=== PATIENT | male | born 1945 | race Caucasian/White ===

== ENCOUNTER → 2016-06-30 | Outpatient (REF) | payer MEDICARE, OTHER ==
[~2016-06-30] MED LIST: /TIOT18INH OR; ADAL30TA OR; ADV250INH INH; ALBU0.084 IN; ALBU17IN2; ALBU83IN INH; AMLO-65 PO; ASPI1TAB PO; ATOR1TAB19 PO; BABY81CH OR; BACITAB3 PO; BACL10TA2 OR; COMBVENT INH; DICL50TA2 PO; DICL50TAB PO; DICLOFENAC; DICY1CAP8 PO; DOXY150C PO; FISH1000 OR; FLOM5CAP PO; FLUC10TA PO; FURO20TA2 PO; HYDR-3565 PO; KLOR1TAB77 PO; LEVA500T PO; LIPI10TA OR; LISI20TA5 OR; MAGN400C2 PO; MAGN400T5 PO; MUCI30TA2 PO; MUCI600T34 PO; NASA0.057; NEUR300C; NICO14DI3 TD; NICODIS2 TD; NIFE30TA4; OMEG10006 PO; OMEP20CA3 PO; OXYGEN INH; POTA20TA PO; PRED10TA PO; PRED20TA PO; PRED50TA PO; PRIL20CA OR; PRO-AIR HFA INH; PROAAER INH; SPIR1CAP INH; SYMB80AE INH; SYMB80INH INH; TAMS0.4C2 PO; TRAZ50TA4 PO; TRAZAMINE PO; TYLE167L PO; VENTAER; VENTAER INH; VICO5TAB; VICO5TAB OR; VIT D 2000 OR; VITA-112 PO; VOLT75TA OR; ZITHTAB PO; trazadone PO
[2016-06-30 12:42] LABS: ANION GAP 9 MEQ/L (8-16); BLOOD UREA NITROGEN 17 MG/DL (7-18); CARBON DIOXIDE LEVEL 27 MEQ/L (21-32); CHLORIDE LEVEL 107 MEQ/L (98-107); CREATININE FOR GFR 0.96 MG/DL (0.70-1.30); GLOMERULAR FILTRATION RATE > 60.0 (>49); GLUCOSE, FASTING 84 MG/DL (80-110); POTASSIUM SERUM 4.1 MEQ/L (3.5-5.1); SODIUM LEVEL 143 MEQ/L (136-145)
== END ==
LOC: M SFHCPLAZ 08:34
PROVIDERS: ATTEND Family Medicine
DX: M79.89 Other specified soft tissue disorders (principal)

== ENCOUNTER 2016-08-11 03:56 | Inpatient (IN) | payer MEDICAID, MEDICARE, OTHER ==
[~2016-08-11] VITALS: Ht 193 cm; Wt 96.6 kg
[~2016-08-11 03:56] MED LIST changes: -HYDR-3565 PO; +HYDR-3719 PO
[2016-08-11] MEDS ORDERED: LEVALBUTEROL 1.25 MG/0.5 ML CONCENTRATE NEB As Ordered ONE (04:10)
[2016-08-11 04:20] LABS: BASO % 0.3 % (0.0-1.0); EOS # 0.2 K/mm3 (0.0-0.50); EOS % 1.5 % (0.0-3.0); LARGE UNSTAINED CELL # 0.3 K/mm3 (0.0-0.4); LARGE UNSTAINED CELL % 1.6 % (0.0-4.0); LYMPH % 23.8 % (24.0-44.0); MEAN CORPUSCULAR HEMOGLOBIN 30.2 pg (27.0-33.0); MEAN CORPUSCULAR HGB CONC 32.2 g/dl (32.0-36.5); MEAN CORPUSCULAR VOLUME 93.6 fl (80.0-96.0); MONO # 0.8 K/mm3 (0.0-0.8); MONO % 4.8 % (0.0-5.0); NEUTROPHILS # 10.8 K/mm3 (1.8-7.7); PLATELET COUNT, AUTOMATED 357 k/mm3 (150-450); RED CELL DISTRIBUTION WIDTH 15.2 % (11.5-14.5); WHITE BLOOD COUNT 15.8 K/mm3 (4.0-10.0)
[2016-08-11] MEDS ORDERED: dexameTHASONE 20 MG/5 ML VIAL (J1100) As Ordered ONE (04:22)
[2016-08-11] MEDS ORDERED: MAGNESIUM SULFATE 1 GM/100 ML D5W BAG (10MG/ML) (J3475) As Ordered ONE (04:23)
[2016-08-11 04:30] LABS: ABG DEVICE NASAL CANN; ABG HCO3 21.8 MEQ/L (22.0-26.0); ABG PARTIAL PRESSURE CO2 31.8 mmHg (35.0-45.0); ABG STANDARD HCO3 23.3 MEQ/L (22.0-26.0); ABG TOTAL CO2 22.8 MEQ/L (23.0-31.0); ABG pH (ARTERIAL) 7.454 UNITS (7.350-7.450)
[2016-08-11] MEDS ORDERED: ACETAMINOPHEN 325 MG TAB As Ordered ONE (04:36)
[2016-08-11] MEDS ORDERED: CEFUROXIME INJ 750 MG VIAL (J0697) As Ordered ONE (04:36)
[2016-08-11] MEDS ORDERED: AZITHROMYCIN INJ 500MG VIAL (J0456) As Ordered ONE (04:37)
[2016-08-11 04:45] LABS: ANION GAP 8 MEQ/L (8-16); BLOOD UREA NITROGEN 23 MG/DL (7-18); CALCIUM LEVEL 8.4 MG/DL (8.8-10.2); CARBON DIOXIDE LEVEL 26 MEQ/L (21-32); CHLORIDE LEVEL 106 MEQ/L (98-107); CREATININE FOR GFR 1.22 MG/DL (0.70-1.30); GLOMERULAR FILTRATION RATE > 60.0 (>49); GLUCOSE, FASTING 139 MG/DL (80-110); POTASSIUM SERUM 4.2 MEQ/L (3.5-5.1); SODIUM LEVEL 140 MEQ/L (136-145)
[2016-08-11] MEDS ORDERED: TRAZ50TA4 PO (04:54)
[2016-08-11] MEDS ORDERED: ONDANSETRON 4MG/2ML VIAL (J2405) IV PRN (07:00)
[2016-08-11] MEDS ORDERED: ACETAMINOPHEN TAB 650MG DOSE (2X325MG) PO PRN (07:00)
[2016-08-11] MEDS ORDERED: IPRATROPIUM 0.5MG/ALBUTEROL 2.5MG INH SOL UD 3ML (DUONEB)(J7620) NEB PRN (07:00)
--- NOTE | 2016-08-11 07:21 | HPEPDOC ---
General Date of Admission 08/11/16 Chief Complaint The patient is a 71-year-old male admitted with a reason for visit of Resp Distress. History of Present Illness 71-year-old male with past medical history of hypertension, dyslipidemia, GERD, insomnia, and COPD on 2 L of home oxygen presented to the ER with a chief complaint of increasing shortness of breath. The patient states that he woke up in the middle the night short of breath and wheezing. He also notes a cough productive of yellowish-green sputum with subjective fevers during this time. At baseline, the patient states he can walk about 5 feet before feeling short of breath, however during this time the patient said that he felt short of breath even at rest. The patient denies any chest pain, palpitations, PND, orthopnea, or increase in lower extremity swelling. The patient denies any sick contacts, recent travel, or any other acute complaints at this time. In the ER, a chest x-ray was suggestive of a right-sided infiltrate. On physical exam the patient was noted to have diffuse expiratory wheezing on auscultation. The patient will be admitted to the hospital service for further evaluation and management of COPD exacerbation. Home Medications Scheduled Aspirin (Aspirin 81) 81 Mg Tab 81 MG PO DAILY (Reported) DINNERTIME Atorvastatin Calcium (Atorvastatin Calcium) 10 Mg Tab 10 MG PO DAILY (Reported ) DINNERTIME Budesonide/Formoterol (Symbicort 80-4.5 Mcg/Act) 60 Puff/Inhaler Aers 2 PUFF INH BID (Reported) Cholecalciferol (Vitamin D-1000) 1,000 Unit Tab 1,000 UNIT PO DAILY (Reported) Diclofenac Sodium (Diclofenac Sodium Dr) 50 Mg Tab 50 MG PO DAILY (Reported) Furosemide (Furosemide) 20 Mg Tab 20 MG PO DAILY (Reported) Magnesium Oxide (Magnesium Oxide 400) 400 Mg Tab 400 MG PO DAILY (Reported) [place] 3 Polyunsat Fatty Acids ([place]-3 Fish Oil 1000 mg) 1 Cap Cap 1,000 MG PO Q2D (Reported) Omeprazole (Omeprazole) 20 Mg Cap 20 MG PO DAILY (Reported) Potassium Chloride (Klor-Con M20) 20 Meq Tabcr 20 MEQ PO DAILY (Reported) DINNERTIME Tiotropium [place] Monohydrate (Spiriva Handihaler) 18 Mcg Cap 18 MCG INH DAILY (Reported) Trazodone HCl (Trazodone HCl) 50 Mg Tab 100 MG PO QHS (Reported) Scheduled PRN Acetaminophen/Hydrocodone (Hydrocodone/Acetaminophen 10-325 mg) 1 Tab Tab 1 TAB PO Q4H PRN PRN PAIN (Reported) Albuterol Sulfate (Albuterol Sulfate) 2.5 Mg/3 Ml Nebu 2.5 MG INH QID PRN PRN SHORTNESS OF BREATH (Reported) Trazodone HCl (Trazodone HCl) 50 Mg Tab 50 MG PO QHS PRN PRN SLEEP (Reported) IN ADDITION TO 100 MG IF STILL AWAKE Allergies Coded Allergies: Heparin (Unverified Allergy, Unknown, 08/11/16) Enoxaparin (Verified Adverse Reaction, Intermediate, hematochezia, 09/24/14 ) Patient developed hematochezia on 3 seperate occasions using lovenox for dvt prophylaxis. Past Medical History Medical History As noted in HPI. Surgical History Laminectomy, tonsillectomy, adenoidectomy, colonoscopy in 2011 Family History Significant Family History: Other (mother had stomach cancer, father colon cancer) Social History * Smoker: other (smoked 2 packs per day of tobacco since age 15, quit 2 years ago) Alcohol: denies Drugs: denies Review of Symptoms Other systems 10 point review of systems negative unless otherwise specified in HPI. Physical Examination General Exam: Positive: Alert, Cooperative, No Acute Distress ENT Exam: Positive: Atraumatic, Mucous membr. moist/pink Neck Exam: Negative: JVD Chest Exam: Positive: Other (diffuse bilateral expiratory wheeze noted.), Negative: Rales Heart Exam: Positive: Normal S1, Normal S2, Tachycardic Telemetry: Positive: Sinus Abdomen Exam: Positive: Soft, Negative: Tenderness Extremity Exam: Negative: Swelling, Tenderness Vital Signs As noted in EMR Laboratory Data Labs 24H Laboratory Tests 2 08/11/16 04:07: Anion Gap 8, Arterial Blood pH 7.454H, Arterial Blood Partial Pressure CO2 31.8L , Arterial Blood Partial Pressure O2 52.0L, Arterial Blood Total CO2 22.8L, Arterial Blood HCO3 21.8L, Arterial Blood Base Excess -1.0, Arterial Blood Oxygen Saturation 86.3L, White Blood Count 15.8H, Red Blood Count 5.13, Hemoglobin 15.5, Hematocrit 48.0, Mean Corpuscular Volume 93.6, Mean Corpuscular Hemoglobin 30.2, Mean Corpuscular Hemoglobin Concent 32.2, Red Cell Distribution Width 15.2H, Platelet Count 357, Neutrophils (%) (Auto) 68.0H, Lymphocytes (%) (Auto) 23.8L, Monocytes (%) (Auto) 4.8, Eosinophils (%) (Auto) 1.5, Basophils (%) (Auto) 0.3, Neutrophils # (Auto) 10.8H, Lymphocytes # (Auto) 4.0, Monocytes # (Auto) 0.8, Eosinophils # (Auto) 0.2, Basophils # (Auto) 0.0, Blood Gas Bicarbonate Standard 23.3, Blood Urea Nitrogen 23H, Creatinine 1.22, Sodium Level 140, Potassium Level 4.2, Chloride Level 106, Carbon Dioxide Level 26, Calcium Level 8.4L, Total Creatine Kinase 64, Creatine Kinase MB 2.0, Creatine Kinase MB Relative Index 3.12, Glomerular Filtration Rate > 60.0, Large Unclassified Cells # 0.3, Large Unclassified Cells % 1.6, Oxygen Delivery Device NASAL LAINEY, Troponin I < 0.02 08/11/16 04:10: Lactic Acid (Sepsis) 1.8 CBC/BMP Laboratory Tests 08/11/16 04:07 Calcium Level 8.4 L, Total Creatine Kinase 64, Red Blood Count 5.13, Mean Corpuscular Volume 93.6, Mean Corpuscular Hemoglobin 30.2, Mean Corpuscular Hemoglobin Concent 32.2, Red Cell Distribution Width 15.2 H, Neutrophils (%) ( Auto) 68.0 H, Lymphocytes (%) (Auto) 23.8 L, Monocytes (%) (Auto) 4.8, Eosinophils (%) (Auto) 1.5, Basophils (%) (Auto) 0.3, Neutrophils # (Auto) 10.8 H, Lymphocytes # (Auto) 4.0, Monocytes # (Auto) 0.8, Eosinophils # (Auto) 0.2, Basophils # (Auto) 0.0 Microbiology Microbiology 08/11/16 Blood Culture, Received Pending 08/11/16 Blood Culture, Received Pending Plan / VTE VTE Prophylaxis Ordered?: Yes Plan Plan COPD exacerbation secondary to community acquired pneumonia Admit to telemetry Chest x-ray notable for right-sided infiltrate Blood cultures, sputum cultures ordered We will cover the patient required pneumonia with Rocephin and azithromycin Solumedrol 40 mg every 12 hours Continue Symbicort, Spiriva, nebulizer therapy We'll continue to monitor the patient's respiratory status Dyslipidemia Continue statin GERD Continue PPI Insomnia Continue trazodone DVT prophylaxis-patient apparently allergic to Lovenox, heparin. We will place the patient on TEDs The patient will be admitted under the service of Dr. Hollins, who will begin to follow the patient on 08/11/2016 at 7am. SYLVIA VAZQUEZ MD Aug 11, 2016 07:20
[2016-08-11] MEDS ORDERED: SYMBICORT 80/4.5MCG INHALER 6GM INH SCH (08:00)
[2016-08-11] MEDS: TIOTROPIUM INHALER/CAPSULE (SPIRIVA) INH SCH (08:00)
[2016-08-11] MEDS: IPRATROPIUM 0.5MG/ALBUTEROL 2.5MG INH SOL UD 3ML (DUONEB)(J7620) NEB SCH ×5 (08:00→23:52)
--- NOTE | 2016-08-11 08:04 | REP ---
Clinical: Shortness of breath. Comparison: 02/08/2016. Findings: Chronic changes are appreciated with superimposed right mid to lower lobe infiltrate suggesting atelectasis and pneumonia. No obvious effusion. No pneumothorax. Mediastinum and cardiac silhouette stable. Skeletal structures intact. Impression: Acute right lower lobe atelectasis/pneumonia. Follow-up to resolution. Signed by Alvarez Jimenez MD 08/11/2016 07:54 A
--- NOTE | 2016-08-11 08:16 | ECGEPIP ---
Stationary ECG Study [facility] - ED Test Date: 2016-08-11 Pat Name: GEORGES LERMA Department: Room: - Gender: M [employer]: SARA : [id number] Requested By: AMADEO TATE Order Number: [id number] Reading MD: Carmen Alston Measurements Intervals [place] Rate: 124 P: 60 UT: 144 QRS: 62 QRSD: 83 T: 64 QT: 298 QTc: 429 Interpretive Statements SINUS TACHYCARDIA ABNORMAL RHYTHM ECG NSTTW ABNORMALITY DECREASED ECTOPY COMPARED 02/16/16 Electronically Signed On 08-11-2016 8:16:11 EST by Carmen Alston
[2016-08-11] MEDS: VITAMIN D 1,000 INTERNATIONAL UNITS TABLET PO SCH (09:00)
[2016-08-11] MEDS: SYMBICORT 80/4.5MCG INHALER 6GM INH SCH ×2 (09:00→22:44)
[2016-08-11] MEDS: MAGNESIUM OXIDE 400 MG TAB (MAG-OX) PO SCH (09:00)
[2016-08-11] MEDS: OMEPRAZOLE 20 MG CAP PO SCH (09:00)
[2016-08-11] MEDS: FUROSEMIDE 20 MG TAB PO SCH (09:00)
[2016-08-11] MEDS: methylPREDNISolone INJ 40 MG/1 ML VIAL (J2920) IV SCH ×2 (10:00→20:40)
[2016-08-11] MEDS ORDERED: NORCO, ANEXSIA 5/325MG TABLET (HYDROcodone/ACETAMINOPHEN) As Ordered ONE (10:15)
[2016-08-11 11:55] VITALS: BP 121/70
[2016-08-11] MEDS ORDERED: IPRATROPIUM 0.5MG/ALBUTEROL 2.5MG INH SOL UD 3ML (DUONEB)(J7620) As Ordered ONE (11:59)
[2016-08-11] MEDS: cefTRIAXone SOD 1 GM in D5W MINI-BAG PLUS 50 ML IV SCH ×2 (12:00→23:51)
[2016-08-11] MEDS ORDERED: cefTRIAXone SOD 1 GM VIAL (J0696) As Ordered ONE (13:20)
--- NOTE | 2016-08-11 15:12 | EDDOCDS ---
Nurse's Notes [facility] Name: Jorge Morgan Age: 71 yrs Sex: Male : 1945 Arrival Date: 08/11/2016 Time: 03:56 Bed 20 Private MD: Diagnosis: Pneumonia in diseases classified elsewhere;Chronic obstructive pulmonary disease with acute lower respiratory infection Presentation: 08/11 03:59 Presenting complaint: EMS states: Pt to ED by EMS for evaluation of "difficulty mv5 breathing", EMS reports sp02 60's on arrival, wears home 02. Also report nausea and dry heaves. Adult Sepsis Screening: The patient does not have new or worsening altered mentation. Patient has a respiratory rate of greater than or equal to 22 (1 point). Systolic blood pressure is greater than 100. Patient has a qSOFA score of 0- Negative Sepsis Screen. Suicide/Homicide risk assessment- the patient denies having any suicidal and/or homicidal ideations and does not present with any other emotional, behavioral or mental health complaints. Status: Patient is not a administrative services manager or dependent. Transition of care: patient was not received from another setting of care. 03:59 Acuity: MARKUS Level 2 mv5 03:59 Method Of Arrival: Ambulance mv5 Triage Assessment: 04:07 General: Appears uncomfortable, well nourished, Behavior is anxious. Pain: Location: mv5 left low back, left mid back, right mid back and right low back Pain currently is 5 out of 10 on a pain scale. Pain does not radiate. Pain began Chronic pain. The patient is triaged at the bedside. See Assessment in Nurses Notes section of ED record. Neurological: Level of Consciousness is awake, alert, Oriented to person, place, time. Cardiovascular: Capillary refill < 3 seconds. Cardiovascular: Heart tones S1 S2 present Pulses are all present. Respiratory: Onset: The symptoms/episode began/occurred today, Airway is patent Respiratory effort is even, unlabored, Respiratory pattern is regular, symmetrical, tachypnea. Respiratory: Breath sounds with wheezes bilaterally. GI: Reports nausea. : No deficits noted. Derm: Skin is pink, warm & dry. Historical: - Allergies: Lovenoxrash, unsure heparin vs lovenox; Heparinrash/unsure heparin vs lovenox; - Home Meds: 1. aspirin 81 mg Oral TbEC 1 tab once daily 2. diclofenac sodium 50 mg oral TbEC 1 tab 2 times per day 3. Klor-Con M20 20 mEq Oral TbTQ 1 tab once daily 4. Lasix 20 mg Oral tab 1 tab once daily 5. Lipitor 10 mg Oral tab 1 tab once daily 6. Lortab 10-325 10-325 mg oral tab 1 tab every 4-6 hours 7. magnesium oxide 400 mg Oral cap daily 8. nicoderm - 14mg patch daily 9. omeprazole 20 mg Oral cpDR 1 cap once daily 10. Spiriva with HandiHaler 18 mcg Inhl CpDv 1 cap once daily 11. tamsulosin 0.4 mg oral cp24 1 cap once daily 12. trazodone 50 mg Oral tab 1 tab bedtime 13. Vitamin D Oral - PMHx: Arthritis; Benign Prostatic Hyperplasia; CHF; Chronic Back pain; COPD; Emphysema; GERD; Hypercholesterolemia; - PSHx: Adenoidectomy; Tonsillectomy; back surgery; - Social history: Smoking status: Patient states former smoker of tobacco. No barriers to communication noted, The patient speaks fluent Cambodian. - Family history: No immediate family members are acutely ill. - : The pt / caregiver states he / she is not on anticoagulants. Home medication list is obtained from the patient. - Exposure Risk Screening:: None identified. - Code Status:: No code. Screenin:13 Screening information is obtained from the patient. Fall risk: No risks identified. mv5 Assistance ADL's: requires no assistance with activities of daily living. Assistance ADL's: Requires assistance with housework, assistance is provided by. Abuse/DV Screen: The patient / caregiver reports he/she is: not in a situation that causes fear, pain or injury. Nutritional screening: No deficits noted. Advance Directives: There is an active DNR order but there is no copy available at this time. home support is adequate. Assessment: 04:13 General: See triage assessment. Cardiovascular: Capillary refill < 3 seconds Heart mv5 tones S1 S2 present Pulses are all present. Rhythm is sinus tachycardia No ectopy. 04:58 General: Appears in no apparent distress, comfortable, Behavior is cooperative, mv5 pleasant, Agitation has improved from arrival.. Neurological: Level of Consciousness is awake, alert, Oriented to person, place, time. Cardiovascular: Rhythm is sinus tachycardia No ectopy. Respiratory: Airway is patent Respiratory effort is even, unlabored, Respiratory pattern is regular, symmetrical, Breath sounds with wheezes bilaterally. Derm: Skin is pink, warm & dry. 06:15 General: Appears in no apparent distress, comfortable, Behavior is cooperative, mv5 pleasant. Neurological: Level of Consciousness is awake, alert, Oriented to person, place, time. Cardiovascular: Rhythm is sinus tachycardia No ectopy. Respiratory: Airway is patent Respiratory effort is even, unlabored, Respiratory pattern is regular, symmetrical. Derm: Skin is pink, warm & dry. 07:17 General: Appears in no apparent distress, comfortable, Behavior is cooperative. Pain: mcp Denies pain. Neurological: Level of Consciousness is awake, alert, Oriented to person, place, time, Moves all extremities. Speech is normal. Respiratory: Airway is patent Respiratory effort is even, unlabored, Breath sounds with crackles bilaterally. Reports cough that is persistent. Derm: Skin is pink, warm & dry. 09:20 General: Appears in no apparent distress, ill, Behavior is appropriate for age, dsf cooperative, pleasant. Pain: Location: back Pain currently is 10 out of 10 on a pain scale. Quality of pain is described as throbbing. Neurological: Level of Consciousness is awake, alert, Oriented to person, place, time. Cardiovascular: Capillary refill < 3 seconds Heart tones S1 S2 present Rhythm is sinus rhythm No ectopy. Respiratory: Airway is patent Respiratory effort is even, unlabored, Respiratory pattern is regular, symmetrical, Breath sounds with wheezes expiratory bilaterally. Reports cough that is productive. GI: Abdomen is non- distended Bowel sounds present X 4 quads. Abd is soft and non tender X 4 quads. Derm: Skin is pink, warm & dry. 10:24 General: Appears in no apparent distress. Neurological: Level of Consciousness is dsf awake, alert. Cardiovascular: Capillary refill < 3 seconds Rhythm is sinus rhythm No ectopy. Respiratory: Airway is patent Respiratory effort is even, unlabored, Respiratory pattern is regular, symmetrical. Derm: Skin is pink, warm & dry. 10:40 General: Dr. brown in room examining patient . dsf 11:52 Adult Sepsis Screening: The patient does not have new or worsening altered mentation. dsf Patient has a respiratory rate of greater than or equal to 22 (1 point). Systolic blood pressure is greater than 100. Patient has a qSOFA score of 1- Negative Sepsis Screen. General: Appears in no apparent distress, Behavior is appropriate for age, cooperative. Neurological: Level of Consciousness is awake, alert. Cardiovascular: Capillary refill < 3 seconds Rhythm is sinus rhythm No ectopy. Respiratory: Airway is patent Respiratory effort is even, unlabored, Respiratory pattern is regular, symmetrical. Derm: Skin is pink, warm & dry. 12:52 General: Appears in no apparent distress, Behavior is appropriate for age, cooperative. bc Neurological: Level of Consciousness is awake, alert. Cardiovascular: Capillary refill < 3 seconds. Respiratory: Airway is patent Respiratory effort is even, unlabored, Respiratory pattern is regular, symmetrical. Derm: Skin is pink, warm & dry. 13:44 Adult Sepsis Screening: The patient does not have new or worsening altered mentation. dsf Patient's respiratory rate is less than 22. Systolic blood pressure is greater than 100. Patient has a qSOFA score of 0- Negative Sepsis Screen. General: Appears in no apparent distress, Behavior is appropriate for age, cooperative. Neurological: Level of Consciousness is awake, alert. Cardiovascular: Capillary refill < 3 seconds Rhythm is sinus rhythm No ectopy. Respiratory: Airway is patent Respiratory effort is even, unlabored, Respiratory pattern is regular, symmetrical. Derm: Skin is pink, warm & dry. 14:25 General: pt ate 25% of lunch tray. pt reports he doesn't have an appetite . dsf Vital Signs: 04:12 Pulse 125; Resp 26 S; Temp 101.7(TE); Pulse Ox 92% ; Weight 94.35 kg (R); Height 6 ft. cln 4 in. (193.04 cm) (R); 04:57 BP 129 / 72 (auto/); mv5 04:57 Pulse 119 MON; Pulse Ox 92% on 15% Venturi mask; mv5 05:00 BP 131 / 75 (auto/); mv5 05:00 Pulse 120 MON; Pulse Ox 92% ; mv5 05:15 BP 134 / 74 (auto/); mv5 05:15 Pulse 115 MON; Pulse Ox 95% ; mv5 05:32 BP 123 / 66 (auto/); mv5 05:32 Pulse 114 MON; Pulse Ox 94% ; mv5 05:45 BP 119 / 66 (auto/); mv5 05:45 Pulse 112 MON; Pulse Ox 93% ; mv5 06:00 BP 121 / 69 (auto/); mv5 06:00 Pulse 108 MON; Pulse Ox 92% ; mv5 07:15 BP 99 / 61 (auto/); mcp 07:15 Pulse 93 MON; Pulse Ox 94% ; mcp 08:45 BP 105 / 63 (auto/); dsf 08:45 Pulse 91 MON; Pulse Ox 92% ; dsf 09:00 Pulse 88 MON; Pulse Ox 96% ; dsf 09:00 BP 97 / 60 (auto/); dsf 09:10 Pulse 90 MON; Pulse Ox 93% ; dsf 09:10 BP 106 / 63 (auto/); dsf 09:15 BP 102 / 66 (auto/); dsf 09:15 Pulse 90 MON; Pulse Ox 95% ; dsf 09:19 Pulse 87; Resp 21; Temp 98.5(O); Pulse Ox 96% ; Pain 10/10; dsf 10:41 BP 121 / 70 (auto/); dsf 10:41 Pulse 84 MON; Pulse Ox 94% on 50% Venturi mask; dsf 13:37 BP 99 / 55 (auto/); dsf 13:37 Pulse 76 MON; Pulse Ox 94% ; dsf 14:49 BP 121 / 70; Pulse 79; Resp 24; Temp 98.1(O); Pulse Ox 95% on Venturi mask; kcs 04:12 Body Mass Index 25.32 (94.35 kg, 193.04 cm) cln Vitals: 04:07 Log In Time N/A - ambulance arrival. mv5 ED Course: 03:58 Patient visited by Sheyla Houston, Circuit Clerk. ml3 03:58 Deepika Urbina,RN is Primary Nurse. ml3 03:58 Patient moved to Waiting ml3 03:58 Patient moved to 1 ml3 04:01 Triage Initiated mv5 04:04 Amadeo Tate DO is Attending Physician. cs11 04:04 Patient visited by Amadeo Tate DO. cs11 04:13 Patient visited by Kristina Mccauley PCA. cln 04:13 The patient / caregiver is instructed regarding the plan of care and ED course. mv5 04:13 Maintain field IV. Dressing intact. Site clean & dry. Gauge & site: 20g, LFA. mv5 04:23 Patient visited by Kristina Mccauley PCA. cln 04:23 EKG done. (by ED staff). Reviewed by Amadeo Tate DO. cln 04:31 Patient moved to Radiology tmb 04:34 Patient moved to 1 tmb 05:00 Inserted saline lock: 20 gauge in right hand and blood collected. The patient tolerated mv5 the procedure well. 05:01 Patient visited by Deepika Urbina,VIJAY. mv5 05:44 Patient visited by Deepika Urbina,VIJAY. mv5 06:14 Patient visited by Deepika Urbina RN. mv5 06:23 [facility] Payment Agreement was scanned into [employer] and attached to record. hs2 06:27 Femi Colunga is Hospitalizing Provider. cs11 07:12 Primary Nurse role handed off by Deepika Urbina RN mv5 07:18 Patient visited by Luz Sparks RN. mcp 08:07 Chest, 1 View Returned. EDMS 08:22 Patient visited by Waleska Pleitez. nb2 08:22 Diet: Patient given regular meal. nb2 08:40 EKG-ADULT Returned. EDMS 09:20 Patient visited by Opal Santiago RN. dsf 10:25 Patient visited by Opal Santiago RN. dsf 10:51 Patient visited by Opal Santiago RN. dsf 11:53 Patient visited by Opal Santiago RN. dsf 13:16 Patient visited by Benigno Edgar, VIJAY. bcj 13:45 Patient visited by Opal Santiago RN. dsf 14:26 Patient moved to [facility] Administered Medications: 04:17 Drug: Levalbuterol 1.25 mg [levalbuterol 1.25 mg/0.5 mL solution for nebulization (0.5 jh6 mL)] Route: Nebulizer; 04:32 Drug: Magnesium Sulfate 3 grams [magnesium sulfate 1 gram/100 mL in dextrose 5 % mv5 intravenous piggyback] {Co-Signature: [email or web address] (Valdez Medeiros PATIENT SCHEDULING COORDINATOR).} Route: IVPB; Infused Over: 3 hrs; Site: left forearm; 04:33 Drug: Dexamethasone 8 mg [dexamethasone 4 mg/mL injection solution] Route: IV; Rate: mv5 bolus; Site: left forearm; 05:31 Follow up: Response: No Adverse Reaction mv5 04:37 Drug: Levalbuterol 1.25 mg [levalbuterol 1.25 mg/0.5 mL solution for nebulization (0.5 jh6 mL)] Route: Nebulizer; 04:56 Drug: NS 0.9% 500 ml [sodium chloride 0.9 % intravenous solution] Route: IV; Rate: mv5 bolus; Site: left forearm; 05:43 Follow up: IV Status: Completed infusion mv5 04:57 Drug: Levalbuterol 1.25 mg [levalbuterol 1.25 mg/0.5 mL solution for nebulization (0.5 jh6 mL)] Route: Nebulizer; 04:57 Drug: cefUROXime 1.5 grams [cefuroxime sodium 750 mg solution for injection] Route: IV; mv5 Rate: calculated rate; Infused Over: 30 mins; Site: right hand; 05:43 Follow up: IV Status: Completed infusion mv5 04:57 Drug: Acetaminophen 975 mg [acetaminophen 325 mg tablet (3 tabs)] Route: PO; mv5 05:31 Follow up: Response: No Adverse Reaction mv5 05:43 Drug: azithromycin 500 mg [azithromycin 500 mg intravenous solution] Route: IVPB; mv5 Infused Over: 1 hrs; Site: right hand; 06:59 Follow up: IV Status: Completed infusion mv5 10:16 Drug: HYDROcodone-acetaminophen 2 tabs [hydrocodone 5 mg-acetaminophen 325 mg tablet (2 dsf tabs)] Route: PO; RT: 04:05 O2 via non-rebreather \\T\\ 15L/min. jh6 04:05 ABG's drawn from right radial artery pressure held for 5 minutes no bleeding noted jh6 pressure bandage applied specimen sent pt. tolerated well. 04:17 Initial Med Neb Given as ordered Patient was instructed and evaluated on procedure jh6 Patient tolerated procedure well without adverse effect. O2 via Venturi mask \\T\\ 15L/min - 50%. Respiratory: Airway is patent Respiratory effort is labored, Use of accessory muscles noted. Respiratory pattern is tachypnea Breath sounds are diminished in right upper lobe, left upper lobe, right middle lobe, left lower lobe, right lower lobe, left posterior upper lobe, right posterior upper lobe, left posterior lower lobe, right posterior middle lobe and right posterior lower lobe Breath sounds with wheezes in right upper lobe, left upper lobe, right middle lobe, left lower lobe and right lower lobe at expiration. 04:27 Respiratory: Airway is patent Respiratory effort is even, labored, Respiratory pattern jh6 is tachypnea Breath sounds are diminished in right upper lobe, left upper lobe, right middle lobe, left lower lobe and right lower lobe Breath sounds with wheezes in right upper lobe, left upper lobe, right middle lobe, left lower lobe and right lower lobe at expiration Reports some improvement after first neb. 04:37 Respiratory: Airway is patent Respiratory effort is even, labored, Respiratory pattern jh6 is regular symmetrical, Breath sounds are diminished in right upper lobe, left upper lobe, right middle lobe, left lower lobe and right lower lobe Breath sounds with wheezes in right upper lobe, left upper lobe and right middle lobe at expiration Reports much improvement since arrival. Order Results: Lab Order: -Arterial Blood Gas; SPEC'M 08/11/16 04:07 Test: ABG pH (ARTERIAL); Value: 7.454; Range: 7.350-7.450; Abnormal: Above high normal; Units: UNITS; Status: F Test: ABG PARTIAL PRESSURE CO2; Value: 31.8; Range: 35.0-45.0; Abnormal: Below low normal; Units: mmHg; Status: F Test: ABG PARTIAL PRESSURE O2; Value: 52.0; Range: 75.0-100.0; Abnormal: Below low normal; Units: mmHg; Status: F Test: ABG TOTAL CO2; Value: 22.8; Range: 23.0-31.0; Abnormal: Below low normal; Units: MEQ/L; Status: F Test: ABG HCO3; Value: 21.8; Range: 22.0-26.0; Abnormal: Below low normal; Units: MEQ/L; Status: F Test: ABG BASE EXCESS; Value: -1.0; Range: -2.0-2.0; Status: F Test: ABG STANDARD HCO3; Value: 23.3; Range: 22.0-26.0; Units: MEQ/L; Status: F Test: ABG O2 SATURATION; Value: 86.3; Range: 95.0-99.0; Abnormal: Below low normal; Units: %; Status: F Test: ABG DEVICE; Value: NASAL LAINEY; Status: F Lab Order: Basic Metabolic Profile; SPEC'M 08/11/16 04:07 Test: GLUCOSE, FASTING; Value: 139; Range: 80-110; Abnormal: Above high normal; Units: MG/DL; Status: F Test: BLOOD UREA NITROGEN; Value: 23; Range: 7-18; Abnormal: Above high normal; Units: MG/DL; Status: F Test: CREATININE FOR GFR; Value: 1.22; Range: 0.70-1.30; Units: MG/DL; Status: F Test: GLOMERULAR FILTRATION RATE; Value: > 60.0; Range: >49; Status: F Test: SODIUM LEVEL; Value: 140; Range: 136-145; Units: MEQ/L; Status: F Test: POTASSIUM SERUM; Value: 4.2; Range: 3.5-5.1; Units: MEQ/L; Status: F Test: CHLORIDE LEVEL; Value: 106; Range: 98-107; Units: MEQ/L; Status: F Test: CARBON DIOXIDE LEVEL; Value: 26; Range: 21-32; Units: MEQ/L; Status: F Test: ANION GAP; Value: 8; Range: 8-16; Units: MEQ/L; Status: F Test: CALCIUM LEVEL; Value: 8.4; Range: 8.8-10.2; Abnormal: Below low normal; Units: MG/DL; Status: F Test Note: ; Units are mL/min/1.73 m2 Chronic Kidney Disease Staging per NKF: Stage I & II GFR >=60 Normal to Mildly Decreased Stage III GFR 30-59 Moderately Decreased Stage IV GFR 15-29 Severely Decreased Stage V GFR <15 Very Little GFR Left ESRD GFR <15 on ADJUNCT MATHEMATICS INSTRUCTOR Lab Order: CBC with Diff; SPEC'M 08/11/16 04:07 Test: WHITE BLOOD COUNT; Value: 15.8; Range: 4.0-10.0; Abnormal: Above high normal; Units: K/mm3; Status: F Test: RED BLOOD COUNT; Value: 5.13; Range: 4.30-6.10; Units: M/mm3; Status: F Test: HEMOGLOBIN; Value: 15.5; Range: 14.0-18.0; Units: g/dl; Status: F Test: HEMATOCRIT; Value: 48.0; Range: 42.0-52.0; Units: %; Status: F Test: MEAN CORPUSCULAR VOLUME; Value: 93.6; Range: 80.0-96.0; Units: fl; Status: F Test: MEAN CORPUSCULAR HEMOGLOBIN; Value: 30.2; Range: 27.0-33.0; Units: pg; Status: F Test: MEAN CORPUSCULAR HGB CONC; Value: 32.2; Range: 32.0-36.5; Units: g/dl; Status: F Test: RED CELL DISTRIBUTION WIDTH; Value: 15.2; Range: 11.5-14.5; Abnormal: Above high normal; Units: %; Status: F Test: PLATELET COUNT, AUTOMATED; Value: 357; Range: 150-450; Units: k/mm3; Status: F Test: NEUTROPHILS %; Value: 68.0; Range: 36.0-66.0; Abnormal: Above high normal; Units: %; Status: F Test: LYMPH %; Value: 23.8; Range: 24.0-44.0; Abnormal: Below low normal; Units: %; Status: F Test: MONO %; Value: 4.8; Range: 0.0-5.0; Units: %; Status: F Test: EOS %; Value: 1.5; Range: 0.0-3.0; Units: %; Status: F Test: BASO %; Value: 0.3; Range: 0.0-1.0; Units: %; Status: F Test: LARGE UNSTAINED CELL %; Value: 1.6; Range: 0.0-4.0; Units: %; Status: F Test: NEUTROPHILS #; Value: 10.8; Range: 1.8-7.7; Abnormal: Above high normal; Units: K/mm3; Status: F Test: LYMPH #; Value: 4.0; Range: 1.5-4.5; Units: K/mm3; Status: F Test: MONO #; Value: 0.8; Range: 0.0-0.8; Units: K/mm3; Status: F Test: EOS #; Value: 0.2; Range: 0.0-0.50; Units: K/mm3; Status: F Test: BASO #; Value: 0.0; Range: 0.0-0.2; Units: K/mm3; Status: F Test: LARGE UNSTAINED CELL #; Value: 0.3; Range: 0.0-0.4; Units: K/mm3; Status: F Lab Order: Cardiac Injury Profile; SPEC'08/11/16 04:07 Test: CPK CREATINE PHOSPHOKINASE; Value: 64; Range: 39-308; Units: U/L; Status: F Test: CK-MB VALUE MASS; Value: 2.0; Range: 0.0-3.6; Units: NG/ML; Status: F Test: MB/CK RELATIVE INDEX; Value: 3.12; Range: < OR =4; Status: F Test Note: ; DIAGNOSIS CRITERIA MMB ng/ml Relative Index (RI) NON-AMI < or = 5 N/A GONZÁLES ZONE > 5 < or = 4 AMI > 5 > 4 Lab Order: Troponin; SPEC08/11/16 04:07 Test: TROPONIN I; Value: < 0.02; Range: < 0.10; Units: NG/ML; Status: F Test Note: ; Troponin I Reference Interval for [facility] LOCI: 99th Percentile= 0.00-0.045 ng/ml Risk Stratification: <= 0.10 ng/ml Decreased Risk for Adverse Clinical Events. 0.10-1.50 ng/ml Increased Risk for Adverse Clinical Events. Evaluation of additional criterion and/or repeat testing in 2-6 hours is suggested to rule out myocardial damage. >= 1.50 ng/ml Indicative of Myocardial Injury. Lab Order: Lactic Acid (Gonzáles tube on ice); SPEC08/11/16 04:10 Test: LACTIC ACID SEPSIS PROTOCOL; Value: 1.8; Range: 0.4-2.0; Units: MMOL/L; Status: F Radiology Order: Chest, 1 View Test: Chest, 1 View REASON FOR EXAMINATION: Shortness of Breath; Clinical: Shortness of breath.; ; Comparison: 02/08/2016.; ; Findings:; Chronic changes are appreciated with superimposed right mid to lower lobe; infiltrate suggesting atelectasis and pneumonia. No obvious effusion. No; pneumothorax. Mediastinum and cardiac silhouette stable. Skeletal structures; intact.; ; Impression:; Acute right lower lobe atelectasis/pneumonia. Follow-up to resolution.; ; ; Signed by; Alvarez Jimenez MD 08/11/2016 07:54 A; Radiology Order: EKG-ADULT Test: EKG-ADULT REASON FOR EXAMINATION: Shortness of Breath; Stationary ECG Study; [facility] - ED; ; Test Date: 2016-08-11; Pat Name: JORGE MORGAN Department:; Room: -; Gender: M [employer]: SARA; : 1945 Requested By: AMADEO TATE; Order Number: [id number] Reading MD: Carmen Alston; Measurements; Intervals Hardy; Rate: 124 P: 60; VA: 144 QRS: 62; QRSD: 83 T: 64; QT: 298; QTc: 429; Interpretive Statements; SINUS TACHYCARDIA; ABNORMAL RHYTHM ECG; NSTTW ABNORMALITY; DECREASED ECTOPY COMPARED 02/16/16; Electronically Signed On 08-11-2016 8:16:11 EST by Carmen Alston; Outcome: 06:27 Decision to Hospitalize by Provider. cs11 15:11 Patient left the ED. kcs Signatures: Dispatcher [employer] EDMS Anabel Nicole, RN RN Benigno Guillaume, RN RN Luz Santiago, RN RN [facility], Circuit Clerk Unit ml3 Opal Santiago,RN RN Rj Wetzel [facility] Amadeo Tate DO DO cs11 [place] Brannon Hillary, Reg Reg hs2 Kristina Mccauley, HIDE SPLITTER HIDE SPLITTER cln Waleska Pleitez2 Deepika Urbina,RN RN mv5 Valdez Medeiros LPN 1 MTDD
--- NOTE | 2016-08-11 15:12 | EDDOCDS ---
Physician Documentation [facility] Name: Jorge Morgan Age: 71 yrs Sex: Male : 1945 Arrival Date: 08/11/2016 Time: 03:56 Bed 20 Private MD: Disposition: 08/11 05:13 Critical Care:. cs11 Disposition: 08/11/16 06:27 Hospitalization ordered by Femi Colunga for Inpatient Admission. Preliminary diagnosis are Pneumonia in diseases classified elsewhere, Chronic obstructive pulmonary disease with acute lower respiratory infection. - Bed requested for PCU. - Status is Inpatient Admission. kcs - Condition is Stable. - Problem is chronic. - Symptoms have improved. Historical: - Allergies: Lovenoxrash, unsure heparin vs lovenox; Heparinrash/unsure heparin vs lovenox; - Home Meds: 1. aspirin 81 mg Oral TbEC 1 tab once daily 2. diclofenac sodium 50 mg oral TbEC 1 tab 2 times per day 3. Klor-Con M20 20 mEq Oral TbTQ 1 tab once daily 4. Lasix 20 mg Oral tab 1 tab once daily 5. Lipitor 10 mg Oral tab 1 tab once daily 6. Lortab 10-325 10-325 mg oral tab 1 tab every 4-6 hours 7. magnesium oxide 400 mg Oral cap daily 8. nicoderm - 14mg patch daily 9. omeprazole 20 mg Oral cpDR 1 cap once daily 10. Spiriva with HandiHaler 18 mcg Inhl CpDv 1 cap once daily 11. tamsulosin 0.4 mg oral cp24 1 cap once daily 12. trazodone 50 mg Oral tab 1 tab bedtime 13. Vitamin D Oral - PMHx: Arthritis; Benign Prostatic Hyperplasia; CHF; Chronic Back pain; COPD; Emphysema; GERD; Hypercholesterolemia; - PSHx: Adenoidectomy; Tonsillectomy; back surgery; - Social history: Smoking status: Patient states former smoker of tobacco. No barriers to communication noted, The patient speaks fluent Belarusian. - Family history: No immediate family members are acutely ill. - : The pt / caregiver states he / she is not on anticoagulants. Home medication list is obtained from the patient. - Exposure Risk Screening:: None identified. - Code Status:: No code. Vital Signs: 04:12 Pulse 125; Resp 26 S; Temp 101.7(TE); Pulse Ox 92% ; Weight 94.35 kg / 208.01 lbs (R); cln Height 6 ft. 4 in. (193.04 cm) (R); 04:57 BP 129 / 72 (auto/); mv5 04:57 Pulse 119 MON; Pulse Ox 92% on 15% Venturi mask; mv5 05:00 BP 131 / 75 (auto/); mv5 05:00 Pulse 120 MON; Pulse Ox 92% ; mv5 05:15 BP 134 / 74 (auto/); mv5 05:15 Pulse 115 MON; Pulse Ox 95% ; mv5 05:32 BP 123 / 66 (auto/); mv5 05:32 Pulse 114 MON; Pulse Ox 94% ; mv5 05:45 BP 119 / 66 (auto/); mv5 05:45 Pulse 112 MON; Pulse Ox 93% ; mv5 06:00 BP 121 / 69 (auto/); mv5 06:00 Pulse 108 MON; Pulse Ox 92% ; mv5 07:15 BP 99 / 61 (auto/); mcp 07:15 Pulse 93 MON; Pulse Ox 94% ; mcp 08:45 BP 105 / 63 (auto/); dsf 08:45 Pulse 91 MON; Pulse Ox 92% ; dsf 09:00 Pulse 88 MON; Pulse Ox 96% ; dsf 09:00 BP 97 / 60 (auto/); dsf 09:10 Pulse 90 MON; Pulse Ox 93% ; dsf 09:10 BP 106 / 63 (auto/); dsf 09:15 BP 102 / 66 (auto/); dsf 09:15 Pulse 90 MON; Pulse Ox 95% ; dsf 09:19 Pulse 87; Resp 21; Temp 98.5(O); Pulse Ox 96% ; Pain 10/10; dsf 10:41 BP 121 / 70 (auto/); dsf 10:41 Pulse 84 MON; Pulse Ox 94% on 50% Venturi mask; dsf 13:37 BP 99 / 55 (auto/); dsf 13:37 Pulse 76 MON; Pulse Ox 94% ; dsf 14:49 BP 121 / 70; Pulse 79; Resp 24; Temp 98.1(O); Pulse Ox 95% on Venturi mask; kcs 04:12 Body Mass Index 25.32 (94.35 kg, 193.04 cm) cln MDM: 04:04 -Blood Culture (Adults Only), peripheral from different site, or from device/port/PICC jun etc. if present ordered. 04:04 Molecular Biology Professor/Pulse Ox/q 15 min VS ordered. jun 04:04 IV Saline Lock ordered. jun 04:04 Oxygen at 4L/Min NC or Home dosage ordered. jun 04:04 Rhythm Strip to chart ordered. jun 04:05 -Arterial Blood Gas Ordered. EDMS 04:05 -Blood Culture Ordered. EDMS 04:05 Basic Metabolic Profile Ordered. EDMS 04:05 CBC with Diff Ordered. EDMS 04:05 Cardiac Injury Profile Ordered. EDMS 04:05 Troponin Ordered. EDMS 04:06 Chest, 1 View Ordered. EDMS 04:06 ECG WITH READING ER PHYS+CARDIAG ordered. EDMS 04:06 Dexamethasone 8 mg IV at bolus once ordered. cs11 04:06 Magnesium Sulfate 3 grams IVPB once over 3 hrs; administer over at least 1 hour ordered.cs11 04:06 Levalbuterol 1.25 mg Nebulizer every 15 minutes x3 ordered. cs11 04:06 Call Respiratory ordered. cs11 04:07 Call Respiratory complete. ml3 04:08 -Blood Culture (Adults Only), peripheral from different site, or from device/port/PICC ml3 etc. if present complete. 04:09 BLOOD CULTURES Ordered. EDMS 04:29 CBC with Diff Reviewed. cs11 04:30 cefUROXime 1.5 grams IV at calculated rate once over 30 mins; dilute in 50mL of NS or cs11 D5W ordered. 04:30 azithromycin 500 mg IVPB once over 1 hrs; dilute in 250mL of D5W or NS ordered. cs11 04:30 Acetaminophen Tablet 975 mg PO once ordered. cs11 04:31 NS 0.9% 500 ml IV at bolus once ordered. cs11 04:31 BED REQUEST+ADM ordered. EDMS 05:04 Lactic Acid (Gonzáles tube on ice) Ordered. EDMS 05:10 -Arterial Blood Gas Reviewed. cs11 05:10 Basic Metabolic Profile Reviewed. cs11 05:10 Cardiac Injury Profile Reviewed. cs11 05:10 Troponin Reviewed. cs11 06:11 Lactic Acid (Gonzáles tube on ice) Reviewed. cs11 06:15 Financial registration complete. hs2 06:23 [facility] [place] Agreement was scanned into [employer] and attached to record. hs2 07:10 2 GRAM SODIUM DIET ordered. EDMS 07:10 SPUTUM CULTURE AND GRAM STAIN Ordered. EDMS 07:13 Admission / Observation Status ordered. EDMS 10:23 HYDROcodone-acetaminophen 5 mg-325 mg 2 tabs PO once; admission order ordered. dsf Administered Medications: 04:17 Drug: Levalbuterol 1.25 mg [levalbuterol 1.25 mg/0.5 mL solution for nebulization (0.5 jh6 mL)] Route: Nebulizer; 04:32 Drug: Magnesium Sulfate 3 grams [magnesium sulfate 1 gram/100 mL in dextrose 5 % mv5 intravenous piggyback] {Co-Signature: [email or web address] (Valdez ConnellMcLaren Thumb RegionN).} Route: IVPB; Infused Over: 3 hrs; Site: left forearm; 04:33 Drug: Dexamethasone 8 mg [dexamethasone 4 mg/mL injection solution] Route: IV; Rate: mv5 bolus; Site: left forearm; 05:31 Follow up: Response: No Adverse Reaction mv5 04:37 Drug: Levalbuterol 1.25 mg [levalbuterol 1.25 mg/0.5 mL solution for nebulization (0.5 jh6 mL)] Route: Nebulizer; 04:56 Drug: NS 0.9% 500 ml [sodium chloride 0.9 % intravenous solution] Route: IV; Rate: mv5 bolus; Site: left forearm; 05:43 Follow up: IV Status: Completed infusion mv5 04:57 Drug: Levalbuterol 1.25 mg [levalbuterol 1.25 mg/0.5 mL solution for nebulization (0.5 jh6 mL)] Route: Nebulizer; 04:57 Drug: cefUROXime 1.5 grams [cefuroxime sodium 750 mg solution for injection] Route: IV; mv5 Rate: calculated rate; Infused Over: 30 mins; Site: right hand; 05:43 Follow up: IV Status: Completed infusion mv5 04:57 Drug: Acetaminophen 975 mg [acetaminophen 325 mg tablet (3 tabs)] Route: PO; mv5 05:31 Follow up: Response: No Adverse Reaction mv5 05:43 Drug: azithromycin 500 mg [azithromycin 500 mg intravenous solution] Route: IVPB; mv5 Infused Over: 1 hrs; Site: right hand; 06:59 Follow up: IV Status: Completed infusion mv5 10:16 Drug: HYDROcodone-acetaminophen 2 tabs [hydrocodone 5 mg-acetaminophen 325 mg tablet (2 dsf tabs)] Route: PO; Critical Care Time: 05:13 Critical care time: Bedside Care: 120 minutes. Total time: 120 minutes cs11 Signatures: Dispatcher [employer] Anabel Panchal, RN Hortencia Youssef RN RN sachin Smithti, [facility], [employer] [facility] Supervisor Unit ml3 Opal Santiago RN RN dsf Schiff, Craig, DO cs11 Sina Arndt RN RN [facility] Radha Morales, Reg Reg hs2 Deepika Urbina RN RN 5 [facility] Valdez Medeiros LPN [facility] The chart was reviewed and I authenticate all verbal orders and agree with the evaluation and treatment provided.Attachments: 06:23 [facility] Payment Agreement hs2 MTDD
[2016-08-11 15:32] VITALS: BP 128/68
[2016-08-11] MEDS: NORCO, ANEXSIA 5/325MG TABLET (HYDROcodone/ACETAMINOPHEN) PO PRN ×2 (16:12→20:41)
--- NOTE | 2016-08-11 16:41 | IPN ---
DATE: 08/11/2016 Patient is seen and evaluated at bedside, not long after he has been admitted by Dr. Colunga. Patient says he is feeling much better. Breathing is easier. He is not complaining of chest pain. Still somewhat short of breath. He is producing sputum. Will continue with Dr. Colunga's plan.
[2016-08-11] MEDS: ASPIRIN 81 MG ENTERIC TAB PO SCH (17:31)
[2016-08-11 19:18] VITALS: BP 108/73
[2016-08-11] MEDS: guaiFENesin 200 MG TAB PO PRN (20:40)
[2016-08-11] MEDS: ATORVASTATIN 10 MG TAB PO SCH (20:40)
[2016-08-11] MEDS: traZODone 50 MG TAB PO SCH (20:41)
[2016-08-11 23:42] VITALS: BP 108/59
[2016-08-12] MEDS: traZODone 50 MG TAB PO PRN (00:55)
[2016-08-12] MEDS: NORCO, ANEXSIA 5/325MG TABLET (HYDROcodone/ACETAMINOPHEN) PO PRN ×5 (00:55→20:30)
[2016-08-12] MEDS: IPRATROPIUM 0.5MG/ALBUTEROL 2.5MG INH SOL UD 3ML (DUONEB)(J7620) NEB SCH ×6 (03:11→23:20)
[2016-08-12 05:00] VITALS: BP 127/62
[2016-08-12] MEDS: AZITHROMYCIN INJ 500 MG, VIAL MATE ADAPTER 1 EACH in D5W 250 ML IV SCH (05:04)
[2016-08-12 05:46] LABS: MEAN CORPUSCULAR HEMOGLOBIN 30.6 pg (27.0-33.0); MEAN CORPUSCULAR HGB CONC 32.9 g/dl (32.0-36.5); MEAN CORPUSCULAR VOLUME 93.1 fl (80.0-96.0); RED CELL DISTRIBUTION WIDTH 15.4 % (11.5-14.5); WHITE BLOOD COUNT 14.1 K/mm3 (4.0-10.0)
[2016-08-12 06:07] LABS: CALCIUM LEVEL 7.8 MG/DL (8.8-10.2); CREATININE FOR GFR 1.33 MG/DL (0.70-1.30); GLOMERULAR FILTRATION RATE 56.8 (>49); MAGNESIUM LEVEL 2.6 MG/DL (1.8-2.4); POTASSIUM SERUM 4.3 MEQ/L (3.5-5.1)
[2016-08-12] MEDS: TIOTROPIUM INHALER/CAPSULE (SPIRIVA) INH SCH (07:16)
[2016-08-12] MEDS: SYMBICORT 80/4.5MCG INHALER 6GM INH SCH ×2 (07:17→20:51)
[2016-08-12 08:00] VITALS: BP 126/61
--- NOTE | 2016-08-12 08:28 | REP ---
Clinical: Shortness of breath. Technique: PA and lateral. Comparison: 08/11/2016. Findings: Diffuse COPD and mid to lower lobe fibrosis/interstitial disease with honeycomb pattern is appreciated. Subtle superimposed basilar atelectasis cannot be excluded. Right lower lobe opacity on recent prior examination appears improved by current examination. Mediastinum and cardiac silhouette are stable and within normal limits. Impression: Diffuse COPD and fibrosis/interstitial disease. Previous right lower lobe opacity has improved. Signed by Alvarez Jimenez MD 08/12/2016 08:19 A
[2016-08-12] MEDS: OMEPRAZOLE 20 MG CAP PO SCH (09:17)
[2016-08-12] MEDS: VITAMIN D 1,000 INTERNATIONAL UNITS TABLET PO SCH (09:17)
[2016-08-12] MEDS: methylPREDNISolone INJ 40 MG/1 ML VIAL (J2920) IV SCH ×2 (09:17→21:46)
[2016-08-12] MEDS: MAGNESIUM OXIDE 400 MG TAB (MAG-OX) PO SCH (09:17)
[2016-08-12] MEDS: OMEGA-3 1050MG CAPSULE PO SCH (09:17)
[2016-08-12] MEDS: FUROSEMIDE 20 MG TAB PO SCH (09:18)
[2016-08-12 12:00] VITALS: BP 120/56
[2016-08-12] MEDS: cefTRIAXone SOD 1 GM in D5W MINI-BAG PLUS 50 ML IV SCH (12:13)
[2016-08-12] MEDS: ASPIRIN 81 MG ENTERIC TAB PO SCH (17:10)
[2016-08-12 18:00] VITALS: BP 134/64
[2016-08-12 20:00] VITALS: BP 127/61
[2016-08-12] MEDS: ATORVASTATIN 10 MG TAB PO SCH (20:29)
[2016-08-12] MEDS: traZODone 50 MG TAB PO SCH (20:30)
[2016-08-13] MEDS: cefTRIAXone SOD 1 GM in D5W MINI-BAG PLUS 50 ML IV SCH ×3 (00:15→23:36)
[2016-08-13] MEDS: NORCO, ANEXSIA 5/325MG TABLET (HYDROcodone/ACETAMINOPHEN) PO PRN ×5 (03:03→22:36)
[2016-08-13] MEDS: IPRATROPIUM 0.5MG/ALBUTEROL 2.5MG INH SOL UD 3ML (DUONEB)(J7620) NEB SCH ×6 (03:29→23:33)
[2016-08-13] MEDS: traZODone 50 MG TAB PO PRN (03:42)
--- NOTE | 2016-08-13 05:07 | IPN ---
DATE: 08/12/2016 Mr. Morgan is more comfortable. He does have continuing cough, has been tolerating a diet. Temperature 96.4, pulse 81, respiratory rate 18, blood pressure 120/56, 90% on 5 liters nasal cannula. Intake and output (I and O) notable for a positive fluid balance of 605, four bowel movements yesterday. He is awake, appropriately interactive, pleasantly conversant. Breathing is symmetrical. Coarse upper airway sounds. I:E ratio is 1:4. Somewhat diminished throughout. Heart is in a regular rate and rhythm. Abdomen soft, doughy, nontender. White cell count 14.1, hemoglobin 11.5, platelets 241. BUN 26, creatinine 1.33. Magnesium is 2.6. My assessment is as follows: This is a 71-year-old with chronic obstructive pulmonary disease (COPD) exacerbation secondary to community-acquired pneumonia with continued hypoxic respiratory failure among his chronic baseline. Plan is as follows: 1. COPD. The patient is continued on steroids and empiric antibiotics, aggressive pulmonary toilet. He will be monitored clinically. Will attempt to wean oxygen. He will be transferred to the medical/surgical floor. 2. The patient is being treated for community-acquired pneumonia. Continue Rocephin and Zithromax. 3. Patient has dyslipidemia. Continue statin. 4. Patient has gastroesophageal reflux disease (GERD) on proton pump inhibitor (PPI). 5. Patient has insomnia. Continuing trazodone. 6. Patient is noted to have hypermagnesemia. Will discontinue his magnesium supplement. 7. Patient had somewhat worsening renal function. Will follow his creatinine tomorrow.
[2016-08-13 06:00] VITALS: BP 122/63
[2016-08-13] MEDS: AZITHROMYCIN INJ 500 MG, VIAL MATE ADAPTER 1 EACH in D5W 250 ML IV SCH (06:48)
[2016-08-13 07:19] LABS: MEAN CORPUSCULAR HEMOGLOBIN 30.6 pg (27.0-33.0); MEAN CORPUSCULAR HGB CONC 32.6 g/dl (32.0-36.5); MEAN CORPUSCULAR VOLUME 93.9 fl (80.0-96.0); RED CELL DISTRIBUTION WIDTH 15.7 % (11.5-14.5); WHITE BLOOD COUNT 19.1 K/mm3 (4.0-10.0)
[2016-08-13 07:40] LABS: ALBUMIN 2.9 GM/DL (3.2-5.2); ALKALINE PHOSPHATASE 53 U/L (45-117); ALT/SGPT 25 U/L (12-78); ANION GAP 10 MEQ/L (8-16); AST/SGOT 13 U/L (15-37); BILIRUBIN,DIRECT < 0.1 MG/DL (0.0-0.2); BILIRUBIN,TOTAL 0.2 MG/DL (0.2-1.0); BLOOD UREA NITROGEN 23 MG/DL (7-18); CALCIUM LEVEL 8.4 MG/DL (8.8-10.2); CARBON DIOXIDE LEVEL 26 MEQ/L (21-32); CHLORIDE LEVEL 105 MEQ/L (98-107); CHOLESTEROL LEVEL 120 MG/DL (<200); CREATININE FOR GFR 0.96 MG/DL (0.70-1.30); GLOMERULAR FILTRATION RATE > 60.0 (>49); GLUCOSE, FASTING 144 MG/DL (80-110); POTASSIUM SERUM 4.5 MEQ/L (3.5-5.1); SODIUM LEVEL 141 MEQ/L (136-145); TOTAL PROTEIN 5.8 GM/DL (6.4-8.2); TRIGLYCERIDES LEVEL 72 MG/DL (<150)
[2016-08-13] MEDS: TIOTROPIUM INHALER/CAPSULE (SPIRIVA) INH SCH (08:55)
[2016-08-13] MEDS: SYMBICORT 80/4.5MCG INHALER 6GM INH SCH ×2 (08:55→19:49)
[2016-08-13] MEDS: VITAMIN D 1,000 INTERNATIONAL UNITS TABLET PO SCH (09:28)
[2016-08-13] MEDS: OMEPRAZOLE 20 MG CAP PO SCH (09:28)
[2016-08-13] MEDS: FUROSEMIDE 20 MG TAB PO SCH (09:28)
[2016-08-13] MEDS: methylPREDNISolone INJ 40 MG/1 ML VIAL (J2920) IV SCH ×2 (09:28→21:11)
--- NOTE | 2016-08-13 15:54 | IPN ---
DATE: 08/13/2016 Mr. Morgan is still short of breath with activity. He is having difficulty producing sputum. He has had good results with an Acapella device at home and asked for one today. Temperature is 97.7, pulse 79, respiratory rate 18, blood pressure 122/63, 92% on three liters. Intake and output notable for a positive fluid balance of +95, no bowel movement thus far today. He is awake, appropriately interactive, pleasantly conversant. Breathing is symmetrically diminished, I:E ratio is 1:3. He is somewhat tachypneic upon my exam, having just returned to the toilet. He is able to speak in short sentences, no accessory muscle use. Heart is distant sounding, normal S1, S2. Abdomen soft, doughy, nontender. White cell count 19.1, hemoglobin 11.9, platelets 262. BUN 23, creatinine 0.96. Sputum has grown yeast. My assessment is as follows: This is a 71-year-old with chronic obstructive pulmonary disease (COPD) exacerbation secondary to community-acquired pneumonia with continued hypoxic respiratory failure worse than his baseline. Plan is as follows: 1. Chronic obstructive pulmonary disease (COPD). Patient is continued on steroids and empiric antibiotics. I have added Acapella to assist with his pulmonary toilet. Continue to wean his oxygen which is not yet to baseline. 2. The patient is being treated for community-acquired pneumonia on Rocephin and Zithromax. 3. The patient has dyslipidemia. 4. The patient has gastroesophageal reflux disease (GERD). 5. The patient has insomnia. 6. The patient was noted yesterday to have hypermagnesemia. Will check magnesium level again tomorrow.
--- NOTE | 2016-08-13 16:12 | EDDOCDS ---
Physician Documentation [facility] Name: Jorge Morgan Age: 71 yrs Sex: Male : 1945 Arrival Date: 08/11/2016 Time: 03:56 Bed 20 Private MD: Disposition: 08/11 05:13 Critical Care:. cs11 Disposition: 08/11/16 06:27 Hospitalization ordered by Femi Colunga for Inpatient Admission. Preliminary diagnosis are Pneumonia in diseases classified elsewhere, Chronic obstructive pulmonary disease with acute lower respiratory infection. - Bed requested for PCU. - Status is Inpatient Admission. kcs - Condition is Stable. - Problem is chronic. - Symptoms have improved. Historical: - Allergies: Lovenoxrash, unsure heparin vs lovenox; Heparinrash/unsure heparin vs lovenox; - Home Meds: 1. aspirin 81 mg Oral TbEC 1 tab once daily 2. diclofenac sodium 50 mg oral TbEC 1 tab 2 times per day 3. Klor-Con M20 20 mEq Oral TbTQ 1 tab once daily 4. Lasix 20 mg Oral tab 1 tab once daily 5. Lipitor 10 mg Oral tab 1 tab once daily 6. Lortab 10-325 10-325 mg oral tab 1 tab every 4-6 hours 7. magnesium oxide 400 mg Oral cap daily 8. nicoderm - 14mg patch daily 9. omeprazole 20 mg Oral cpDR 1 cap once daily 10. Spiriva with HandiHaler 18 mcg Inhl CpDv 1 cap once daily 11. tamsulosin 0.4 mg oral cp24 1 cap once daily 12. trazodone 50 mg Oral tab 1 tab bedtime 13. Vitamin D Oral - PMHx: Arthritis; Benign Prostatic Hyperplasia; CHF; Chronic Back pain; COPD; Emphysema; GERD; Hypercholesterolemia; - PSHx: Adenoidectomy; Tonsillectomy; back surgery; - Social history: Smoking status: Patient states former smoker of tobacco. No barriers to communication noted, The patient speaks fluent Telugu. - Family history: No immediate family members are acutely ill. - : The pt / caregiver states he / she is not on anticoagulants. Home medication list is obtained from the patient. - Exposure Risk Screening:: None identified. - Code Status:: No code. Vital Signs: 04:12 Pulse 125; Resp 26 S; Temp 101.7(TE); Pulse Ox 92% ; Weight 94.35 kg / 208.01 lbs (R); cln Height 6 ft. 4 in. (193.04 cm) (R); 04:57 BP 129 / 72 (auto/); mv5 04:57 Pulse 119 MON; Pulse Ox 92% on 15% Venturi mask; mv5 05:00 BP 131 / 75 (auto/); mv5 05:00 Pulse 120 MON; Pulse Ox 92% ; mv5 05:15 BP 134 / 74 (auto/); mv5 05:15 Pulse 115 MON; Pulse Ox 95% ; mv5 05:32 BP 123 / 66 (auto/); mv5 05:32 Pulse 114 MON; Pulse Ox 94% ; mv5 05:45 BP 119 / 66 (auto/); mv5 05:45 Pulse 112 MON; Pulse Ox 93% ; mv5 06:00 BP 121 / 69 (auto/); mv5 06:00 Pulse 108 MON; Pulse Ox 92% ; mv5 07:15 BP 99 / 61 (auto/); mcp 07:15 Pulse 93 MON; Pulse Ox 94% ; mcp 08:45 BP 105 / 63 (auto/); dsf 08:45 Pulse 91 MON; Pulse Ox 92% ; dsf 09:00 Pulse 88 MON; Pulse Ox 96% ; dsf 09:00 BP 97 / 60 (auto/); dsf 09:10 Pulse 90 MON; Pulse Ox 93% ; dsf 09:10 BP 106 / 63 (auto/); dsf 09:15 BP 102 / 66 (auto/); dsf 09:15 Pulse 90 MON; Pulse Ox 95% ; dsf 09:19 Pulse 87; Resp 21; Temp 98.5(O); Pulse Ox 96% ; Pain 10/10; dsf 10:41 BP 121 / 70 (auto/); dsf 10:41 Pulse 84 MON; Pulse Ox 94% on 50% Venturi mask; dsf 13:37 BP 99 / 55 (auto/); dsf 13:37 Pulse 76 MON; Pulse Ox 94% ; dsf 14:49 BP 121 / 70; Pulse 79; Resp 24; Temp 98.1(O); Pulse Ox 95% on Venturi mask; kcs 04:12 Body Mass Index 25.32 (94.35 kg, 193.04 cm) cln MDM: 04:04 -Blood Culture (Adults Only), peripheral from different site, or from device/port/PICC jun etc. if present ordered. 04:04 Centrifugal Wax Molder/Pulse Ox/q 15 min VS ordered. jun 04:04 IV Saline Lock ordered. jun 04:04 Oxygen at 4L/Min NC or Home dosage ordered. jun 04:04 Rhythm Strip to chart ordered. jun 04:05 -Arterial Blood Gas Ordered. EDMS 04:05 -Blood Culture Ordered. EDMS 04:05 Basic Metabolic Profile Ordered. EDMS 04:05 CBC with Diff Ordered. EDMS 04:05 Cardiac Injury Profile Ordered. EDMS 04:05 Troponin Ordered. EDMS 04:06 Chest, 1 View Ordered. EDMS 04:06 ECG WITH READING ER PHYS+CARDIAG ordered. EDMS 04:06 Dexamethasone 8 mg IV at bolus once ordered. cs11 04:06 Magnesium Sulfate 3 grams IVPB once over 3 hrs; administer over at least 1 hour ordered.cs11 04:06 Levalbuterol 1.25 mg Nebulizer every 15 minutes x3 ordered. cs11 04:06 Call Respiratory ordered. cs11 04:07 Call Respiratory complete. ml3 04:08 -Blood Culture (Adults Only), peripheral from different site, or from device/port/PICC ml3 etc. if present complete. 04:09 BLOOD CULTURES Ordered. EDMS 04:29 CBC with Diff Reviewed. cs11 04:30 cefUROXime 1.5 grams IV at calculated rate once over 30 mins; dilute in 50mL of NS or cs11 D5W ordered. 04:30 azithromycin 500 mg IVPB once over 1 hrs; dilute in 250mL of D5W or NS ordered. cs11 04:30 Acetaminophen Tablet 975 mg PO once ordered. cs11 04:31 NS 0.9% 500 ml IV at bolus once ordered. cs11 04:31 BED REQUEST+ADM ordered. EDMS 05:04 Lactic Acid (Gonzáles tube on ice) Ordered. EDMS 05:10 -Arterial Blood Gas Reviewed. cs11 05:10 Basic Metabolic Profile Reviewed. cs11 05:10 Cardiac Injury Profile Reviewed. cs11 05:10 Troponin Reviewed. cs11 06:11 Lactic Acid (Gonzáles tube on ice) Reviewed. cs11 06:15 Financial registration complete. hs2 06:23 [facility] Payment Agreement was scanned into [employer] and attached to record. hs2 07:10 2 GRAM SODIUM DIET ordered. EDMS 07:10 SPUTUM CULTURE AND GRAM STAIN Ordered. EDMS 07:13 Admission / Observation Status ordered. EDMS 10:23 HYDROcodone-acetaminophen 5 mg-325 mg 2 tabs PO once; admission order ordered. dsf 08/12 12:02 T-Sheet-- Draft Copy was scanned into [employer] and attached to record. gb 12:02 ECG/EKG was scanned into [employer] and attached to record. gb 12:03 Trend VS was scanned into [employer] and attached to record. gb 12:08 ECG/EKG was scanned into [employer] and attached to record. gb Administered Medications: 08/11 04:17 Drug: Levalbuterol 1.25 mg [levalbuterol 1.25 mg/0.5 mL solution for nebulization (0.5 jh6 mL)] Route: Nebulizer; 04:32 Drug: Magnesium Sulfate 3 grams [magnesium sulfate 1 gram/100 mL in dextrose 5 % mv5 intravenous piggyback] {Co-Signature: [email or web address] (Valdez Medeiros HARVEST WORKER).} Route: IVPB; Infused Over: 3 hrs; Site: left forearm; 04:33 Drug: Dexamethasone 8 mg [dexamethasone 4 mg/mL injection solution] Route: IV; Rate: mv5 bolus; Site: left forearm; 05:31 Follow up: Response: No Adverse Reaction mv5 04:37 Drug: Levalbuterol 1.25 mg [levalbuterol 1.25 mg/0.5 mL solution for nebulization (0.5 jh6 mL)] Route: Nebulizer; 04:56 Drug: NS 0.9% 500 ml [sodium chloride 0.9 % intravenous solution] Route: IV; Rate: mv5 bolus; Site: left forearm; 05:43 Follow up: IV Status: Completed infusion mv5 04:57 Drug: Levalbuterol 1.25 mg [levalbuterol 1.25 mg/0.5 mL solution for nebulization (0.5 jh6 mL)] Route: Nebulizer; 04:57 Drug: cefUROXime 1.5 grams [cefuroxime sodium 750 mg solution for injection] Route: IV; mv5 Rate: calculated rate; Infused Over: 30 mins; Site: right hand; 05:43 Follow up: IV Status: Completed infusion mv5 04:57 Drug: Acetaminophen 975 mg [acetaminophen 325 mg tablet (3 tabs)] Route: PO; mv5 05:31 Follow up: Response: No Adverse Reaction mv5 05:43 Drug: azithromycin 500 mg [azithromycin 500 mg intravenous solution] Route: IVPB; mv5 Infused Over: 1 hrs; Site: right hand; 06:59 Follow up: IV Status: Completed infusion mv5 10:16 Drug: HYDROcodone-acetaminophen 2 tabs [hydrocodone 5 mg-acetaminophen 325 mg tablet (2 dsf tabs)] Route: PO; Critical Care Time: 05:13 Critical care time: Bedside Care: 120 minutes. Total time: 120 minutes cs11 Signatures: Dispatcher [employer] EDAnabel Shankar RN RN Hortencia Garcia RN [facility] Felipe, Reg Reg gb Sheyla Houston, Table Machine Operator Unit ml3 Opal Santiago RN RN dsf Jama Yeh, DO DO cs11 Sina Arndt RN VIJAY [facility] Radha Morales, Reg Reg hs2 Deepika Urbina RN RN 5 [facility] Valdez Medeiros LPN [facility] The chart was reviewed and I authenticate all verbal orders and agree with the evaluation and treatment provided.Attachments: 06:23 [facility] Payment Agreement hs2 08/12 12:02 T-Sheet-- Draft Copy gb 12:08 ECG/EKG Chart Complete MTDD
--- NOTE | 2016-08-13 16:12 | EDDOCDS ---
Nurse's Notes [facility] Name: Jorge Morgan Age: 71 yrs Sex: Male : 1945 Arrival Date: 08/11/2016 Time: 03:56 Bed 20 Private MD: Diagnosis: Pneumonia in diseases classified elsewhere;Chronic obstructive pulmonary disease with acute lower respiratory infection Presentation: 08/11 03:59 Presenting complaint: EMS states: Pt to ED by EMS for evaluation of "difficulty mv5 breathing", EMS reports sp02 60's on arrival, wears home 02. Also report nausea and dry heaves. Adult Sepsis Screening: The patient does not have new or worsening altered mentation. Patient has a respiratory rate of greater than or equal to 22 (1 point). Systolic blood pressure is greater than 100. Patient has a qSOFA score of 0- Negative Sepsis Screen. Suicide/Homicide risk assessment- the patient denies having any suicidal and/or homicidal ideations and does not present with any other emotional, behavioral or mental health complaints. Status: Patient is not a sales agent financial report service or dependent. Transition of care: patient was not received from another setting of care. 03:59 Acuity: MARKUS Level 2 mv5 03:59 Method Of Arrival: Ambulance mv5 Triage Assessment: 04:07 General: Appears uncomfortable, well nourished, Behavior is anxious. Pain: Location: mv5 left low back, left mid back, right mid back and right low back Pain currently is 5 out of 10 on a pain scale. Pain does not radiate. Pain began Chronic pain. The patient is triaged at the bedside. See Assessment in Nurses Notes section of ED record. Neurological: Level of Consciousness is awake, alert, Oriented to person, place, time. Cardiovascular: Capillary refill < 3 seconds. Cardiovascular: Heart tones S1 S2 present Pulses are all present. Respiratory: Onset: The symptoms/episode began/occurred today, Airway is patent Respiratory effort is even, unlabored, Respiratory pattern is regular, symmetrical, tachypnea. Respiratory: Breath sounds with wheezes bilaterally. GI: Reports nausea. : No deficits noted. Derm: Skin is pink, warm & dry. Historical: - Allergies: Lovenoxrash, unsure heparin vs lovenox; Heparinrash/unsure heparin vs lovenox; - Home Meds: 1. aspirin 81 mg Oral TbEC 1 tab once daily 2. diclofenac sodium 50 mg oral TbEC 1 tab 2 times per day 3. Klor-Con M20 20 mEq Oral TbTQ 1 tab once daily 4. Lasix 20 mg Oral tab 1 tab once daily 5. Lipitor 10 mg Oral tab 1 tab once daily 6. Lortab 10-325 10-325 mg oral tab 1 tab every 4-6 hours 7. magnesium oxide 400 mg Oral cap daily 8. nicoderm - 14mg patch daily 9. omeprazole 20 mg Oral cpDR 1 cap once daily 10. Spiriva with HandiHaler 18 mcg Inhl CpDv 1 cap once daily 11. tamsulosin 0.4 mg oral cp24 1 cap once daily 12. trazodone 50 mg Oral tab 1 tab bedtime 13. Vitamin D Oral - PMHx: Arthritis; Benign Prostatic Hyperplasia; CHF; Chronic Back pain; COPD; Emphysema; GERD; Hypercholesterolemia; - PSHx: Adenoidectomy; Tonsillectomy; back surgery; - Social history: Smoking status: Patient states former smoker of tobacco. No barriers to communication noted, The patient speaks fluent Maltese. - Family history: No immediate family members are acutely ill. - : The pt / caregiver states he / she is not on anticoagulants. Home medication list is obtained from the patient. - Exposure Risk Screening:: None identified. - Code Status:: No code. Screenin:13 Screening information is obtained from the patient. Fall risk: No risks identified. mv5 Assistance ADL's: requires no assistance with activities of daily living. Assistance ADL's: Requires assistance with housework, assistance is provided by. Abuse/DV Screen: The patient / caregiver reports he/she is: not in a situation that causes fear, pain or injury. Nutritional screening: No deficits noted. Advance Directives: There is an active DNR order but there is no copy available at this time. home support is adequate. Assessment: 04:13 General: See triage assessment. Cardiovascular: Capillary refill < 3 seconds Heart mv5 tones S1 S2 present Pulses are all present. Rhythm is sinus tachycardia No ectopy. 04:58 General: Appears in no apparent distress, comfortable, Behavior is cooperative, mv5 pleasant, Agitation has improved from arrival.. Neurological: Level of Consciousness is awake, alert, Oriented to person, place, time. Cardiovascular: Rhythm is sinus tachycardia No ectopy. Respiratory: Airway is patent Respiratory effort is even, unlabored, Respiratory pattern is regular, symmetrical, Breath sounds with wheezes bilaterally. Derm: Skin is pink, warm & dry. 06:15 General: Appears in no apparent distress, comfortable, Behavior is cooperative, mv5 pleasant. Neurological: Level of Consciousness is awake, alert, Oriented to person, place, time. Cardiovascular: Rhythm is sinus tachycardia No ectopy. Respiratory: Airway is patent Respiratory effort is even, unlabored, Respiratory pattern is regular, symmetrical. Derm: Skin is pink, warm & dry. 07:17 General: Appears in no apparent distress, comfortable, Behavior is cooperative. Pain: mcp Denies pain. Neurological: Level of Consciousness is awake, alert, Oriented to person, place, time, Moves all extremities. Speech is normal. Respiratory: Airway is patent Respiratory effort is even, unlabored, Breath sounds with crackles bilaterally. Reports cough that is persistent. Derm: Skin is pink, warm & dry. 09:20 General: Appears in no apparent distress, ill, Behavior is appropriate for age, dsf cooperative, pleasant. Pain: Location: back Pain currently is 10 out of 10 on a pain scale. Quality of pain is described as throbbing. Neurological: Level of Consciousness is awake, alert, Oriented to person, place, time. Cardiovascular: Capillary refill < 3 seconds Heart tones S1 S2 present Rhythm is sinus rhythm No ectopy. Respiratory: Airway is patent Respiratory effort is even, unlabored, Respiratory pattern is regular, symmetrical, Breath sounds with wheezes expiratory bilaterally. Reports cough that is productive. GI: Abdomen is non- distended Bowel sounds present X 4 quads. Abd is soft and non tender X 4 quads. Derm: Skin is pink, warm & dry. 10:24 General: Appears in no apparent distress. Neurological: Level of Consciousness is dsf awake, alert. Cardiovascular: Capillary refill < 3 seconds Rhythm is sinus rhythm No ectopy. Respiratory: Airway is patent Respiratory effort is even, unlabored, Respiratory pattern is regular, symmetrical. Derm: Skin is pink, warm & dry. 10:40 General: Dr. brown in room examining patient . dsf 11:52 Adult Sepsis Screening: The patient does not have new or worsening altered mentation. dsf Patient has a respiratory rate of greater than or equal to 22 (1 point). Systolic blood pressure is greater than 100. Patient has a qSOFA score of 1- Negative Sepsis Screen. General: Appears in no apparent distress, Behavior is appropriate for age, cooperative. Neurological: Level of Consciousness is awake, alert. Cardiovascular: Capillary refill < 3 seconds Rhythm is sinus rhythm No ectopy. Respiratory: Airway is patent Respiratory effort is even, unlabored, Respiratory pattern is regular, symmetrical. Derm: Skin is pink, warm & dry. 12:52 General: Appears in no apparent distress, Behavior is appropriate for age, cooperative. bc Neurological: Level of Consciousness is awake, alert. Cardiovascular: Capillary refill < 3 seconds. Respiratory: Airway is patent Respiratory effort is even, unlabored, Respiratory pattern is regular, symmetrical. Derm: Skin is pink, warm & dry. 13:44 Adult Sepsis Screening: The patient does not have new or worsening altered mentation. dsf Patient's respiratory rate is less than 22. Systolic blood pressure is greater than 100. Patient has a qSOFA score of 0- Negative Sepsis Screen. General: Appears in no apparent distress, Behavior is appropriate for age, cooperative. Neurological: Level of Consciousness is awake, alert. Cardiovascular: Capillary refill < 3 seconds Rhythm is sinus rhythm No ectopy. Respiratory: Airway is patent Respiratory effort is even, unlabored, Respiratory pattern is regular, symmetrical. Derm: Skin is pink, warm & dry. 14:25 General: pt ate 25% of lunch tray. pt reports he doesn't have an appetite . dsf Vital Signs: 04:12 Pulse 125; Resp 26 S; Temp 101.7(TE); Pulse Ox 92% ; Weight 94.35 kg (R); Height 6 ft. cln 4 in. (193.04 cm) (R); 04:57 BP 129 / 72 (auto/); mv5 04:57 Pulse 119 MON; Pulse Ox 92% on 15% Venturi mask; mv5 05:00 BP 131 / 75 (auto/); mv5 05:00 Pulse 120 MON; Pulse Ox 92% ; mv5 05:15 BP 134 / 74 (auto/); mv5 05:15 Pulse 115 MON; Pulse Ox 95% ; mv5 05:32 BP 123 / 66 (auto/); mv5 05:32 Pulse 114 MON; Pulse Ox 94% ; mv5 05:45 BP 119 / 66 (auto/); mv5 05:45 Pulse 112 MON; Pulse Ox 93% ; mv5 06:00 BP 121 / 69 (auto/); mv5 06:00 Pulse 108 MON; Pulse Ox 92% ; mv5 07:15 BP 99 / 61 (auto/); mcp 07:15 Pulse 93 MON; Pulse Ox 94% ; mcp 08:45 BP 105 / 63 (auto/); dsf 08:45 Pulse 91 MON; Pulse Ox 92% ; dsf 09:00 Pulse 88 MON; Pulse Ox 96% ; dsf 09:00 BP 97 / 60 (auto/); dsf 09:10 Pulse 90 MON; Pulse Ox 93% ; dsf 09:10 BP 106 / 63 (auto/); dsf 09:15 BP 102 / 66 (auto/); dsf 09:15 Pulse 90 MON; Pulse Ox 95% ; dsf 09:19 Pulse 87; Resp 21; Temp 98.5(O); Pulse Ox 96% ; Pain 10/10; dsf 10:41 BP 121 / 70 (auto/); dsf 10:41 Pulse 84 MON; Pulse Ox 94% on 50% Venturi mask; dsf 13:37 BP 99 / 55 (auto/); dsf 13:37 Pulse 76 MON; Pulse Ox 94% ; dsf 14:49 BP 121 / 70; Pulse 79; Resp 24; Temp 98.1(O); Pulse Ox 95% on Venturi mask; kcs 04:12 Body Mass Index 25.32 (94.35 kg, 193.04 cm) cln Vitals: 04:07 Log In Time N/A - ambulance arrival. mv5 ED Course: 03:58 Patient visited by Sheyla Houston, Private [facility]. ml3 03:58 Deepika Urbina,RN is Primary Nurse. ml3 03:58 Patient moved to Waiting ml3 03:58 Patient moved to 1 ml3 04:01 Triage Initiated mv5 04:04 Amadeo Tate DO is Attending Physician. cs11 04:04 Patient visited by Amadoe Tate DO. cs11 04:13 Patient visited by Kristina Mccauley PCA. cln 04:13 The patient / caregiver is instructed regarding the plan of care and ED course. mv5 04:13 Maintain field IV. Dressing intact. Site clean & dry. Gauge & site: 20g, LFA. mv5 04:23 Patient visited by Kristina Mccauley PCA. cln 04:23 EKG done. (by ED staff). Reviewed by Amadeo Tate DO. cln 04:31 Patient moved to Radiology tmb 04:34 Patient moved to 1 tmb 05:00 Inserted saline lock: 20 gauge in right hand and blood collected. The patient tolerated mv5 the procedure well. 05:01 Patient visited by Deepika Urbina,VIJAY. mv5 05:44 Patient visited by Deepika Urbina,RN. mv5 06:14 Patient visited by Deepika Urbina,VIJAY. mv5 06:23 [facility] Payment Agreement was scanned into [email or web address] and attached to record. hs2 06:27 Femi Colunga is Hospitalizing Provider. cs11 07:12 Primary Nurse role handed off by Deepika Urbina RN mv5 07:18 Patient visited by Luz Sparks, VIJAY. mcp 08:07 Chest, 1 View Returned. EDMS 08:22 Patient visited by Waleska Pleitez. nb2 08:22 Diet: Patient given regular meal. nb2 08:40 EKG-ADULT Returned. EDMS 09:20 Patient visited by Opal Santiago,VIJAY. dsf 10:25 Patient visited by Opal Santiago RN. dsf 10:51 Patient visited by Opal Santiago RN. dsf 11:53 Patient visited by Opal Santiago,VIJAY. dsf 13:16 Patient visited by Benigno Edgar, VIJAY. bcj 13:45 Patient visited by Opal Santiago RN. dsf 14:26 Patient moved to 20 [facility] 08/12 12:02 T-Sheet-- Draft Copy was scanned into [email or web address] and attached to record. gb 12:02 ECG/EKG was scanned into [email or web address] and attached to record. gb 12:03 Trend VS was scanned into [email or web address] and attached to record. gb 12:08 ECG/EKG was scanned into [email or web address] and attached to record. gb Administered Medications: 08/11 04:17 Drug: Levalbuterol 1.25 mg [levalbuterol 1.25 mg/0.5 mL solution for nebulization (0.5 jh6 mL)] Route: Nebulizer; 04:32 Drug: Magnesium Sulfate 3 grams [magnesium sulfate 1 gram/100 mL in dextrose 5 % mv5 intravenous piggyback] {Co-Signature: [email or web address] ([facility]).} Route: IVPB; Infused Over: 3 hrs; Site: left forearm; 04:33 Drug: Dexamethasone 8 mg [dexamethasone 4 mg/mL injection solution] Route: IV; Rate: mv5 bolus; Site: left forearm; 05:31 Follow up: Response: No Adverse Reaction mv5 04:37 Drug: Levalbuterol 1.25 mg [levalbuterol 1.25 mg/0.5 mL solution for nebulization (0.5 jh6 mL)] Route: Nebulizer; 04:56 Drug: NS 0.9% 500 ml [sodium chloride 0.9 % intravenous solution] Route: IV; Rate: mv5 bolus; Site: left forearm; 05:43 Follow up: IV Status: Completed infusion mv5 04:57 Drug: Levalbuterol 1.25 mg [levalbuterol 1.25 mg/0.5 mL solution for nebulization (0.5 jh6 mL)] Route: Nebulizer; 04:57 Drug: cefUROXime 1.5 grams [cefuroxime sodium 750 mg solution for injection] Route: IV; mv5 Rate: calculated rate; Infused Over: 30 mins; Site: right hand; 05:43 Follow up: IV Status: Completed infusion mv5 04:57 Drug: Acetaminophen 975 mg [acetaminophen 325 mg tablet (3 tabs)] Route: PO; mv5 05:31 Follow up: Response: No Adverse Reaction mv5 05:43 Drug: azithromycin 500 mg [azithromycin 500 mg intravenous solution] Route: IVPB; mv5 Infused Over: 1 hrs; Site: right hand; 06:59 Follow up: IV Status: Completed infusion mv5 10:16 Drug: HYDROcodone-acetaminophen 2 tabs [hydrocodone 5 mg-acetaminophen 325 mg tablet (2 dsf tabs)] Route: PO; Attachments: 12:03 Trend VS gb RT: 08/11 04:05 O2 via non-rebreather \\T\\ 15L/min. jh6 04:05 ABG's drawn from right radial artery pressure held for 5 minutes no bleeding noted jh6 pressure bandage applied specimen sent pt. tolerated well. 04:17 Initial Med Neb Given as ordered Patient was instructed and evaluated on procedure jh6 Patient tolerated procedure well without adverse effect. O2 via Venturi mask \\T\\ 15L/min - 50%. Respiratory: Airway is patent Respiratory effort is labored, Use of accessory muscles noted. Respiratory pattern is tachypnea Breath sounds are diminished in right upper lobe, left upper lobe, right middle lobe, left lower lobe, right lower lobe, left posterior upper lobe, right posterior upper lobe, left posterior lower lobe, right posterior middle lobe and right posterior lower lobe Breath sounds with wheezes in right upper lobe, left upper lobe, right middle lobe, left lower lobe and right lower lobe at expiration. 04:27 Respiratory: Airway is patent Respiratory effort is even, labored, Respiratory pattern jh6 is tachypnea Breath sounds are diminished in right upper lobe, left upper lobe, right middle lobe, left lower lobe and right lower lobe Breath sounds with wheezes in right upper lobe, left upper lobe, right middle lobe, left lower lobe and right lower lobe at expiration Reports some improvement after first neb. 04:37 Respiratory: Airway is patent Respiratory effort is even, labored, Respiratory pattern jh6 is regular symmetrical, Breath sounds are diminished in right upper lobe, left upper lobe, right middle lobe, left lower lobe and right lower lobe Breath sounds with wheezes in right upper lobe, left upper lobe and right middle lobe at expiration Reports much improvement since arrival. Order Results: Lab Order: -Arterial Blood Gas; SPEC'M 08/11/16 04:07 Test: ABG pH (ARTERIAL); Value: 7.454; Range: 7.350-7.450; Abnormal: Above high normal; Units: UNITS; Status: F Test: ABG PARTIAL PRESSURE CO2; Value: 31.8; Range: 35.0-45.0; Abnormal: Below low normal; Units: mmHg; Status: F Test: ABG PARTIAL PRESSURE O2; Value: 52.0; Range: 75.0-100.0; Abnormal: Below low normal; Units: mmHg; Status: F Test: ABG TOTAL CO2; Value: 22.8; Range: 23.0-31.0; Abnormal: Below low normal; Units: MEQ/L; Status: F Test: ABG HCO3; Value: 21.8; Range: 22.0-26.0; Abnormal: Below low normal; Units: MEQ/L; Status: F Test: ABG BASE EXCESS; Value: -1.0; Range: -2.0-2.0; Status: F Test: ABG STANDARD HCO3; Value: 23.3; Range: 22.0-26.0; Units: MEQ/L; Status: F Test: ABG O2 SATURATION; Value: 86.3; Range: 95.0-99.0; Abnormal: Below low normal; Units: %; Status: F Test: ABG DEVICE; Value: NASAL LAINEY; Status: F Lab Order: Basic Metabolic Profile; SPEC'M 08/11/16 04:07 Test: GLUCOSE, FASTING; Value: 139; Range: 80-110; Abnormal: Above high normal; Units: MG/DL; Status: F Test: BLOOD UREA NITROGEN; Value: 23; Range: 7-18; Abnormal: Above high normal; Units: MG/DL; Status: F Test: CREATININE FOR GFR; Value: 1.22; Range: 0.70-1.30; Units: MG/DL; Status: F Test: GLOMERULAR FILTRATION RATE; Value: > 60.0; Range: >49; Status: F Test: SODIUM LEVEL; Value: 140; Range: 136-145; Units: MEQ/L; Status: F Test: POTASSIUM SERUM; Value: 4.2; Range: 3.5-5.1; Units: MEQ/L; Status: F Test: CHLORIDE LEVEL; Value: 106; Range: 98-107; Units: MEQ/L; Status: F Test: CARBON DIOXIDE LEVEL; Value: 26; Range: 21-32; Units: MEQ/L; Status: F Test: ANION GAP; Value: 8; Range: 8-16; Units: MEQ/L; Status: F Test: CALCIUM LEVEL; Value: 8.4; Range: 8.8-10.2; Abnormal: Below low normal; Units: MG/DL; Status: F Test Note: ; Units are mL/min/1.73 m2 Chronic Kidney Disease Staging per NKF: Stage I & II GFR >=60 Normal to Mildly Decreased Stage III GFR 30-59 Moderately Decreased Stage IV GFR 15-29 Severely Decreased Stage V GFR <15 Very Little GFR Left ESRD GFR <15 on FIRE 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 Lab Order: CBC with Diff; SPEC'M 08/11/16 04:07 Test: WHITE BLOOD COUNT; Value: 15.8; Range: 4.0-10.0; Abnormal: Above high normal; Units: K/mm3; Status: F Test: RED BLOOD COUNT; Value: 5.13; Range: 4.30-6.10; Units: M/mm3; Status: F Test: HEMOGLOBIN; Value: 15.5; Range: 14.0-18.0; Units: g/dl; Status: F Test: HEMATOCRIT; Value: 48.0; Range: 42.0-52.0; Units: %; Status: F Test: MEAN CORPUSCULAR VOLUME; Value: 93.6; Range: 80.0-96.0; Units: fl; Status: F Test: MEAN CORPUSCULAR HEMOGLOBIN; Value: 30.2; Range: 27.0-33.0; Units: pg; Status: F Test: MEAN CORPUSCULAR HGB CONC; Value: 32.2; Range: 32.0-36.5; Units: g/dl; Status: F Test: RED CELL DISTRIBUTION WIDTH; Value: 15.2; Range: 11.5-14.5; Abnormal: Above high normal; Units: %; Status: F Test: PLATELET COUNT, AUTOMATED; Value: 357; Range: 150-450; Units: k/mm3; Status: F Test: NEUTROPHILS %; Value: 68.0; Range: 36.0-66.0; Abnormal: Above high normal; Units: %; Status: F Test: LYMPH %; Value: 23.8; Range: 24.0-44.0; Abnormal: Below low normal; Units: %; Status: F Test: MONO %; Value: 4.8; Range: 0.0-5.0; Units: %; Status: F Test: EOS %; Value: 1.5; Range: 0.0-3.0; Units: %; Status: F Test: BASO %; Value: 0.3; Range: 0.0-1.0; Units: %; Status: F Test: LARGE UNSTAINED CELL %; Value: 1.6; Range: 0.0-4.0; Units: %; Status: F Test: NEUTROPHILS #; Value: 10.8; Range: 1.8-7.7; Abnormal: Above high normal; Units: K/mm3; Status: F Test: LYMPH #; Value: 4.0; Range: 1.5-4.5; Units: K/mm3; Status: F Test: MONO #; Value: 0.8; Range: 0.0-0.8; Units: K/mm3; Status: F Test: EOS #; Value: 0.2; Range: 0.0-0.50; Units: K/mm3; Status: F Test: BASO #; Value: 0.0; Range: 0.0-0.2; Units: K/mm3; Status: F Test: LARGE UNSTAINED CELL #; Value: 0.3; Range: 0.0-0.4; Units: K/mm3; Status: F Lab Order: Cardiac Injury Profile; SPEC'M 08/11/16 04:07 Test: CPK CREATINE PHOSPHOKINASE; Value: 64; Range: 39-308; Units: U/L; Status: F Test: CK-MB VALUE MASS; Value: 2.0; Range: 0.0-3.6; Units: NG/ML; Status: F Test: MB/CK RELATIVE INDEX; Value: 3.12; Range: < OR =4; Status: F Test Note: ; DIAGNOSIS CRITERIA MMB ng/ml Relative Index (RI) NON-AMI < or = 5 N/A GONZÁLES ZONE > 5 < or = 4 AMI > 5 > 4 Lab Order: Troponin; SPEC'M 08/11/16 04:07 Test: TROPONIN I; Value: < 0.02; Range: < 0.10; Units: NG/ML; Status: F Test Note: ; Troponin I Reference Interval for [employer] LOCI: 99th Percentile= 0.00-0.045 ng/ml Risk Stratification: <= 0.10 ng/ml Decreased Risk for Adverse Clinical Events. 0.10-1.50 ng/ml Increased Risk for Adverse Clinical Events. Evaluation of additional criterion and/or repeat testing in 2-6 hours is suggested to rule out myocardial damage. >= 1.50 ng/ml Indicative of Myocardial Injury. Lab Order: Lactic Acid (Gonzáles tube on ice); SPEC'M 08/11/16 04:10 Test: LACTIC ACID SEPSIS PROTOCOL; Value: 1.8; Range: 0.4-2.0; Units: MMOL/L; Status: F Radiology Order: Chest, 1 View Test: Chest, 1 View REASON FOR EXAMINATION: Shortness of Breath; Clinical: Shortness of breath.; ; Comparison: 02/08/2016.; ; Findings:; Chronic changes are appreciated with superimposed right mid to lower lobe; infiltrate suggesting atelectasis and pneumonia. No obvious effusion. No; pneumothorax. Mediastinum and cardiac silhouette stable. Skeletal structures; intact.; ; Impression:; Acute right lower lobe atelectasis/pneumonia. Follow-up to resolution.; ; ; Signed by; Alvarez Jimenez MD 08/11/2016 07:54 A; Radiology Order: EKG-ADULT Test: EKG-ADULT REASON FOR EXAMINATION: Shortness of Breath; Stationary ECG Study; [facility] - ED; ; Test Date: 2016-08-11; Pat Name: JORGE MORGAN Department:; Room: -; Gender: M Medical Detailist: SARA; : 1945 Requested By: AMADEO TATE; Order Number: [id number] Reading MD: Carmen Alston; Measurements; Intervals [place]; Rate: 124 P: 60; SC: 144 QRS: 62; QRSD: 83 T: 64; QT: 298; QTc: 429; Interpretive Statements; SINUS TACHYCARDIA; ABNORMAL RHYTHM ECG; NSTTW ABNORMALITY; DECREASED ECTOPY COMPARED 02/16/16; Electronically Signed On 08-11-2016 8:16:11 EST by Carmen Alston; Outcome: 06:27 Decision to Hospitalize by Provider. cs11 15:11 Patient left the ED. [facility] Signatures: Dispatcher [employer] EDMS Anabel Nicole RN RN kcs Johnson, Bruce RN Luz Valentino RN VIJAY [facility], Reg Reg gb Sheyla Houston, Private Eye Unit ml3 Opal Santiago,RN RN Rj Wetzel 6 Amadeo Tate DO DO cs11 [place] Brannon Hillary, Reg Reg hs2 Kristina Mccauley, KUSH DECKHAND asyan Waleska Pleitez2 Deepika Urbina,RN RN mv5 [facility] Medeiros LPN rw1 Chart Complete MTDD
--- NOTE | 2016-08-13 16:13 | EDDOCDS ---
Physician Documentation [facility] Name: Jorge Morgan Age: 71 yrs Sex: Male : 1945 Arrival Date: 08/11/2016 Time: 03:56 Bed 20 Private MD: Disposition: 08/11 05:13 Critical Care:. cs11 Disposition: 08/11/16 06:27 Hospitalization ordered by Femi Colunga for Inpatient Admission. Preliminary diagnosis are Pneumonia in diseases classified elsewhere, Chronic obstructive pulmonary disease with acute lower respiratory infection. - Bed requested for PCU. - Status is Inpatient Admission. kcs - Condition is Stable. - Problem is chronic. - Symptoms have improved. Historical: - Allergies: Lovenoxrash, unsure heparin vs lovenox; Heparinrash/unsure heparin vs lovenox; - Home Meds: 1. aspirin 81 mg Oral TbEC 1 tab once daily 2. diclofenac sodium 50 mg oral TbEC 1 tab 2 times per day 3. Klor-Con M20 20 mEq Oral TbTQ 1 tab once daily 4. Lasix 20 mg Oral tab 1 tab once daily 5. Lipitor 10 mg Oral tab 1 tab once daily 6. Lortab 10-325 10-325 mg oral tab 1 tab every 4-6 hours 7. magnesium oxide 400 mg Oral cap daily 8. nicoderm - 14mg patch daily 9. omeprazole 20 mg Oral cpDR 1 cap once daily 10. Spiriva with HandiHaler 18 mcg Inhl CpDv 1 cap once daily 11. tamsulosin 0.4 mg oral cp24 1 cap once daily 12. trazodone 50 mg Oral tab 1 tab bedtime 13. Vitamin D Oral - PMHx: Arthritis; Benign Prostatic Hyperplasia; CHF; Chronic Back pain; COPD; Emphysema; GERD; Hypercholesterolemia; - PSHx: Adenoidectomy; Tonsillectomy; back surgery; - Social history: Smoking status: Patient states former smoker of tobacco. No barriers to communication noted, The patient speaks fluent German. - Family history: No immediate family members are acutely ill. - : The pt / caregiver states he / she is not on anticoagulants. Home medication list is obtained from the patient. - Exposure Risk Screening:: None identified. - Code Status:: No code. Vital Signs: 04:12 Pulse 125; Resp 26 S; Temp 101.7(TE); Pulse Ox 92% ; Weight 94.35 kg / 208.01 lbs (R); cln Height 6 ft. 4 in. (193.04 cm) (R); 04:57 BP 129 / 72 (auto/); mv5 04:57 Pulse 119 MON; Pulse Ox 92% on 15% Venturi mask; mv5 05:00 BP 131 / 75 (auto/); mv5 05:00 Pulse 120 MON; Pulse Ox 92% ; mv5 05:15 BP 134 / 74 (auto/); mv5 05:15 Pulse 115 MON; Pulse Ox 95% ; mv5 05:32 BP 123 / 66 (auto/); mv5 05:32 Pulse 114 MON; Pulse Ox 94% ; mv5 05:45 BP 119 / 66 (auto/); mv5 05:45 Pulse 112 MON; Pulse Ox 93% ; mv5 06:00 BP 121 / 69 (auto/); mv5 06:00 Pulse 108 MON; Pulse Ox 92% ; mv5 07:15 BP 99 / 61 (auto/); mcp 07:15 Pulse 93 MON; Pulse Ox 94% ; mcp 08:45 BP 105 / 63 (auto/); dsf 08:45 Pulse 91 MON; Pulse Ox 92% ; dsf 09:00 Pulse 88 MON; Pulse Ox 96% ; dsf 09:00 BP 97 / 60 (auto/); dsf 09:10 Pulse 90 MON; Pulse Ox 93% ; dsf 09:10 BP 106 / 63 (auto/); dsf 09:15 BP 102 / 66 (auto/); dsf 09:15 Pulse 90 MON; Pulse Ox 95% ; dsf 09:19 Pulse 87; Resp 21; Temp 98.5(O); Pulse Ox 96% ; Pain 10/10; dsf 10:41 BP 121 / 70 (auto/); dsf 10:41 Pulse 84 MON; Pulse Ox 94% on 50% Venturi mask; dsf 13:37 BP 99 / 55 (auto/); dsf 13:37 Pulse 76 MON; Pulse Ox 94% ; dsf 14:49 BP 121 / 70; Pulse 79; Resp 24; Temp 98.1(O); Pulse Ox 95% on Venturi mask; kcs 04:12 Body Mass Index 25.32 (94.35 kg, 193.04 cm) cln MDM: 04:04 -Blood Culture (Adults Only), peripheral from different site, or from device/port/PICC jun etc. if present ordered. 04:04 Live In Companion/Pulse Ox/q 15 min VS ordered. jun 04:04 IV Saline Lock ordered. jun 04:04 Oxygen at 4L/Min NC or Home dosage ordered. jun 04:04 Rhythm Strip to chart ordered. jun 04:05 -Arterial Blood Gas Ordered. EDMS 04:05 -Blood Culture Ordered. EDMS 04:05 Basic Metabolic Profile Ordered. EDMS 04:05 CBC with Diff Ordered. EDMS 04:05 Cardiac Injury Profile Ordered. EDMS 04:05 Troponin Ordered. EDMS 04:06 Chest, 1 View Ordered. EDMS 04:06 ECG WITH READING ER PHYS+CARDIAG ordered. EDMS 04:06 Dexamethasone 8 mg IV at bolus once ordered. cs11 04:06 Magnesium Sulfate 3 grams IVPB once over 3 hrs; administer over at least 1 hour ordered.cs11 04:06 Levalbuterol 1.25 mg Nebulizer every 15 minutes x3 ordered. cs11 04:06 Call Respiratory ordered. cs11 04:07 Call Respiratory complete. ml3 04:08 -Blood Culture (Adults Only), peripheral from different site, or from device/port/PICC ml3 etc. if present complete. 04:09 BLOOD CULTURES Ordered. EDMS 04:29 CBC with Diff Reviewed. cs11 04:30 cefUROXime 1.5 grams IV at calculated rate once over 30 mins; dilute in 50mL of NS or cs11 D5W ordered. 04:30 azithromycin 500 mg IVPB once over 1 hrs; dilute in 250mL of D5W or NS ordered. cs11 04:30 Acetaminophen Tablet 975 mg PO once ordered. cs11 04:31 NS 0.9% 500 ml IV at bolus once ordered. cs11 04:31 BED REQUEST+ADM ordered. EDMS 05:04 Lactic Acid (Gonzáles tube on ice) Ordered. EDMS 05:10 -Arterial Blood Gas Reviewed. cs11 05:10 Basic Metabolic Profile Reviewed. cs11 05:10 Cardiac Injury Profile Reviewed. cs11 05:10 Troponin Reviewed. cs11 06:11 Lactic Acid (Gonzáles tube on ice) Reviewed. cs11 06:15 Financial registration complete. hs2 06:23 [facility] [place] was [place] into [employer] and attached to record. hs2 07:10 2 GRAM SODIUM DIET ordered. EDMS 07:10 SPUTUM CULTURE AND GRAM STAIN Ordered. EDMS 07:13 Admission / Observation Status ordered. EDMS 10:23 HYDROcodone-acetaminophen 5 mg-325 mg 2 tabs PO once; admission order ordered. dsf 08/12 12:02 T-Sheet-- Draft Copy was scanned into [employer] and attached to record. gb 12:02 ECG/EKG was scanned into [employer] and attached to record. gb 12:03 Trend VS was scanned into [employer] and attached to record. gb 12:08 ECG/EKG was scanned into [employer] and attached to record. gb Administered Medications: 08/11 04:17 Drug: Levalbuterol 1.25 mg [levalbuterol 1.25 mg/0.5 mL solution for nebulization (0.5 jh6 mL)] Route: Nebulizer; 04:32 Drug: Magnesium Sulfate 3 grams [magnesium sulfate 1 gram/100 mL in dextrose 5 % mv5 intravenous piggyback] {Co-Signature: [email or web address] (Valdez Medeiros FASHION CONSULTANT).} Route: IVPB; Infused Over: 3 hrs; Site: left forearm; 04:33 Drug: Dexamethasone 8 mg [dexamethasone 4 mg/mL injection solution] Route: IV; Rate: mv5 bolus; Site: left forearm; 05:31 Follow up: Response: No Adverse Reaction mv5 04:37 Drug: Levalbuterol 1.25 mg [levalbuterol 1.25 mg/0.5 mL solution for nebulization (0.5 jh6 mL)] Route: Nebulizer; 04:56 Drug: NS 0.9% 500 ml [sodium chloride 0.9 % intravenous solution] Route: IV; Rate: mv5 bolus; Site: left forearm; 05:43 Follow up: IV Status: Completed infusion mv5 04:57 Drug: Levalbuterol 1.25 mg [levalbuterol 1.25 mg/0.5 mL solution for nebulization (0.5 jh6 mL)] Route: Nebulizer; 04:57 Drug: cefUROXime 1.5 grams [cefuroxime sodium 750 mg solution for injection] Route: IV; mv5 Rate: calculated rate; Infused Over: 30 mins; Site: right hand; 05:43 Follow up: IV Status: Completed infusion mv5 04:57 Drug: Acetaminophen 975 mg [acetaminophen 325 mg tablet (3 tabs)] Route: PO; mv5 05:31 Follow up: Response: No Adverse Reaction mv5 05:43 Drug: azithromycin 500 mg [azithromycin 500 mg intravenous solution] Route: IVPB; mv5 Infused Over: 1 hrs; Site: right hand; 06:59 Follow up: IV Status: Completed infusion mv5 10:16 Drug: HYDROcodone-acetaminophen 2 tabs [hydrocodone 5 mg-acetaminophen 325 mg tablet (2 dsf tabs)] Route: PO; Critical Care Time: 05:13 Critical care time: Bedside Care: 120 minutes. Total time: 120 minutes cs11 Signatures: Dispatcher [employer] EDAnabel Shankar RN RN Hortencia Garcia RN Mercy Felipe, Reg Reg gb Sheyla Houston, Hopper Attendant Unit ml3 Opal Santiago RN RN dsf Jama Yeh, DO DO cs11 Sina Arndt RN VIJAY [facility] Radha Morales, Reg Reg hs2 Deepika Urbina RN RN 5 Rj Chawla [facility] Valdez Medeiros LPN [facility] The chart was reviewed and I authenticate all verbal orders and agree with the evaluation and treatment provided.Attachments: 06:23 [facility] Payment Agreement hs2 08/12 12:02 T-Sheet-- Draft Copy gb 12:08 ECG/EKG Chart Complete MTDD
[2016-08-13] MEDS: ASPIRIN 81 MG ENTERIC TAB PO SCH (17:20)
[2016-08-13] MEDS: traZODone 50 MG TAB PO SCH (21:11)
[2016-08-13] MEDS: ATORVASTATIN 10 MG TAB PO SCH (21:11)
[2016-08-13 22:00] VITALS: BP 135/76
[2016-08-13] MEDS: guaiFENesin 200 MG TAB PO PRN (22:01)
[2016-08-14] MEDS: NORCO, ANEXSIA 5/325MG TABLET (HYDROcodone/ACETAMINOPHEN) PO PRN ×6 (02:36→23:14)
[2016-08-14] MEDS: IPRATROPIUM 0.5MG/ALBUTEROL 2.5MG INH SOL UD 3ML (DUONEB)(J7620) NEB SCH ×6 (03:19→23:48)
[2016-08-14] MEDS: AZITHROMYCIN INJ 500 MG, VIAL MATE ADAPTER 1 EACH in D5W 250 ML IV SCH (05:42)
[2016-08-14] MEDS: guaiFENesin 200 MG TAB PO PRN ×2 (05:43→21:29)
[2016-08-14 06:00] VITALS: BP 133/64
[2016-08-14 06:58] LABS: MEAN CORPUSCULAR HEMOGLOBIN 30.1 pg (27.0-33.0); MEAN CORPUSCULAR HGB CONC 32.1 g/dl (32.0-36.5); RED CELL DISTRIBUTION WIDTH 15.7 % (11.5-14.5); WHITE BLOOD COUNT 15.9 K/mm3 (4.0-10.0)
[2016-08-14 07:15] LABS: ANION GAP 8 MEQ/L (8-16); BLOOD UREA NITROGEN 20 MG/DL (7-18); CALCIUM LEVEL 8.3 MG/DL (8.8-10.2); CARBON DIOXIDE LEVEL 27 MEQ/L (21-32); CHLORIDE LEVEL 105 MEQ/L (98-107); CREATININE FOR GFR 1.02 MG/DL (0.70-1.30); GLOMERULAR FILTRATION RATE > 60.0 (>49); GLUCOSE, FASTING 145 MG/DL (80-110); POTASSIUM SERUM 4.1 MEQ/L (3.5-5.1); SODIUM LEVEL 140 MEQ/L (136-145)
[2016-08-14 08:00] VITALS: BP 137/79
[2016-08-14] MEDS: TIOTROPIUM INHALER/CAPSULE (SPIRIVA) INH SCH (08:27)
[2016-08-14] MEDS: SYMBICORT 80/4.5MCG INHALER 6GM INH SCH ×2 (08:28→21:38)
[2016-08-14] MEDS: VITAMIN D 1,000 INTERNATIONAL UNITS TABLET PO SCH (09:19)
[2016-08-14] MEDS: OMEPRAZOLE 20 MG CAP PO SCH (09:19)
[2016-08-14] MEDS: OMEGA-3 1050MG CAPSULE PO SCH (09:19)
[2016-08-14] MEDS: FUROSEMIDE 20 MG TAB PO SCH (09:19)
[2016-08-14] MEDS: methylPREDNISolone INJ 40 MG/1 ML VIAL (J2920) IV SCH ×2 (09:22→21:23)
[2016-08-14] MEDS: cefTRIAXone SOD 1 GM in D5W MINI-BAG PLUS 50 ML IV SCH ×2 (11:47→23:15)
[2016-08-14 14:00] VITALS: BP 123/65
[2016-08-14 14:55] VITALS: BP 134/81
[2016-08-14] MEDS: ASPIRIN 81 MG ENTERIC TAB PO SCH (18:29)
--- NOTE | 2016-08-14 19:33 | IPN ---
DATE: 08/14/2016 Mr. Morgan is feeling much better. Narendra apparently had been taking Mucinex at home as it did not make his home med list. He has been taking it for many years. Upon restarting Mucinex last night, he has been much better able to clear his secretions. Temperature is 97.8, pulse 89, respiratory rate 18, blood pressure 123/65, 92% on three liters nasal cannula. Intake and output notable for a negative fluid balance of -2270. Weight 96.6 kg which represents a weight gain associated with a neg fluid balance. He is awake, appropriately interactive, pleasant and much more energetic today. Not as shortness of breath. I:E ratio is 1:3. Diminished aeration with occasional polyphonic wheeze. Heart is distant sounding, normal S1, S2. Abdomen soft, doughy, nontender. No significant lower extremity edema. White cell count 15.9, hemoglobin 13, platelets 275. BUN 20, creatinine 1.02. My assessment is as follows: This is a 71-year-old with: 1. Chronic obstructive pulmonary disease (COPD) exacerbation secondary to community-acquired pneumonia with continued hypoxic respiratory failure worse than his baseline but improving. 2. Patient has chronic obstructive pulmonary disease (COPD) and community-acquired pneumonia. Is continued on appropriate antibiotics for community-acquired pneumonia. Secretions is assisted with the use Acapella and guaifenesin. Routinely wean his oxygen. I have encouraged him to be out of bed. 3. The patient has dyslipidemia. 4. The patient has gastroesophageal reflux disease (GERD). 5. The patient has insomnia. 6. The patient has hypermagnesemia and home magnesium supplement has been held. Patient is also chronically on potassium chloride at home which has been held. Will follow repeat labs. 7. I suspect that the patient will require 1-3 more days in the hospital.
[2016-08-14] MEDS: ATORVASTATIN 10 MG TAB PO SCH (20:18)
[2016-08-14] MEDS: traZODone 50 MG TAB PO SCH (20:18)
[2016-08-14 22:00] VITALS: BP 127/70
[2016-08-14 23:49] VITALS: O2SAT 94
[2016-08-15] MEDS: NORCO, ANEXSIA 5/325MG TABLET (HYDROcodone/ACETAMINOPHEN) PO PRN ×6 (03:17→23:35)
[2016-08-15] MEDS: IPRATROPIUM 0.5MG/ALBUTEROL 2.5MG INH SOL UD 3ML (DUONEB)(J7620) NEB SCH ×5 (04:48→19:46)
[2016-08-15 06:00] VITALS: BP 126/72
[2016-08-15 06:15] LABS: MEAN CORPUSCULAR HEMOGLOBIN 30.6 pg (27.0-33.0); MEAN CORPUSCULAR HGB CONC 32.8 g/dl (32.0-36.5); MEAN CORPUSCULAR VOLUME 93.1 fl (80.0-96.0); RED CELL DISTRIBUTION WIDTH 15.4 % (11.5-14.5); WHITE BLOOD COUNT 10.9 K/mm3 (4.0-10.0)
[2016-08-15 06:20] LABS: ANION GAP 8 MEQ/L (8-16); BLOOD UREA NITROGEN 22 MG/DL (7-18); CALCIUM LEVEL 8.5 MG/DL (8.8-10.2); CARBON DIOXIDE LEVEL 28 MEQ/L (21-32); CHLORIDE LEVEL 105 MEQ/L (98-107); CREATININE FOR GFR 0.94 MG/DL (0.70-1.30); GLOMERULAR FILTRATION RATE > 60.0 (>49); GLUCOSE, FASTING 126 MG/DL (80-110); POTASSIUM SERUM 4.2 MEQ/L (3.5-5.1); SODIUM LEVEL 141 MEQ/L (136-145)
[2016-08-15] MEDS: TIOTROPIUM INHALER/CAPSULE (SPIRIVA) INH SCH (08:12)
[2016-08-15] MEDS: SYMBICORT 80/4.5MCG INHALER 6GM INH SCH ×2 (08:13→19:47)
[2016-08-15] MEDS: FUROSEMIDE 20 MG TAB PO SCH (10:18)
[2016-08-15] MEDS: methylPREDNISolone INJ 40 MG/1 ML VIAL (J2920) IV SCH ×2 (10:18→21:13)
[2016-08-15] MEDS: VITAMIN D 1,000 INTERNATIONAL UNITS TABLET PO SCH (10:18)
[2016-08-15] MEDS: AZITHROMYCIN 250 MG TAB PO SCH (10:18)
[2016-08-15] MEDS: OMEPRAZOLE 20 MG CAP PO SCH (10:19)
[2016-08-15] MEDS: cefTRIAXone SOD 1 GM in D5W MINI-BAG PLUS 50 ML IV SCH ×2 (11:39→23:34)
[2016-08-15] MEDS: guaiFENesin 200 MG TAB PO PRN ×2 (12:34→21:15)
[2016-08-15 14:00] VITALS: BP 123/63
[2016-08-15] MEDS: ASPIRIN 81 MG ENTERIC TAB PO SCH (17:41)
[2016-08-15] MEDS: ATORVASTATIN 10 MG TAB PO SCH (21:13)
[2016-08-15] MEDS: traZODone 50 MG TAB PO SCH (21:13)
[2016-08-15 22:00] VITALS: BP 120/70
[2016-08-16] MEDS: IPRATROPIUM 0.5MG/ALBUTEROL 2.5MG INH SOL UD 3ML (DUONEB)(J7620) NEB SCH ×4 (00:05→11:24)
[2016-08-16] MEDS: NORCO, ANEXSIA 5/325MG TABLET (HYDROcodone/ACETAMINOPHEN) PO PRN ×6 (04:07→23:08)
[2016-08-16 06:00] VITALS: BP 127/72
[2016-08-16 06:37] LABS: MEAN CORPUSCULAR HEMOGLOBIN 30.6 pg (27.0-33.0); MEAN CORPUSCULAR HGB CONC 32.8 g/dl (32.0-36.5); MEAN CORPUSCULAR VOLUME 93.3 fl (80.0-96.0); RED CELL DISTRIBUTION WIDTH 15.3 % (11.5-14.5); WHITE BLOOD COUNT 15.4 K/mm3 (4.0-10.0)
[2016-08-16 06:39] LABS: ANION GAP 9 MEQ/L (8-16); BLOOD UREA NITROGEN 22 MG/DL (7-18); CALCIUM LEVEL 8.5 MG/DL (8.8-10.2); CARBON DIOXIDE LEVEL 25 MEQ/L (21-32); CHLORIDE LEVEL 106 MEQ/L (98-107); CREATININE FOR GFR 1.03 MG/DL (0.70-1.30); GLOMERULAR FILTRATION RATE > 60.0 (>49); GLUCOSE, FASTING 118 MG/DL (80-110); POTASSIUM SERUM 4.1 MEQ/L (3.5-5.1); SODIUM LEVEL 140 MEQ/L (136-145)
[2016-08-16] MEDS: OMEPRAZOLE 20 MG CAP PO SCH (07:59)
[2016-08-16] MEDS: AZITHROMYCIN 250 MG TAB PO SCH (07:59)
[2016-08-16] MEDS: guaiFENesin 200 MG TAB PO PRN ×4 (07:59→20:07)
[2016-08-16] MEDS: OMEGA-3 1050MG CAPSULE PO SCH (08:00)
[2016-08-16] MEDS: VITAMIN D 1,000 INTERNATIONAL UNITS TABLET PO SCH (08:00)
[2016-08-16] MEDS: FUROSEMIDE 20 MG TAB PO SCH (08:00)
[2016-08-16] MEDS: SYMBICORT 80/4.5MCG INHALER 6GM INH SCH (08:29)
[2016-08-16] MEDS: TIOTROPIUM INHALER/CAPSULE (SPIRIVA) INH SCH (08:29)
[2016-08-16] MEDS: methylPREDNISolone INJ 40 MG/1 ML VIAL (J2920) IV SCH ×2 (10:08→21:35)
--- NOTE | 2016-08-16 10:36 | IPN ---
DATE: 08/15/2016 Mr. Morgan is feeling better today. He is slightly more energetic, still quite short of breath. He is walking short distances, is having trouble producing sputum still. Temperature is 97.3, pulse 85, respiratory rate 19, blood pressure 126/72, 92% on three liters. Intake and output notable for a positive fluid balance of 680. Two bowel movements yesterday. He is awake, appropriately interactive, pleasantly conversant and quite talkative today. Breathing is symmetrical with improved aeration when compared to yesterday. Scattered polyphonic wheeze. I:E ratio is 1:3. Heart is distant sounding, normal S1, S2. Radial pulses 2+, capillary refill is less than two seconds. Abdomen is soft, doughy, nontender. LABORATORY DATA: White cell count 10.9, hemoglobin 12.3, and platelets of 268. BUN 22, creatinine 0.94. ASSESSMENT: 1. This is a 71-year-old with chronic obstructive pulmonary disease (COPD) exacerbation secondary to community-acquired pneumonia with continued hypoxia, slightly above baseline continuing to show improvement with ongoing mal clearance of secretions. The patient is using Acapella device and guaifenesin with less success than we had hoped. We will add Vest therapy today. He has used Vest therapy in the past with some success. Again, I have encouraged him to be out of bed today. 2. The patient has dyslipidemia. 3. The patient has gastroesophageal reflux disease (GERD). 4. The patient has insomnia. 5. The patient has had hypermagnesemia noted during his stay and home magnesium supplement has been held. The patient is chronically on potassium at home and potassium level today is 4.2 without supplementation.
[2016-08-16] MEDS: cefTRIAXone SOD 1 GM in D5W MINI-BAG PLUS 50 ML IV SCH ×2 (12:03→23:07)
[2016-08-16] MEDS ORDERED: ALBUTEROL SULFATE 2.5 MG/0.5 ML INH NEB SOLN INH PRN (13:45)
[2016-08-16 14:00] VITALS: BP 148/82
[2016-08-16] MEDS: ALBUTEROL SULFATE 2.5 MG/0.5 ML INH NEB SOLN INH SCH ×2 (16:00→20:03)
[2016-08-16] MEDS: ASPIRIN 81 MG ENTERIC TAB PO SCH (16:10)
[2016-08-16] MEDS: ATORVASTATIN 10 MG TAB PO SCH (20:06)
[2016-08-16] MEDS: traZODone 50 MG TAB PO SCH (20:06)
[2016-08-16 22:00] VITALS: BP 141/72
[2016-08-16] MEDS: traZODone 50 MG TAB PO PRN (23:07)
[2016-08-17] MEDS: SYMBICORT 80/4.5MCG INHALER 6GM INH SCH ×3 (00:03→20:05)
[2016-08-17] MEDS: NORCO, ANEXSIA 5/325MG TABLET (HYDROcodone/ACETAMINOPHEN) PO PRN ×7 (00:04→22:48)
[2016-08-17] MEDS: ALBUTEROL SULFATE 2.5 MG/0.5 ML INH NEB SOLN INH SCH ×7 (03:38→23:38)
[2016-08-17 06:00] VITALS: BP 122/74
[2016-08-17 06:12] LABS: MEAN CORPUSCULAR HGB CONC 33.4 g/dl (32.0-36.5); MEAN CORPUSCULAR VOLUME 92.8 fl (80.0-96.0); RED CELL DISTRIBUTION WIDTH 15.3 % (11.5-14.5); WHITE BLOOD COUNT 16.7 K/mm3 (4.0-10.0)
[2016-08-17 06:29] LABS: ANION GAP 8 MEQ/L (8-16); BLOOD UREA NITROGEN 24 MG/DL (7-18); CALCIUM LEVEL 7.8 MG/DL (8.8-10.2); CARBON DIOXIDE LEVEL 27 MEQ/L (21-32); CHLORIDE LEVEL 105 MEQ/L (98-107); CREATININE FOR GFR 1.09 MG/DL (0.70-1.30); GLOMERULAR FILTRATION RATE > 60.0 (>49); GLUCOSE, FASTING 131 MG/DL (80-110); POTASSIUM SERUM 4.1 MEQ/L (3.5-5.1); SODIUM LEVEL 140 MEQ/L (136-145)
[2016-08-17] MEDS: guaiFENesin 200 MG TAB PO PRN ×2 (06:43→12:29)
[2016-08-17] MEDS: TIOTROPIUM INHALER/CAPSULE (SPIRIVA) INH SCH (08:34)
[2016-08-17] MEDS: VITAMIN D 1,000 INTERNATIONAL UNITS TABLET PO SCH (09:11)
[2016-08-17] MEDS: OMEPRAZOLE 20 MG CAP PO SCH (09:11)
[2016-08-17] MEDS: methylPREDNISolone INJ 40 MG/1 ML VIAL (J2920) IV SCH ×2 (09:11→21:04)
[2016-08-17] MEDS: FUROSEMIDE 20 MG TAB PO SCH (09:11)
[2016-08-17] MEDS: AZITHROMYCIN 250 MG TAB PO SCH (09:11)
[2016-08-17] MEDS: cefTRIAXone SOD 1 GM in D5W MINI-BAG PLUS 50 ML IV SCH ×2 (12:28→22:59)
[2016-08-17 14:00] VITALS: BP 117/70
--- NOTE | 2016-08-17 15:07 | IPN ---
DATE: 08/16/2016 Mr. Morgan feels like he is breathing a little easier, although he is still having difficulty producing sputum. He has no chest pain. He has been coughing, but perhaps a little bit less. Temperature is 97.1, pulse 66, respiratory rate 20, blood pressure 127/72, 91% on 3 liters. Input and output notable for a negative fluid balance of -1085. Five bowel movements were noted yesterday, none thus far today. He is awake, appropriately interactive, pleasantly conversant. Breathing is symmetrical. No accessory muscle use. Speaking in sentences. I:E ratio is 1:4. He has scattered polyphonic wheeze. Heart has a regular rate and rhythm. Normal S1, S2. Abdomen is soft, doughy, nontender. No significant lower extremity edema. White count 15.4, hemoglobin 13.6, BUN 23, creatinine 1.03. ASSESSMENT: This is a 71-year-old with chronic obstructive pulmonary disease (COPD) exacerbation secondary to community-acquired pneumonia, continued hypoxemia slightly above baseline. Continues to slow improvement with ongoing malclearance of secretions. PLAN: 1. COPD. The patient is continued on steroids, antibiotics. He is receiving vest therapy and nebulizers. I discussed this case in person with the respiratory therapist. We will attempt to dilute his morning and evening albuterol with hypertonic saline to encourage movement of secretions. I have also elected to discontinue his ipratropium. Again, I have encouraged him to be out of bed. 2. The patient has dyslipidemia. 3. The patient has gastroesophageal reflux disease (GERD). 4. The patient has insomnia. 5. The patient has hypermagnesemia noted at the beginning of his stay, not currently on magnesium supplementation. The patient is also chronically on potassium at home, potassium level is reasonably maintained without supplementation here.
[2016-08-17] MEDS: FLUCONAZOLE 100 MG TAB PO SCH (15:29)
--- NOTE | 2016-08-17 17:27 | REP ---
Clinical: Cough. Hypoxia. Comparison: 05/27/2016. Findings: Advanced COPD/emphysematous changes are appreciated bilaterally with mild bronchiectasis. No acute consolidation, nodule or mass lesion. No pleural effusion/reaction or pneumothorax. Mediastinum is stable and mild atherosclerotic changes to the thoracic aorta and coronary arteries noted without cardiomegaly or pericardial effusion. No evidence for aortic aneurysm. Surrounding musculoskeletal structures normal. Limited upper abdomen demonstrates normal bilateral adrenal glands. Impression: Advanced COPD and emphysematous changes. No acute mediastinal or pleuroparenchymal process. Signed by Alvarez Jimenez MD 08/17/2016 05:18 P
[2016-08-17] MEDS: ASPIRIN 81 MG ENTERIC TAB PO SCH (17:38)
[2016-08-17] MEDS: traZODone 50 MG TAB PO SCH (21:04)
[2016-08-17] MEDS: ATORVASTATIN 10 MG TAB PO SCH (21:04)
[2016-08-17 22:00] VITALS: BP 123/62
[2016-08-18] MEDS: NORCO, ANEXSIA 5/325MG TABLET (HYDROcodone/ACETAMINOPHEN) PO PRN ×6 (02:57→23:15)
[2016-08-18] MEDS: ALBUTEROL SULFATE 2.5 MG/0.5 ML INH NEB SOLN INH SCH ×5 (03:46→20:00)
[2016-08-18 06:00] VITALS: BP 130/72
[2016-08-18 06:09] LABS: MEAN CORPUSCULAR HEMOGLOBIN 30.8 pg (27.0-33.0); MEAN CORPUSCULAR HGB CONC 33.4 g/dl (32.0-36.5); RED CELL DISTRIBUTION WIDTH 15.1 % (11.5-14.5); WHITE BLOOD COUNT 17.1 K/mm3 (4.0-10.0)
[2016-08-18 06:24] LABS: ANION GAP 9 MEQ/L (8-16); BLOOD UREA NITROGEN 27 MG/DL (7-18); CALCIUM LEVEL 8.2 MG/DL (8.8-10.2); CARBON DIOXIDE LEVEL 28 MEQ/L (21-32); CHLORIDE LEVEL 104 MEQ/L (98-107); CREATININE FOR GFR 1.12 MG/DL (0.70-1.30); GLOMERULAR FILTRATION RATE > 60.0 (>49); GLUCOSE, FASTING 134 MG/DL (80-110); POTASSIUM SERUM 4.7 MEQ/L (3.5-5.1); SODIUM LEVEL 141 MEQ/L (136-145)
[2016-08-18] MEDS: TIOTROPIUM INHALER/CAPSULE (SPIRIVA) INH SCH (07:51)
[2016-08-18] MEDS: SYMBICORT 80/4.5MCG INHALER 6GM INH SCH ×2 (07:52→20:04)
--- NOTE | 2016-08-18 08:52 | IPN ---
DATE: 08/17/2016 Mr. Morgan is still quite short of breath today. He has no chest pain. He feels as though he is unable to produce sputum. Did not find any help particularly with the hypertonic saline or with the vest or the Acapella device. His sputum has a black tinge to it. Temperature 98.2, pulse 98, respiratory rate 18, blood pressure 117/70, 91% on 3 liters nasal cannula. Input and output notable for a positive fluid balance of 335. Three bowel movements thus far today. He is awake, appropriately interactive, pleasantly conversant. Breathing is symmetrical, rested. I:E ratio is 1:3. There is scattered polyphonic wheeze. No obvious elevation in jugular venous pressure. No hepatojugular reflux. Heart is distant sounding. Normal S1, S2. Abdomen is soft, doughy, nontender. White cell count is 16.7, hemoglobin 13.1, and platelets of 287. BUN 24, creatinine 1.09. ASSESSMENT: 71-year-old female with chronic obstructive pulmonary disease (COPD) exacerbation secondary to community-acquired pneumonia, continued hypoxemia slightly above baseline and prominent malclearance of secretions. PLAN: 1. The patient has COPD and is continued on steroids and antibiotics. He is now on vest therapy and nebulizers with hypertonic saline, as well as acapella device for malclearance of secretions. I believe at this point it is reasonable to get a CT scan of the chest, which will be ordered. We have discontinued his ipratropium and we will continue him on albuterol nebulizers only. 2. The patient has dyslipidemia. 3. The patient has gastroesophageal reflux disease (GERD). 4. The patient has insomnia. 5. The patient has hypermagnesemia at the beginning of his stay, so we held his home magnesium supplement. The patient also is on chronic potassium at home, which he seems not to need here. 6. The patient has leukocytosis, which is likely related to steroid use.
[2016-08-18] MEDS: methylPREDNISolone INJ 40 MG/1 ML VIAL (J2920) IV SCH ×2 (09:38→21:04)
[2016-08-18] MEDS: AZITHROMYCIN 250 MG TAB PO SCH (09:38)
[2016-08-18] MEDS: FUROSEMIDE 20 MG TAB PO SCH (09:38)
[2016-08-18] MEDS: OMEPRAZOLE 20 MG CAP PO SCH (09:38)
[2016-08-18] MEDS: OMEGA-3 1050MG CAPSULE PO SCH (09:38)
[2016-08-18] MEDS: VITAMIN D 1,000 INTERNATIONAL UNITS TABLET PO SCH (09:39)
[2016-08-18] MEDS: FLUCONAZOLE 100 MG TAB PO SCH (09:42)
[2016-08-18] MEDS: cefTRIAXone SOD 1 GM in D5W MINI-BAG PLUS 50 ML IV SCH ×2 (11:13→23:14)
--- NOTE | 2016-08-18 12:32 | IPNPDOC ---
Subjective Date Seen The patient was seen on 08/18/16. Subjective Chief Complaint/HPI The patient is a 71-year-old male admitted with a reason for visit of Copd Exacerbation. General: Denies: Chills, Fatigue, Malaise, Night Sweats, Normal Appetite, Other Symptoms, ROS Unobtainable Constitutional: Denies: Chills, Fatigue, Fever, Lethargy, Malaise, Night Sweats , Other, Weakness, Weight Loss Eyes: Denies: Conjunctivae inflammation, Eyelid inflammation, Other, Pain, Redness, Vision change ENT: Denies: Dysphagia, Ear Pain, Epistaxis, Head Aches, Other Symptoms, Post Nasal Drip, Sinus Congestion, Sore Throat Skin: Denies: Breakdown, Bruising, Dry, Itching, Jaundice, Lesions, Nail Changes, Other, Rash Pulmonary: Reports: Cough, Dyspnea, Denies: Other Symptoms, Pleuritic Chest Pain Cardiovascular: Denies: Chest Pain, Edema, Lt Headedness, Orthopnea, Other Symptoms, Palpitations, Paroxysmal Noc. Dyspnea Gastrointestinal: Denies: Abdominal Pain, Constipation, Diarrhea, Hematochezia , Melena, Nausea, Other Symptoms, Vomiting Genitourinary: Denies: Dysuria, Frequency, Hematuria, Incontinence, Other Symptoms, Retention Objective Physical Examination General Exam: Positive: Alert, Cooperative, No Acute Distress Eye Exam: Positive: Conjunctiva & lids normal, EOMI, PERRLA, Negative: Sclera icteric ENT Exam: Positive: Atraumatic, Mucous membr. moist/pink Neck Exam: Negative: JVD Chest Exam: Positive: Normal air movement, Other (diffuse bilateral expiratory wheeze noted.), Negative: Rales Heart Exam: Positive: Normal S1, Normal S2, Rate Normal Abdomen Exam: Positive: Normal bowel sounds, Soft, Negative: Tenderness Extremity Exam: Negative: Edema, Swelling, Tenderness Psych Exam: Positive: Oriented x 3 Assessment /Plan Problems (1) COPD exacerbation Onset Date: 07/03/2014 Status: Acute Response to Treatment: Progressing Discussed With: Patient Problem Specific Plan: Monitor Clinically Problem Text: Continue supplemental oxygen, he states he uses 2L at baseline. Continue fluconazole, albuterol nebs, robitussin, ceftriaxone (day #7). Continue vest therapy and hypertonic saline to assist with expectoration. Continue steroids, likely wean to PO in 24 hours. Continue symbicort and spiriva. (2) HTN (hypertension) Status: Chronic Problem Text: Continue lasix and modified diet. (3) HLD (hyperlipidemia) Status: Chronic Problem Text: Continue lipitor. (4) GERD (gastroesophageal reflux disease) Status: Chronic Problem Text: Prilosec (5) Chronic back pain Status: Chronic Problem Text: [place] as needed. Plan/VTE VTE Prophylaxis Ordered?: Yes (mechanical) Plan Diet: Continue Current Activity: Continue Current Medications: Taper Antibiotics, Taper Steroids Respiratory: Wean Oxygen Diagnostics: Repeat Labs in AM VS, I&O, 24H, Fishbone Vital Signs/I&O Vital Signs Date Time Temp Pulse Resp B/P Pulse Ox O2 Delivery O2 Flow Rate FiO2 08/18/16 11:12 22 08/18/16 06:00 96.2 80 130/72 92 Nasal Cannula 3.0 I&O- Last 24 Hours up to 6 AM 08/18/16 06:00 Intake Total 2760 ml Output Total 3925 ml Balance -1165 ml Laboratory Data 24H LABS Laboratory Tests 2 08/18/16 05:44: Anion Gap 9, Blood Urea Nitrogen 27H, Creatinine 1.12, Sodium Level 141, Potassium Level 4.7, Chloride Level 104, Carbon Dioxide Level 28, Calcium Level 8.2L, Glomerular Filtration Rate > 60.0 CBC/BMP Laboratory Tests 08/18/16 05:44 Calcium Level 8.2 L, Red Blood Count 4.24 L, Mean Corpuscular Volume 92.0, Mean Corpuscular Hemoglobin 30.8, Mean Corpuscular Hemoglobin Concent 33.4, Red Cell Distribution Width 15.1 H Microbiology Microbiology 08/11/16 Blood Culture - Final, Complete NO GROWTH AFTER 5 DAYS 08/11/16 Blood Culture - Final, Complete NO GROWTH AFTER 5 DAYS 08/17/16 Gram Stain - Final, Resulted 08/17/16 Sputum Culture, Resulted Pending 08/12/16 Respiratory Virus Panel (PCR) ([facility]) - Final, Complete 08/12/16 Gram Stain - Final, Complete 08/12/16 Sputum Culture - Final, Complete Yeast Like Organism KRIS GARCIA MD Aug 18, 2016 12:32
[2016-08-18 14:00] VITALS: BP 118/66
[2016-08-18] MEDS: ASPIRIN 81 MG ENTERIC TAB PO SCH (17:32)
[2016-08-18] MEDS: ATORVASTATIN 10 MG TAB PO SCH (21:04)
[2016-08-18] MEDS: traZODone 50 MG TAB PO SCH (21:04)
[2016-08-18 22:00] VITALS: BP 125/64
[2016-08-19] MEDS: ALBUTEROL SULFATE 2.5 MG/0.5 ML INH NEB SOLN INH SCH ×6 (00:05→19:49)
[2016-08-19] MEDS: NORCO, ANEXSIA 5/325MG TABLET (HYDROcodone/ACETAMINOPHEN) PO PRN ×5 (03:22→20:04)
[2016-08-19 06:00] VITALS: BP 127/70
[2016-08-19] MEDS: TIOTROPIUM INHALER/CAPSULE (SPIRIVA) INH SCH (06:51)
[2016-08-19] MEDS: SYMBICORT 80/4.5MCG INHALER 6GM INH SCH ×2 (06:52→19:49)
[2016-08-19] MEDS: VITAMIN D 1,000 INTERNATIONAL UNITS TABLET PO SCH (07:49)
[2016-08-19] MEDS: OMEPRAZOLE 20 MG CAP PO SCH (07:50)
[2016-08-19] MEDS: FLUCONAZOLE 100 MG TAB PO SCH (07:51)
[2016-08-19] MEDS: FUROSEMIDE 20 MG TAB PO SCH (07:51)
[2016-08-19 09:29] LABS: BASO % 0.2 % (0.0-1.0); EOS # 0.1 K/mm3 (0.0-0.50); EOS % 0.3 % (0.0-3.0); LARGE UNSTAINED CELL # 0.1 K/mm3 (0.0-0.4); LARGE UNSTAINED CELL % 0.6 % (0.0-4.0); LYMPH # 1.1 K/mm3 (1.5-4.5); LYMPH % 5.4 % (24.0-44.0); MEAN CORPUSCULAR HEMOGLOBIN 29.6 pg (27.0-33.0); MEAN CORPUSCULAR HGB CONC 31.7 g/dl (32.0-36.5); MEAN CORPUSCULAR VOLUME 93.1 fl (80.0-96.0); MONO # 0.9 K/mm3 (0.0-0.8); MONO % 4.5 % (0.0-5.0); NEUTROPHILS # 17.2 K/mm3 (1.8-7.7); PLATELET COUNT, AUTOMATED 318 k/mm3 (150-450); RED CELL DISTRIBUTION WIDTH 14.9 % (11.5-14.5); WHITE BLOOD COUNT 19.4 K/mm3 (4.0-10.0)
[2016-08-19 09:56] LABS: ANION GAP 8 MEQ/L (8-16); BLOOD UREA NITROGEN 29 MG/DL (7-18); CALCIUM LEVEL 8.3 MG/DL (8.8-10.2); CARBON DIOXIDE LEVEL 26 MEQ/L (21-32); CHLORIDE LEVEL 103 MEQ/L (98-107); CREATININE FOR GFR 1.26 MG/DL (0.70-1.30); GLOMERULAR FILTRATION RATE > 60.0 (>49); GLUCOSE, FASTING 154 MG/DL (80-110); POTASSIUM SERUM 4.2 MEQ/L (3.5-5.1); SODIUM LEVEL 137 MEQ/L (136-145)
[2016-08-19] MEDS: methylPREDNISolone INJ 40 MG/1 ML VIAL (J2920) IV SCH ×2 (10:00→21:03)
--- NOTE | 2016-08-19 10:02 | IPNPDOC ---
Subjective Date Seen The patient was seen on 08/19/16. Subjective Chief Complaint/HPI The patient is a 71-year-old male admitted with a reason for visit of Copd Exacerbation. General: Denies: Chills, Fatigue, Malaise, Night Sweats, Normal Appetite, Other Symptoms, ROS Unobtainable Constitutional: Denies: Chills, Fatigue, Fever, Lethargy, Malaise, Night Sweats , Other, Weakness, Weight Loss Eyes: Denies: Conjunctivae inflammation, Eyelid inflammation, Other, Pain, Redness, Vision change ENT: Denies: Dysphagia, Ear Pain, Epistaxis, Head Aches, Other Symptoms, Post Nasal Drip, Sinus Congestion, Sore Throat Skin: Denies: Breakdown, Bruising, Dry, Itching, Jaundice, Lesions, Nail Changes, Other, Rash Pulmonary: Reports: Cough, Dyspnea, Denies: Other Symptoms, Pleuritic Chest Pain Objective Physical Examination General Exam: Positive: Alert, Cooperative, No Acute Distress Eye Exam: Positive: Conjunctiva & lids normal, EOMI, PERRLA, Negative: Sclera icteric ENT Exam: Positive: Atraumatic, Mucous membr. moist/pink Neck Exam: Negative: JVD Chest Exam: Positive: Normal air movement, Other (diffuse bilateral expiratory wheeze noted.), Negative: Rales Heart Exam: Positive: Normal S1, Normal S2, Rate Normal Abdomen Exam: Positive: Normal bowel sounds, Soft, Negative: Tenderness Extremity Exam: Negative: Edema, Swelling, Tenderness Psych Exam: Positive: Oriented x 3 Assessment /Plan Problems (1) COPD exacerbation Onset Date: 07/03/2014 Status: Acute Response to Treatment: Progressing Discussed With: Patient Problem Specific Plan: Monitor Clinically Problem Text: Continue supplemental oxygen, he states he uses 2L at baseline. Continue fluconazole, albuterol nebs, robitussin, ceftriaxone (day #7). Continue vest therapy and hypertonic saline to assist with expectoration. Continue steroids, likely wean to PO prednisone tomorrow. Continue symbicort and spiriva. (2) HTN (hypertension) Status: Chronic Problem Text: Continue lasix and modified diet. (3) HLD (hyperlipidemia) Status: Chronic Problem Text: Continue lipitor. (4) GERD (gastroesophageal reflux disease) Status: Chronic Problem Text: Prilosec (5) Chronic back pain Status: Chronic Problem Text: [place] as needed. Plan/VTE VTE Prophylaxis Ordered?: Yes (mechanical) Plan Diet: Continue Current Activity: Continue Current Medications: Taper Antibiotics, Taper Steroids Respiratory: Wean Oxygen Diagnostics: Repeat Labs in AM VS, I&O, 24H, Delphine Vital Signs/I&O Vital Signs Date Time Temp Pulse Resp B/P Pulse Ox O2 Delivery O2 Flow Rate FiO2 08/19/16 08:20 22 08/19/16 07:50 Nasal Cannula 3.0 08/19/16 06:00 96.7 73 127/70 92 I&O- Last 24 Hours up to 6 AM 08/19/16 06:00 Intake Total 1300 ml Output Total 3050 ml Balance -1750 ml Laboratory Data 24H LABS Laboratory Tests 2 08/19/16 09:19: Anion Gap 8, White Blood Count 19.4H, Red Blood Count 4.66, Hemoglobin 13.8L, Hematocrit 43.4, Mean Corpuscular Volume 93.1, Mean Corpuscular Hemoglobin 29.6 , Mean Corpuscular Hemoglobin Concent 31.7L, Red Cell Distribution Width 14.9H, Platelet Count 318, Neutrophils (%) (Auto) 89.0H, Lymphocytes (%) (Auto) 5.4L, Monocytes (%) (Auto) 4.5, Eosinophils (%) (Auto) 0.3, Basophils (%) (Auto) 0.2, Neutrophils # (Auto) 17.2H, Lymphocytes # (Auto) 1.1L, Monocytes # (Auto) 0.9H, Eosinophils # (Auto) 0.1, Basophils # (Auto) 0.0, Blood Urea Nitrogen 29H, Creatinine 1.26, Sodium Level 137, Potassium Level 4.2, Chloride Level 103, Carbon Dioxide Level 26, Calcium Level 8.3L, Glomerular Filtration Rate > 60.0, Large Unclassified Cells # 0.1, Large Unclassified Cells % 0.6 CBC/BMP Laboratory Tests 08/19/16 09:19 Calcium Level 8.3 L, Red Blood Count 4.66, Mean Corpuscular Volume 93.1, Mean Corpuscular Hemoglobin 29.6, Mean Corpuscular Hemoglobin Concent 31.7 L, Red Cell Distribution Width 14.9 H, Neutrophils (%) (Auto) 89.0 H, Lymphocytes (%) ( Auto) 5.4 L, Monocytes (%) (Auto) 4.5, Eosinophils (%) (Auto) 0.3, Basophils (% ) (Auto) 0.2, Neutrophils # (Auto) 17.2 H, Lymphocytes # (Auto) 1.1 L, Monocytes # (Auto) 0.9 H, Eosinophils # (Auto) 0.1, Basophils # (Auto) 0.0 Microbiology Microbiology 08/11/16 Blood Culture - Final, Complete NO GROWTH AFTER 5 DAYS 08/11/16 Blood Culture - Final, Complete NO GROWTH AFTER 5 DAYS 08/17/16 Gram Stain - Final, Complete 08/17/16 Sputum Culture - Final, Complete Yeast Like Organism 08/12/16 Respiratory Virus Panel (PCR) (PUJA) - Final, Complete 08/12/16 Gram Stain - Final, Complete 08/12/16 Sputum Culture - Final, Complete Yeast Like Organism KRIS GARCIA MD Aug 19, 2016 10:02
[2016-08-19] MEDS: cefTRIAXone SOD 1 GM in D5W MINI-BAG PLUS 50 ML IV SCH ×2 (11:00→23:23)
[2016-08-19 14:00] VITALS: BP 149/80
[2016-08-19] MEDS: AZITHROMYCIN 250 MG TAB PO SCH (15:21)
[2016-08-19] MEDS: ASPIRIN 81 MG ENTERIC TAB PO SCH (17:20)
[2016-08-19] MEDS: ATORVASTATIN 10 MG TAB PO SCH (21:03)
[2016-08-19] MEDS: traZODone 50 MG TAB PO SCH (21:03)
[2016-08-19 22:00] VITALS: BP 144/64
[2016-08-20] MEDS: NORCO, ANEXSIA 5/325MG TABLET (HYDROcodone/ACETAMINOPHEN) PO PRN ×6 (00:05→20:26)
[2016-08-20] MEDS: ALBUTEROL SULFATE 2.5 MG/0.5 ML INH NEB SOLN INH SCH ×7 (00:07→23:29)
[2016-08-20 06:00] VITALS: BP 126/66
[2016-08-20 06:22] LABS: BASO % 0.2 % (0.0-1.0); EOS # 0.2 K/mm3 (0.0-0.50); LARGE UNSTAINED CELL # 0.1 K/mm3 (0.0-0.4); LARGE UNSTAINED CELL % 0.4 % (0.0-4.0); LYMPH # 0.9 K/mm3 (1.5-4.5); LYMPH % 5.1 % (24.0-44.0); MEAN CORPUSCULAR HEMOGLOBIN 30.5 pg (27.0-33.0); MEAN CORPUSCULAR HGB CONC 32.8 g/dl (32.0-36.5); MONO # 0.8 K/mm3 (0.0-0.8); MONO % 4.4 % (0.0-5.0); NEUTROPHILS # 15.2 K/mm3 (1.8-7.7); NEUTROPHILS % 88.9 % (36.0-66.0); PLATELET COUNT, AUTOMATED 284 k/mm3 (150-450); RED CELL DISTRIBUTION WIDTH 15.2 % (11.5-14.5); WHITE BLOOD COUNT 17.1 K/mm3 (4.0-10.0)
[2016-08-20 06:31] LABS: ANION GAP 9 MEQ/L (8-16); BLOOD UREA NITROGEN 33 MG/DL (7-18); CALCIUM LEVEL 7.5 MG/DL (8.8-10.2); CARBON DIOXIDE LEVEL 27 MEQ/L (21-32); CHLORIDE LEVEL 105 MEQ/L (98-107); CREATININE FOR GFR 1.04 MG/DL (0.70-1.30); GLOMERULAR FILTRATION RATE > 60.0 (>49); GLUCOSE, FASTING 119 MG/DL (80-110); POTASSIUM SERUM 4.3 MEQ/L (3.5-5.1); SODIUM LEVEL 141 MEQ/L (136-145)
[2016-08-20] MEDS: OMEGA-3 1050MG CAPSULE PO SCH (08:17)
[2016-08-20] MEDS: predniSONE 20 MG TAB PO SCH (08:18)
[2016-08-20] MEDS: VITAMIN D 1,000 INTERNATIONAL UNITS TABLET PO SCH (08:18)
[2016-08-20] MEDS: AZITHROMYCIN 250 MG TAB PO SCH (08:18)
[2016-08-20] MEDS: FUROSEMIDE 20 MG TAB PO SCH (08:18)
[2016-08-20] MEDS: OMEPRAZOLE 20 MG CAP PO SCH (08:18)
[2016-08-20] MEDS: FLUCONAZOLE 100 MG TAB PO SCH (08:18)
[2016-08-20] MEDS: SYMBICORT 80/4.5MCG INHALER 6GM INH SCH ×2 (08:42→20:18)
[2016-08-20] MEDS: TIOTROPIUM INHALER/CAPSULE (SPIRIVA) INH SCH (08:42)
--- NOTE | 2016-08-20 10:50 | IPNPDOC ---
Subjective Date Seen The patient was seen on 08/20/16. Subjective Chief Complaint/HPI The patient is a 71-year-old male admitted with a reason for visit of Copd Exacerbation. General: Denies: Chills, Fatigue, Malaise, Night Sweats, Normal Appetite, Other Symptoms, ROS Unobtainable Constitutional: Denies: Chills, Fatigue, Fever, Lethargy, Malaise, Night Sweats , Other, Weakness, Weight Loss Eyes: Denies: Conjunctivae inflammation, Eyelid inflammation, Other, Pain, Redness, Vision change ENT: Denies: Dysphagia, Ear Pain, Epistaxis, Head Aches, Other Symptoms, Post Nasal Drip, Sinus Congestion, Sore Throat Skin: Denies: Breakdown, Bruising, Dry, Itching, Jaundice, Lesions, Nail Changes, Other, Rash Pulmonary: Reports: Dyspnea, Denies: Cough, Other Symptoms, Pleuritic Chest Pain Cardiovascular: Denies: Chest Pain, Edema, Lt Headedness, Orthopnea, Other Symptoms, Palpitations, Paroxysmal Noc. Dyspnea Gastrointestinal: Denies: Abdominal Pain, Constipation, Diarrhea, Hematochezia , Melena, Nausea, Other Symptoms, Vomiting Objective Physical Examination General Exam: Positive: Alert, Cooperative, No Acute Distress Eye Exam: Positive: Conjunctiva & lids normal, EOMI, PERRLA, Negative: Sclera icteric ENT Exam: Positive: Atraumatic, Mucous membr. moist/pink Neck Exam: Negative: JVD Chest Exam: Positive: Normal air movement, Other (mild b/l wheezes), Negative: Rales Heart Exam: Positive: Normal S1, Normal S2, Rate Normal Abdomen Exam: Positive: Normal bowel sounds, Soft, Negative: Tenderness Extremity Exam: Negative: Edema, Swelling, Tenderness Psych Exam: Positive: Oriented x 3 Assessment /Plan Problems (1) COPD exacerbation Onset Date: 07/03/2014 Status: Acute Response to Treatment: Progressing Discussed With: Patient Problem Specific Plan: Monitor Clinically Problem Text: Saturating well on 2L at baseline. Continue fluconazole, albuterol nebs, robitussin, ceftriaxone (day #8). Continue vest therapy and hypertonic saline to assist with expectoration. Continue PO prednisone. Continue symbicort and spiriva. (2) HTN (hypertension) Status: Chronic Problem Text: Continue lasix and modified diet. (3) HLD (hyperlipidemia) Status: Chronic Problem Text: Continue lipitor. (4) GERD (gastroesophageal reflux disease) Status: Chronic Problem Text: Prilosec (5) Chronic back pain Status: Chronic Problem Text: [place] as needed. Plan/VTE VTE Prophylaxis Ordered?: Yes (mechanical) Plan Diet: Continue Current Activity: Continue Current Medications: Taper Antibiotics, Taper Steroids Respiratory: Wean Oxygen Diagnostics: Repeat Labs in AM Disposition Anticipating discharge home in 24 hours with steroid taper. VS, I&O, 24H, Fishbone Vital Signs/I&O Vital Signs Date Time Temp Pulse Resp B/P Pulse Ox O2 Delivery O2 Flow Rate FiO2 08/20/16 08:49 20 08/20/16 06:00 96.3 74 126/66 92 Nasal Cannula 2.0 I&O- Last 24 Hours up to 6 AM 08/20/16 06:00 Intake Total 1780 ml Output Total 3625 ml Balance -1845 ml Laboratory Data 24H LABS Laboratory Tests 2 08/20/16 05:47: Anion Gap 9, White Blood Count 17.1H, Red Blood Count 4.08L, Hemoglobin 12.5L, Hematocrit 38.0L, Mean Corpuscular Volume 93.0, Mean Corpuscular Hemoglobin 30.5 , Mean Corpuscular Hemoglobin Concent 32.8, Red Cell Distribution Width 15.2H, Platelet Count 284, Neutrophils (%) (Auto) 88.9H, Lymphocytes (%) (Auto) 5.1L, Monocytes (%) (Auto) 4.4, Eosinophils (%) (Auto) 1.0, Basophils (%) (Auto) 0.2, Neutrophils # (Auto) 15.2H, Lymphocytes # (Auto) 0.9L, Monocytes # (Auto) 0.8, Eosinophils # (Auto) 0.2, Basophils # (Auto) 0.0, Blood Urea Nitrogen 33H, Creatinine 1.04, Sodium Level 141, Potassium Level 4.3, Chloride Level 105, Carbon Dioxide Level 27, Calcium Level 7.5L, Glomerular Filtration Rate > 60.0, Large Unclassified Cells # 0.1, Large Unclassified Cells % 0.4 CBC/BMP Laboratory Tests 08/20/16 05:47 Calcium Level 7.5 L, Red Blood Count 4.08 L, Mean Corpuscular Volume 93.0, Mean Corpuscular Hemoglobin 30.5, Mean Corpuscular Hemoglobin Concent 32.8, Red Cell Distribution Width 15.2 H, Neutrophils (%) (Auto) 88.9 H, Lymphocytes (%) (Auto ) 5.1 L, Monocytes (%) (Auto) 4.4, Eosinophils (%) (Auto) 1.0, Basophils (%) ( Auto) 0.2, Neutrophils # (Auto) 15.2 H, Lymphocytes # (Auto) 0.9 L, Monocytes # (Auto) 0.8, Eosinophils # (Auto) 0.2, Basophils # (Auto) 0.0 Microbiology Microbiology 08/11/16 Blood Culture - Final, Complete NO GROWTH AFTER 5 DAYS 08/11/16 Blood Culture - Final, Complete NO GROWTH AFTER 5 DAYS 08/17/16 Gram Stain - Final, Complete 08/17/16 Sputum Culture - Final, Complete Yeast Like Organism 08/12/16 Respiratory Virus Panel (PCR) (PUJA) - Final, Complete 08/12/16 Gram Stain - Final, Complete 08/12/16 Sputum Culture - Final, Complete Yeast Like Organism KRIS GARCIA MD Aug 20, 2016 10:50
[2016-08-20] MEDS: cefTRIAXone SOD 1 GM in D5W MINI-BAG PLUS 50 ML IV SCH ×2 (12:19→23:18)
[2016-08-20 14:00] VITALS: BP 130/72
[2016-08-20] MEDS: ASPIRIN 81 MG ENTERIC TAB PO SCH (16:15)
[2016-08-20] MEDS: traZODone 50 MG TAB PO SCH (20:25)
[2016-08-20] MEDS: ATORVASTATIN 10 MG TAB PO SCH (20:26)
[2016-08-20 22:00] VITALS: BP 127/64
[2016-08-21] MEDS: NORCO, ANEXSIA 5/325MG TABLET (HYDROcodone/ACETAMINOPHEN) PO PRN ×3 (00:19→08:10)
[2016-08-21] MEDS: ALBUTEROL SULFATE 2.5 MG/0.5 ML INH NEB SOLN INH SCH ×3 (03:17→11:39)
[2016-08-21 06:00] VITALS: BP 135/72
[2016-08-21 06:29] LABS: BASO % 0.2 % (0.0-1.0); EOS # 0.1 K/mm3 (0.0-0.50); EOS % 0.5 % (0.0-3.0); LARGE UNSTAINED CELL # 0.1 K/mm3 (0.0-0.4); LARGE UNSTAINED CELL % 0.8 % (0.0-4.0); LYMPH # 1.6 K/mm3 (1.5-4.5); LYMPH % 9.4 % (24.0-44.0); MEAN CORPUSCULAR HEMOGLOBIN 30.4 pg (27.0-33.0); MEAN CORPUSCULAR HGB CONC 32.7 g/dl (32.0-36.5); MONO # 1.1 K/mm3 (0.0-0.8); MONO % 7.1 % (0.0-5.0); NEUTROPHILS # 12.9 K/mm3 (1.8-7.7); PLATELET COUNT, AUTOMATED 265 k/mm3 (150-450); RED CELL DISTRIBUTION WIDTH 15.3 % (11.5-14.5); WHITE BLOOD COUNT 15.8 K/mm3 (4.0-10.0)
[2016-08-21 06:40] LABS: ANION GAP 9 MEQ/L (8-16); BLOOD UREA NITROGEN 30 MG/DL (7-18); CALCIUM LEVEL 7.6 MG/DL (8.8-10.2); CARBON DIOXIDE LEVEL 28 MEQ/L (21-32); CHLORIDE LEVEL 105 MEQ/L (98-107); CREATININE FOR GFR 1.02 MG/DL (0.70-1.30); GLOMERULAR FILTRATION RATE > 60.0 (>49); GLUCOSE, FASTING 95 MG/DL (80-110); POTASSIUM SERUM 3.9 MEQ/L (3.5-5.1); SODIUM LEVEL 142 MEQ/L (136-145)
[2016-08-21] MEDS: SYMBICORT 80/4.5MCG INHALER 6GM INH SCH (07:55)
[2016-08-21] MEDS: TIOTROPIUM INHALER/CAPSULE (SPIRIVA) INH SCH (07:55)
[2016-08-21] MEDS: FLUCONAZOLE 100 MG TAB PO SCH (08:09)
[2016-08-21] MEDS: AZITHROMYCIN 250 MG TAB PO SCH (08:09)
[2016-08-21] MEDS: FUROSEMIDE 20 MG TAB PO SCH (08:09)
[2016-08-21] MEDS: OMEPRAZOLE 20 MG CAP PO SCH (08:09)
[2016-08-21] MEDS: VITAMIN D 1,000 INTERNATIONAL UNITS TABLET PO SCH (08:09)
[2016-08-21] MEDS: predniSONE 20 MG TAB PO SCH (08:09)
[2016-08-21] MEDS ORDERED: FLUC10TA PO (10:11)
[2016-08-21] MEDS ORDERED: PRED10PA PO (10:11)
--- NOTE | 2016-08-21 10:20 | DS.PDOC ---
Discharge Summary General Date of Admission Aug 11, 2016 at 06:46 Date of Discharge Aug 21, 2016 Discharge Summary PROCEDURES PERFORMED DURING STAY: [None.] CHIEF COMPLAINT: Copd Exacerbation ADMISSION DIAGNOSES: 1. Acute/chronic respiratory failure 2. copd exacerbation 3. hypertension 4. dyslipidemia 5. gerd 6. chronic lower back pain DISCHARGE DIAGNOSES: 1. Acute/chronic respiratory failure 2. copd exacerbation 3. hypertension 4. dyslipidemia 5. gerd 6. chronic lower back pain HISTORY OF PRESENT ILLNESS: Patient is a 71-year male presenting for shortness of breath. HOSPITAL COURSE: Patient was admitted for acute on chronic hypoxic respiratory failure secondary to copd exacerbation. Patient was started on iv antibiotics with aggressive pulmonary toilet. He was requiring 3L of supplemental oxygen to maintain adequate O2 saturation. He did grow yeast in his sputum and was started on diflucan. He slowly improved and was successfully weaned to his baseline 2L oxygen. He stated his breathing felt better. He did complete an adequate course of anti-microbials while in the hospital. He is being discharged in stable condition with instructions as indicated. DISCHARGE MEDICATIONS: Please see below. ALLERGIES: Please see below. PHYSICAL EXAMINATION ON DISCHARGE: VITAL SIGNS: Please see below. GENERAL: NAD HEENT: NC/AT, EOMI, PERRL NECK: supple CARDIOVASCULAR EXAMINATION: +S1S2, RRR RESPIRATORY EXAMINATION: CTA B/L ABDOMINAL EXAMINATION: soft, NT, +BS EXTREMITIES: no edema SKIN: no rashes NEUROLOGICAL EXAMINATION: no gross focal deficits PSYCHIATRIC EXAMINATION: AAOx3 LABORATORY DATA: Please see below. DISCHARGE CONDITION: [Stable]. DISPOSITION: Discharged home. ACTIVITY: As tolerated DIET: COPD, 2 gram sodium DISCHARGE PLAN AND INSTRUCTIONS: 1. FOllow up PCP in 3-5 days. 2. Follow up pain management as scheduled. 3. Medications as directed. TIME SPENT ON DISCHARGE: Greater than 30 minutes. Vital Signs/I&Os Vital Signs Date Time Temp Pulse Resp B/P Pulse Ox O2 Delivery O2 Flow Rate FiO2 08/21/16 08:40 20 08/21/16 06:00 97.2 82 135/72 92 Nasal Cannula 2.0 I&O- Last 24 Hours up to 6 AM 08/21/16 06:00 Intake Total 1610 ml Output Total 4425 ml Balance -2815 ml Laboratory Data Labs 24H Laboratory Tests 2 08/21/16 06:10: Anion Gap 9, White Blood Count 15.8H, Red Blood Count 4.11L, Hemoglobin 12.5L, Hematocrit 38.2L, Mean Corpuscular Volume 93.0, Mean Corpuscular Hemoglobin 30.4 , Mean Corpuscular Hemoglobin Concent 32.7, Red Cell Distribution Width 15.3H, Platelet Count 265, Neutrophils (%) (Auto) 82.0H, Lymphocytes (%) (Auto) 9.4L, Monocytes (%) (Auto) 7.1H, Eosinophils (%) (Auto) 0.5, Basophils (%) (Auto) 0.2 , Neutrophils # (Auto) 12.9H, Lymphocytes # (Auto) 1.6, Monocytes # (Auto) 1.1H , Eosinophils # (Auto) 0.1, Basophils # (Auto) 0.0, Blood Urea Nitrogen 30H, Creatinine 1.02, Sodium Level 142, Potassium Level 3.9, Chloride Level 105, Carbon Dioxide Level 28, Calcium Level 7.6L, Glomerular Filtration Rate > 60.0, Large Unclassified Cells # 0.1, Large Unclassified Cells % 0.8 CBC/BMP Laboratory Tests 08/21/16 06:10 Calcium Level 7.6 L, Red Blood Count 4.11 L, Mean Corpuscular Volume 93.0, Mean Corpuscular Hemoglobin 30.4, Mean Corpuscular Hemoglobin Concent 32.7, Red Cell Distribution Width 15.3 H, Neutrophils (%) (Auto) 82.0 H, Lymphocytes (%) (Auto ) 9.4 L, Monocytes (%) (Auto) 7.1 H, Eosinophils (%) (Auto) 0.5, Basophils (%) ( Auto) 0.2, Neutrophils # (Auto) 12.9 H, Lymphocytes # (Auto) 1.6, Monocytes # ( Auto) 1.1 H, Eosinophils # (Auto) 0.1, Basophils # (Auto) 0.0 Microbiology Microbiology 08/11/16 Blood Culture - Final, Complete NO GROWTH AFTER 5 DAYS 08/11/16 Blood Culture - Final, Complete NO GROWTH AFTER 5 DAYS 08/17/16 Gram Stain - Final, Complete 08/17/16 Sputum Culture - Final, Complete Yeast Like Organism 08/12/16 Respiratory Virus Panel (PCR) (PUJA) - Final, Complete 08/12/16 Gram Stain - Final, Complete 08/12/16 Sputum Culture - Final, Complete Yeast Like Organism Medications Scheduled Aspirin (Aspirin 81) 81 Mg Tab 81 MG PO DAILY DINNERTIME Atorvastatin Calcium (Atorvastatin Calcium) 10 Mg Tab 10 MG PO DAILY DINNERTIME Budesonide/Formoterol (Symbicort 80-4.5 Mcg/Act) 60 Puff/Inhaler Aers 2 PUFF INH BID Cholecalciferol (Vitamin D-1000) 1,000 Unit Tab 1,000 UNIT PO DAILY Diclofenac Sodium (Diclofenac Sodium Dr) 50 Mg Tab 50 MG PO DAILY Fluconazole (Diflucan) 100 Mg Tab 200 MG PO DAILY Furosemide (Furosemide) 20 Mg Tab 20 MG PO DAILY Magnesium Oxide (Magnesium Oxide 400) 400 Mg Tab 400 MG PO DAILY [place] 3 Polyunsat Fatty Acids ([place]-3 Fish Oil 1000 mg) 1 Cap Cap 1,000 MG PO Q2D Omeprazole (Omeprazole) 20 Mg Cap 20 MG PO DAILY Potassium Chloride (Klor-Con M20) 20 Meq Tabcr 20 MEQ PO DAILY DINNERTIME Prednisone (Prednisone) 10 Mg Juan 10 MG PO ASDIRECTED Tiotropium [place] Monohydrate (Spiriva Handihaler) 18 Mcg Cap 18 MCG INH DAILY Trazodone HCl (Trazodone HCl) 50 Mg Tab 100 MG PO QHS Scheduled PRN Acetaminophen/Hydrocodone (Hydrocodone/Acetaminophen 10-325 mg) 1 Tab Tab 1 TAB PO Q4H PRN PRN PAIN Albuterol Sulfate (Albuterol Sulfate) 2.5 Mg/3 Ml Nebu 2.5 MG INH QID PRN PRN SHORTNESS OF BREATH Trazodone HCl (Trazodone HCl) 50 Mg Tab 50 MG PO QHS PRN PRN SLEEP IN ADDITION TO 100 MG IF STILL AWAKE Allergies Coded Allergies: Heparin (Unverified Allergy, Unknown, 08/11/16) Enoxaparin (Verified Adverse Reaction, Intermediate, hematochezia, 09/24/14 ) Patient developed hematochezia on 3 seperate occasions using lovenox for dvt prophylaxis. KRIS GARCIA MD Aug 21, 2016 10:20
[2016-08-21] MEDS: cefTRIAXone SOD 1 GM in D5W MINI-BAG PLUS 50 ML IV SCH (11:28)
== END 2016-08-21 12:45 | disposition home or self-care (01) | DRG 190 ==
LOC: M ED 03:56 → M ED INP 06:46 → M PCU 15:17 → M ALC 08-12 17:53 → M MSPAV 08-14 14:47
PROVIDERS: ADMIT Internal Medicine; ATTEND Internal Medicine
DX: J44.1 Chronic obstructive pulmonary disease with (acute) exacerbation (principal); J18.9 Pneumonia, unspecified organism; J96.21 Acute and chronic respiratory failure with hypoxia; I10 Essential (primary) hypertension; E78.5 Hyperlipidemia, unspecified; G47.00 Insomnia, unspecified; B37.9 Candidiasis, unspecified; E83.42 Hypomagnesemia; K21.9 Gastro-esophageal reflux disease without esophagitis; M54.5 Low back pain; Z79.82 Long term (current) use of aspirin; Z79.899 Other long term (current) drug therapy; Z88.8 Allergy status to other drugs, medicaments and biological substances; Z99.81 Dependence on supplemental oxygen; Z87.891 Personal history of nicotine dependence; Z80.0 Family history of malignant neoplasm of digestive organs

== ENCOUNTER → 2016-09-23 | Outpatient (CLI) | payer MEDICARE, MEDICAID ==
[~2016-09-23] MED LIST changes: +PRED10PA PO
--- NOTE | 2016-09-24 00:14 | ECWPNPC ---
PATIENT NAME: GEORGES LERMA : 1945 GENDER: MALE VISIT DATE: 09/23/2016 DISCHARGE DATE: 09/23/16 1028 VISIT LOCKED DATE TIME: PHYSICIAN: MANDI PADILLA RESOURCE: MANDI PADILLA REASON FOR APPOINTMENT 1. BACK HISTORY OF PRESENT ILLNESS HISTORY OF PRESENT ILLNESS: PAIN THE PATIENT DESCRIBES THE PAIN... THE PATIENT DESCRIBES THE PAIN... THE PATIENT DESCRIBES THE PAIN... SEVERITY - PAIN SCORE OF5/10 LOCTIONSNECK, LOWER BACK, LEFT LEG THE PATIENT DESCRIBES THE PAIN... QUALITYACHING , SHARP, STABBING, TENDER, THROBBING, SORE DURATIONCONTINUOUS PAIN THE PATIENT DESCRIBES THE PAIN... THE PATIENT DESCRIBES THE PAIN... THE PATIENT DESCRIBES THE PAIN... SEVERITY - PAIN SCORE OF5/10 LOCTIONSNECK, LOWER BACK, LEFT LEG THE PATIENT DESCRIBES THE PAIN... QUALITYACHING , SHARP, STABBING, TENDER, THROBBING, SORE DURATIONCONTINUOUS PAIN THE PATIENT DESCRIBES THE PAIN... THE PATIENT DESCRIBES THE PAIN... THE PATIENT DESCRIBES THE PAIN... SEVERITY - PAIN SCORE OF5/10 LOCTIONSNECK, LOWER BACK, LEFT LEG THE PATIENT DESCRIBES THE PAIN... QUALITYACHING , SHARP, STABBING, TENDER, THROBBING, SORE DURATIONCONTINUOUS C/O CONTINUOUS LBP ,LEFT LEG PAIN AND NUMBNESS 5/10 VAS. AGGREVATED BY SWEEPING OR VACUUMING.RELIEVED W CURRENT PAIN MEDICINE AND REST.DENIES ADVERSE EFFECTS W MEDICATION. FALL RISK SCREENING: SCREENING :NO FALLS IN THE PAST YEAR CURRENT MEDICATIONS TAKING SPIRIVA HANDIHALER 18 MCG CAPSULE 1 CAP INHALATION ONCE DAILY TAKING ASPIRIN 81 MG TABLET CHEWABLE 1 TABLET ORALLY ONCE A DAY TAKING VITAMIN D-3 1000 UNIT CAPSULE 1 CAPSULE ORALLY ONCE A DAY TAKING MAGNESIUM OXIDE 400 MG TABLET 1 CAPSULE ORALLY ONCE DAILY TAKING MUCUS RELIEF 400 MG TABLET 1 TABLET NEEDED ORALLY EVERY 4 HRS TAKING SYMBICORT 80-4.5 MCG/ACT AEROSOL 2 PUFFS INHALATION TWICE A DAY TAKING DICLOFENAC SODIUM 50 MG TABLET DELAYED RELEASE 1 TABLET ORALLY TWICE A DAY TAKING TRAZODONE HCL 50 MG TABLET 1 TABLET AT BEDTIME NEEDED ORALLY ONCE A DAY TAKING ATORVASTATIN CALCIUM 10 MG TABLET 1 TABLET ORALLY ONCE A DAY TAKING POTASSIUM CHLORIDE 20 MEQ TABLET EXTENDED RELEASE 1 TABLET WITH FOOD ORALLY ONCE A DAY TAKING OMEPRAZOLE 20 MG CAPSULE DELAYED RELEASE 1 CAP ORALLY TWICE DAILY TAKING ALBUTEROL 90 MCG/ACT AEROSOL SOLUTION 2 PUFF INHALATION QID/PRN SOB OR WHEEZING TAKING WHEELCHAIR - MISCELLANEOUS DIRECTED ELECTRIC DAILY DX:J44.9 & Z99.81 TAKING FUROSEMIDE 20 MG TABLET 1 TABLET ORALLY ONCE A DAY TAKING HYDROCODONE-ACETAMINOPHEN 10-325 MG TABLET 1 TABLET NEEDED ORALLY EVERY 4- 6 HRS MDD 6: PAIN MANAGEMENT NOT-TAKING FISH OIL 1200 MG CAPSULE 1 CAPSULE ORALLY EVERY OTHER DAY NOT-TAKING BACID - TABLET 1 TAB ORALLY TWICE DAILY NOT-TAKING TAMSULOSIN HCL 0.4 MG CAPSULE EXTENDED RELEASE 24 HOUR 1 CAPSULE 30 MINUTES AFTER THE SAME MEAL EACH DAY ORALLY ONCE A DAY NOT-TAKING FUROSEMIDE 20 MG TABLET 1 TABLET ORALLY DIRECTED: EVERY OTHER DAY MEDICATION LIST REVIEWED AND RECONCILED WITH THE PATIENT PAST MEDICAL HISTORY HTN COPD LOW BACK PAIN HIGH CHOLESTEROL IBS PROSTATE ISSUES EMPHYSEMA ALLERGIES LOVENOX: RASH: ALLERGY SURGICAL HISTORY TONSILECTOMY 1974 BACK SURGERIES CHIP CATARACT SOCIAL HISTORY GENERAL: TOBACCO USE ARE YOU A:FORMER SMOKER HOW LONG HAS IT BEEN SINCE YOU LAST SMOKED?1-5 YEARS ADDITIONAL FINDINGS: TOBACCO USERHEAVY CIGARETTE SMOKER (20-39 CIGS/DAY) BMI CARE GOAL FOLLOW-UP ABOVE NORMAL BMI FOLLOW-UPDIETARY MANAGEMENT EDUCATION, GUIDANCE, AND COUNSELING ALCOHOL SCREENING POINTS: 0, INTERPRETATION: NEGATIVE. RECREATIONAL DRUG USE DRUG USE?NO PATIENT DENIES ABUSE OR MISSUSED OF ANY MEDICATION. PATIENT DENIES USE OF ANY ILLEGAL SUBSTANCE INCLUDING MARIJUANA OR COCAINE. CAFFEINE CAFFEINE USE?YES HOW OFTEN AND HOW MUCH? 3-4 CUPS OCCUPATION: DISABLED. DIET: REGULAR. EXERCISE: NO REGULAR EXERCISE. MARITAL STATUS: SINGLE. OTHERS AT HOME: NONE. PETS: NONE. BUDDHIST: NO SYNAGOGUE BELIEFS THAT WOULD IMPACT HEALTH CARE, NO [place] PREFERENCE. LANGUAGE: BRITISH. 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 NO , CLERGY REFERRAL NEEDED? NO , PUBLIC HEALTH REFERRAL NEEDED? NO , WAS THE PROVIDER NOTIFIED OF ANY PERTINENT INFO? YES . ADVANCED DIRECTIVES HEALTH CARE PROXY?YES NAME OF HCP [facility] CONTACT # FOR HCP [phone] TRAVEL OUTSIDE US: NOT FOR LAST 21 DAYS. HOSPITALIZATION/MAJOR DIAGNOSTIC PROCEDURE PNEUMONIA X3 2015 PNEUMONIA 2016 PNEUMONIA 07/2016 REVIEW OF SYSTEMS CONSTITUTIONAL: ANY CHANGE IN YOUR MEDICAL CONDITION? NO . CHILLS NO . FEVER NO . INFECTION: DO YOU HAVE NEW INFECTIONS? NO . DO YOU HAVE HISTORY OF MRSA? NO . MUSCULOSKELETAL: ANY NEW PATTERNS OF PAIN OR NUMBNESS? NO . GASTROENTEROLOGY: ANY NEW CHANGE IN BOWEL CONTROL? NO . GENITOURINARY: ANY NEW CHANGE IN BLADDER CONTROL? NO . IS THERE A CHANCE YOU COULD BE ? NO . HEMATOLOGY/LYMPH: DO YOU TAKE ANY BLOOD THINNERS? (FOR EXAMPLE- COUMADIN, PLAVIX, AGGRENOX, PLATEL, PRADAXA, OR XARELTO) NO . WHEN WAS YOUR LAST DOSE? DATE: TIME: . NEUROLOGY: HAVE YOU FALLEN IN THE PAST 6 MONTHS? NO . ANY NEW EXTREMITY NUMBNESS OR WEAKNESS? NO . CARDIOLOGY: DO YOU HAVE A PACEMAKER OR DEFIBRILLATOR? NO . RESPIRATORY: HAVE YOU BEEN SICK IN THE PAST WEEK? NO . FEVER NO . FLU LIKE SYMPTOMS? NO . COUGH NO . INTEGUMENTARY: DO YOU HAVE ANY RASHES OR OPEN SORES? NO . ALLERGIC/IMMUNO: ARE YOU ALLERGIC TO SHELLFISH OR IV DYE? NO . ANY NEW ALLERGIES? NO . PSYCHIATRIC: DO YOU HAVE THOUGHTS OF HURTING YOURSELF OR SOMEONE ELSE? NO . ARE YOU ABUSED, NEGLECTED, OR IN AN UNSAFE ENVIRONMENT? NO . ENDOCRINOLOGY: ARE YOU DIABETIC? NO . OTHER: DO YOU NEED ANY PRESCRIPTIONS? NO . IF YES, PLEASE LIST: ____ . ANY NEW PROBLEMS WITH YOUR MEDICATIONS? NO . WHEN DID YOU LAST EAT? ____ . WHEN DID YOU LAST DRINK? ____ . WHAT DID YOU LAST DRINK? ____ . NAME OF PERSON DRIVING YOU HOME? ____ . DO YOU HAVE ANY OTHER QUESTIONS OR CONCERNS NO . REVIEWED BY: PROVIDER: MANDI ANGULO . HOSPITALIZED FOR PNEUMONIA.HX OF SEVERE COPD ON CHRONIC O2 2L. VITAL SIGNS WT 206 LBS, HT 6'4", BMI 25.07 INDEX, BP 128/76 MM HG, HR 63 /MIN, RR 18 /MIN, TEMP 98.6 F, OXYGEN SAT % 93%, NA INITIALS SC 09:59, REVIEWED BY: [email or web address] N/C. EXAMINATION GENERAL EXAMINATION: GENERAL APPEARANCE:PATIENT SEATED COMFORTABLY, ALERT AND ORIENTED, VERBAL AND ABLE TO ANSWER QUESTIONS APPROPRIATELY. PATIENT DOES NOT APPEAR TO BE IN ANY ACUTE DISTRESS. LUNGS:CLEAR TO AUSCULTATION BILATERALLY.DIMINISHED IN BASES BILAT.. HEART:REGULAR RATE AND RHYTHM WITHOUT MURMUR. EXTREMITIES:BILATERAL LOWER EXTREMITY SWELLING LIMITED TO THE FEET. ASSESSMENTS POST LAMINECTOMY SYNDROME - M96.1 (PRIMARY) TREATMENT POST LAMINECTOMY SYNDROME REFILL HYDROCODONE-ACETAMINOPHEN TABLET, 10-325 MG, 1 TABLET NEEDED, ORALLY, EVERY 4- 6 HRS MDD 6: PAIN MANAGEMENT, 30 DAY(S), 180, REFILLS 0 PROCEDURE CODES FA211 ESTABILISHED PATIENT [facility] CHARGE DISPOSITION & COMMUNICATION FOLLOW UP 3 MONTHS ELECTRONICALLY SIGNED BY KEV GARCIA ON 09/23/2016 AT 03:52 PM EDT DISCLAIMER : THIS IS A VISIT SUMMARY EXTRACTED FROM THE [employer] CHART. IT IS NOT A COPY OF THE [employer] PROGRESS NOTE. JOEL
== END ==
LOC: M PAIN 10:00
PROVIDERS: ATTEND Nurse Practitioner Family
DX: Z09 Encounter for follow-up examination after completed treatment for conditions other than malignant neoplasm (principal); M96.1 Postlaminectomy syndrome, not elsewhere classified; I10 Essential (primary) hypertension; J44.9 Chronic obstructive pulmonary disease, unspecified; E78.00 Pure hypercholesterolemia, unspecified; K58.9 Irritable bowel syndrome, unspecified; Z88.8 Allergy status to other drugs, medicaments and biological substances; Z79.82 Long term (current) use of aspirin; Z79.899 Other long term (current) drug therapy; Z87.891 Personal history of nicotine dependence

== ENCOUNTER 2016-12-13 17:58 | Emergency (ER) | payer MEDICARE, MEDICAID ==
[~2016-12-13] VITALS: Ht 193 cm; Wt 95.4 kg
[~2016-12-13 17:58] MED LIST changes: +BACITAB PO; -BACITAB3 PO; +LEVA1TAB2 PO; -LEVA500T PO; -MUCI30TA2 PO; +MUCI30TA5 PO; -MUCI600T34 PO; +MUCI600T37 PO; +NASA0.0517; -NASA0.057; +TRAZ50TA11 PO; -TRAZ50TA4 PO
[2016-12-13] MEDS ORDERED: BUPIVACAINE HCL 0.5% 10 ML VIAL SC ONE (19:45)
[2016-12-13] MEDS ORDERED: LIDOCAINE W/EPINEPHRINE 1% 20ML VIAL SC ONE (19:45)
--- NOTE | 2016-12-13 21:20 | REPUSA ---
CT of the head Clinical history: trauma. Technique: Multiple axial CT images were obtained through the head without administration of contrast . Comparison: 02/04/2014. Findings: The ventricles and sulci are symmetric bilaterally. There is no evidence of acute hemorrhag e or infarct. There is no midline shift, mass effect, or extra-axial fluid collection. The osseous st ructures are unremarkable. The visualized paranasal sinuses and mastoid air cells are clear. Impression: Negative study.
[2016-12-13 22:10] VITALS: BP 128/67
[2016-12-13] MEDS ORDERED: NORCO, ANEXSIA 5/325MG TABLET (HYDROcodone/ACETAMINOPHEN) PO ONE (22:15)
--- NOTE | 2016-12-14 01:01 | REP ---
Clinical: Trauma. Technique: Frontal view of the chest with multiple views of the left hemithorax. Findings: Frontal view of the chest demonstrates no acute cardiopulmonary process. Multiple views of the left hemithorax demonstrates no obvious acute rib fracture or pathology. Impression: Normal left rib series Signed by Alvarez Jimenez MD 12/14/2016 12:52 A
== END 2016-12-13 22:19 | disposition home or self-care (01) ==
LOC: M ED 19:15
DX: S01.91XA Laceration without foreign body of unspecified part of head, initial encounter (principal); Y04.8XXA Assault by other bodily force, initial encounter; Y92.019 Unspecified place in single-family (private) house as the place of occurrence of the external cause; Y93.89 Activity, other specified; Y99.9 Unspecified external cause status; Z79.82 Long term (current) use of aspirin; Z79.899 Other long term (current) drug therapy; Z88.8 Allergy status to other drugs, medicaments and biological substances

== ENCOUNTER → 2016-12-17 | Outpatient (CLI) | payer MEDICARE, MEDICAID ==
[~2016-12-17] MED LIST changes: -BACITAB PO; +BACITAB3 PO; -LEVA1TAB2 PO; +LEVA500T PO; +MUCI30TA2 PO; -MUCI30TA5 PO; +MUCI600T34 PO; -MUCI600T37 PO; -NASA0.0517; +NASA0.057; -TRAZ50TA11 PO; +TRAZ50TA4 PO
--- NOTE | 2016-12-18 01:38 | ECWPNPC ---
PATIENT NAME: GEORGES LERMA : 1945 GENDER: MALE VISIT DATE: 12/17/2016 DISCHARGE DATE: 12/17/16 0936 VISIT LOCKED DATE TIME: PHYSICIAN: MANDI PADILLA RESOURCE: MANDI PADILLA HISTORY OF PRESENT ILLNESS HISTORY OF PRESENT ILLNESS: PAIN THE PATIENT DESCRIBES THE PAIN... THE PATIENT DESCRIBES THE PAIN... THE PATIENT DESCRIBES THE PAIN... THE PATIENT DESCRIBES THE PAIN... SEVERITY - PAIN SCORE OF5/10 LOCTIONSNECK, LOWER BACK, LEFT LEG THE PATIENT DESCRIBES THE PAIN... QUALITYACHING , SHARP, STABBING, TENDER, THROBBING, SORE DURATIONCONTINUOUS PAIN THE PATIENT DESCRIBES THE PAIN... THE PATIENT DESCRIBES THE PAIN... THE PATIENT DESCRIBES THE PAIN... THE PATIENT DESCRIBES THE PAIN... SEVERITY - PAIN SCORE OF5/10 LOCTIONSNECK, LOWER BACK, LEFT LEG THE PATIENT DESCRIBES THE PAIN... QUALITYACHING , SHARP, STABBING, TENDER, THROBBING, SORE DURATIONCONTINUOUS PAIN THE PATIENT DESCRIBES THE PAIN... THE PATIENT DESCRIBES THE PAIN... THE PATIENT DESCRIBES THE PAIN... THE PATIENT DESCRIBES THE PAIN... SEVERITY - PAIN SCORE OF5/10 LOCTIONSNECK, LOWER BACK, LEFT LEG THE PATIENT DESCRIBES THE PAIN... QUALITYACHING , SHARP, STABBING, TENDER, THROBBING, SORE DURATIONCONTINUOUS PAIN THE PATIENT DESCRIBES THE PAIN... THE PATIENT DESCRIBES THE PAIN... THE PATIENT DESCRIBES THE PAIN... THE PATIENT DESCRIBES THE PAIN... SEVERITY - PAIN SCORE OF5/10 LOCTIONSNECK, LOWER BACK, LEFT LEG THE PATIENT DESCRIBES THE PAIN... QUALITYACHING , SHARP, STABBING, TENDER, THROBBING, SORE DURATIONCONTINUOUS C/O CONTINUOUS LBP ,LEFT LEG PAIN AND NUMBNESS 5/10 VAS. AGGREVATED BY SWEEPING OR VACUUMING.RELIEVED W CURRENT PAIN MEDICINE AND REST.DENIES ADVERSE EFFECTS W MEDICATION. FALL RISK SCREENING: SCREENING :NO FALLS IN THE PAST YEAR CURRENT MEDICATIONS TAKING SPIRIVA HANDIHALER 18 MCG CAPSULE 1 CAP INHALATION ONCE DAILY TAKING ASPIRIN 81 MG TABLET CHEWABLE 1 TABLET ORALLY ONCE A DAY TAKING VITAMIN D-3 1000 UNIT CAPSULE 1 CAPSULE ORALLY ONCE A DAY TAKING MAGNESIUM OXIDE 400 MG TABLET 1 CAPSULE ORALLY ONCE DAILY TAKING MUCUS RELIEF 400 MG TABLET 1 TABLET NEEDED ORALLY EVERY 4 HRS TAKING SYMBICORT 80-4.5 MCG/ACT AEROSOL 2 PUFFS INHALATION TWICE A DAY TAKING DICLOFENAC SODIUM 50 MG TABLET DELAYED RELEASE 1 TABLET ORALLY TWICE A DAY TAKING TRAZODONE HCL 50 MG TABLET 1 TABLET AT BEDTIME NEEDED ORALLY ONCE A DAY TAKING ATORVASTATIN CALCIUM 10 MG TABLET 1 TABLET ORALLY ONCE A DAY TAKING POTASSIUM CHLORIDE 20 MEQ TABLET EXTENDED RELEASE 1 TABLET WITH FOOD ORALLY ONCE A DAY TAKING OMEPRAZOLE 20 MG CAPSULE DELAYED RELEASE 1 CAP ORALLY TWICE DAILY TAKING ALBUTEROL 90 MCG/ACT AEROSOL SOLUTION 2 PUFF INHALATION QID/PRN SOB OR WHEEZING TAKING WHEELCHAIR - MISCELLANEOUS DIRECTED ELECTRIC DAILY DX:J44.9 & Z99.81 TAKING FUROSEMIDE 20 MG TABLET 1 TABLET ORALLY ONCE A DAY TAKING HYDROCODONE-ACETAMINOPHEN 10-325 MG TABLET 1 TABLET NEEDED ORALLY EVERY 4- 6 HRS MDD 6: PAIN MANAGEMENT NOT-TAKING FISH OIL 1200 MG CAPSULE 1 CAPSULE ORALLY EVERY OTHER DAY NOT-TAKING BACID - TABLET 1 TAB ORALLY TWICE DAILY NOT-TAKING TAMSULOSIN HCL 0.4 MG CAPSULE EXTENDED RELEASE 24 HOUR 1 CAPSULE 30 MINUTES AFTER THE SAME MEAL EACH DAY ORALLY ONCE A DAY NOT-TAKING FUROSEMIDE 20 MG TABLET 1 TABLET ORALLY DIRECTED: EVERY OTHER DAY MEDICATION LIST REVIEWED AND RECONCILED WITH THE PATIENT PAST MEDICAL HISTORY HTN COPD LOW BACK PAIN HIGH CHOLESTEROL IBS PROSTATE ISSUES EMPHYSEMA ALLERGIES LOVENOX: RASH: ALLERGY SURGICAL HISTORY TONSILECTOMY 1974 BACK SURGERIES CHIP CATARACT HOSPITALIZATION/MAJOR DIAGNOSTIC PROCEDURE PNEUMONIA X3 2015 PNEUMONIA 2016 PNEUMONIA 07/2016 REVIEW OF SYSTEMS REVIEWED BY: PROVIDER: MANDI ANGULO . CONSTITUTIONAL: ANY CHANGE IN YOUR MEDICAL CONDITION? NO . CHILLS NO . FEVER NO . INFECTION: DO YOU HAVE NEW INFECTIONS? NO . DO YOU HAVE HISTORY OF MRSA? NO . MUSCULOSKELETAL: ANY NEW PATTERNS OF PAIN OR NUMBNESS? NO . GASTROENTEROLOGY: ANY NEW CHANGE IN BOWEL CONTROL? NO . GENITOURINARY: ANY NEW CHANGE IN BLADDER CONTROL? NO . IS THERE A CHANCE YOU COULD BE ? NO . HEMATOLOGY/LYMPH: DO YOU TAKE ANY BLOOD THINNERS? (FOR EXAMPLE- COUMADIN, PLAVIX, AGGRENOX, PLATEL, PRADAXA, OR XARELTO) NO . WHEN WAS YOUR LAST DOSE? DATE: TIME: . NEUROLOGY: HAVE YOU FALLEN IN THE PAST 6 MONTHS? NO . ANY NEW EXTREMITY NUMBNESS OR WEAKNESS? NO . CARDIOLOGY: DO YOU HAVE A PACEMAKER OR DEFIBRILLATOR? NO . RESPIRATORY: HAVE YOU BEEN SICK IN THE PAST WEEK? NO . FEVER NO . FLU LIKE SYMPTOMS? NO . COUGH NO . INTEGUMENTARY: DO YOU HAVE ANY RASHES OR OPEN SORES? NO . ALLERGIC/IMMUNO: ARE YOU ALLERGIC TO SHELLFISH OR IV DYE? NO . ANY NEW ALLERGIES? NO . PSYCHIATRIC: DO YOU HAVE THOUGHTS OF HURTING YOURSELF OR SOMEONE ELSE? NO . ARE YOU ABUSED, NEGLECTED, OR IN AN UNSAFE ENVIRONMENT? NO . ENDOCRINOLOGY: ARE YOU DIABETIC? NO . OTHER: DO YOU NEED ANY PRESCRIPTIONS? YES, HYDROCODONE 10/325 . IF YES, PLEASE LIST: ____ . ANY NEW PROBLEMS WITH YOUR MEDICATIONS? NO . WHEN DID YOU LAST EAT? ____ . WHEN DID YOU LAST DRINK? ____ . WHAT DID YOU LAST DRINK? ____ . NAME OF PERSON DRIVING YOU HOME? ____ . DO YOU HAVE ANY OTHER QUESTIONS OR CONCERNS NO . VITAL SIGNS WT 206 LBS, HT 6'4", BMI 25.07 INDEX, BP 111/65 MM HG, HR 84 /MIN, RR 16 /MIN, TEMP 98.6 F, OXYGEN SAT % 90, SAFE IN ENV? (Y/N) Y, REVIEWED BY: EM. EXAMINATION GENERAL EXAMINATION: GENERAL APPEARANCE:PATIENT SEATED COMFORTABLY, ALERT AND ORIENTED, VERBAL AND ABLE TO ANSWER QUESTIONS APPROPRIATELY. PATIENT DOES NOT APPEAR TO BE IN ANY ACUTE DISTRESS. LUNGS:CLEAR TO AUSCULTATION BILATERALLY.DIMINISHED IN BASES BILAT.. HEART:REGULAR RATE AND RHYTHM WITHOUT MURMUR. EXTREMITIES:BILATERAL LOWER EXTREMITY SWELLING LIMITED TO THE FEET. ASSESSMENTS POST LAMINECTOMY SYNDROME - M96.1 (PRIMARY) CHRONIC PRESCRIPTION OPIATE USE - Z79.891 TREATMENT POST LAMINECTOMY SYNDROME REFILL HYDROCODONE-ACETAMINOPHEN TABLET, 10-325 MG, 1 TABLET NEEDED, ORALLY, EVERY 4- 6 HRS MDD 6: PAIN MANAGEMENT, 30 DAY(S), 180, REFILLS 0 NOTES: ISTOP REGISTRY REVIEWED AND DEMNOSTRATES COMPLLIANCE. BRINGS IN MEDICATIONS WHICH IS APPROPRIATE FOR WHAT WAS DISPENSED. RECENT URINE TOXICOLOGY REVIEWED. NO UNAUTHORIZED MEDICATIONS. NO ILLICIT SUBSTANCES AND PRESCRIBED MEDICATIONS WERE PRESENT. , RISKS AND BENEFITS OF NARCOTIC/OPIOD MEDICATIONS WERE REVIEWED WITH PATIENT - THIS INCLUDES BUT IS NOT LIMITED TO RISK OF DEPENDANCE/DEVELOPMENT OF ADDICTION, MOOD DISTURBANCE AND DEPRESSION, OSTEOPOROSIS, HORMONAL AND LABIDAL CHANGES, RESPIRATORY DEPRESSION AND . PATIENT IS ADVISED NOT TO DRIVE WHILE ON THESE MEDICATIONS.URINE TOX TODAY. PROCEDURE CODES FA211 ESTABILISHED PATIENT [facility] CHARGE DISPOSITION & COMMUNICATION FOLLOW UP 3 MONTHS ELECTRONICALLY SIGNED BY KEV GARCIA ON 12/17/2016 AT 02:37 PM EDT DISCLAIMER : THIS IS A VISIT SUMMARY EXTRACTED FROM THE [employer] CHART. IT IS NOT A COPY OF THE [employer] PROGRESS NOTE. FRANCISCO JD
== END ==
LOC: M PAIN 09:00
PROVIDERS: ATTEND Nurse Practitioner Family
DX: M96.1 Postlaminectomy syndrome, not elsewhere classified (principal); I10 Essential (primary) hypertension; J44.9 Chronic obstructive pulmonary disease, unspecified; E78.00 Pure hypercholesterolemia, unspecified; E03.9 Hypothyroidism, unspecified; F17.210 Nicotine dependence, cigarettes, uncomplicated; Z88.8 Allergy status to other drugs, medicaments and biological substances; Z79.82 Long term (current) use of aspirin; Z79.899 Other long term (current) drug therapy

== ENCOUNTER → 2017-01-04 | Outpatient (CLI) | payer MEDICARE, MEDICAID ==
[~2017-01-04] MED LIST changes: +BACITAB PO; -BACITAB3 PO; +LEVA1TAB2 PO; -LEVA500T PO; -MUCI30TA2 PO; +MUCI30TA5 PO; -MUCI600T34 PO; +MUCI600T37 PO; +NASA0.0517; -NASA0.057; +TRAZ50TA11 PO; -TRAZ50TA4 PO
[2017-01-04 09:47] LABS: BASO % 0.4 % (0.0-1.0); EOS # 0.2 K/mm3 (0.0-0.50); EOS % 3.1 % (0.0-3.0); LYMPH # 1.9 K/mm3 (1.5-4.5); LYMPH % 22.2 % (24.0-44.0); MEAN CORPUSCULAR HEMOGLOBIN 30.1 pg (27.0-33.0); MEAN CORPUSCULAR HGB CONC 33.1 g/dl (32.0-36.5); MEAN CORPUSCULAR VOLUME 90.8 fl (80.0-96.0); MONO # 0.5 K/mm3 (0.0-0.8); MONO % 5.9 % (0.0-5.0); NEUTROPHILS # 5.5 K/mm3 (1.8-7.7); NEUTROPHILS % 66.6 % (36.0-66.0); RED CELL DISTRIBUTION WIDTH 15.2 % (11.5-14.5); WHITE BLOOD COUNT 8.3 K/mm3 (4.0-10.0)
[2017-01-04 10:31] LABS: ALBUMIN 3.1 GM/DL (3.2-5.2); ALBUMIN/GLOBULIN RATIO 0.84 (1.00-1.93); ALKALINE PHOSPHATASE 73 U/L (45-117); ALT/SGPT 15 U/L (12-78); ANION GAP 7 MEQ/L (8-16); AST/SGOT 9 U/L (15-37); BILIRUBIN,TOTAL 0.4 MG/DL (0.2-1.0); BLOOD UREA NITROGEN 19 MG/DL (7-18); CALCIUM LEVEL 8.3 MG/DL (8.8-10.2); CARBON DIOXIDE LEVEL 26 MEQ/L (21-32); CHLORIDE LEVEL 109 MEQ/L (98-107); CHOLESTEROL LEVEL 125 MG/DL (<200); CREATININE FOR GFR 1.12 MG/DL (0.70-1.30); GLOMERULAR FILTRATION RATE > 60.0 (>49); GLUCOSE, FASTING 90 MG/DL (80-110); POTASSIUM SERUM 4.4 MEQ/L (3.5-5.1); SODIUM LEVEL 142 MEQ/L (136-145); TOTAL PROTEIN 6.8 GM/DL (6.4-8.2); TRIGLYCERIDES LEVEL 89 MG/DL (<150)
== END ==
LOC: M LAB 09:08
PROVIDERS: ATTEND Family Medicine
DX: R73.09 Other abnormal glucose (principal); I10 Essential (primary) hypertension; E78.00 Pure hypercholesterolemia, unspecified

== ENCOUNTER → 2017-03-15 | Outpatient (CLI) | payer MEDICARE, MEDICAID ==
--- NOTE | 2017-03-19 01:40 | ECWPNPC ---
PATIENT NAME: GEORGES LERMA : 1945 GENDER: MALE VISIT DATE: 03/15/2017 DISCHARGE DATE: 03/15/17943 VISIT LOCKED DATE TIME: PHYSICIAN: MANDI PADILLA RESOURCE: MANDI PADILLA HISTORY OF PRESENT ILLNESS HISTORY OF PRESENT ILLNESS: PAIN THE PATIENT DESCRIBES THE PAIN... THE PATIENT DESCRIBES THE PAIN... THE PATIENT DESCRIBES THE PAIN... THE PATIENT DESCRIBES THE PAIN... THE PATIENT DESCRIBES THE PAIN... SEVERITY - PAIN SCORE OF5/10 LOCTIONSNECK, LOWER BACK, LEFT LEG THE PATIENT DESCRIBES THE PAIN... QUALITYACHING , SHARP, STABBING, TENDER, THROBBING, SORE DURATIONCONTINUOUS PAIN THE PATIENT DESCRIBES THE PAIN... THE PATIENT DESCRIBES THE PAIN... THE PATIENT DESCRIBES THE PAIN... THE PATIENT DESCRIBES THE PAIN... THE PATIENT DESCRIBES THE PAIN... SEVERITY - PAIN SCORE OF5/10 LOCTIONSNECK, LOWER BACK, LEFT LEG THE PATIENT DESCRIBES THE PAIN... QUALITYACHING , SHARP, STABBING, TENDER, THROBBING, SORE DURATIONCONTINUOUS PAIN THE PATIENT DESCRIBES THE PAIN... THE PATIENT DESCRIBES THE PAIN... THE PATIENT DESCRIBES THE PAIN... THE PATIENT DESCRIBES THE PAIN... THE PATIENT DESCRIBES THE PAIN... SEVERITY - PAIN SCORE OF5/10 LOCTIONSNECK, LOWER BACK, LEFT LEG THE PATIENT DESCRIBES THE PAIN... QUALITYACHING , SHARP, STABBING, TENDER, THROBBING, SORE DURATIONCONTINUOUS PAIN THE PATIENT DESCRIBES THE PAIN... THE PATIENT DESCRIBES THE PAIN... THE PATIENT DESCRIBES THE PAIN... THE PATIENT DESCRIBES THE PAIN... THE PATIENT DESCRIBES THE PAIN... SEVERITY - PAIN SCORE OF5/10 LOCTIONSNECK, LOWER BACK, LEFT LEG THE PATIENT DESCRIBES THE PAIN... QUALITYACHING , SHARP, STABBING, TENDER, THROBBING, SORE DURATIONCONTINUOUS PAIN THE PATIENT DESCRIBES THE PAIN... THE PATIENT DESCRIBES THE PAIN... THE PATIENT DESCRIBES THE PAIN... THE PATIENT DESCRIBES THE PAIN... THE PATIENT DESCRIBES THE PAIN... SEVERITY - PAIN SCORE OF5/10 LOCTIONSNECK, LOWER BACK, LEFT LEG THE PATIENT DESCRIBES THE PAIN... QUALITYACHING , SHARP, STABBING, TENDER, THROBBING, SORE DURATIONCONTINUOUS C/O CONTINUOUS LBP ,LEFT LEG PAIN AND NUMBNESS 5/10 VAS. AGGREVATED BY SWEEPING OR VACUUMING.RELIEVED W CURRENT PAIN MEDICINE AND REST.DENIES ADVERSE EFFECTS W MEDICATION. FALL RISK SCREENING: SCREENING :NO FALLS IN THE PAST YEAR CURRENT MEDICATIONS TAKING SPIRIVA HANDIHALER 18 MCG CAPSULE 1 CAP INHALATION ONCE DAILY TAKING ASPIRIN 81 MG TABLET CHEWABLE 1 TABLET ORALLY ONCE A DAY TAKING VITAMIN D-3 1000 UNIT CAPSULE 1 CAPSULE ORALLY ONCE A DAY TAKING MAGNESIUM OXIDE 400 MG TABLET 1 CAPSULE ORALLY ONCE DAILY TAKING MUCUS RELIEF 400 MG TABLET 1 TABLET NEEDED ORALLY EVERY 4 HRS TAKING SYMBICORT 80-4.5 MCG/ACT AEROSOL 2 PUFFS INHALATION TWICE A DAY TAKING DICLOFENAC SODIUM 50 MG TABLET DELAYED RELEASE 1 TABLET ORALLY TWICE A DAY TAKING TRAZODONE HCL 50 MG TABLET 1 TABLET AT BEDTIME NEEDED ORALLY ONCE A DAY TAKING ATORVASTATIN CALCIUM 10 MG TABLET 1 TABLET ORALLY ONCE A DAY TAKING POTASSIUM CHLORIDE 20 MEQ TABLET EXTENDED RELEASE 1 TABLET WITH FOOD ORALLY ONCE A DAY TAKING OMEPRAZOLE 20 MG CAPSULE DELAYED RELEASE 1 CAP ORALLY TWICE DAILY TAKING ALBUTEROL 90 MCG/ACT AEROSOL SOLUTION 2 PUFF INHALATION QID/PRN SOB OR WHEEZING TAKING WHEELCHAIR - MISCELLANEOUS DIRECTED ELECTRIC DAILY DX:J44.9 & Z99.81 TAKING FUROSEMIDE 20 MG TABLET 1 TABLET ORALLY ONCE A DAY TAKING HYDROCODONE-ACETAMINOPHEN 10-325 MG TABLET 1 TABLET NEEDED ORALLY EVERY 4- 6 HRS MDD 6: PAIN MANAGEMENT TAKING FISH OIL 1200 MG CAPSULE 1 CAPSULE ORALLY EVERY OTHER DAY NOT-TAKING BACID - TABLET 1 TAB ORALLY TWICE DAILY NOT-TAKING TAMSULOSIN HCL 0.4 MG CAPSULE EXTENDED RELEASE 24 HOUR 1 CAPSULE 30 MINUTES AFTER THE SAME MEAL EACH DAY ORALLY ONCE A DAY NOT-TAKING FUROSEMIDE 20 MG TABLET 1 TABLET ORALLY DIRECTED: EVERY OTHER DAY MEDICATION LIST REVIEWED AND RECONCILED WITH THE PATIENT PAST MEDICAL HISTORY HTN COPD LOW BACK PAIN HIGH CHOLESTEROL IBS PROSTATE ISSUES EMPHYSEMA ALLERGIES LOVENOX: RASH: ALLERGY REVIEW OF SYSTEMS REVIEWED BY: PROVIDER: MANDI ANGULO . CONSTITUTIONAL: ANY CHANGE IN YOUR MEDICAL CONDITION? NO . CHILLS NO . FEVER NO . INFECTION: DO YOU HAVE NEW INFECTIONS? NO . DO YOU HAVE HISTORY OF MRSA? NO . MUSCULOSKELETAL: ANY NEW PATTERNS OF PAIN OR NUMBNESS? NO . GASTROENTEROLOGY: ANY NEW CHANGE IN BOWEL CONTROL? NO . GENITOURINARY: ANY NEW CHANGE IN BLADDER CONTROL? NO . IS THERE A CHANCE YOU COULD BE ? NO . HEMATOLOGY/LYMPH: DO YOU TAKE ANY BLOOD THINNERS? (FOR EXAMPLE- COUMADIN, PLAVIX, AGGRENOX, PLATEL, PRADAXA, OR XARELTO) NO . WHEN WAS YOUR LAST DOSE? DATE: TIME: . NEUROLOGY: HAVE YOU FALLEN IN THE PAST 6 MONTHS? NO . ANY NEW EXTREMITY NUMBNESS OR WEAKNESS? NO . CARDIOLOGY: DO YOU HAVE A PACEMAKER OR DEFIBRILLATOR? NO . RESPIRATORY: HAVE YOU BEEN SICK IN THE PAST WEEK? NO . FEVER NO . FLU LIKE SYMPTOMS? NO . COUGH NO . INTEGUMENTARY: DO YOU HAVE ANY RASHES OR OPEN SORES? NO . ALLERGIC/IMMUNO: ARE YOU ALLERGIC TO SHELLFISH OR IV DYE? NO . ANY NEW ALLERGIES? NO . PSYCHIATRIC: DO YOU HAVE THOUGHTS OF HURTING YOURSELF OR SOMEONE ELSE? NO . ARE YOU ABUSED, NEGLECTED, OR IN AN UNSAFE ENVIRONMENT? NO . ENDOCRINOLOGY: ARE YOU DIABETIC? NO . OTHER: DO YOU NEED ANY PRESCRIPTIONS? YES . IF YES, PLEASE LIST: ____HYDROCODONE 10-325 . ANY NEW PROBLEMS WITH YOUR MEDICATIONS? NO . WHEN DID YOU LAST EAT? ____ . WHEN DID YOU LAST DRINK? ____ . WHAT DID YOU LAST DRINK? ____ . NAME OF PERSON DRIVING YOU HOME? ____ . DO YOU HAVE ANY OTHER QUESTIONS OR CONCERNS NO . VITAL SIGNS WT 198 LBS, HT 6'4", BMI 24.10 INDEX, BP 106/65 MM HG, HR 65 /MIN, RR 20 /MIN, TEMP 97.0 F, OXYGEN SAT % 94% 2L O2, SAFE IN ENV? (Y/N) YES, REVIEWED BY: KRISTYN. EXAMINATION GENERAL EXAMINATION: GENERAL APPEARANCE:PATIENT SEATED COMFORTABLY, ALERT AND ORIENTED, VERBAL AND ABLE TO ANSWER QUESTIONS APPROPRIATELY. PATIENT DOES NOT APPEAR TO BE IN ANY ACUTE DISTRESS. LUNGS:CLEAR TO AUSCULTATION BILATERALLY.DIMINISHED IN BASES BILAT.. HEART:REGULAR RATE AND RHYTHM WITHOUT MURMUR. EXTREMITIES:BILATERAL LOWER EXTREMITY SWELLING LIMITED TO THE FEET. ASSESSMENTS POST LAMINECTOMY SYNDROME - M96.1 (PRIMARY) CHRONIC PRESCRIPTION OPIATE USE - Z79.891 TREATMENT POST LAMINECTOMY SYNDROME REFILL HYDROCODONE-ACETAMINOPHEN TABLET, 10-325 MG, 1 TABLET NEEDED, ORALLY, EVERY 4- 6 HRS MDD 6: PAIN MANAGEMENT, 30 DAY(S), 180, REFILLS 0 NOTES: ISTOP REGISTRY REVIEWED AND DEMNOSTRATES COMPLLIANCE. BRINGS IN MEDICATIONS WHICH IS APPROPRIATE FOR WHAT WAS DISPENSED. RECENT URINE TOXICOLOGY REVIEWED. NO UNAUTHORIZED MEDICATIONS. NO ILLICIT SUBSTANCES AND PRESCRIBED MEDICATIONS WERE PRESENT. , RISKS AND BENEFITS OF NARCOTIC/OPIOD MEDICATIONS WERE REVIEWED WITH PATIENT - THIS INCLUDES BUT IS NOT LIMITED TO RISK OF DEPENDANCE/DEVELOPMENT OF ADDICTION, MOOD DISTURBANCE AND DEPRESSION, OSTEOPOROSIS, HORMONAL AND LABIDAL CHANGES, RESPIRATORY DEPRESSION AND . PATIENT IS ADVISED NOT TO DRIVE WHILE ON THESE MEDICATIONS. PROCEDURE CODES FA211 ESTABILISHED PATIENT [facility] CHARGE DISPOSITION & COMMUNICATION FOLLOW UP 3 MONTHS ELECTRONICALLY SIGNED BY KEV GARCIA ON 03/15/2017 AT 10:46 AM EDT DISCLAIMER : THIS IS A VISIT SUMMARY EXTRACTED FROM THE [employer] CHART. IT IS NOT A COPY OF THE [employer] PROGRESS NOTE. JOEL
== END ==
LOC: M PAIN 09:00
PROVIDERS: ATTEND Nurse Practitioner Family
DX: M96.1 Postlaminectomy syndrome, not elsewhere classified (principal); I10 Essential (primary) hypertension; J43.9 Emphysema, unspecified; E78.00 Pure hypercholesterolemia, unspecified; Z88.8 Allergy status to other drugs, medicaments and biological substances; Z79.82 Long term (current) use of aspirin; Z79.899 Other long term (current) drug therapy

== ENCOUNTER → 2017-04-17 | Outpatient (CLI) | payer MEDICARE, MEDICAID ==
[2017-04-17 09:25] LABS: BASO % 0.5 % (0.0-1.0); EOS # 0.2 10^3/uL (0.0-0.50); EOS % 2.6 % (0.0-3.0); IMMATURE GRANULOCYTE % 0.4 % (0-0); LYMPH # 2.4 10^3/uL (1.5-4.5); LYMPH % 28.7 % (24.0-44.0); MEAN CORPUSCULAR HGB CONC 32.9 g/dl (32.0-36.5); MEAN CORPUSCULAR VOLUME 88.2 fl (80.0-96.0); MONO # 0.9 10^3/uL (0.0-0.8); MONO % 11.5 % (0.0-5.0); NEUTROPHILS # 4.6 10^3/uL (1.8-7.7); NEUTROPHILS % 56.3 % (36.0-66.0); PLATELET COUNT, AUTOMATED 310 10^3/uL (150-450); RED CELL DISTRIBUTION WIDTH 16.8 % (11.5-14.5); WHITE BLOOD COUNT 8.2 10^3/uL (4.0-10.0)
[2017-04-17 09:36] LABS: ALBUMIN 3.3 GM/DL (3.2-5.2); ALBUMIN/GLOBULIN RATIO 0.92 (1.00-1.93); ALKALINE PHOSPHATASE 67 U/L (45-117); ALT/SGPT 17 U/L (12-78); ANION GAP 6 MEQ/L (8-16); AST/SGOT 12 U/L (15-37); BILIRUBIN,TOTAL 0.3 MG/DL (0.2-1.0); BLOOD UREA NITROGEN 21 MG/DL (7-18); CALCIUM LEVEL 8.1 MG/DL (8.8-10.2); CARBON DIOXIDE LEVEL 28 MEQ/L (21-32); CHLORIDE LEVEL 107 MEQ/L (98-107); CHOLESTEROL LEVEL 120 MG/DL (<200); CREATININE FOR GFR 1.11 MG/DL (0.70-1.30); GLOMERULAR FILTRATION RATE > 60.0 (>49); GLUCOSE, FASTING 88 MG/DL (80-110); POTASSIUM SERUM 4.4 MEQ/L (3.5-5.1); SODIUM LEVEL 141 MEQ/L (136-145); TOTAL PROTEIN 6.9 GM/DL (6.4-8.2); TRIGLYCERIDES LEVEL 98 MG/DL (<150)
== END ==
LOC: M LAB 08:39
PROVIDERS: ATTEND Family Medicine
DX: R73.03 Prediabetes (principal); E06.9 Thyroiditis, unspecified

== ENCOUNTER → 2017-05-29 | Outpatient (CLI) | payer MEDICARE, MEDICAID | LOC: M LAB 09:05 | PROVIDERS: ATTEND Family Medicine | DX: E03.9 Hypothyroidism, unspecified (principal) ==

== ENCOUNTER → 2017-06-14 | Outpatient (CLI) | payer MEDICARE, MEDICAID ==
--- NOTE | 2017-06-16 02:20 | ECWPNPC ---
PATIENT NAME: GEORGES LERMA : 1945 GENDER: MALE VISIT DATE: 06/14/2017 DISCHARGE DATE: 06/14/17 1604 VISIT LOCKED DATE TIME: PHYSICIAN: MANDI PADILLA RESOURCE: MANDI PADILLA REASON FOR APPOINTMENT 1. BACK HISTORY OF PRESENT ILLNESS HISTORY OF PRESENT ILLNESS: HERE FOR 3 MONTH F/U OF CHRONIC LOW BACK PAIN.RATING PAIN VAS 6/10.FINDS CURRENT CHRONIC PAIN MEDICATION EFFECTIVE AT REDUCING PAIN AND KEEPING HIM COMFORTABLE.CURRENTLY USING HYDROCODONE 10/325 Q4-6H PRN FOR PAIN.DENIES SIDE EFFECTS. PAIN THE PATIENT DESCRIBES THE PAIN... THE PATIENT DESCRIBES THE PAIN... THE PATIENT DESCRIBES THE PAIN... THE PATIENT DESCRIBES THE PAIN... THE PATIENT DESCRIBES THE PAIN... THE PATIENT DESCRIBES THE PAIN... SEVERITY - PAIN SCORE OF5/10 LOCTIONSNECK, LOWER BACK, LEFT LEG THE PATIENT DESCRIBES THE PAIN... QUALITYACHING , SHARP, STABBING, TENDER, THROBBING, SORE DURATIONCONTINUOUS FALL RISK SCREENING: SCREENING :NO FALLS IN THE PAST YEAR CURRENT MEDICATIONS TAKING SPIRIVA HANDIHALER 18 MCG CAPSULE 1 CAP INHALATION ONCE DAILY TAKING ASPIRIN 81 MG TABLET CHEWABLE 1 TABLET ORALLY ONCE A DAY TAKING VITAMIN D-3 1000 UNIT CAPSULE 1 CAPSULE ORALLY ONCE A DAY TAKING MAGNESIUM OXIDE 400 MG TABLET 1 CAPSULE ORALLY ONCE DAILY TAKING MUCUS RELIEF 400 MG TABLET 1 TABLET NEEDED ORALLY EVERY 4 HRS TAKING SYMBICORT 80-4.5 MCG/ACT AEROSOL 2 PUFFS INHALATION TWICE A DAY TAKING DICLOFENAC SODIUM 50 MG TABLET DELAYED RELEASE 1 TABLET ORALLY TWICE A DAY TAKING TRAZODONE HCL 50 MG TABLET 1 TABLET AT BEDTIME NEEDED ORALLY ONCE A DAY TAKING ATORVASTATIN CALCIUM 10 MG TABLET 1 TABLET ORALLY ONCE A DAY TAKING POTASSIUM CHLORIDE 20 MEQ TABLET EXTENDED RELEASE 1 TABLET WITH FOOD ORALLY ONCE A DAY TAKING OMEPRAZOLE 20 MG CAPSULE DELAYED RELEASE 1 CAP ORALLY TWICE DAILY TAKING ALBUTEROL 90 MCG/ACT AEROSOL SOLUTION 2 PUFF INHALATION QID/PRN SOB OR WHEEZING TAKING WHEELCHAIR - MISCELLANEOUS DIRECTED ELECTRIC DAILY DX:J44.9 & Z99.81 TAKING FUROSEMIDE 20 MG TABLET 1 TABLET ORALLY ONCE A DAY TAKING FISH OIL 1200 MG CAPSULE 1 CAPSULE ORALLY EVERY OTHER DAY TAKING HYDROCODONE-ACETAMINOPHEN 10-325 MG TABLET 1 TABLET NEEDED ORALLY EVERY 4- 6 HRS MDD 6: PAIN MANAGEMENT NOT-TAKING BACID - TABLET 1 TAB ORALLY TWICE DAILY NOT-TAKING TAMSULOSIN HCL 0.4 MG CAPSULE EXTENDED RELEASE 24 HOUR 1 CAPSULE 30 MINUTES AFTER THE SAME MEAL EACH DAY ORALLY ONCE A DAY NOT-TAKING FUROSEMIDE 20 MG TABLET 1 TABLET ORALLY DIRECTED: EVERY OTHER DAY MEDICATION LIST REVIEWED AND RECONCILED WITH THE PATIENT PAST MEDICAL HISTORY HTN COPD LOW BACK PAIN HIGH CHOLESTEROL IBS PROSTATE ISSUES EMPHYSEMA HYPOTHYROIDISM ALLERGIES LOVENOX: RASH: ALLERGY SURGICAL HISTORY TONSILECTOMY 1974 BACK SURGERIES CHIP CATARACT SOCIAL HISTORY GENERAL: TOBACCO USE ARE YOU A:FORMER SMOKER HOW LONG HAS IT BEEN SINCE YOU LAST SMOKED?1-5 YEARS ADDITIONAL FINDINGS: TOBACCO USERHEAVY CIGARETTE SMOKER (20-39 CIGS/DAY) BMI CARE GOAL FOLLOW-UP ABOVE NORMAL BMI FOLLOW-UPDIETARY MANAGEMENT EDUCATION, GUIDANCE, AND COUNSELING ALCOHOL SCREENING POINTS: 0, INTERPRETATION: NEGATIVE. RECREATIONAL DRUG USE DRUG USE?NO PATIENT DENIES ABUSE OR MISSUSED OF ANY MEDICATION. PATIENT DENIES USE OF ANY ILLEGAL SUBSTANCE INCLUDING MARIJUANA OR COCAINE. CAFFEINE CAFFEINE USE?YES HOW OFTEN AND HOW MUCH? 3-4 CUPS OCCUPATION: DISABLED. DIET: REGULAR. EXERCISE: NO REGULAR EXERCISE. MARITAL STATUS: SINGLE. OTHERS AT HOME: NONE. PETS: NONE. BAHAI NO MORMONISM BELIEFS THAT WOULD IMPACT HEALTH CARE, NO MORMONISM PREFERENCE. LANGUAGE MAORI. 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 HOSPITALIZATION/MAJOR DIAGNOSTIC PROCEDURE PNEUMONIA X3 2015 PNEUMONIA 2016 PNEUMONIA 07/2016 REVIEW OF SYSTEMS REVIEWED BY: PROVIDER: MANDI ANGULO . CONSTITUTIONAL: ANY CHANGE IN YOUR MEDICAL CONDITION? NO . CHILLS NO . FEVER NO . INFECTION: DO YOU HAVE NEW INFECTIONS? NO . DO YOU HAVE HISTORY OF MRSA? NO . MUSCULOSKELETAL: ANY NEW PATTERNS OF PAIN OR NUMBNESS? NO . GASTROENTEROLOGY: ANY NEW CHANGE IN BOWEL CONTROL? NO . GENITOURINARY: ANY NEW CHANGE IN BLADDER CONTROL? NO . IS THERE A CHANCE YOU COULD BE ? NO . HEMATOLOGY/LYMPH: DO YOU TAKE ANY BLOOD THINNERS? (FOR EXAMPLE- COUMADIN, PLAVIX, AGGRENOX, PLATEL, PRADAXA, OR XARELTO) NO . WHEN WAS YOUR LAST DOSE? DATE: TIME: . NEUROLOGY: HAVE YOU FALLEN IN THE PAST 6 MONTHS? NO . ANY NEW EXTREMITY NUMBNESS OR WEAKNESS? NO . CARDIOLOGY: DO YOU HAVE A PACEMAKER OR DEFIBRILLATOR? NO . RESPIRATORY: HAVE YOU BEEN SICK IN THE PAST WEEK? NO . FEVER NO . FLU LIKE SYMPTOMS? NO . COUGH NO . INTEGUMENTARY: DO YOU HAVE ANY RASHES OR OPEN SORES? NO . ALLERGIC/IMMUNO: ARE YOU ALLERGIC TO SHELLFISH OR IV DYE? NO . ANY NEW ALLERGIES? NO . PSYCHIATRIC: DO YOU HAVE THOUGHTS OF HURTING YOURSELF OR SOMEONE ELSE? NO . ARE YOU ABUSED, NEGLECTED, OR IN AN UNSAFE ENVIRONMENT? NO . ENDOCRINOLOGY: ARE YOU DIABETIC? NO . OTHER: DO YOU NEED ANY PRESCRIPTIONS? YES, HYDROCODONE . IF YES, PLEASE LIST: ____ . ANY NEW PROBLEMS WITH YOUR MEDICATIONS? NO . WHEN DID YOU LAST EAT? ____ . WHEN DID YOU LAST DRINK? ____ . WHAT DID YOU LAST DRINK? ____ . NAME OF PERSON DRIVING YOU HOME? ____ . DO YOU HAVE ANY OTHER QUESTIONS OR CONCERNS YES, PT STATES HE WAS RECENTLY DX'D WITH HYPOTHYROIDISM AND PLACED ON MEDICINE, CAN'T REMEMBER DOSE OR MEDICINE NAME . VITAL SIGNS WT 195 LBS, HT 6'4", BMI 23.73 INDEX, BP 124/69 MM HG, HR 73 /MIN, RR 18 /MIN, TEMP 97.7 F, OXYGEN SAT % 95 ON 2LIT, REVIEWED BY: NL N@ [id number]. EXAMINATION GENERAL EXAMINATION: GENERAL APPEARANCE:PATIENT SEATED COMFORTABLY, ALERT AND ORIENTED, VERBAL AND ABLE TO ANSWER QUESTIONS APPROPRIATELY. PATIENT DOES NOT APPEAR TO BE IN ANY ACUTE DISTRESS. LUNGS:CLEAR TO AUSCULTATION BILATERALLY.DIMINISHED IN BASES BILAT.. HEART:REGULAR RATE AND RHYTHM WITHOUT MURMUR. EXTREMITIES:BILATERAL LOWER EXTREMITY SWELLING LIMITED TO THE FEET. ASSESSMENTS POST LAMINECTOMY SYNDROME - M96.1 (PRIMARY) CHRONIC PRESCRIPTION OPIATE USE - Z79.891 TREATMENT POST LAMINECTOMY SYNDROME REFILL HYDROCODONE-ACETAMINOPHEN TABLET, 10-325 MG, 1 TABLET NEEDED, ORALLY, EVERY 4- 6 HRS MDD 6: PAIN MANAGEMENT, 30 DAY(S), 180, REFILLS 0 NOTES: ISTOP REGISTRY REVIEWED [id number] AND DEMNOSTRATES COMPLLIANCE. BRINGS IN MEDICATIONS WHICH IS APPROPRIATE FOR WHAT WAS DISPENSED. RECENT URINE TOXICOLOGY REVIEWED. NO UNAUTHORIZED MEDICATIONS. NO ILLICIT SUBSTANCES AND PRESCRIBED MEDICATIONS WERE PRESENT. URINE TOX TODAY, RISKS AND BENEFITS OF NARCOTIC/OPIOD MEDICATIONS WERE REVIEWED WITH PATIENT - THIS INCLUDES BUT IS NOT LIMITED TO RISK OF DEPENDANCE/DEVELOPMENT OF ADDICTION, MOOD DISTURBANCE AND DEPRESSION, OSTEOPOROSIS, HORMONAL AND LABIDAL CHANGES, RESPIRATORY DEPRESSION AND . PATIENT IS ADVISED NOT TO DRIVE WHILE ON THESE MEDICATIONS. PROCEDURE CODES FA211 ESTABILISHED PATIENT [facility] CHARGE DISPOSITION & COMMUNICATION FOLLOW UP 3 MONTHS ELECTRONICALLY SIGNED BY KEV GARCIA ON 06/14/2017 AT 04:06 PM EST DISCLAIMER : THIS IS A VISIT SUMMARY EXTRACTED FROM THE [employer] CHART. IT IS NOT A COPY OF THE [employer] PROGRESS NOTE. JOEL
--- NOTE | 2017-06-17 01:25 | ECWPNPC ---
PATIENT NAME: GEORGES LERMA : 1945 GENDER: MALE VISIT DATE: 06/14/2017 DISCHARGE DATE: 06/14/17 1604 VISIT LOCKED DATE TIME: PHYSICIAN: MANDI PADILLA RESOURCE: MANDI PADILLA REASON FOR APPOINTMENT 1. BACK HISTORY OF PRESENT ILLNESS HISTORY OF PRESENT ILLNESS: HERE FOR 3 MONTH F/U OF CHRONIC LOW BACK PAIN.RATING PAIN VAS 6/10.FINDS CURRENT CHRONIC PAIN MEDICATION EFFECTIVE AT REDUCING PAIN AND KEEPING HIM COMFORTABLE.CURRENTLY USING HYDROCODONE 10/325 Q4-6H PRN FOR PAIN.DENIES SIDE EFFECTS. PAIN THE PATIENT DESCRIBES THE PAIN... THE PATIENT DESCRIBES THE PAIN... THE PATIENT DESCRIBES THE PAIN... THE PATIENT DESCRIBES THE PAIN... THE PATIENT DESCRIBES THE PAIN... THE PATIENT DESCRIBES THE PAIN... SEVERITY - PAIN SCORE OF5/10 LOCTIONSNECK, LOWER BACK, LEFT LEG THE PATIENT DESCRIBES THE PAIN... QUALITYACHING , SHARP, STABBING, TENDER, THROBBING, SORE DURATIONCONTINUOUS FALL RISK SCREENING: SCREENING :NO FALLS IN THE PAST YEAR CURRENT MEDICATIONS TAKING SPIRIVA HANDIHALER 18 MCG CAPSULE 1 CAP INHALATION ONCE DAILY TAKING ASPIRIN 81 MG TABLET CHEWABLE 1 TABLET ORALLY ONCE A DAY TAKING VITAMIN D-3 1000 UNIT CAPSULE 1 CAPSULE ORALLY ONCE A DAY TAKING MAGNESIUM OXIDE 400 MG TABLET 1 CAPSULE ORALLY ONCE DAILY TAKING MUCUS RELIEF 400 MG TABLET 1 TABLET NEEDED ORALLY EVERY 4 HRS TAKING SYMBICORT 80-4.5 MCG/ACT AEROSOL 2 PUFFS INHALATION TWICE A DAY TAKING DICLOFENAC SODIUM 50 MG TABLET DELAYED RELEASE 1 TABLET ORALLY TWICE A DAY TAKING TRAZODONE HCL 50 MG TABLET 1 TABLET AT BEDTIME NEEDED ORALLY ONCE A DAY TAKING ATORVASTATIN CALCIUM 10 MG TABLET 1 TABLET ORALLY ONCE A DAY TAKING POTASSIUM CHLORIDE 20 MEQ TABLET EXTENDED RELEASE 1 TABLET WITH FOOD ORALLY ONCE A DAY TAKING OMEPRAZOLE 20 MG CAPSULE DELAYED RELEASE 1 CAP ORALLY TWICE DAILY TAKING ALBUTEROL 90 MCG/ACT AEROSOL SOLUTION 2 PUFF INHALATION QID/PRN SOB OR WHEEZING TAKING WHEELCHAIR - MISCELLANEOUS DIRECTED ELECTRIC DAILY DX:J44.9 & Z99.81 TAKING FUROSEMIDE 20 MG TABLET 1 TABLET ORALLY ONCE A DAY TAKING FISH OIL 1200 MG CAPSULE 1 CAPSULE ORALLY EVERY OTHER DAY TAKING HYDROCODONE-ACETAMINOPHEN 10-325 MG TABLET 1 TABLET NEEDED ORALLY EVERY 4- 6 HRS MDD 6: PAIN MANAGEMENT NOT-TAKING BACID - TABLET 1 TAB ORALLY TWICE DAILY NOT-TAKING TAMSULOSIN HCL 0.4 MG CAPSULE EXTENDED RELEASE 24 HOUR 1 CAPSULE 30 MINUTES AFTER THE SAME MEAL EACH DAY ORALLY ONCE A DAY NOT-TAKING FUROSEMIDE 20 MG TABLET 1 TABLET ORALLY DIRECTED: EVERY OTHER DAY MEDICATION LIST REVIEWED AND RECONCILED WITH THE PATIENT PAST MEDICAL HISTORY HTN COPD LOW BACK PAIN HIGH CHOLESTEROL IBS PROSTATE ISSUES EMPHYSEMA HYPOTHYROIDISM ALLERGIES LOVENOX: RASH: ALLERGY SURGICAL HISTORY TONSILECTOMY 1974 BACK SURGERIES CHIP CATARACT SOCIAL HISTORY GENERAL: TOBACCO USE ARE YOU A:FORMER SMOKER HOW LONG HAS IT BEEN SINCE YOU LAST SMOKED?1-5 YEARS ADDITIONAL FINDINGS: TOBACCO USERHEAVY CIGARETTE SMOKER (20-39 CIGS/DAY) BMI CARE GOAL FOLLOW-UP ABOVE NORMAL BMI FOLLOW-UPDIETARY MANAGEMENT EDUCATION, GUIDANCE, AND COUNSELING ALCOHOL SCREENING POINTS: 0, INTERPRETATION: NEGATIVE. RECREATIONAL DRUG USE DRUG USE?NO PATIENT DENIES ABUSE OR MISSUSED OF ANY MEDICATION. PATIENT DENIES USE OF ANY ILLEGAL SUBSTANCE INCLUDING MARIJUANA OR COCAINE. CAFFEINE CAFFEINE USE?YES HOW OFTEN AND HOW MUCH? 3-4 CUPS OCCUPATION: DISABLED. DIET: REGULAR. EXERCISE: NO REGULAR EXERCISE. MARITAL STATUS: SINGLE. OTHERS AT HOME: NONE. PETS: NONE. CATHOLIC NO ADVENTISM BELIEFS THAT WOULD IMPACT HEALTH CARE, NO ADVENTISM PREFERENCE. LANGUAGE UZBEK. LEARNING BARRIERS / SPECIAL NEEDS CHANGE FROM LAST VISIT?NO BARRIERS TO LEARNING?NO HEARING IMPAIRED?NO VISION IMPAIRED?YES :CORRECTIVE LENSES COGNITIVELY IMPAIRED?NO READINESS TO LEARN?YES LEARNING PREFERENCES?NO LEARNING CAPABILITIES PRESENT?YES EMOTIONAL BARRIERS?NO SPECIAL DEVICES?YES :WHEELCHAIR SERVICE PARTS COORDINATOR NEEDED?NO PAIN CLINIC PFS, CLERGY, PUBLIC HEALTH REFERRALS HAS THE PATIENT BEEN EDUCATED REGARDING HIS/HER PLAN OF CARE?YES HAS THE PATIENT BEEN EDUCATED REGARDING PAIN, THE RISK FOR PAIN, THE IMPORTANCE OF EFFECTIVE PAIN MANAGEMENT, AND THE PAIN ASSESSMENT PROCESS?YES ADVANCE DIRECTIVES HEALTH CARE PROXY?YES NAME OF HCP ABBY LERMA CONTACT # FOR HCP [phone] TRAVEL OUTSIDE US: NOT FOR LAST 21 DAYS. HOSPITALIZATION/MAJOR DIAGNOSTIC PROCEDURE PNEUMONIA X3 2015 PNEUMONIA 2016 PNEUMONIA 07/2016 REVIEW OF SYSTEMS REVIEWED BY: PROVIDER: MANDI ANGULO . CONSTITUTIONAL: ANY CHANGE IN YOUR MEDICAL CONDITION? NO . CHILLS NO . FEVER NO . INFECTION: DO YOU HAVE NEW INFECTIONS? NO . DO YOU HAVE HISTORY OF MRSA? NO . MUSCULOSKELETAL: ANY NEW PATTERNS OF PAIN OR NUMBNESS? NO . GASTROENTEROLOGY: ANY NEW CHANGE IN BOWEL CONTROL? NO . GENITOURINARY: ANY NEW CHANGE IN BLADDER CONTROL? NO . IS THERE A CHANCE YOU COULD BE ? NO . HEMATOLOGY/LYMPH: DO YOU TAKE ANY BLOOD THINNERS? (FOR EXAMPLE- COUMADIN, PLAVIX, AGGRENOX, PLATEL, PRADAXA, OR XARELTO) NO . WHEN WAS YOUR LAST DOSE? DATE: TIME: . NEUROLOGY: HAVE YOU FALLEN IN THE PAST 6 MONTHS? NO . ANY NEW EXTREMITY NUMBNESS OR WEAKNESS? NO . CARDIOLOGY: DO YOU HAVE A PACEMAKER OR DEFIBRILLATOR? NO . RESPIRATORY: HAVE YOU BEEN SICK IN THE PAST WEEK? NO . FEVER NO . FLU LIKE SYMPTOMS? NO . COUGH NO . INTEGUMENTARY: DO YOU HAVE ANY RASHES OR OPEN SORES? NO . ALLERGIC/IMMUNO: ARE YOU ALLERGIC TO SHELLFISH OR IV DYE? NO . ANY NEW ALLERGIES? NO . PSYCHIATRIC: DO YOU HAVE THOUGHTS OF HURTING YOURSELF OR SOMEONE ELSE? NO . ARE YOU ABUSED, NEGLECTED, OR IN AN UNSAFE ENVIRONMENT? NO . ENDOCRINOLOGY: ARE YOU DIABETIC? NO . OTHER: DO YOU NEED ANY PRESCRIPTIONS? YES, HYDROCODONE . IF YES, PLEASE LIST: ____ . ANY NEW PROBLEMS WITH YOUR MEDICATIONS? NO . WHEN DID YOU LAST EAT? ____ . WHEN DID YOU LAST DRINK? ____ . WHAT DID YOU LAST DRINK? ____ . NAME OF PERSON DRIVING YOU HOME? ____ . DO YOU HAVE ANY OTHER QUESTIONS OR CONCERNS YES, PT STATES HE WAS RECENTLY DX'D WITH HYPOTHYROIDISM AND PLACED ON MEDICINE, CAN'T REMEMBER DOSE OR MEDICINE NAME . VITAL SIGNS WT 195 LBS, HT 6'4", BMI 23.73 INDEX, BP 124/69 MM HG, HR 73 /MIN, RR 18 /MIN, TEMP 97.7 F, OXYGEN SAT % 95 ON 2LIT, REVIEWED BY: NL N@ 1524. EXAMINATION GENERAL EXAMINATION: GENERAL APPEARANCE:PATIENT SEATED COMFORTABLY, ALERT AND ORIENTED, VERBAL AND ABLE TO ANSWER QUESTIONS APPROPRIATELY. PATIENT DOES NOT APPEAR TO BE IN ANY ACUTE DISTRESS. LUNGS:CLEAR TO AUSCULTATION BILATERALLY.DIMINISHED IN BASES BILAT.. HEART:REGULAR RATE AND RHYTHM WITHOUT MURMUR. EXTREMITIES:BILATERAL LOWER EXTREMITY SWELLING LIMITED TO THE FEET. ASSESSMENTS POST LAMINECTOMY SYNDROME - M96.1 (PRIMARY) CHRONIC PRESCRIPTION OPIATE USE - Z79.891 TREATMENT POST LAMINECTOMY SYNDROME REFILL HYDROCODONE-ACETAMINOPHEN TABLET, 10-325 MG, 1 TABLET NEEDED, ORALLY, EVERY 4- 6 HRS MDD 6: PAIN MANAGEMENT, 30 DAY(S), 180, REFILLS 0 NOTES: ISTOP REGISTRY REVIEWED [id number] AND DEMNOSTRATES COMPLLIANCE. BRINGS IN MEDICATIONS WHICH IS APPROPRIATE FOR WHAT WAS DISPENSED. RECENT URINE TOXICOLOGY REVIEWED. NO UNAUTHORIZED MEDICATIONS. NO ILLICIT SUBSTANCES AND PRESCRIBED MEDICATIONS WERE PRESENT. URINE TOX TODAY, RISKS AND BENEFITS OF NARCOTIC/OPIOD MEDICATIONS WERE REVIEWED WITH PATIENT - THIS INCLUDES BUT IS NOT LIMITED TO RISK OF DEPENDANCE/DEVELOPMENT OF ADDICTION, MOOD DISTURBANCE AND DEPRESSION, OSTEOPOROSIS, HORMONAL AND LABIDAL CHANGES, RESPIRATORY DEPRESSION AND . PATIENT IS ADVISED NOT TO DRIVE WHILE ON THESE MEDICATIONS. PROCEDURE CODES FA211 ESTABILISHED PATIENT [facility] CHARGE DISPOSITION & COMMUNICATION FOLLOW UP 3 MONTHS ELECTRONICALLY SIGNED BY KEV GARCIA ON 06/14/2017 AT 04:06 PM EST DISCLAIMER : THIS IS A VISIT SUMMARY EXTRACTED FROM THE [employer] CHART. IT IS NOT A COPY OF THE [employer] PROGRESS NOTE. JOEL
== END ==
LOC: M PAIN 15:15
PROVIDERS: ATTEND Nurse Practitioner Family
DX: M96.1 Postlaminectomy syndrome, not elsewhere classified (principal); I10 Essential (primary) hypertension; J43.9 Emphysema, unspecified; Z88.8 Allergy status to other drugs, medicaments and biological substances; Z79.82 Long term (current) use of aspirin; K21.9 Gastro-esophageal reflux disease without esophagitis; Z79.891 Long term (current) use of opiate analgesic; Z79.899 Other long term (current) drug therapy; Z87.891 Personal history of nicotine dependence

== ENCOUNTER 2017-07-19 16:45 | Inpatient (IN) | payer MEDICARE, MEDICAID ==
[2017-07-19] MEDS: IPRATROPIUM 0.5MG/ALBUTEROL 2.5MG INH SOL UD 3ML (DUONEB)(J7620) NEB ×2 (17:09→17:19)
[2017-07-19 17:13] LABS: ABG BASE EXCESS 3.1 (-2.0-2.0); ABG HCO3 25.9 MEQ/L (22.0-26.0); ABG O2 SATURATION 89.9 % (95.0-99.0); ABG PARTIAL PRESSURE CO2 33.6 mmHg (35.0-45.0); ABG PARTIAL PRESSURE O2 54.6 mmHg (75.0-100.0); ABG STANDARD HCO3 27.1 MEQ/L (22.0-26.0); ABG TOTAL CO2 26.9 MEQ/L (23.0-31.0); ABG pH (ARTERIAL) 7.504 UNITS (7.350-7.450)
[2017-07-19] MEDS: methylPREDNISolone INJ 125 MG/2 ML VIAL (J2930) IV (17:13)
[2017-07-19] MEDS: NS 1,000 ML IV (17:14)
[2017-07-19 17:43] LABS: BASO # 0.1 10^3/uL (0.0-0.2); BASO % 0.3 % (0.0-1.0); EOS % 0.2 % (0.0-3.0); HEMATOCRIT 40.7 % (42.0-52.0); HEMOGLOBIN 13.2 g/dl (14.0-18.0); IMMATURE GRANULOCYTE # 0.1 10^3/uL (0-0); IMMATURE GRANULOCYTE % 0.4 % (0-0); LYMPH # 3.1 10^3/uL (1.5-4.5); LYMPH % 19.3 % (24.0-44.0); MEAN CORPUSCULAR HEMOGLOBIN 27.4 pg (27.0-33.0); MEAN CORPUSCULAR HGB CONC 32.4 g/dl (32.0-36.5); MEAN CORPUSCULAR VOLUME 84.6 fl (80.0-96.0); MONO # 1.2 10^3/uL (0.0-0.8); MONO % 7.2 % (0.0-5.0); NEUTROPHILS # 11.9 10^3/uL (1.8-7.7); NEUTROPHILS % 72.6 % (36.0-66.0); PLATELET COUNT, AUTOMATED 350 10^3/uL (150-450); RED BLOOD COUNT 4.81 10^6/uL (4.30-6.10); RED CELL DISTRIBUTION WIDTH 15.9 % (11.5-14.5); WHITE BLOOD COUNT 16.3 10^3/uL (4.0-10.0)
[2017-07-19 18:07] LABS: ALBUMIN 3.7 GM/DL (3.2-5.2); ALKALINE PHOSPHATASE 74 U/L (45-117); ALT/SGPT 13 U/L (12-78); ANION GAP 7 MEQ/L (8-16); AST/SGOT 13 U/L (7-37); BILIRUBIN,DIRECT 0.1 MG/DL (0.0-0.2); BILIRUBIN,TOTAL 0.5 MG/DL (0.2-1.0); BLOOD UREA NITROGEN 25 MG/DL (7-18); CALCIUM LEVEL 8.3 MG/DL (8.8-10.2); CARBON DIOXIDE LEVEL 29 MEQ/L (21-32); CHLORIDE LEVEL 104 MEQ/L (98-107); CPK CREATINE PHOSPHOKINASE 60 U/L (39-308); CREATININE FOR GFR 1.19 MG/DL (0.70-1.30); GLOMERULAR FILTRATION RATE > 60.0 (>42); GLUCOSE, FASTING 120 MG/DL (70-100); MB/CK RELATIVE INDEX 1.66 (< OR =4); POTASSIUM SERUM 4.2 MEQ/L (3.5-5.1); SODIUM LEVEL 140 MEQ/L (136-145); TOTAL PROTEIN 7.4 GM/DL (6.4-8.2); TROPONIN I < 0.02 NG/ML (< 0.10)
[2017-07-19] MEDS: ALBUTEROL SULFATE 2.5 MG/0.5 ML INH NEB SOLN NEB (18:46)
[2017-07-19] MEDS ORDERED: IPRATROPIUM 0.5MG/ALBUTEROL 2.5MG INH SOL UD 3ML (DUONEB)(J7620) NEB (21:00)
[2017-07-19] MEDS ORDERED: ACETAMINOPHEN TAB 650MG DOSE (2X325MG) PO (21:00)
[2017-07-19] MEDS: AZITHROMYCIN INJ 500 MG, VIAL MATE ADAPTER 1 EACH in D5W 250 ML IV (22:13)
[2017-07-19] MEDS: NORCO, ANEXSIA 5/325MG TABLET (HYDROcodone/ACETAMINOPHEN) PO (22:13)
[2017-07-19 23:11] LABS: HEMATOCRIT 35.4 % (42.0-52.0); HEMOGLOBIN 11.6 g/dl (14.0-18.0); MEAN CORPUSCULAR HEMOGLOBIN 27.7 pg (27.0-33.0); MEAN CORPUSCULAR HGB CONC 32.8 g/dl (32.0-36.5); MEAN CORPUSCULAR VOLUME 84.5 fl (80.0-96.0); PLATELET COUNT, AUTOMATED 287 10^3/uL (150-450); RED BLOOD COUNT 4.19 10^6/uL (4.30-6.10)
[2017-07-19 23:38] LABS: ANION GAP 9 MEQ/L (8-16); BLOOD UREA NITROGEN 27 MG/DL (7-18); CALCIUM LEVEL 7.8 MG/DL (8.8-10.2); CARBON DIOXIDE LEVEL 24 MEQ/L (21-32); CHLORIDE LEVEL 104 MEQ/L (98-107); CREATININE FOR GFR 1.69 MG/DL (0.70-1.30); GLOMERULAR FILTRATION RATE 42.9 (>42); GLUCOSE, FASTING 298 MG/DL (70-100); SODIUM LEVEL 137 MEQ/L (136-145)
[2017-07-20] MEDS: traZODone 50 MG TAB PO ×2 (01:00→21:10)
[2017-07-20] MEDS: NORCO, ANEXSIA 5/325MG TABLET (HYDROcodone/ACETAMINOPHEN) PO ×5 (02:50→20:10)
[2017-07-20] MEDS: methylPREDNISolone INJ 125 MG/2 ML VIAL (J2930) IV ×2 (04:23→18:12)
[2017-07-20] MEDS: IPRATROPIUM 0.5MG/ALBUTEROL 2.5MG INH SOL UD 3ML (DUONEB)(J7620) NEB ×4 (08:00→23:05)
[2017-07-20] MEDS: MAGNESIUM OXIDE 400 MG TAB (MAG-OX) PO (08:07)
[2017-07-20] MEDS: OMEPRAZOLE 20 MG CAP PO ×2 (08:07→20:09)
[2017-07-20] MEDS: OMEGA-3 1050MG CAPSULE PO (08:07)
[2017-07-20] MEDS: FUROSEMIDE 20 MG TAB PO (08:08)
[2017-07-20] MEDS: VITAMIN D 1,000 INTERNATIONAL UNITS TABLET PO (08:08)
[2017-07-20] MEDS: SYMBICORT 160/4.5MCG INHALER 6GM INH ×2 (09:22→22:56)
[2017-07-20] MEDS: TIOTROPIUM INHALER/CAPSULE (SPIRIVA) INH (09:22)
[2017-07-20 14:26] LABS: ANION GAP 9 MEQ/L (8-16); BLOOD UREA NITROGEN 27 MG/DL (7-18); CALCIUM LEVEL 7.7 MG/DL (8.8-10.2); CARBON DIOXIDE LEVEL 25 MEQ/L (21-32); CHLORIDE LEVEL 106 MEQ/L (98-107); CREATININE FOR GFR 1.27 MG/DL (0.70-1.30); GLOMERULAR FILTRATION RATE 59.7 (>42); GLUCOSE, FASTING 170 MG/DL (70-100); POTASSIUM SERUM 4.1 MEQ/L (3.5-5.1); SODIUM LEVEL 140 MEQ/L (136-145)
[2017-07-20] MEDS: NS 1,000 ML IV (14:43)
[2017-07-20] MEDS ORDERED: POTASSIUM CHLORIDE 10 MEQ SR TABLET PO (18:00)
[2017-07-20] MEDS: ATORVASTATIN 10 MG TAB PO (18:12)
[2017-07-20] MEDS: LEVOTHYROXINE 50MCG TABLET (0.05MG) PO (18:12)
[2017-07-20] MEDS: ASPIRIN 81 MG ENTERIC TAB PO (18:12)
[2017-07-20] MEDS: AZITHROMYCIN INJ 500 MG, VIAL MATE ADAPTER 1 EACH in D5W 250 ML IV (20:10)
[2017-07-21] MEDS: traZODone 50 MG TAB PO ×2 (00:26→20:25)
[2017-07-21] MEDS: NORCO, ANEXSIA 5/325MG TABLET (HYDROcodone/ACETAMINOPHEN) PO ×6 (00:27→20:26)
[2017-07-21] MEDS: methylPREDNISolone INJ 125 MG/2 ML VIAL (J2930) IV ×2 (04:27→16:39)
[2017-07-21] MEDS: NS 1,000 ML IV (04:27)
[2017-07-21 07:12] LABS: HEMATOCRIT 33.8 % (42.0-52.0); MEAN CORPUSCULAR HEMOGLOBIN 27.6 pg (27.0-33.0); MEAN CORPUSCULAR HGB CONC 32.5 g/dl (32.0-36.5); MEAN CORPUSCULAR VOLUME 84.7 fl (80.0-96.0); PLATELET COUNT, AUTOMATED 275 10^3/uL (150-450); RED BLOOD COUNT 3.99 10^6/uL (4.30-6.10); WHITE BLOOD COUNT 22.4 10^3/uL (4.0-10.0)
[2017-07-21 07:28] LABS: ANION GAP 8 MEQ/L (8-16); BLOOD UREA NITROGEN 23 MG/DL (7-18); CALCIUM LEVEL 7.5 MG/DL (8.8-10.2); CARBON DIOXIDE LEVEL 23 MEQ/L (21-32); CHLORIDE LEVEL 110 MEQ/L (98-107); CREATININE FOR GFR 0.97 MG/DL (0.70-1.30); GLOMERULAR FILTRATION RATE > 60.0 (>42); GLUCOSE, FASTING 133 MG/DL (70-100); POTASSIUM SERUM 4.5 MEQ/L (3.5-5.1); SODIUM LEVEL 141 MEQ/L (136-145)
[2017-07-21] MEDS: IPRATROPIUM 0.5MG/ALBUTEROL 2.5MG INH SOL UD 3ML (DUONEB)(J7620) NEB ×3 (08:00→17:26)
[2017-07-21] MEDS: TIOTROPIUM INHALER/CAPSULE (SPIRIVA) INH (08:31)
[2017-07-21] MEDS: SYMBICORT 160/4.5MCG INHALER 6GM INH ×2 (08:31→22:02)
[2017-07-21] MEDS: OMEPRAZOLE 20 MG CAP PO ×2 (08:39→20:26)
[2017-07-21] MEDS: MAGNESIUM OXIDE 400 MG TAB (MAG-OX) PO (08:40)
[2017-07-21] MEDS: VITAMIN D 1,000 INTERNATIONAL UNITS TABLET PO (08:40)
[2017-07-21] MEDS: FUROSEMIDE 20 MG TAB PO (15:44)
[2017-07-21] MEDS: AZITHROMYCIN 250 MG TAB PO (15:44)
[2017-07-21] MEDS: ATORVASTATIN 10 MG TAB PO (17:22)
[2017-07-21] MEDS: ASPIRIN 81 MG ENTERIC TAB PO (17:22)
[2017-07-21] MEDS: LEVOTHYROXINE 50MCG TABLET (0.05MG) PO (17:22)
[2017-07-22] MEDS: NORCO, ANEXSIA 5/325MG TABLET (HYDROcodone/ACETAMINOPHEN) PO ×6 (00:29→21:01)
[2017-07-22] MEDS: traZODone 50 MG TAB PO ×2 (01:04→20:59)
[2017-07-22] MEDS: methylPREDNISolone INJ 125 MG/2 ML VIAL (J2930) IV ×2 (04:48→17:58)
[2017-07-22 07:24] LABS: HEMATOCRIT 32.2 % (42.0-52.0); HEMOGLOBIN 10.7 g/dl (14.0-18.0); MEAN CORPUSCULAR HEMOGLOBIN 28.1 pg (27.0-33.0); MEAN CORPUSCULAR HGB CONC 33.2 g/dl (32.0-36.5); MEAN CORPUSCULAR VOLUME 84.5 fl (80.0-96.0); PLATELET COUNT, AUTOMATED 282 10^3/uL (150-450); RED BLOOD COUNT 3.81 10^6/uL (4.30-6.10); RED CELL DISTRIBUTION WIDTH 16.4 % (11.5-14.5); WHITE BLOOD COUNT 20.4 10^3/uL (4.0-10.0)
[2017-07-22] MEDS: SYMBICORT 160/4.5MCG INHALER 6GM INH ×2 (07:38→19:53)
[2017-07-22] MEDS: TIOTROPIUM INHALER/CAPSULE (SPIRIVA) INH (07:38)
[2017-07-22 07:55] LABS: ANION GAP 6 MEQ/L (8-16); BLOOD UREA NITROGEN 23 MG/DL (7-18); CALCIUM LEVEL 7.4 MG/DL (8.8-10.2); CARBON DIOXIDE LEVEL 25 MEQ/L (21-32); CHLORIDE LEVEL 110 MEQ/L (98-107); CREATININE FOR GFR 0.93 MG/DL (0.70-1.30); GLOMERULAR FILTRATION RATE > 60.0 (>42); GLUCOSE, FASTING 124 MG/DL (70-100); POTASSIUM SERUM 4.2 MEQ/L (3.5-5.1); SODIUM LEVEL 141 MEQ/L (136-145)
[2017-07-22] MEDS: IPRATROPIUM 0.5MG/ALBUTEROL 2.5MG INH SOL UD 3ML (DUONEB)(J7620) NEB ×4 (08:00→23:38)
[2017-07-22] MEDS: AZITHROMYCIN 250 MG TAB PO (08:43)
[2017-07-22] MEDS: OMEPRAZOLE 20 MG CAP PO ×2 (08:43→21:00)
[2017-07-22] MEDS: MAGNESIUM OXIDE 400 MG TAB (MAG-OX) PO (08:43)
[2017-07-22] MEDS: FUROSEMIDE 20 MG TAB PO (08:43)
[2017-07-22] MEDS: VITAMIN D 1,000 INTERNATIONAL UNITS TABLET PO (08:43)
[2017-07-22] MEDS: OMEGA-3 1050MG CAPSULE PO (08:43)
[2017-07-22] MEDS: ASPIRIN 81 MG ENTERIC TAB PO (17:58)
[2017-07-22] MEDS: ATORVASTATIN 10 MG TAB PO (17:58)
[2017-07-22] MEDS: LEVOTHYROXINE 50MCG TABLET (0.05MG) PO (17:58)
[2017-07-23] MEDS: NORCO, ANEXSIA 5/325MG TABLET (HYDROcodone/ACETAMINOPHEN) PO ×6 (01:04→21:04)
[2017-07-23] MEDS: methylPREDNISolone INJ 125 MG/2 ML VIAL (J2930) IV ×2 (05:01→16:54)
[2017-07-23 07:23] LABS: HEMATOCRIT 33.9 % (42.0-52.0); MEAN CORPUSCULAR HEMOGLOBIN 27.6 pg (27.0-33.0); MEAN CORPUSCULAR HGB CONC 32.4 g/dl (32.0-36.5); PLATELET COUNT, AUTOMATED 272 10^3/uL (150-450); RED BLOOD COUNT 3.99 10^6/uL (4.30-6.10); RED CELL DISTRIBUTION WIDTH 16.2 % (11.5-14.5); WHITE BLOOD COUNT 15.9 10^3/uL (4.0-10.0)
[2017-07-23 07:33] LABS: ANION GAP 6 MEQ/L (8-16); BLOOD UREA NITROGEN 20 MG/DL (7-18); CALCIUM LEVEL 7.6 MG/DL (8.8-10.2); CARBON DIOXIDE LEVEL 28 MEQ/L (21-32); CHLORIDE LEVEL 106 MEQ/L (98-107); CREATININE FOR GFR 0.85 MG/DL (0.70-1.30); GLOMERULAR FILTRATION RATE > 60.0 (>42); GLUCOSE, FASTING 119 MG/DL (70-100); SODIUM LEVEL 140 MEQ/L (136-145)
[2017-07-23] MEDS: IPRATROPIUM 0.5MG/ALBUTEROL 2.5MG INH SOL UD 3ML (DUONEB)(J7620) NEB ×3 (08:00→23:32)
[2017-07-23] MEDS: SYMBICORT 160/4.5MCG INHALER 6GM INH ×2 (08:02→20:43)
[2017-07-23] MEDS: TIOTROPIUM INHALER/CAPSULE (SPIRIVA) INH (08:02)
[2017-07-23] MEDS: OMEPRAZOLE 20 MG CAP PO ×3 (08:50→22:37)
[2017-07-23] MEDS: AZITHROMYCIN 250 MG TAB PO (08:51)
[2017-07-23] MEDS: FUROSEMIDE 20 MG TAB PO (08:51)
[2017-07-23] MEDS: VITAMIN D 1,000 INTERNATIONAL UNITS TABLET PO (08:51)
[2017-07-23] MEDS: MAGNESIUM OXIDE 400 MG TAB (MAG-OX) PO (08:52)
[2017-07-23] MEDS: ASPIRIN 81 MG ENTERIC TAB PO (16:54)
[2017-07-23] MEDS: ATORVASTATIN 10 MG TAB PO (16:54)
[2017-07-23] MEDS: LEVOTHYROXINE 50MCG TABLET (0.05MG) PO (16:56)
[2017-07-23] MEDS: traZODone 50 MG TAB PO (22:37)
[2017-07-24] MEDS: NORCO, ANEXSIA 5/325MG TABLET (HYDROcodone/ACETAMINOPHEN) PO ×3 (01:07→09:07)
[2017-07-24] MEDS: methylPREDNISolone INJ 125 MG/2 ML VIAL (J2930) IV (05:08)
[2017-07-24 05:58] LABS: HEMATOCRIT 33.4 % (42.0-52.0); HEMOGLOBIN 11.1 g/dl (14.0-18.0); MEAN CORPUSCULAR HEMOGLOBIN 27.5 pg (27.0-33.0); MEAN CORPUSCULAR HGB CONC 33.2 g/dl (32.0-36.5); MEAN CORPUSCULAR VOLUME 82.7 fl (80.0-96.0); PLATELET COUNT, AUTOMATED 291 10^3/uL (150-450); RED BLOOD COUNT 4.04 10^6/uL (4.30-6.10); RED CELL DISTRIBUTION WIDTH 16.3 % (11.5-14.5); WHITE BLOOD COUNT 17.3 10^3/uL (4.0-10.0)
[2017-07-24 06:18] LABS: ANION GAP 6 MEQ/L (8-16); BLOOD UREA NITROGEN 19 MG/DL (7-18); CALCIUM LEVEL 7.6 MG/DL (8.8-10.2); CARBON DIOXIDE LEVEL 29 MEQ/L (21-32); CHLORIDE LEVEL 106 MEQ/L (98-107); CREATININE FOR GFR 0.83 MG/DL (0.70-1.30); GLOMERULAR FILTRATION RATE > 60.0 (>42); GLUCOSE, FASTING 129 MG/DL (70-100); POTASSIUM SERUM 3.8 MEQ/L (3.5-5.1); SODIUM LEVEL 141 MEQ/L (136-145)
[2017-07-24] MEDS: IPRATROPIUM 0.5MG/ALBUTEROL 2.5MG INH SOL UD 3ML (DUONEB)(J7620) NEB (08:00)
[2017-07-24] MEDS: TIOTROPIUM INHALER/CAPSULE (SPIRIVA) INH (08:08)
[2017-07-24] MEDS: SYMBICORT 160/4.5MCG INHALER 6GM INH (08:08)
[2017-07-24] MEDS: VITAMIN D 1,000 INTERNATIONAL UNITS TABLET PO (09:06)
[2017-07-24] MEDS: AZITHROMYCIN 250 MG TAB PO (09:06)
[2017-07-24] MEDS: OMEPRAZOLE 20 MG CAP PO (09:06)
[2017-07-24] MEDS: FUROSEMIDE 20 MG TAB PO (09:07)
[2017-07-24] MEDS: MAGNESIUM OXIDE 400 MG TAB (MAG-OX) PO (09:07)
[2017-07-24] MEDS: OMEGA-3 1050MG CAPSULE PO (09:07)
== END 2017-07-24 11:04 | disposition home or self-care (01) | DRG 191 ==
LOC: M MSPAV 07-20 01:55 → M ED 16:45 → M ED INP 19:17
DX: J44.1 Chronic obstructive pulmonary disease with (acute) exacerbation (principal); J96.10 Chronic respiratory failure, unspecified whether with hypoxia or hypercapnia; N17.9 Acute kidney failure, unspecified; G47.00 Insomnia, unspecified; G89.29 Other chronic pain; K21.9 Gastro-esophageal reflux disease without esophagitis; Z66 Do not resuscitate; E03.9 Hypothyroidism, unspecified; E78.5 Hyperlipidemia, unspecified; E55.9 Vitamin D deficiency, unspecified; Z79.899 Other long term (current) drug therapy; Z79.82 Long term (current) use of aspirin; I10 Essential (primary) hypertension; M54.5 Low back pain; Z87.891 Personal history of nicotine dependence; K58.8 Other irritable bowel syndrome; Z88.8 Allergy status to other drugs, medicaments and biological substances; L89.301 Pressure ulcer of unspecified buttock, stage 1

== ENCOUNTER → 2017-09-10 | Outpatient (CLI) | payer MEDICARE, MEDICAID | LOC: M LAB 09:29 | DX: E03.9 Hypothyroidism, unspecified (principal) | CPT/HCPCS: 84443 ==

== ENCOUNTER → 2017-10-11 | Outpatient (CLI) | payer MEDICARE, MEDICAID | LOC: M LAB 08:28 | DX: E03.9 Hypothyroidism, unspecified (principal) | CPT/HCPCS: 84443 ==

== ENCOUNTER 2017-12-02 22:30 | Inpatient (IN) | payer MEDICARE, MEDICAID ==
[2017-12-02] MEDS: NS 1,000 ML IV (22:59)
[2017-12-02] MEDS: methylPREDNISolone INJ 125 MG/2 ML VIAL (J2930) IV (22:59)
[2017-12-02 23:02] LABS: ABG BASE EXCESS -1.9 (-2.0-2.0); ABG HCO3 21.6 MEQ/L (22.0-26.0); ABG PARTIAL PRESSURE O2 61.4 mmHg (75.0-100.0); ABG STANDARD HCO3 22.8 MEQ/L (22.0-26.0); ABG TOTAL CO2 22.6 MEQ/L (23.0-31.0); ABG pH (ARTERIAL) 7.434 UNITS (7.350-7.450)
[2017-12-02 23:04] LABS: HEMATOCRIT 39.5 % (42.0-52.0); HEMOGLOBIN 12.1 g/dl (13.5-17.5); MEAN CORPUSCULAR HEMOGLOBIN 25.1 pg (27.0-33.0); MEAN CORPUSCULAR HGB CONC 30.6 g/dl (32.0-36.5); PLATELET COUNT, AUTOMATED 350 10^3/uL (150-450); RED BLOOD COUNT 4.82 10^6/uL (4.30-6.10); RED CELL DISTRIBUTION WIDTH 17.6 % (11.5-14.5); WHITE BLOOD COUNT 12.8 10^3/uL (4.0-10.0)
[2017-12-02 23:05] LABS: ADD MANUAL DIFFER YES; DIFF SLIDE NUMBER 376; POSITIVE DIFF POS FLAG
[2017-12-02] MEDS: ONDANSETRON 4MG/2ML VIAL (J2405) IV (23:05)
[2017-12-02 23:14] LABS: INR 0.98; PROTHROMBIN TIME 13.1 SECONDS (12.4-14.5)
[2017-12-02 23:29] LABS: ALBUMIN 3.4 GM/DL (3.2-5.2); ALBUMIN/GLOBULIN RATIO 0.79 (1.00-1.93); ALKALINE PHOSPHATASE 75 U/L (45-117); ALT/SGPT 15 U/L (12-78); ANION GAP 7 MEQ/L (8-16); AST/SGOT 13 U/L (7-37); BILIRUBIN,DIRECT 0.1 MG/DL (0.0-0.2); BILIRUBIN,TOTAL 0.3 MG/DL (0.2-1.0); BLOOD UREA NITROGEN 21 MG/DL (7-18); CALCIUM LEVEL 7.9 MG/DL (8.8-10.2); CARBON DIOXIDE LEVEL 27 MEQ/L (21-32); CHLORIDE LEVEL 108 MEQ/L (98-107); CK-MB VALUE MASS < 1.0 NG/ML (<3.6); CPK CREATINE PHOSPHOKINASE 66 U/L (39-308); CREATININE FOR GFR 1.23 MG/DL (0.70-1.30); GLOMERULAR FILTRATION RATE > 60.0 (>42); GLUCOSE, FASTING 123 MG/DL (70-100); MB/CK RELATIVE INDEX 1.51 (< OR =4); POTASSIUM SERUM 4.6 MEQ/L (3.5-5.1); SODIUM LEVEL 142 MEQ/L (136-145); TOTAL PROTEIN 7.7 GM/DL (6.4-8.2); TROPONIN I < 0.02 NG/ML (< 0.10)
[2017-12-02] MEDS: IPRATROPIUM 0.5MG/ALBUTEROL 2.5MG INH SOL UD 3ML (DUONEB)(J7620) NEB ×3 (23:29→23:31)
[2017-12-02 23:34] LABS: ATYPICAL LYMPH 4 % (0-5); EOSINOPHILS 1 % (0-5); LYMPHOCYTES 42 % (16-52); MONOCYTES 9 % (0-8); NEUTROPHILS 44 % (35-75)
[2017-12-02] MEDS: LORazepam 2 MG/ML VIAL (J2060) IV (23:34)
[2017-12-02] MEDS: ASPIRIN 81 MG CHEW TABLET PO (23:34)
[2017-12-02 23:35] LABS: ANISOCYTOSIS 1+; HYPOCHROMASIA 1+; PLATELET ESTIMATE NORMAL (NORMAL)
[2017-12-03] MEDS: ACETAMINOPHEN 325 MG TAB PO (00:26)
[2017-12-03] MEDS: MOXIFLOXACIN HCL 400 MG in APPROPRIATE DILUENT 1 EA IV (00:29)
[2017-12-03] MEDS ORDERED: ONDANSETRON 4MG/2ML VIAL (J2405) IV (01:00)
[2017-12-03] MEDS ORDERED: ACETAMINOPHEN TAB 650MG DOSE (2X325MG) PO (01:00)
[2017-12-03] MEDS: NS 500 ML IV ×2 (01:15→02:00)
[2017-12-03] MEDS: NS 1,000 ML IV ×6 (02:35→19:18)
[2017-12-03] MEDS: PIPERACILLIN/TAZOBACTAM SOD 3.375 GM in D5W MINI-BAG PLUS 50 ML IV (03:32)
[2017-12-03] MEDS: IPRATROPIUM 0.5MG/ALBUTEROL 2.5MG INH SOL UD 3ML (DUONEB)(J7620) NEB ×7 (04:55→23:06)
[2017-12-03 05:14] LABS: BASO % 0.1 % (0.0-1.0); EOS % 0.2 % (0.0-3.0); HEMATOCRIT 30.1 % (42.0-52.0); IMMATURE GRANULOCYTE % 0.2 % (0-3.0); LYMPH # 0.3 10^3/uL (1.5-4.5); LYMPH % 2.7 % (24.0-44.0); MEAN CORPUSCULAR HEMOGLOBIN 25.3 pg (27.0-33.0); MEAN CORPUSCULAR HGB CONC 31.2 g/dl (32.0-36.5); MEAN CORPUSCULAR VOLUME 81.1 fl (80.0-96.0); MONO # 0.3 10^3/uL (0.0-0.8); MONO % 2.3 % (0.0-5.0); NEUTROPHILS # 11.9 10^3/uL (1.8-7.7); NEUTROPHILS % 94.5 % (36.0-66.0); PLATELET COUNT, AUTOMATED 261 10^3/uL (150-450); RED BLOOD COUNT 3.71 10^6/uL (4.30-6.10); RED CELL DISTRIBUTION WIDTH 17.2 % (11.5-14.5); WHITE BLOOD COUNT 12.6 10^3/uL (4.0-10.0)
[2017-12-03 05:23] LABS: HEMOGLOBIN 9.4 g/dl (13.5-17.5)
[2017-12-03 05:42] LABS: ALBUMIN 2.5 GM/DL (3.2-5.2); ALBUMIN/GLOBULIN RATIO 0.78 (1.00-1.93); ALKALINE PHOSPHATASE 50 U/L (45-117); ALT/SGPT 10 U/L (12-78); ANION GAP 5 MEQ/L (8-16); AST/SGOT 6 U/L (7-37); BILIRUBIN,TOTAL 0.2 MG/DL (0.2-1.0); BLOOD UREA NITROGEN 23 MG/DL (7-18); CALCIUM LEVEL 6.5 MG/DL (8.8-10.2); CARBON DIOXIDE LEVEL 23 MEQ/L (21-32); CHLORIDE LEVEL 114 MEQ/L (98-107); CREATININE FOR GFR 1.22 MG/DL (0.70-1.30); GLOMERULAR FILTRATION RATE > 60.0 (>42); GLUCOSE, FASTING 161 MG/DL (70-100); POTASSIUM SERUM 4.3 MEQ/L (3.5-5.1); SODIUM LEVEL 142 MEQ/L (136-145); TOTAL PROTEIN 5.7 GM/DL (6.4-8.2)
[2017-12-03] MEDS: LEVOTHYROXINE 100MCG TABLET (0.1MG) PO (06:22)
[2017-12-03] MEDS: NORCO, ANEXSIA 5/325MG TABLET (HYDROcodone/ACETAMINOPHEN) PO ×3 (06:23→21:05)
[2017-12-03] MEDS: methylPREDNISolone INJ 125 MG/2 ML VIAL (J2930) IV ×3 (06:24→21:01)
[2017-12-03] MEDS: SYMBICORT 160/4.5MCG INHALER 6GM INH ×2 (08:17→21:00)
[2017-12-03] MEDS: TIOTROPIUM INHALER/CAPSULE (SPIRIVA) INH (08:17)
[2017-12-03] MEDS: PHENYLEPHRINE HCL INJ 50 MG in D5W 500 ML IV (08:29)
[2017-12-03 08:48] LABS: CK-MB VALUE MASS < 1.0 NG/ML (<3.6); CPK CREATINE PHOSPHOKINASE 60 U/L (39-308); MB/CK RELATIVE INDEX 1.66 (< OR =4); TROPONIN I < 0.02 NG/ML (< 0.10)
[2017-12-03] MEDS ORDERED: MOXIFLOXACIN HCL 400 MG in APPROPRIATE DILUENT 1 EA IV (09:00)
[2017-12-03] MEDS: OMEPRAZOLE 20 MG CAP PO ×2 (09:11→21:01)
[2017-12-03] MEDS: MEROPENEM INJ 1 GM in APPROPRIATE DILUENT 1 EA IV ×2 (09:11→17:26)
[2017-12-03] MEDS: VANCOMYCIN HCL 750 MG, VIAL MATE ADAPTER 1 EACH in D5W 250 ML IV (09:29)
[2017-12-03] MEDS: VANCOMYCIN HCL 1,000 MG, VIAL MATE ADAPTER 1 EACH in D5W 250 ML IV (09:29)
[2017-12-03 10:00] LABS: CORTISOL AM 26.6 UG/DL (4.3-22.4)
[2017-12-03] MEDS: MAGNESIUM OXIDE 400 MG TAB (MAG-OX) PO (17:26)
[2017-12-03] MEDS: ASPIRIN 81 MG CHEW TABLET PO (17:26)
[2017-12-03] MEDS: ATORVASTATIN 10 MG TAB PO (17:26)
[2017-12-03] MEDS: VITAMIN D 1,000 INTERNATIONAL UNITS TABLET PO (17:26)
[2017-12-03] MEDS: guaiFENesin ER 600 MG TAB PO (21:01)
[2017-12-03] MEDS: traZODone 50 MG TAB PO (21:05)
[2017-12-04] MEDS ORDERED: MOXIFLOXACIN HCL 400 MG in APPROPRIATE DILUENT 1 EA IV
[2017-12-04] MEDS: MEROPENEM INJ 1 GM in APPROPRIATE DILUENT 1 EA IV ×3 (01:27→17:52)
[2017-12-04] MEDS: NS 1,000 ML IV ×4 (01:27→20:41)
[2017-12-04] MEDS: NORCO, ANEXSIA 5/325MG TABLET (HYDROcodone/ACETAMINOPHEN) PO ×3 (01:29→18:03)
[2017-12-04] MEDS: IPRATROPIUM 0.5MG/ALBUTEROL 2.5MG INH SOL UD 3ML (DUONEB)(J7620) NEB ×5 (04:16→20:00)
[2017-12-04 05:09] LABS: HEMATOCRIT 29.8 % (42.0-52.0); HEMOGLOBIN 9.3 g/dl (13.5-17.5); MEAN CORPUSCULAR HEMOGLOBIN 25.3 pg (27.0-33.0); MEAN CORPUSCULAR HGB CONC 31.2 g/dl (32.0-36.5); MEAN CORPUSCULAR VOLUME 81.2 fl (80.0-96.0); PLATELET COUNT, AUTOMATED 277 10^3/uL (150-450); RED BLOOD COUNT 3.67 10^6/uL (4.30-6.10); RED CELL DISTRIBUTION WIDTH 17.6 % (11.5-14.5)
[2017-12-04 05:35] LABS: ALBUMIN 2.6 GM/DL (3.2-5.2); ALBUMIN/GLOBULIN RATIO 0.74 (1.00-1.93); ALKALINE PHOSPHATASE 45 U/L (45-117); ALT/SGPT 14 U/L (12-78); ANION GAP 7 MEQ/L (8-16); AST/SGOT 8 U/L (7-37); BILIRUBIN,TOTAL 0.2 MG/DL (0.2-1.0); BLOOD UREA NITROGEN 18 MG/DL (7-18); C REACTIVE PROTEIN QUANTITATIV 5.59 MG/DL (0.00-0.30); CARBON DIOXIDE LEVEL 22 MEQ/L (21-32); CHLORIDE LEVEL 113 MEQ/L (98-107); CREATININE FOR GFR 0.88 MG/DL (0.70-1.30); GLOMERULAR FILTRATION RATE > 60.0 (>42); GLUCOSE, FASTING 150 MG/DL (70-100); MAGNESIUM LEVEL 1.9 MG/DL (1.8-2.4); POTASSIUM SERUM 3.9 MEQ/L (3.5-5.1); SODIUM LEVEL 142 MEQ/L (136-145); TOTAL PROTEIN 6.1 GM/DL (6.4-8.2)
[2017-12-04] MEDS: methylPREDNISolone INJ 125 MG/2 ML VIAL (J2930) IV ×3 (06:19→22:50)
[2017-12-04] MEDS: LEVOTHYROXINE 100MCG TABLET (0.1MG) PO (06:19)
[2017-12-04] MEDS: SYMBICORT 160/4.5MCG INHALER 6GM INH ×2 (07:42→19:57)
[2017-12-04] MEDS: TIOTROPIUM INHALER/CAPSULE (SPIRIVA) INH (07:42)
[2017-12-04] MEDS: guaiFENesin ER 600 MG TAB PO ×2 (08:21→20:41)
[2017-12-04] MEDS: OMEPRAZOLE 20 MG CAP PO ×2 (08:21→20:41)
[2017-12-04] MEDS: OMEGA-3 1050MG CAPSULE PO (17:52)
[2017-12-04] MEDS: ASPIRIN 81 MG CHEW TABLET PO (17:52)
[2017-12-04] MEDS: VITAMIN D 1,000 INTERNATIONAL UNITS TABLET PO (17:52)
[2017-12-04] MEDS: MAGNESIUM OXIDE 400 MG TAB (MAG-OX) PO (17:52)
[2017-12-04] MEDS: ATORVASTATIN 10 MG TAB PO (17:52)
[2017-12-04] MEDS: traZODone 50 MG TAB PO (20:41)
[2017-12-05] MEDS: IPRATROPIUM 0.5MG/ALBUTEROL 2.5MG INH SOL UD 3ML (DUONEB)(J7620) NEB ×7 (00:17→23:19)
[2017-12-05] MEDS: MEROPENEM INJ 1 GM in APPROPRIATE DILUENT 1 EA IV ×2 (02:24→09:10)
[2017-12-05] MEDS: NORCO, ANEXSIA 5/325MG TABLET (HYDROcodone/ACETAMINOPHEN) PO ×2 (02:31→20:00)
[2017-12-05] MEDS: NS 1,000 ML IV ×2 (04:35→10:05)
[2017-12-05] MEDS: LEVOTHYROXINE 100MCG TABLET (0.1MG) PO (06:09)
[2017-12-05] MEDS: methylPREDNISolone INJ 125 MG/2 ML VIAL (J2930) IV ×2 (06:09→17:09)
[2017-12-05 06:22] LABS: HEMATOCRIT 32.1 % (42.0-52.0); HEMOGLOBIN 10.1 g/dl (13.5-17.5); MEAN CORPUSCULAR HEMOGLOBIN 25.4 pg (27.0-33.0); MEAN CORPUSCULAR HGB CONC 31.5 g/dl (32.0-36.5); MEAN CORPUSCULAR VOLUME 80.7 fl (80.0-96.0); PLATELET COUNT, AUTOMATED 311 10^3/uL (150-450); RED BLOOD COUNT 3.98 10^6/uL (4.30-6.10); RED CELL DISTRIBUTION WIDTH 17.8 % (11.5-14.5); WHITE BLOOD COUNT 24.7 10^3/uL (4.0-10.0)
[2017-12-05 06:39] LABS: ALBUMIN 2.6 GM/DL (3.2-5.2); ALBUMIN/GLOBULIN RATIO 0.72 (1.00-1.93); ALKALINE PHOSPHATASE 48 U/L (45-117); ALT/SGPT 18 U/L (12-78); ANION GAP 8 MEQ/L (8-16); AST/SGOT 9 U/L (7-37); BILIRUBIN,TOTAL 0.2 MG/DL (0.2-1.0); BLOOD UREA NITROGEN 16 MG/DL (7-18); CALCIUM LEVEL 7.1 MG/DL (8.8-10.2); CARBON DIOXIDE LEVEL 21 MEQ/L (21-32); CHLORIDE LEVEL 116 MEQ/L (98-107); CREATININE FOR GFR 0.91 MG/DL (0.70-1.30); GLOMERULAR FILTRATION RATE > 60.0 (>42); GLUCOSE, FASTING 128 MG/DL (70-100); MAGNESIUM LEVEL 2.2 MG/DL (1.8-2.4); POTASSIUM SERUM 3.9 MEQ/L (3.5-5.1); SODIUM LEVEL 145 MEQ/L (136-145); TOTAL PROTEIN 6.2 GM/DL (6.4-8.2)
[2017-12-05] MEDS: SYMBICORT 160/4.5MCG INHALER 6GM INH ×2 (07:15→19:19)
[2017-12-05] MEDS: TIOTROPIUM INHALER/CAPSULE (SPIRIVA) INH (07:20)
[2017-12-05] MEDS: OMEPRAZOLE 20 MG CAP PO ×2 (08:14→19:59)
[2017-12-05] MEDS: guaiFENesin ER 600 MG TAB PO ×2 (08:14→19:59)
[2017-12-05] MEDS: LevoFLOXacin 500 MG TABLET PO (10:23)
[2017-12-05] MEDS: VITAMIN D 1,000 INTERNATIONAL UNITS TABLET PO (17:09)
[2017-12-05] MEDS: ASPIRIN 81 MG CHEW TABLET PO (17:09)
[2017-12-05] MEDS: ATORVASTATIN 10 MG TAB PO (17:09)
[2017-12-05] MEDS: MAGNESIUM OXIDE 400 MG TAB (MAG-OX) PO (17:10)
[2017-12-05] MEDS: traZODone 50 MG TAB PO (23:03)
[2017-12-06] MEDS: LevoFLOXacin 500 MG TABLET PO (05:50)
[2017-12-06] MEDS: LEVOTHYROXINE 100MCG TABLET (0.1MG) PO (05:50)
[2017-12-06] MEDS: methylPREDNISolone INJ 125 MG/2 ML VIAL (J2930) IV ×2 (05:50→17:28)
[2017-12-06] MEDS: NORCO, ANEXSIA 5/325MG TABLET (HYDROcodone/ACETAMINOPHEN) PO ×4 (05:51→22:01)
[2017-12-06 06:40] LABS: HEMATOCRIT 30.5 % (42.0-52.0); HEMOGLOBIN 9.5 g/dl (13.5-17.5); MEAN CORPUSCULAR HEMOGLOBIN 24.9 pg (27.0-33.0); MEAN CORPUSCULAR HGB CONC 31.1 g/dl (32.0-36.5); MEAN CORPUSCULAR VOLUME 80.1 fl (80.0-96.0); PLATELET COUNT, AUTOMATED 266 10^3/uL (150-450); RED BLOOD COUNT 3.81 10^6/uL (4.30-6.10); RED CELL DISTRIBUTION WIDTH 17.9 % (11.5-14.5); WHITE BLOOD COUNT 17.8 10^3/uL (4.0-10.0)
[2017-12-06 07:09] LABS: ALBUMIN 2.4 GM/DL (3.2-5.2); ALBUMIN/GLOBULIN RATIO 0.71 (1.00-1.93); ALKALINE PHOSPHATASE 47 U/L (45-117); ALT/SGPT 36 U/L (12-78); ANION GAP 5 MEQ/L (8-16); AST/SGOT 20 U/L (7-37); BILIRUBIN,TOTAL 0.3 MG/DL (0.2-1.0); BLOOD UREA NITROGEN 17 MG/DL (7-18); CALCIUM LEVEL 7.4 MG/DL (8.8-10.2); CARBON DIOXIDE LEVEL 26 MEQ/L (21-32); CHLORIDE LEVEL 114 MEQ/L (98-107); CREATININE FOR GFR 0.79 MG/DL (0.70-1.30); GLOMERULAR FILTRATION RATE > 60.0 (>42); GLUCOSE, FASTING 111 MG/DL (70-100); MAGNESIUM LEVEL 2.2 MG/DL (1.8-2.4); POTASSIUM SERUM 3.9 MEQ/L (3.5-5.1); SODIUM LEVEL 145 MEQ/L (136-145); TOTAL PROTEIN 5.8 GM/DL (6.4-8.2)
[2017-12-06] MEDS: TIOTROPIUM INHALER/CAPSULE (SPIRIVA) INH (07:34)
[2017-12-06] MEDS: IPRATROPIUM 0.5MG/ALBUTEROL 2.5MG INH SOL UD 3ML (DUONEB)(J7620) NEB ×5 (07:34→22:55)
[2017-12-06] MEDS: SYMBICORT 160/4.5MCG INHALER 6GM INH ×2 (07:34→19:11)
[2017-12-06] MEDS: guaiFENesin ER 600 MG TAB PO ×2 (08:27→20:58)
[2017-12-06] MEDS: OMEPRAZOLE 20 MG CAP PO ×2 (08:27→20:58)
[2017-12-06] MEDS: AUGMENTIN 875 MG TAB PO ×2 (12:48→20:58)
[2017-12-06] MEDS: OMEGA-3 1050MG CAPSULE PO (17:25)
[2017-12-06] MEDS: MAGNESIUM OXIDE 400 MG TAB (MAG-OX) PO (17:25)
[2017-12-06] MEDS: ATORVASTATIN 10 MG TAB PO (17:25)
[2017-12-06] MEDS: VITAMIN D 1,000 INTERNATIONAL UNITS TABLET PO (17:25)
[2017-12-06] MEDS: ASPIRIN 81 MG CHEW TABLET PO (17:25)
[2017-12-06] MEDS: traZODone 50 MG TAB PO (22:00)
[2017-12-07] MEDS: NORCO, ANEXSIA 5/325MG TABLET (HYDROcodone/ACETAMINOPHEN) PO ×3 (02:08→22:34)
[2017-12-07] MEDS: IPRATROPIUM 0.5MG/ALBUTEROL 2.5MG INH SOL UD 3ML (DUONEB)(J7620) NEB ×6 (03:19→20:00)
[2017-12-07] MEDS: methylPREDNISolone INJ 125 MG/2 ML VIAL (J2930) IV (05:28)
[2017-12-07] MEDS: LEVOTHYROXINE 100MCG TABLET (0.1MG) PO (05:30)
[2017-12-07 06:49] LABS: HEMATOCRIT 32.4 % (42.0-52.0); HEMOGLOBIN 10.2 g/dl (13.5-17.5); MEAN CORPUSCULAR HEMOGLOBIN 24.8 pg (27.0-33.0); MEAN CORPUSCULAR HGB CONC 31.5 g/dl (32.0-36.5); MEAN CORPUSCULAR VOLUME 78.8 fl (80.0-96.0); PLATELET COUNT, AUTOMATED 294 10^3/uL (150-450); RED BLOOD COUNT 4.11 10^6/uL (4.30-6.10); RED CELL DISTRIBUTION WIDTH 17.6 % (11.5-14.5); WHITE BLOOD COUNT 14.5 10^3/uL (4.0-10.0)
[2017-12-07 07:08] LABS: ALBUMIN 2.7 GM/DL (3.2-5.2); ALBUMIN/GLOBULIN RATIO 0.77 (1.00-1.93); ALKALINE PHOSPHATASE 50 U/L (45-117); ALT/SGPT 65 U/L (12-78); ANION GAP 8 MEQ/L (8-16); AST/SGOT 31 U/L (7-37); BILIRUBIN,TOTAL 0.3 MG/DL (0.2-1.0); BLOOD UREA NITROGEN 16 MG/DL (7-18); CALCIUM LEVEL 7.9 MG/DL (8.8-10.2); CARBON DIOXIDE LEVEL 27 MEQ/L (21-32); CHLORIDE LEVEL 107 MEQ/L (98-107); CREATININE FOR GFR 0.75 MG/DL (0.70-1.30); GLOMERULAR FILTRATION RATE > 60.0 (>42); GLUCOSE, FASTING 102 MG/DL (70-100); MAGNESIUM LEVEL 2.5 MG/DL (1.8-2.4); POTASSIUM SERUM 3.9 MEQ/L (3.5-5.1); SODIUM LEVEL 142 MEQ/L (136-145); TOTAL PROTEIN 6.2 GM/DL (6.4-8.2)
[2017-12-07] MEDS: TIOTROPIUM INHALER/CAPSULE (SPIRIVA) INH (08:47)
[2017-12-07] MEDS: SYMBICORT 160/4.5MCG INHALER 6GM INH ×2 (08:47→20:32)
[2017-12-07] MEDS: AUGMENTIN 875 MG TAB PO ×2 (08:50→20:59)
[2017-12-07] MEDS: OMEPRAZOLE 20 MG CAP PO ×2 (08:50→20:59)
[2017-12-07] MEDS: guaiFENesin ER 600 MG TAB PO ×2 (08:51→20:59)
[2017-12-07] MEDS: ATORVASTATIN 10 MG TAB PO (17:45)
[2017-12-07] MEDS: VITAMIN D 1,000 INTERNATIONAL UNITS TABLET PO (17:45)
[2017-12-07] MEDS: ASPIRIN 81 MG CHEW TABLET PO (17:45)
[2017-12-07] MEDS: MAGNESIUM OXIDE 400 MG TAB (MAG-OX) PO (17:45)
[2017-12-07] MEDS: predniSONE 20 MG TAB PO (20:59)
[2017-12-07] MEDS: traZODone 50 MG TAB PO (22:32)
[2017-12-08] MEDS: IPRATROPIUM 0.5MG/ALBUTEROL 2.5MG INH SOL UD 3ML (DUONEB)(J7620) NEB ×8 (00:11→23:34)
[2017-12-08] MEDS: LEVOTHYROXINE 100MCG TABLET (0.1MG) PO (05:42)
[2017-12-08] MEDS: NORCO, ANEXSIA 5/325MG TABLET (HYDROcodone/ACETAMINOPHEN) PO ×2 (05:43→22:02)
[2017-12-08] MEDS: FUROSEMIDE 40 MG/4 ML VIAL (J1940) IV (06:33)
[2017-12-08 06:58] LABS: ALBUMIN 2.5 GM/DL (3.2-5.2); ALBUMIN/GLOBULIN RATIO 0.81 (1.00-1.93); ALKALINE PHOSPHATASE 45 U/L (45-117); ALT/SGPT 49 U/L (12-78); ANION GAP 7 MEQ/L (8-16); AST/SGOT 12 U/L (7-37); BILIRUBIN,TOTAL 0.4 MG/DL (0.2-1.0); BLOOD UREA NITROGEN 17 MG/DL (7-18); CALCIUM LEVEL 7.5 MG/DL (8.8-10.2); CARBON DIOXIDE LEVEL 29 MEQ/L (21-32); CHLORIDE LEVEL 106 MEQ/L (98-107); GLOMERULAR FILTRATION RATE > 60.0 (>42); GLUCOSE, FASTING 122 MG/DL (70-100); MAGNESIUM LEVEL 2.3 MG/DL (1.8-2.4); SODIUM LEVEL 142 MEQ/L (136-145); TOTAL PROTEIN 5.6 GM/DL (6.4-8.2)
[2017-12-08 07:21] LABS: NT-PRO BNP 1524 PG/ML (<125)
[2017-12-08 07:41] LABS: HEMATOCRIT 32.4 % (42.0-52.0); HEMOGLOBIN 10.4 g/dl (13.5-17.5); MEAN CORPUSCULAR HEMOGLOBIN 25.2 pg (27.0-33.0); MEAN CORPUSCULAR HGB CONC 32.1 g/dl (32.0-36.5); MEAN CORPUSCULAR VOLUME 78.6 fl (80.0-96.0); PLATELET COUNT, AUTOMATED 294 10^3/uL (150-450); RED BLOOD COUNT 4.12 10^6/uL (4.30-6.10); RED CELL DISTRIBUTION WIDTH 17.6 % (11.5-14.5)
[2017-12-08] MEDS: SYMBICORT 160/4.5MCG INHALER 6GM INH ×3 (08:54→20:59)
[2017-12-08] MEDS: TIOTROPIUM INHALER/CAPSULE (SPIRIVA) INH (08:54)
[2017-12-08] MEDS: guaiFENesin ER 600 MG TAB PO ×2 (09:00→22:03)
[2017-12-08] MEDS: OMEPRAZOLE 20 MG CAP PO ×2 (09:00→22:03)
[2017-12-08] MEDS: methylPREDNISolone INJ 125 MG/2 ML VIAL (J2930) IV ×3 (10:00→22:03)
[2017-12-08] MEDS: cefTRIAXone SOD 1 GM in D5W MINI-BAG PLUS 50 ML IV (11:03)
[2017-12-08] MEDS: ASPIRIN 81 MG CHEW TABLET PO (18:18)
[2017-12-08] MEDS: OMEGA-3 1050MG CAPSULE PO (18:18)
[2017-12-08] MEDS: MAGNESIUM OXIDE 400 MG TAB (MAG-OX) PO (18:18)
[2017-12-08] MEDS: ATORVASTATIN 10 MG TAB PO (18:18)
[2017-12-08] MEDS: VITAMIN D 1,000 INTERNATIONAL UNITS TABLET PO (18:19)
[2017-12-08] MEDS: traZODone 50 MG TAB PO (22:04)
[2017-12-09] MEDS: IPRATROPIUM 0.5MG/ALBUTEROL 2.5MG INH SOL UD 3ML (DUONEB)(J7620) NEB ×3 (03:56→12:52)
[2017-12-09] MEDS: methylPREDNISolone INJ 125 MG/2 ML VIAL (J2930) IV ×4 (04:35→21:27)
[2017-12-09] MEDS: NORCO, ANEXSIA 5/325MG TABLET (HYDROcodone/ACETAMINOPHEN) PO ×3 (04:40→21:33)
[2017-12-09] MEDS: LEVOTHYROXINE 100MCG TABLET (0.1MG) PO (05:30)
[2017-12-09 05:54] LABS: HEMATOCRIT 31.9 % (42.0-52.0); HEMOGLOBIN 10.3 g/dl (13.5-17.5); MEAN CORPUSCULAR HEMOGLOBIN 25.2 pg (27.0-33.0); MEAN CORPUSCULAR HGB CONC 32.3 g/dl (32.0-36.5); MEAN CORPUSCULAR VOLUME 78.2 fl (80.0-96.0); PLATELET COUNT, AUTOMATED 303 10^3/uL (150-450); RED BLOOD COUNT 4.08 10^6/uL (4.30-6.10); RED CELL DISTRIBUTION WIDTH 17.6 % (11.5-14.5); WHITE BLOOD COUNT 11.2 10^3/uL (4.0-10.0)
[2017-12-09 06:16] LABS: ALBUMIN 2.6 GM/DL (3.2-5.2); ALBUMIN/GLOBULIN RATIO 0.81 (1.00-1.93); ALKALINE PHOSPHATASE 48 U/L (45-117); ALT/SGPT 38 U/L (12-78); ANION GAP 7 MEQ/L (8-16); AST/SGOT 7 U/L (7-37); BILIRUBIN,TOTAL 0.3 MG/DL (0.2-1.0); BLOOD UREA NITROGEN 23 MG/DL (7-18); CALCIUM LEVEL 7.6 MG/DL (8.8-10.2); CARBON DIOXIDE LEVEL 30 MEQ/L (21-32); CHLORIDE LEVEL 104 MEQ/L (98-107); CREATININE FOR GFR 0.86 MG/DL (0.70-1.30); GLOMERULAR FILTRATION RATE > 60.0 (>42); GLUCOSE, FASTING 135 MG/DL (70-100); MAGNESIUM LEVEL 2.3 MG/DL (1.8-2.4); SODIUM LEVEL 141 MEQ/L (136-145); TOTAL PROTEIN 5.8 GM/DL (6.4-8.2)
[2017-12-09] MEDS: guaiFENesin ER 600 MG TAB PO ×2 (08:24→21:27)
[2017-12-09] MEDS: OMEPRAZOLE 20 MG CAP PO ×2 (08:24→21:27)
[2017-12-09] MEDS: TIOTROPIUM INHALER/CAPSULE (SPIRIVA) INH (09:00)
[2017-12-09] MEDS: SYMBICORT 160/4.5MCG INHALER 6GM INH (09:00)
[2017-12-09] MEDS: cefTRIAXone SOD 1 GM in D5W MINI-BAG PLUS 50 ML IV (09:45)
[2017-12-09] MEDS: ATORVASTATIN 10 MG TAB PO (17:39)
[2017-12-09] MEDS: ASPIRIN 81 MG CHEW TABLET PO (17:39)
[2017-12-09] MEDS: VITAMIN D 1,000 INTERNATIONAL UNITS TABLET PO (17:39)
[2017-12-09] MEDS: MAGNESIUM OXIDE 400 MG TAB (MAG-OX) PO (17:39)
[2017-12-10] MEDS: IPRATROPIUM 0.5MG/ALBUTEROL 2.5MG INH SOL UD 3ML (DUONEB)(J7620) NEB ×8 (00:05→22:42)
[2017-12-10] MEDS: methylPREDNISolone INJ 125 MG/2 ML VIAL (J2930) IV ×4 (04:24→21:58)
[2017-12-10] MEDS: NORCO, ANEXSIA 5/325MG TABLET (HYDROcodone/ACETAMINOPHEN) PO ×2 (04:24→21:59)
[2017-12-10] MEDS: LEVOTHYROXINE 100MCG TABLET (0.1MG) PO (05:58)
[2017-12-10 06:25] LABS: HEMATOCRIT 31.2 % (42.0-52.0); HEMOGLOBIN 10.1 g/dl (13.5-17.5); MEAN CORPUSCULAR HGB CONC 32.4 g/dl (32.0-36.5); MEAN CORPUSCULAR VOLUME 77.2 fl (80.0-96.0); PLATELET COUNT, AUTOMATED 314 10^3/uL (150-450); RED BLOOD COUNT 4.04 10^6/uL (4.30-6.10); RED CELL DISTRIBUTION WIDTH 17.4 % (11.5-14.5); WHITE BLOOD COUNT 16.1 10^3/uL (4.0-10.0)
[2017-12-10 06:48] LABS: ALBUMIN 2.5 GM/DL (3.2-5.2); ALBUMIN/GLOBULIN RATIO 0.78 (1.00-1.93); ALKALINE PHOSPHATASE 43 U/L (45-117); ALT/SGPT 37 U/L (12-78); ANION GAP 8 MEQ/L (8-16); AST/SGOT 7 U/L (7-37); BILIRUBIN,TOTAL 0.3 MG/DL (0.2-1.0); BLOOD UREA NITROGEN 28 MG/DL (7-18); CALCIUM LEVEL 7.8 MG/DL (8.8-10.2); CARBON DIOXIDE LEVEL 28 MEQ/L (21-32); CHLORIDE LEVEL 105 MEQ/L (98-107); CREATININE FOR GFR 0.82 MG/DL (0.70-1.30); GLOMERULAR FILTRATION RATE > 60.0 (>42); GLUCOSE, FASTING 135 MG/DL (70-100); MAGNESIUM LEVEL 2.3 MG/DL (1.8-2.4); POTASSIUM SERUM 3.9 MEQ/L (3.5-5.1); SODIUM LEVEL 141 MEQ/L (136-145); TOTAL PROTEIN 5.7 GM/DL (6.4-8.2)
[2017-12-10] MEDS: SYMBICORT 160/4.5MCG INHALER 6GM INH ×2 (07:27→21:05)
[2017-12-10] MEDS: TIOTROPIUM INHALER/CAPSULE (SPIRIVA) INH (07:27)
[2017-12-10] MEDS: OMEPRAZOLE 20 MG CAP PO ×2 (09:01→21:58)
[2017-12-10] MEDS: guaiFENesin ER 600 MG TAB PO ×2 (09:01→21:58)
[2017-12-10] MEDS: cefTRIAXone SOD 1 GM in D5W MINI-BAG PLUS 50 ML IV (09:02)
[2017-12-10] MEDS: ASPIRIN 81 MG CHEW TABLET PO (16:29)
[2017-12-10] MEDS: MAGNESIUM OXIDE 400 MG TAB (MAG-OX) PO (16:29)
[2017-12-10] MEDS: VITAMIN D 1,000 INTERNATIONAL UNITS TABLET PO (16:29)
[2017-12-10] MEDS: ATORVASTATIN 10 MG TAB PO (16:29)
[2017-12-10] MEDS: OMEGA-3 1050MG CAPSULE PO (16:30)
[2017-12-11] MEDS: IPRATROPIUM 0.5MG/ALBUTEROL 2.5MG INH SOL UD 3ML (DUONEB)(J7620) NEB ×6 (03:33→22:46)
[2017-12-11] MEDS: NORCO, ANEXSIA 5/325MG TABLET (HYDROcodone/ACETAMINOPHEN) PO ×3 (04:11→22:21)
[2017-12-11] MEDS: methylPREDNISolone INJ 125 MG/2 ML VIAL (J2930) IV ×4 (04:11→22:21)
[2017-12-11] MEDS: LEVOTHYROXINE 100MCG TABLET (0.1MG) PO (06:12)
[2017-12-11] MEDS: FUROSEMIDE 40 MG/4 ML VIAL (J1940) IV (07:34)
[2017-12-11] MEDS: SYMBICORT 160/4.5MCG INHALER 6GM INH ×2 (07:46→20:26)
[2017-12-11] MEDS: TIOTROPIUM INHALER/CAPSULE (SPIRIVA) INH (07:46)
[2017-12-11] MEDS: OMEPRAZOLE 20 MG CAP PO ×2 (09:11→20:24)
[2017-12-11] MEDS: guaiFENesin ER 600 MG TAB PO ×2 (09:11→20:23)
[2017-12-11] MEDS: cefTRIAXone SOD 1 GM in D5W MINI-BAG PLUS 50 ML IV (09:11)
[2017-12-11] MEDS: FUROSEMIDE 20 MG/2 ML VIAL (J1940) IV ×3 (11:00→20:23)
[2017-12-11] MEDS: MAGNESIUM OXIDE 400 MG TAB (MAG-OX) PO (16:38)
[2017-12-11] MEDS: ASPIRIN 81 MG CHEW TABLET PO (16:38)
[2017-12-11] MEDS: VITAMIN D 1,000 INTERNATIONAL UNITS TABLET PO (16:38)
[2017-12-11] MEDS: ATORVASTATIN 10 MG TAB PO (16:38)
[2017-12-11] MEDS: traZODone 50 MG TAB PO (22:21)
[2017-12-11 23:25] LABS: ANION GAP 9 MEQ/L (8-16); BLOOD UREA NITROGEN 33 MG/DL (7-18); CALCIUM LEVEL 7.7 MG/DL (8.8-10.2); CARBON DIOXIDE LEVEL 32 MEQ/L (21-32); CHLORIDE LEVEL 102 MEQ/L (98-107); CREATININE FOR GFR 1.07 MG/DL (0.70-1.30); GLOMERULAR FILTRATION RATE > 60.0 (>42); GLUCOSE, FASTING 138 MG/DL (70-100); MAGNESIUM LEVEL 2.4 MG/DL (1.8-2.4); POTASSIUM SERUM 3.9 MEQ/L (3.5-5.1); SODIUM LEVEL 143 MEQ/L (136-145)
[2017-12-12] MEDS: IPRATROPIUM 0.5MG/ALBUTEROL 2.5MG INH SOL UD 3ML (DUONEB)(J7620) NEB ×6 (04:03→23:56)
[2017-12-12] MEDS: methylPREDNISolone INJ 125 MG/2 ML VIAL (J2930) IV ×4 (04:31→21:06)
[2017-12-12] MEDS: NORCO, ANEXSIA 5/325MG TABLET (HYDROcodone/ACETAMINOPHEN) PO ×3 (04:32→21:42)
[2017-12-12 06:15] LABS: HEMATOCRIT 32.3 % (42.0-52.0); HEMOGLOBIN 10.4 g/dl (13.5-17.5); MEAN CORPUSCULAR HEMOGLOBIN 24.8 pg (27.0-33.0); MEAN CORPUSCULAR HGB CONC 32.2 g/dl (32.0-36.5); MEAN CORPUSCULAR VOLUME 76.9 fl (80.0-96.0); PLATELET COUNT, AUTOMATED 306 10^3/uL (150-450); RED CELL DISTRIBUTION WIDTH 17.7 % (11.5-14.5); WHITE BLOOD COUNT 16.4 10^3/uL (4.0-10.0)
[2017-12-12] MEDS: LEVOTHYROXINE 100MCG TABLET (0.1MG) PO (06:16)
[2017-12-12 06:40] LABS: ANION GAP 9 MEQ/L (8-16); BLOOD UREA NITROGEN 34 MG/DL (7-18); CALCIUM LEVEL 7.4 MG/DL (8.8-10.2); CARBON DIOXIDE LEVEL 31 MEQ/L (21-32); CHLORIDE LEVEL 103 MEQ/L (98-107); CREATININE FOR GFR 0.94 MG/DL (0.70-1.30); GLOMERULAR FILTRATION RATE > 60.0 (>42); GLUCOSE, FASTING 139 MG/DL (70-100); POTASSIUM SERUM 3.7 MEQ/L (3.5-5.1); SODIUM LEVEL 143 MEQ/L (136-145)
[2017-12-12] MEDS: FUROSEMIDE 20 MG/2 ML VIAL (J1940) IV ×3 (06:47→18:32)
[2017-12-12] MEDS: TIOTROPIUM INHALER/CAPSULE (SPIRIVA) INH (07:06)
[2017-12-12] MEDS: SYMBICORT 160/4.5MCG INHALER 6GM INH ×2 (07:06→20:06)
[2017-12-12] MEDS: cefTRIAXone SOD 1 GM in D5W MINI-BAG PLUS 50 ML IV (09:53)
[2017-12-12] MEDS: guaiFENesin ER 600 MG TAB PO ×2 (09:53→21:07)
[2017-12-12] MEDS: OMEPRAZOLE 20 MG CAP PO ×2 (09:53→21:07)
[2017-12-12] MEDS: VITAMIN D 1,000 INTERNATIONAL UNITS TABLET PO (17:51)
[2017-12-12] MEDS: ATORVASTATIN 10 MG TAB PO (17:51)
[2017-12-12] MEDS: MAGNESIUM OXIDE 400 MG TAB (MAG-OX) PO (17:52)
[2017-12-12] MEDS: ASPIRIN 81 MG CHEW TABLET PO (17:52)
[2017-12-12] MEDS: OMEGA-3 1050MG CAPSULE PO (17:52)
[2017-12-12] MEDS: traZODone 50 MG TAB PO (21:42)
[2017-12-13] MEDS: IPRATROPIUM 0.5MG/ALBUTEROL 2.5MG INH SOL UD 3ML (DUONEB)(J7620) NEB ×6 (03:13→23:48)
[2017-12-13] MEDS: methylPREDNISolone INJ 125 MG/2 ML VIAL (J2930) IV ×4 (03:44→22:00)
[2017-12-13] MEDS: LEVOTHYROXINE 100MCG TABLET (0.1MG) PO (05:44)
[2017-12-13] MEDS: NORCO, ANEXSIA 5/325MG TABLET (HYDROcodone/ACETAMINOPHEN) PO ×3 (05:45→20:24)
[2017-12-13 07:15] LABS: HEMATOCRIT 31.9 % (42.0-52.0); HEMOGLOBIN 10.6 g/dl (13.5-17.5); MEAN CORPUSCULAR HEMOGLOBIN 25.4 pg (27.0-33.0); MEAN CORPUSCULAR HGB CONC 33.2 g/dl (32.0-36.5); MEAN CORPUSCULAR VOLUME 76.3 fl (80.0-96.0); PLATELET COUNT, AUTOMATED 297 10^3/uL (150-450); RED BLOOD COUNT 4.18 10^6/uL (4.30-6.10); RED CELL DISTRIBUTION WIDTH 17.7 % (11.5-14.5); WHITE BLOOD COUNT 20.5 10^3/uL (4.0-10.0)
[2017-12-13 07:29] LABS: ANION GAP 10 MEQ/L (8-16); BLOOD UREA NITROGEN 37 MG/DL (7-18); CALCIUM LEVEL 7.5 MG/DL (8.8-10.2); CARBON DIOXIDE LEVEL 29 MEQ/L (21-32); CHLORIDE LEVEL 102 MEQ/L (98-107); CREATININE FOR GFR 0.89 MG/DL (0.70-1.30); GLOMERULAR FILTRATION RATE > 60.0 (>42); GLUCOSE, FASTING 133 MG/DL (70-100); POTASSIUM SERUM 3.2 MEQ/L (3.5-5.1); SODIUM LEVEL 141 MEQ/L (136-145)
[2017-12-13] MEDS: SYMBICORT 160/4.5MCG INHALER 6GM INH ×2 (07:46→19:53)
[2017-12-13] MEDS: TIOTROPIUM INHALER/CAPSULE (SPIRIVA) INH (07:46)
[2017-12-13] MEDS: guaiFENesin ER 600 MG TAB PO ×2 (07:47→20:23)
[2017-12-13] MEDS: OMEPRAZOLE 20 MG CAP PO ×2 (07:47→20:23)
[2017-12-13] MEDS: cefTRIAXone SOD 1 GM in D5W MINI-BAG PLUS 50 ML IV (10:04)
[2017-12-13] MEDS: MAGNESIUM OXIDE 400 MG TAB (MAG-OX) PO (17:36)
[2017-12-13] MEDS: VITAMIN D 1,000 INTERNATIONAL UNITS TABLET PO (17:36)
[2017-12-13] MEDS: ASPIRIN 81 MG CHEW TABLET PO (17:36)
[2017-12-13] MEDS: ATORVASTATIN 10 MG TAB PO (17:36)
[2017-12-13] MEDS: traZODone 50 MG TAB PO (22:00)
[2017-12-14] MEDS: NORCO, ANEXSIA 5/325MG TABLET (HYDROcodone/ACETAMINOPHEN) PO ×3 (02:36→16:49)
[2017-12-14] MEDS: IPRATROPIUM 0.5MG/ALBUTEROL 2.5MG INH SOL UD 3ML (DUONEB)(J7620) NEB ×6 (03:28→23:47)
[2017-12-14] MEDS: methylPREDNISolone INJ 125 MG/2 ML VIAL (J2930) IV ×4 (04:02→21:48)
[2017-12-14] MEDS: LEVOTHYROXINE 100MCG TABLET (0.1MG) PO (05:31)
[2017-12-14 06:47] LABS: HEMATOCRIT 30.6 % (42.0-52.0); MEAN CORPUSCULAR HEMOGLOBIN 25.1 pg (27.0-33.0); MEAN CORPUSCULAR HGB CONC 32.7 g/dl (32.0-36.5); MEAN CORPUSCULAR VOLUME 76.9 fl (80.0-96.0); PLATELET COUNT, AUTOMATED 239 10^3/uL (150-450); RED BLOOD COUNT 3.98 10^6/uL (4.30-6.10); RED CELL DISTRIBUTION WIDTH 17.8 % (11.5-14.5); WHITE BLOOD COUNT 20.1 10^3/uL (4.0-10.0)
[2017-12-14 07:17] LABS: ANION GAP 10 MEQ/L (8-16); BLOOD UREA NITROGEN 30 MG/DL (7-18); CALCIUM LEVEL 7.2 MG/DL (8.8-10.2); CARBON DIOXIDE LEVEL 28 MEQ/L (21-32); CHLORIDE LEVEL 101 MEQ/L (98-107); CREATININE FOR GFR 0.83 MG/DL (0.70-1.30); GLOMERULAR FILTRATION RATE > 60.0 (>42); GLUCOSE, FASTING 124 MG/DL (70-100); POTASSIUM SERUM 3.5 MEQ/L (3.5-5.1); SODIUM LEVEL 139 MEQ/L (136-145)
[2017-12-14] MEDS: TIOTROPIUM INHALER/CAPSULE (SPIRIVA) INH (07:46)
[2017-12-14] MEDS: SYMBICORT 160/4.5MCG INHALER 6GM INH ×2 (07:47→19:58)
[2017-12-14] MEDS: guaiFENesin ER 600 MG TAB PO ×2 (08:34→20:37)
[2017-12-14] MEDS: OMEPRAZOLE 20 MG CAP PO ×2 (08:34→20:37)
[2017-12-14] MEDS: BUDESONIDE 0.5 MG/2 ML INHALATION SUSPENSION INH ×2 (11:10→19:59)
[2017-12-14] MEDS: NYSTATIN 500,000 U/5 ML SUSP UDC SS ×2 (11:58→16:51)
[2017-12-14] MEDS: ASPIRIN 81 MG CHEW TABLET PO (16:49)
[2017-12-14] MEDS: OMEGA-3 1050MG CAPSULE PO (16:50)
[2017-12-14] MEDS: MAGNESIUM OXIDE 400 MG TAB (MAG-OX) PO (16:50)
[2017-12-14] MEDS: ATORVASTATIN 10 MG TAB PO (16:50)
[2017-12-14] MEDS: VITAMIN D 1,000 INTERNATIONAL UNITS TABLET PO (16:50)
[2017-12-14] MEDS: traZODone 50 MG TAB PO (21:48)
[2017-12-15] MEDS: NORCO, ANEXSIA 5/325MG TABLET (HYDROcodone/ACETAMINOPHEN) PO (00:22)
[2017-12-15] MEDS: NYSTATIN 500,000 U/5 ML SUSP UDC SS ×5 (00:29→23:56)
[2017-12-15] MEDS: methylPREDNISolone INJ 125 MG/2 ML VIAL (J2930) IV ×4 (03:26→21:01)
[2017-12-15] MEDS: IPRATROPIUM 0.5MG/ALBUTEROL 2.5MG INH SOL UD 3ML (DUONEB)(J7620) NEB ×6 (03:57→23:40)
[2017-12-15] MEDS: LEVOTHYROXINE 100MCG TABLET (0.1MG) PO (05:48)
[2017-12-15 06:37] LABS: HEMATOCRIT 31.5 % (42.0-52.0); HEMOGLOBIN 10.1 g/dl (13.5-17.5); MEAN CORPUSCULAR HEMOGLOBIN 24.8 pg (27.0-33.0); MEAN CORPUSCULAR HGB CONC 32.1 g/dl (32.0-36.5); MEAN CORPUSCULAR VOLUME 77.4 fl (80.0-96.0); PLATELET COUNT, AUTOMATED 242 10^3/uL (150-450); RED BLOOD COUNT 4.07 10^6/uL (4.30-6.10); RED CELL DISTRIBUTION WIDTH 18.1 % (11.5-14.5); WHITE BLOOD COUNT 20.2 10^3/uL (4.0-10.0)
[2017-12-15 06:50] LABS: ANION GAP 7 MEQ/L (8-16); BLOOD UREA NITROGEN 27 MG/DL (7-18); CALCIUM LEVEL 7.1 MG/DL (8.8-10.2); CARBON DIOXIDE LEVEL 30 MEQ/L (21-32); CHLORIDE LEVEL 104 MEQ/L (98-107); CREATININE FOR GFR 0.88 MG/DL (0.70-1.30); GLOMERULAR FILTRATION RATE > 60.0 (>42); GLUCOSE, FASTING 148 MG/DL (70-100); POTASSIUM SERUM 3.7 MEQ/L (3.5-5.1); SODIUM LEVEL 141 MEQ/L (136-145)
[2017-12-15] MEDS: SYMBICORT 160/4.5MCG INHALER 6GM INH ×2 (07:10→21:47)
[2017-12-15] MEDS: BUDESONIDE 0.5 MG/2 ML INHALATION SUSPENSION INH ×2 (07:10→21:47)
[2017-12-15] MEDS: TIOTROPIUM INHALER/CAPSULE (SPIRIVA) INH (07:10)
[2017-12-15] MEDS: guaiFENesin ER 600 MG TAB PO ×2 (08:32→21:00)
[2017-12-15] MEDS: OMEPRAZOLE 20 MG CAP PO ×2 (08:32→21:00)
[2017-12-15] MEDS: MAGNESIUM OXIDE 400 MG TAB (MAG-OX) PO (15:44)
[2017-12-15] MEDS: ATORVASTATIN 10 MG TAB PO (15:44)
[2017-12-15] MEDS: VITAMIN D 1,000 INTERNATIONAL UNITS TABLET PO (15:44)
[2017-12-15] MEDS: ASPIRIN 81 MG CHEW TABLET PO (15:44)
[2017-12-15] MEDS ORDERED: ISOVUE-370 76% 100ML VIAL (Q9967) As Ordered (15:59)
[2017-12-15] MEDS: cefTRIAXone SOD 1 GM in D5W MINI-BAG PLUS 50 ML IV (16:00)
[2017-12-15] MEDS: FUROSEMIDE 20 MG/2 ML VIAL (J1940) IV (21:00)
[2017-12-16] MEDS: IPRATROPIUM 0.5MG/ALBUTEROL 2.5MG INH SOL UD 3ML (DUONEB)(J7620) NEB ×6 (04:00→23:43)
[2017-12-16] MEDS: methylPREDNISolone INJ 125 MG/2 ML VIAL (J2930) IV ×4 (04:00→22:09)
[2017-12-16] MEDS: NYSTATIN 500,000 U/5 ML SUSP UDC SS ×4 (05:47→23:50)
[2017-12-16] MEDS: LEVOTHYROXINE 100MCG TABLET (0.1MG) PO (05:47)
[2017-12-16 06:25] LABS: HEMATOCRIT 32.9 % (42.0-52.0); HEMOGLOBIN 10.7 g/dl (13.5-17.5); MEAN CORPUSCULAR HEMOGLOBIN 25.2 pg (27.0-33.0); MEAN CORPUSCULAR HGB CONC 32.5 g/dl (32.0-36.5); MEAN CORPUSCULAR VOLUME 77.6 fl (80.0-96.0); PLATELET COUNT, AUTOMATED 225 10^3/uL (150-450); RED BLOOD COUNT 4.24 10^6/uL (4.30-6.10); RED CELL DISTRIBUTION WIDTH 18.8 % (11.5-14.5); WHITE BLOOD COUNT 21.7 10^3/uL (4.0-10.0)
[2017-12-16 06:49] LABS: ANION GAP 10 MEQ/L (8-16); BLOOD UREA NITROGEN 28 MG/DL (7-18); CALCIUM LEVEL 6.9 MG/DL (8.8-10.2); CARBON DIOXIDE LEVEL 28 MEQ/L (21-32); CHLORIDE LEVEL 105 MEQ/L (98-107); CREATININE FOR GFR 0.86 MG/DL (0.70-1.30); GLOMERULAR FILTRATION RATE > 60.0 (>42); GLUCOSE, FASTING 125 MG/DL (70-100); POTASSIUM SERUM 3.9 MEQ/L (3.5-5.1); SODIUM LEVEL 143 MEQ/L (136-145)
[2017-12-16] MEDS: SYMBICORT 160/4.5MCG INHALER 6GM INH ×2 (07:46→21:01)
[2017-12-16] MEDS: TIOTROPIUM INHALER/CAPSULE (SPIRIVA) INH (07:46)
[2017-12-16] MEDS: BUDESONIDE 0.5 MG/2 ML INHALATION SUSPENSION INH ×2 (07:46→21:01)
[2017-12-16 08:22] LABS: C REACTIVE PROTEIN QUANTITATIV < 0.30 MG/DL (0.00-0.30)
[2017-12-16] MEDS: guaiFENesin ER 600 MG TAB PO ×2 (09:02→22:09)
[2017-12-16] MEDS: FUROSEMIDE 20 MG/2 ML VIAL (J1940) IV (09:02)
[2017-12-16] MEDS: OMEPRAZOLE 20 MG CAP PO ×2 (09:02→22:09)
[2017-12-16] MEDS: cefTRIAXone SOD 1 GM in D5W MINI-BAG PLUS 50 ML IV (15:11)
[2017-12-16] MEDS: ASPIRIN 81 MG CHEW TABLET PO (16:57)
[2017-12-16] MEDS: ATORVASTATIN 10 MG TAB PO (16:57)
[2017-12-16] MEDS: MAGNESIUM OXIDE 400 MG TAB (MAG-OX) PO (16:58)
[2017-12-16] MEDS: OMEGA-3 1050MG CAPSULE PO (16:58)
[2017-12-16] MEDS: VITAMIN D 1,000 INTERNATIONAL UNITS TABLET PO (16:58)
[2017-12-17] MEDS: IPRATROPIUM 0.5MG/ALBUTEROL 2.5MG INH SOL UD 3ML (DUONEB)(J7620) NEB ×6 (04:32→23:10)
[2017-12-17] MEDS: methylPREDNISolone INJ 125 MG/2 ML VIAL (J2930) IV ×2 (04:37→09:45)
[2017-12-17] MEDS: NYSTATIN 500,000 U/5 ML SUSP UDC SS ×3 (05:39→17:26)
[2017-12-17] MEDS: LEVOTHYROXINE 100MCG TABLET (0.1MG) PO (05:39)
[2017-12-17 06:40] LABS: HEMATOCRIT 32.2 % (42.0-52.0); HEMOGLOBIN 10.8 g/dl (13.5-17.5); MEAN CORPUSCULAR HEMOGLOBIN 25.6 pg (27.0-33.0); MEAN CORPUSCULAR HGB CONC 33.5 g/dl (32.0-36.5); MEAN CORPUSCULAR VOLUME 76.3 fl (80.0-96.0); PLATELET COUNT, AUTOMATED 219 10^3/uL (150-450); RED BLOOD COUNT 4.22 10^6/uL (4.30-6.10); RED CELL DISTRIBUTION WIDTH 19.1 % (11.5-14.5)
[2017-12-17 06:54] LABS: ANION GAP 7 MEQ/L (8-16); BLOOD UREA NITROGEN 28 MG/DL (7-18); C REACTIVE PROTEIN QUANTITATIV < 0.30 MG/DL (0.00-0.30); CALCIUM LEVEL 7.2 MG/DL (8.8-10.2); CARBON DIOXIDE LEVEL 28 MEQ/L (21-32); CHLORIDE LEVEL 107 MEQ/L (98-107); CREATININE FOR GFR 0.76 MG/DL (0.70-1.30); GLOMERULAR FILTRATION RATE > 60.0 (>42); GLUCOSE, FASTING 136 MG/DL (70-100); POTASSIUM SERUM 4.1 MEQ/L (3.5-5.1); SODIUM LEVEL 142 MEQ/L (136-145)
[2017-12-17] MEDS: BUDESONIDE 0.5 MG/2 ML INHALATION SUSPENSION INH ×2 (07:49→19:58)
[2017-12-17] MEDS: TIOTROPIUM INHALER/CAPSULE (SPIRIVA) INH (07:49)
[2017-12-17] MEDS: SYMBICORT 160/4.5MCG INHALER 6GM INH ×2 (07:49→19:58)
[2017-12-17] MEDS: guaiFENesin ER 600 MG TAB PO ×2 (08:41→20:32)
[2017-12-17] MEDS: OMEPRAZOLE 20 MG CAP PO ×2 (08:41→20:32)
[2017-12-17] MEDS: FUROSEMIDE 20 MG TAB PO (08:41)
[2017-12-17] MEDS ORDERED: LIDOCAINE 1% MDV 20ML VIAL As Ordered (13:26)
[2017-12-17] MEDS: NORCO, ANEXSIA 5/325MG TABLET (HYDROcodone/ACETAMINOPHEN) PO (17:26)
[2017-12-17] MEDS: SODIUM CHLORIDE 0.9% INJ 10 ML SYR IV (17:27)
[2017-12-17] MEDS: VITAMIN D 1,000 INTERNATIONAL UNITS TABLET PO (17:27)
[2017-12-17] MEDS: ATORVASTATIN 10 MG TAB PO (17:27)
[2017-12-17] MEDS: methylPREDNISolone INJ 40 MG/1 ML VIAL (J2920) IV (17:27)
[2017-12-17] MEDS: MAGNESIUM OXIDE 400 MG TAB (MAG-OX) PO (17:27)
[2017-12-17] MEDS: ASPIRIN 81 MG CHEW TABLET PO (17:27)
[2017-12-18] MEDS: NYSTATIN 500,000 U/5 ML SUSP UDC SS ×4 (00:11→17:49)
[2017-12-18] MEDS: methylPREDNISolone INJ 40 MG/1 ML VIAL (J2920) IV ×3 (01:25→21:14)
[2017-12-18] MEDS: IPRATROPIUM 0.5MG/ALBUTEROL 2.5MG INH SOL UD 3ML (DUONEB)(J7620) NEB ×6 (03:46→23:14)
[2017-12-18] MEDS: LEVOTHYROXINE 100MCG TABLET (0.1MG) PO (05:48)
[2017-12-18] MEDS: SODIUM CHLORIDE 0.9% INJ 10 ML SYR IV ×4 (05:48→21:15)
[2017-12-18 06:15] LABS: HEMATOCRIT 31.7 % (42.0-52.0); HEMOGLOBIN 10.4 g/dl (13.5-17.5); MEAN CORPUSCULAR HEMOGLOBIN 25.5 pg (27.0-33.0); MEAN CORPUSCULAR HGB CONC 32.8 g/dl (32.0-36.5); MEAN CORPUSCULAR VOLUME 77.7 fl (80.0-96.0); PLATELET COUNT, AUTOMATED 157 10^3/uL (150-450); RED BLOOD COUNT 4.08 10^6/uL (4.30-6.10); RED CELL DISTRIBUTION WIDTH 19.5 % (11.5-14.5); WHITE BLOOD COUNT 21.2 10^3/uL (4.0-10.0)
[2017-12-18 06:28] LABS: ANION GAP 6 MEQ/L (8-16); BLOOD UREA NITROGEN 26 MG/DL (7-18); C REACTIVE PROTEIN QUANTITATIV < 0.30 MG/DL (0.00-0.30); CARBON DIOXIDE LEVEL 31 MEQ/L (21-32); CHLORIDE LEVEL 105 MEQ/L (98-107); CREATININE FOR GFR 0.67 MG/DL (0.70-1.30); GLOMERULAR FILTRATION RATE > 60.0 (>42); GLUCOSE, FASTING 119 MG/DL (70-100); POTASSIUM SERUM 4.2 MEQ/L (3.5-5.1); SODIUM LEVEL 142 MEQ/L (136-145)
[2017-12-18] MEDS: TIOTROPIUM INHALER/CAPSULE (SPIRIVA) INH (07:06)
[2017-12-18] MEDS: BUDESONIDE 0.5 MG/2 ML INHALATION SUSPENSION INH ×2 (07:06→19:39)
[2017-12-18] MEDS: SYMBICORT 160/4.5MCG INHALER 6GM INH ×2 (07:06→19:39)
[2017-12-18] MEDS: OMEPRAZOLE 20 MG CAP PO ×2 (09:29→21:14)
[2017-12-18] MEDS: guaiFENesin ER 600 MG TAB PO ×2 (09:29→21:14)
[2017-12-18] MEDS: FUROSEMIDE 20 MG TAB PO (09:29)
[2017-12-18] MEDS: NORCO, ANEXSIA 5/325MG TABLET (HYDROcodone/ACETAMINOPHEN) PO ×2 (09:34→17:52)
[2017-12-18] MEDS: ATORVASTATIN 10 MG TAB PO (17:49)
[2017-12-18] MEDS: VITAMIN D 1,000 INTERNATIONAL UNITS TABLET PO (17:49)
[2017-12-18] MEDS: OMEGA-3 1050MG CAPSULE PO (17:49)
[2017-12-18] MEDS: ASPIRIN 81 MG CHEW TABLET PO (17:49)
[2017-12-18] MEDS: MAGNESIUM OXIDE 400 MG TAB (MAG-OX) PO (17:51)
[2017-12-19] MEDS: NYSTATIN 500,000 U/5 ML SUSP UDC SS ×5 (00:29→23:07)
[2017-12-19] MEDS: IPRATROPIUM 0.5MG/ALBUTEROL 2.5MG INH SOL UD 3ML (DUONEB)(J7620) NEB ×6 (03:49→23:54)
[2017-12-19] MEDS: LEVOTHYROXINE 100MCG TABLET (0.1MG) PO (05:31)
[2017-12-19] MEDS: SODIUM CHLORIDE 0.9% INJ 10 ML SYR IV ×2 (05:31→17:02)
[2017-12-19] MEDS: NORCO, ANEXSIA 5/325MG TABLET (HYDROcodone/ACETAMINOPHEN) PO ×2 (05:34→15:15)
[2017-12-19 07:24] LABS: BASO % 0.1 % (0.0-1.0); HEMOGLOBIN 10.7 g/dl (13.5-17.5); IMMATURE GRANULOCYTE % 0.5 % (0-3.0); LYMPH # 0.5 10^3/uL (1.5-4.5); LYMPH % 2.4 % (24.0-44.0); MEAN CORPUSCULAR HEMOGLOBIN 25.4 pg (27.0-33.0); MEAN CORPUSCULAR HGB CONC 32.4 g/dl (32.0-36.5); MEAN CORPUSCULAR VOLUME 78.2 fl (80.0-96.0); MONO # 1.1 10^3/uL (0.0-0.8); MONO % 5.6 % (0.0-5.0); NEUTROPHILS # 17.3 10^3/uL (1.8-7.7); NEUTROPHILS % 91.4 % (36.0-66.0); PLATELET COUNT, AUTOMATED 126 10^3/uL (150-450); RED BLOOD COUNT 4.22 10^6/uL (4.30-6.10); RED CELL DISTRIBUTION WIDTH 19.8 % (11.5-14.5); WHITE BLOOD COUNT 18.9 10^3/uL (4.0-10.0)
[2017-12-19 07:27] LABS: ALBUMIN 2.3 GM/DL (3.2-5.2); ALBUMIN/GLOBULIN RATIO 0.79 (1.00-1.93); ALKALINE PHOSPHATASE 45 U/L (45-117); ALT/SGPT 30 U/L (12-78); ANION GAP 7 MEQ/L (8-16); AST/SGOT 11 U/L (7-37); BILIRUBIN,TOTAL 0.5 MG/DL (0.2-1.0); BLOOD UREA NITROGEN 28 MG/DL (7-18); CALCIUM LEVEL 6.8 MG/DL (8.8-10.2); CARBON DIOXIDE LEVEL 30 MEQ/L (21-32); CHLORIDE LEVEL 105 MEQ/L (98-107); CREATININE FOR GFR 0.74 MG/DL (0.70-1.30); GLOMERULAR FILTRATION RATE > 60.0 (>42); GLUCOSE, FASTING 103 MG/DL (70-100); MAGNESIUM LEVEL 2.6 MG/DL (1.8-2.4); POTASSIUM SERUM 4.3 MEQ/L (3.5-5.1); SODIUM LEVEL 142 MEQ/L (136-145); TOTAL PROTEIN 5.2 GM/DL (6.4-8.2)
[2017-12-19] MEDS: FUROSEMIDE 20 MG TAB PO (08:24)
[2017-12-19] MEDS: OMEPRAZOLE 20 MG CAP PO ×2 (08:24→21:05)
[2017-12-19] MEDS: guaiFENesin ER 600 MG TAB PO ×2 (08:24→21:05)
[2017-12-19] MEDS: BUDESONIDE 0.5 MG/2 ML INHALATION SUSPENSION INH ×2 (08:54→20:20)
[2017-12-19] MEDS: TIOTROPIUM INHALER/CAPSULE (SPIRIVA) INH (08:55)
[2017-12-19] MEDS: SYMBICORT 160/4.5MCG INHALER 6GM INH ×2 (08:55→20:20)
[2017-12-19] MEDS: methylPREDNISolone INJ 40 MG/1 ML VIAL (J2920) IV ×2 (09:14→09:40)
[2017-12-19] MEDS: ATORVASTATIN 10 MG TAB PO (17:02)
[2017-12-19] MEDS: ASPIRIN 81 MG CHEW TABLET PO (17:02)
[2017-12-19] MEDS: MAGNESIUM OXIDE 400 MG TAB (MAG-OX) PO (17:02)
[2017-12-19] MEDS: VITAMIN D 1,000 INTERNATIONAL UNITS TABLET PO (17:02)
[2017-12-19] MEDS: methylPREDNISolone INJ 125 MG/2 ML VIAL (J2930) IV (21:06)
[2017-12-19] MEDS ORDERED: METOPROLOL SUCC *XL* 25MG TAB (TopROL *XL*) PO (22:30)
[2017-12-19] MEDS: METOPROLOL TART 25 MG TABLET PO (23:07)
[2017-12-20] MEDS: IPRATROPIUM 0.5MG/ALBUTEROL 2.5MG INH SOL UD 3ML (DUONEB)(J7620) NEB ×5 (02:51→21:31)
[2017-12-20] MEDS: SODIUM CHLORIDE 0.9% INJ 10 ML SYR IV ×2 (05:15→17:29)
[2017-12-20 05:40] LABS: BASO % 0.1 % (0.0-1.0); EOS % 0.2 % (0.0-3.0); HEMATOCRIT 30.1 % (42.0-52.0); HEMOGLOBIN 9.7 g/dl (13.5-17.5); IMMATURE GRANULOCYTE % 0.9 % (0-3.0); LYMPH # 0.3 10^3/uL (1.5-4.5); LYMPH % 1.7 % (24.0-44.0); MEAN CORPUSCULAR HEMOGLOBIN 25.3 pg (27.0-33.0); MEAN CORPUSCULAR HGB CONC 32.2 g/dl (32.0-36.5); MEAN CORPUSCULAR VOLUME 78.4 fl (80.0-96.0); MONO # 0.6 10^3/uL (0.0-0.8); MONO % 3.4 % (0.0-5.0); NEUTROPHILS # 16.2 10^3/uL (1.8-7.7); NEUTROPHILS % 93.7 % (36.0-66.0); PLATELET COUNT, AUTOMATED 118 10^3/uL (150-450); RED BLOOD COUNT 3.84 10^6/uL (4.30-6.10); WHITE BLOOD COUNT 17.2 10^3/uL (4.0-10.0)
[2017-12-20] MEDS: NYSTATIN 500,000 U/5 ML SUSP UDC SS ×4 (05:40→23:32)
[2017-12-20] MEDS: LEVOTHYROXINE 100MCG TABLET (0.1MG) PO (05:40)
[2017-12-20 05:49] LABS: ALBUMIN 2.1 GM/DL (3.2-5.2); ALBUMIN/GLOBULIN RATIO 0.84 (1.00-1.93); ALKALINE PHOSPHATASE 42 U/L (45-117); ALT/SGPT 28 U/L (12-78); ANION GAP 4 MEQ/L (8-16); AST/SGOT 9 U/L (7-37); BILIRUBIN,TOTAL 0.4 MG/DL (0.2-1.0); BLOOD UREA NITROGEN 31 MG/DL (7-18); C REACTIVE PROTEIN QUANTITATIV 0.44 MG/DL (0.00-0.30); CALCIUM LEVEL 6.6 MG/DL (8.8-10.2); CARBON DIOXIDE LEVEL 31 MEQ/L (21-32); CHLORIDE LEVEL 109 MEQ/L (98-107); CREATININE FOR GFR 0.69 MG/DL (0.70-1.30); GLOMERULAR FILTRATION RATE > 60.0 (>42); GLUCOSE, FASTING 127 MG/DL (70-100); MAGNESIUM LEVEL 2.4 MG/DL (1.8-2.4); POTASSIUM SERUM 4.3 MEQ/L (3.5-5.1); SODIUM LEVEL 144 MEQ/L (136-145); TOTAL PROTEIN 4.6 GM/DL (6.4-8.2)
[2017-12-20 05:50] LABS: POSITIVE MORPH POS FLAG
[2017-12-20] MEDS: FUROSEMIDE 20 MG TAB PO (08:05)
[2017-12-20] MEDS: METOPROLOL TART 25 MG TABLET PO (08:05)
[2017-12-20] MEDS: OMEPRAZOLE 20 MG CAP PO ×2 (08:05→21:21)
[2017-12-20] MEDS: guaiFENesin ER 600 MG TAB PO ×2 (08:05→21:21)
[2017-12-20] MEDS: TIOTROPIUM INHALER/CAPSULE (SPIRIVA) INH (09:16)
[2017-12-20] MEDS: BUDESONIDE 0.5 MG/2 ML INHALATION SUSPENSION INH ×2 (09:16→21:32)
[2017-12-20] MEDS: SYMBICORT 160/4.5MCG INHALER 6GM INH ×2 (09:16→21:31)
[2017-12-20] MEDS: methylPREDNISolone INJ 40 MG/1 ML VIAL (J2920) IV ×2 (09:43→21:21)
[2017-12-20] MEDS: MAGNESIUM OXIDE 400 MG TAB (MAG-OX) PO (17:21)
[2017-12-20] MEDS: VITAMIN D 1,000 INTERNATIONAL UNITS TABLET PO (17:29)
[2017-12-20] MEDS: ASPIRIN 81 MG CHEW TABLET PO (17:29)
[2017-12-20] MEDS: OMEGA-3 1050MG CAPSULE PO (17:29)
[2017-12-20] MEDS: ATORVASTATIN 10 MG TAB PO (17:29)
[2017-12-20] MEDS: NORCO, ANEXSIA 5/325MG TABLET (HYDROcodone/ACETAMINOPHEN) PO (21:22)
[2017-12-21] MEDS: IPRATROPIUM 0.5MG/ALBUTEROL 2.5MG INH SOL UD 3ML (DUONEB)(J7620) NEB ×7 (00:13→23:47)
[2017-12-21] MEDS: LEVOTHYROXINE 100MCG TABLET (0.1MG) PO (05:34)
[2017-12-21] MEDS: SODIUM CHLORIDE 0.9% INJ 10 ML SYR IV ×2 (05:34→17:22)
[2017-12-21] MEDS: NYSTATIN 500,000 U/5 ML SUSP UDC SS ×3 (05:34→17:56)
[2017-12-21 05:44] LABS: BASO % 0.1 % (0.0-1.0); EOS % 0.1 % (0.0-3.0); HEMATOCRIT 31.8 % (42.0-52.0); HEMOGLOBIN 10.3 g/dl (13.5-17.5); LYMPH # 0.4 10^3/uL (1.5-4.5); LYMPH % 2.2 % (24.0-44.0); MEAN CORPUSCULAR HEMOGLOBIN 25.6 pg (27.0-33.0); MEAN CORPUSCULAR HGB CONC 32.4 g/dl (32.0-36.5); MEAN CORPUSCULAR VOLUME 78.9 fl (80.0-96.0); MONO # 0.6 10^3/uL (0.0-0.8); MONO % 3.7 % (0.0-5.0); NEUTROPHILS # 14.6 10^3/uL (1.8-7.7); NEUTROPHILS % 92.9 % (36.0-66.0); PLATELET COUNT, AUTOMATED 102 10^3/uL (150-450); RED BLOOD COUNT 4.03 10^6/uL (4.30-6.10); RED CELL DISTRIBUTION WIDTH 20.1 % (11.5-14.5); WHITE BLOOD COUNT 15.8 10^3/uL (4.0-10.0)
[2017-12-21 06:04] LABS: ALBUMIN 2.2 GM/DL (3.2-5.2); ALBUMIN/GLOBULIN RATIO 0.79 (1.00-1.93); ALKALINE PHOSPHATASE 44 U/L (45-117); ALT/SGPT 30 U/L (12-78); ANION GAP 7 MEQ/L (8-16); AST/SGOT 9 U/L (7-37); BILIRUBIN,TOTAL 0.5 MG/DL (0.2-1.0); BLOOD UREA NITROGEN 26 MG/DL (7-18); C REACTIVE PROTEIN QUANTITATIV 1.17 MG/DL (0.00-0.30); CARBON DIOXIDE LEVEL 30 MEQ/L (21-32); CHLORIDE LEVEL 104 MEQ/L (98-107); CREATININE FOR GFR 0.71 MG/DL (0.70-1.30); GLOMERULAR FILTRATION RATE > 60.0 (>42); GLUCOSE, FASTING 120 MG/DL (70-100); MAGNESIUM LEVEL 2.2 MG/DL (1.8-2.4); POTASSIUM SERUM 4.3 MEQ/L (3.5-5.1); SODIUM LEVEL 141 MEQ/L (136-145)
[2017-12-21] MEDS: SYMBICORT 160/4.5MCG INHALER 6GM INH ×2 (07:19→19:45)
[2017-12-21] MEDS: BUDESONIDE 0.5 MG/2 ML INHALATION SUSPENSION INH ×2 (07:19→19:45)
[2017-12-21] MEDS: TIOTROPIUM INHALER/CAPSULE (SPIRIVA) INH (07:19)
[2017-12-21] MEDS: methylPREDNISolone INJ 40 MG/1 ML VIAL (J2920) IV ×2 (08:36→21:23)
[2017-12-21] MEDS: OMEPRAZOLE 20 MG CAP PO ×2 (08:37→21:23)
[2017-12-21] MEDS: guaiFENesin ER 600 MG TAB PO ×2 (08:37→21:23)
[2017-12-21] MEDS: FUROSEMIDE 20 MG TAB PO (08:37)
[2017-12-21] MEDS: ATORVASTATIN 10 MG TAB PO (17:56)
[2017-12-21] MEDS: ASPIRIN 81 MG CHEW TABLET PO (17:56)
[2017-12-21] MEDS: MAGNESIUM OXIDE 400 MG TAB (MAG-OX) PO (17:56)
[2017-12-21] MEDS: NORCO, ANEXSIA 5/325MG TABLET (HYDROcodone/ACETAMINOPHEN) PO ×2 (17:57→21:36)
[2017-12-21] MEDS: VITAMIN D 1,000 INTERNATIONAL UNITS TABLET PO (17:58)
[2017-12-21] MEDS: traZODone 50 MG TAB PO (21:33)
[2017-12-22] MEDS: NYSTATIN 500,000 U/5 ML SUSP UDC SS ×3 (00:25→12:34)
[2017-12-22] MEDS: IPRATROPIUM 0.5MG/ALBUTEROL 2.5MG INH SOL UD 3ML (DUONEB)(J7620) NEB ×6 (03:59→23:38)
[2017-12-22] MEDS: LEVOTHYROXINE 100MCG TABLET (0.1MG) PO (05:32)
[2017-12-22] MEDS: SODIUM CHLORIDE 0.9% INJ 10 ML SYR IV ×2 (05:32→16:35)
[2017-12-22 05:43] LABS: EOS % 0.1 % (0.0-3.0); HEMATOCRIT 32.9 % (42.0-52.0); HEMOGLOBIN 10.7 g/dl (13.5-17.5); IMMATURE GRANULOCYTE % 0.9 % (0-3.0); LYMPH # 0.4 10^3/uL (1.5-4.5); LYMPH % 2.7 % (24.0-44.0); MEAN CORPUSCULAR HEMOGLOBIN 25.6 pg (27.0-33.0); MEAN CORPUSCULAR HGB CONC 32.5 g/dl (32.0-36.5); MEAN CORPUSCULAR VOLUME 78.7 fl (80.0-96.0); MONO # 0.4 10^3/uL (0.0-0.8); MONO % 2.9 % (0.0-5.0); NEUTROPHILS # 14.2 10^3/uL (1.8-7.7); NEUTROPHILS % 93.4 % (36.0-66.0); RED BLOOD COUNT 4.18 10^6/uL (4.30-6.10); RED CELL DISTRIBUTION WIDTH 20.6 % (11.5-14.5); WHITE BLOOD COUNT 15.2 10^3/uL (4.0-10.0)
[2017-12-22 05:52] LABS: PLATELET COUNT, AUTOMATED 78 10^3/uL (150-450)
[2017-12-22 05:53] LABS: IMMATURE PLATELET FRACTION % 10.2 % (0.0-10.9)
[2017-12-22 06:06] LABS: ALBUMIN 2.3 GM/DL (3.2-5.2); ALBUMIN/GLOBULIN RATIO 0.77 (1.00-1.93); ALKALINE PHOSPHATASE 46 U/L (45-117); ALT/SGPT 30 U/L (12-78); ANION GAP 6 MEQ/L (8-16); AST/SGOT 10 U/L (7-37); BILIRUBIN,TOTAL 0.6 MG/DL (0.2-1.0); BLOOD UREA NITROGEN 23 MG/DL (7-18); C REACTIVE PROTEIN QUANTITATIV 1.28 MG/DL (0.00-0.30); CALCIUM LEVEL 6.9 MG/DL (8.8-10.2); CARBON DIOXIDE LEVEL 30 MEQ/L (21-32); CHLORIDE LEVEL 104 MEQ/L (98-107); GLOMERULAR FILTRATION RATE > 60.0 (>42); GLUCOSE, FASTING 113 MG/DL (70-100); MAGNESIUM LEVEL 2.3 MG/DL (1.8-2.4); POTASSIUM SERUM 4.5 MEQ/L (3.5-5.1); SODIUM LEVEL 140 MEQ/L (136-145); TOTAL PROTEIN 5.3 GM/DL (6.4-8.2)
[2017-12-22] MEDS: SYMBICORT 160/4.5MCG INHALER 6GM INH ×2 (07:52→19:50)
[2017-12-22] MEDS: TIOTROPIUM INHALER/CAPSULE (SPIRIVA) INH (07:52)
[2017-12-22] MEDS: BUDESONIDE 0.5 MG/2 ML INHALATION SUSPENSION INH ×2 (07:52→19:49)
[2017-12-22] MEDS: guaiFENesin ER 600 MG TAB PO ×2 (09:47→20:17)
[2017-12-22] MEDS: OMEPRAZOLE 20 MG CAP PO ×2 (09:47→20:17)
[2017-12-22] MEDS: FUROSEMIDE 20 MG TAB PO (09:48)
[2017-12-22] MEDS: methylPREDNISolone INJ 40 MG/1 ML VIAL (J2920) IV (09:52)
[2017-12-22] MEDS: NORCO, ANEXSIA 5/325MG TABLET (HYDROcodone/ACETAMINOPHEN) PO ×3 (09:52→22:58)
[2017-12-22] MEDS ORDERED: ONDANSETRON 4 MG ORAL DISINTEGRATING TAB (Q0162 PER 1MG) PO (16:15)
[2017-12-22] MEDS ORDERED: ATROPINE SULFATE 1% OP SOLN 2 ML BTL SL (16:15)
[2017-12-22] MEDS ORDERED: FLEET ENEMA PR (16:15)
[2017-12-22] MEDS: predniSONE 20 MG TAB PO (18:04)
[2017-12-22] MEDS: traZODone 50 MG TAB PO (22:58)
[2017-12-23] MEDS: IPRATROPIUM 0.5MG/ALBUTEROL 2.5MG INH SOL UD 3ML (DUONEB)(J7620) NEB ×7 (01:59→23:36)
[2017-12-23] MEDS: SODIUM CHLORIDE 0.9% INJ 10 ML SYR IV (05:21)
[2017-12-23] MEDS: OMEPRAZOLE 20 MG CAP PO ×2 (08:49→20:08)
[2017-12-23] MEDS: guaiFENesin ER 600 MG TAB PO ×2 (08:49→20:08)
[2017-12-23] MEDS: predniSONE 20 MG TAB PO (08:49)
[2017-12-23] MEDS: SYMBICORT 160/4.5MCG INHALER 6GM INH ×2 (08:53→21:05)
[2017-12-23] MEDS: BUDESONIDE 0.5 MG/2 ML INHALATION SUSPENSION INH ×2 (08:54→21:05)
[2017-12-23] MEDS: TIOTROPIUM INHALER/CAPSULE (SPIRIVA) INH (08:54)
[2017-12-23] MEDS: NORCO, ANEXSIA 5/325MG TABLET (HYDROcodone/ACETAMINOPHEN) PO ×2 (18:12→23:21)
[2017-12-23] MEDS: traZODone 50 MG TAB PO (23:20)
[2017-12-24] MEDS: IPRATROPIUM 0.5MG/ALBUTEROL 2.5MG INH SOL UD 3ML (DUONEB)(J7620) NEB ×6 (03:54→23:01)
[2017-12-24] MEDS: TIOTROPIUM INHALER/CAPSULE (SPIRIVA) INH (08:21)
[2017-12-24] MEDS: BUDESONIDE 0.5 MG/2 ML INHALATION SUSPENSION INH ×2 (08:21→19:48)
[2017-12-24] MEDS: SYMBICORT 160/4.5MCG INHALER 6GM INH ×2 (08:22→19:49)
[2017-12-24] MEDS: predniSONE 20 MG TAB PO (08:50)
[2017-12-24] MEDS: OMEPRAZOLE 20 MG CAP PO ×2 (08:50→20:07)
[2017-12-24] MEDS: guaiFENesin ER 600 MG TAB PO ×2 (08:50→20:07)
[2017-12-24] MEDS: LORazepam 1 MG TAB PO (14:17)
[2017-12-25] MEDS: traZODone 50 MG TAB PO (00:03)
[2017-12-25] MEDS: NORCO, ANEXSIA 5/325MG TABLET (HYDROcodone/ACETAMINOPHEN) PO (00:03)
[2017-12-25] MEDS: IPRATROPIUM 0.5MG/ALBUTEROL 2.5MG INH SOL UD 3ML (DUONEB)(J7620) NEB ×6 (03:32→23:30)
[2017-12-25] MEDS: TIOTROPIUM INHALER/CAPSULE (SPIRIVA) INH (07:14)
[2017-12-25] MEDS: SYMBICORT 160/4.5MCG INHALER 6GM INH ×2 (07:14→19:30)
[2017-12-25] MEDS: BUDESONIDE 0.5 MG/2 ML INHALATION SUSPENSION INH ×2 (07:14→20:00)
[2017-12-25] MEDS: OMEPRAZOLE 20 MG CAP PO ×2 (08:52→20:53)
[2017-12-25] MEDS: predniSONE 20 MG TAB PO (08:52)
[2017-12-25] MEDS: guaiFENesin ER 600 MG TAB PO ×2 (08:52→20:53)
[2017-12-25] MEDS: SCOPOLAMINE 1MG TRANSDERMAL PATCH TOP (09:13)
[2017-12-25] MEDS: MORPHINE 10MG/0.5ML ORAL CONCENTRATE SOLUTION U/D SL (09:14)
[2017-12-25] MEDS ORDERED: guaiFENesin SYRUP 200 MG/10 ML UDC PO (13:15)
[2017-12-25] MEDS: NYSTATIN 500,000 U/5 ML SUSP UDC SS ×3 (14:08→23:43)
[2017-12-25] MEDS: MORPHINE SULFATE ORAL SOLN 10 MG/5 ML UD SL ×3 (14:13→23:45)
[2017-12-26] MEDS: traZODone 50 MG TAB PO ×2 (02:08→23:50)
[2017-12-26] MEDS: IPRATROPIUM 0.5MG/ALBUTEROL 2.5MG INH SOL UD 3ML (DUONEB)(J7620) NEB ×6 (03:32→22:58)
[2017-12-26] MEDS: NYSTATIN 500,000 U/5 ML SUSP UDC SS ×3 (05:33→18:04)
[2017-12-26] MEDS: MORPHINE SULFATE ORAL SOLN 10 MG/5 ML UD SL ×5 (05:34→20:35)
[2017-12-26] MEDS: SYMBICORT 160/4.5MCG INHALER 6GM INH ×2 (07:30→19:54)
[2017-12-26] MEDS: TIOTROPIUM INHALER/CAPSULE (SPIRIVA) INH (07:30)
[2017-12-26] MEDS: BUDESONIDE 0.5 MG/2 ML INHALATION SUSPENSION INH ×2 (07:30→19:54)
[2017-12-26] MEDS: guaiFENesin ER 600 MG TAB PO ×2 (09:20→20:33)
[2017-12-26] MEDS: predniSONE 20 MG TAB PO (09:20)
[2017-12-26] MEDS: OMEPRAZOLE 20 MG CAP PO ×2 (09:20→20:34)
[2017-12-27] MEDS: NYSTATIN 500,000 U/5 ML SUSP UDC SS ×4 (00:58→18:00)
[2017-12-27] MEDS: IPRATROPIUM 0.5MG/ALBUTEROL 2.5MG INH SOL UD 3ML (DUONEB)(J7620) NEB ×6 (03:03→21:58)
[2017-12-27] MEDS: predniSONE 20 MG TAB PO (07:50)
[2017-12-27] MEDS: guaiFENesin ER 600 MG TAB PO ×2 (07:50→21:02)
[2017-12-27] MEDS: MORPHINE SULFATE ORAL SOLN 10 MG/5 ML UD SL ×5 (07:50→21:02)
[2017-12-27] MEDS: OMEPRAZOLE 20 MG CAP PO ×2 (07:50→21:02)
[2017-12-27] MEDS: TIOTROPIUM INHALER/CAPSULE (SPIRIVA) INH (07:52)
[2017-12-27] MEDS: SYMBICORT 160/4.5MCG INHALER 6GM INH ×2 (07:52→21:58)
[2017-12-27] MEDS: BUDESONIDE 0.5 MG/2 ML INHALATION SUSPENSION INH ×2 (07:52→21:59)
[2017-12-27] MEDS: traZODone 50 MG TAB PO (21:02)
[2017-12-28] MEDS: NYSTATIN 500,000 U/5 ML SUSP UDC SS ×4 (00:03→18:01)
[2017-12-28] MEDS: MORPHINE SULFATE ORAL SOLN 10 MG/5 ML UD SL ×6 (00:04→22:07)
[2017-12-28] MEDS: IPRATROPIUM 0.5MG/ALBUTEROL 2.5MG INH SOL UD 3ML (DUONEB)(J7620) NEB ×7 (04:06→23:57)
[2017-12-28] MEDS: LEVOTHYROXINE 100MCG TABLET (0.1MG) PO (06:00)
[2017-12-28] MEDS: BUDESONIDE 0.5 MG/2 ML INHALATION SUSPENSION INH ×2 (07:37→20:19)
[2017-12-28] MEDS: TIOTROPIUM INHALER/CAPSULE (SPIRIVA) INH (07:37)
[2017-12-28] MEDS: SYMBICORT 160/4.5MCG INHALER 6GM INH ×2 (07:38→20:19)
[2017-12-28] MEDS: guaiFENesin ER 600 MG TAB PO ×2 (09:32→20:55)
[2017-12-28] MEDS: OMEPRAZOLE 20 MG CAP PO ×2 (09:33→20:55)
[2017-12-28] MEDS: predniSONE 20 MG TAB PO (09:33)
[2017-12-28] MEDS: traZODone 50 MG TAB PO (22:07)
[2017-12-29] MEDS: NYSTATIN 500,000 U/5 ML SUSP UDC SS ×4 (01:44→17:27)
[2017-12-29] MEDS: IPRATROPIUM 0.5MG/ALBUTEROL 2.5MG INH SOL UD 3ML (DUONEB)(J7620) NEB ×6 (03:27→23:12)
[2017-12-29] MEDS: LEVOTHYROXINE 100MCG TABLET (0.1MG) PO (05:38)
[2017-12-29] MEDS: MORPHINE SULFATE ORAL SOLN 10 MG/5 ML UD SL ×4 (05:41→14:51)
[2017-12-29] MEDS: BUDESONIDE 0.5 MG/2 ML INHALATION SUSPENSION INH ×2 (07:28→20:00)
[2017-12-29] MEDS: TIOTROPIUM INHALER/CAPSULE (SPIRIVA) INH (07:28)
[2017-12-29] MEDS: SYMBICORT 160/4.5MCG INHALER 6GM INH ×2 (07:29→19:33)
[2017-12-29] MEDS: OMEPRAZOLE 20 MG CAP PO ×2 (09:03→20:14)
[2017-12-29] MEDS: predniSONE 20 MG TAB PO (09:03)
[2017-12-29] MEDS: guaiFENesin ER 600 MG TAB PO ×2 (09:03→20:14)
[2017-12-29] MEDS: CEPACOL LOZENGE PO (14:51)
[2017-12-29] MEDS: NORCO, ANEXSIA 5/325MG TABLET (HYDROcodone/ACETAMINOPHEN) PO ×2 (17:27→22:01)
[2017-12-29] MEDS: traZODone 50 MG TAB PO (22:01)
[2017-12-30] MEDS: NYSTATIN 500,000 U/5 ML SUSP UDC SS ×3 (00:13→11:50)
[2017-12-30] MEDS: IPRATROPIUM 0.5MG/ALBUTEROL 2.5MG INH SOL UD 3ML (DUONEB)(J7620) NEB ×3 (03:21→11:13)
[2017-12-30] MEDS: NORCO, ANEXSIA 5/325MG TABLET (HYDROcodone/ACETAMINOPHEN) PO (03:56)
[2017-12-30] MEDS: LEVOTHYROXINE 100MCG TABLET (0.1MG) PO (05:34)
[2017-12-30] MEDS: TIOTROPIUM INHALER/CAPSULE (SPIRIVA) INH (07:24)
[2017-12-30] MEDS: BUDESONIDE 0.5 MG/2 ML INHALATION SUSPENSION INH (07:24)
[2017-12-30] MEDS: SYMBICORT 160/4.5MCG INHALER 6GM INH (07:24)
[2017-12-30] MEDS: guaiFENesin ER 600 MG TAB PO (08:21)
[2017-12-30] MEDS: OMEPRAZOLE 20 MG CAP PO (08:21)
[2017-12-30] MEDS: predniSONE 20 MG TAB PO (08:21)
[2017-12-30] MEDS: MORPHINE SULFATE ORAL SOLN 10 MG/5 ML UD SL (10:44)
[2017-12-30] MEDS: LORazepam 1 MG TAB PO (10:44)
== END 2017-12-30 12:41 | DRG 871 ==
LOC: M MSPAV 12-04 15:20 → M ED 22:30 → M ED INP 12-03 00:54 → M ICU 12-03 02:47
PROC: 02HV33Z Insertion of Infusion Device into Superior Vena Cava, Percutaneous Approach (ICD-10-PCS; principal; 2017-12-17)
DX: A41.9 Sepsis, unspecified organism (principal); J14 Pneumonia due to Hemophilus influenzae; J96.21 Acute and chronic respiratory failure with hypoxia; I50.33 Acute on chronic diastolic (congestive) heart failure; J90 Pleural effusion, not elsewhere classified; J43.9 Emphysema, unspecified; A08.4 Viral intestinal infection, unspecified; K21.9 Gastro-esophageal reflux disease without esophagitis; E03.9 Hypothyroidism, unspecified; M54.5 Low back pain; I11.0 Hypertensive heart disease with heart failure; Z99.81 Dependence on supplemental oxygen; K58.8 Other irritable bowel syndrome; Z66 Do not resuscitate; Z79.899 Other long term (current) drug therapy; Z88.8 Allergy status to other drugs, medicaments and biological substances; Z79.82 Long term (current) use of aspirin; Z87.891 Personal history of nicotine dependence; G47.00 Insomnia, unspecified; E78.5 Hyperlipidemia, unspecified; J84.10 Pulmonary fibrosis, unspecified; I27.20 Pulmonary hypertension, unspecified; E86.1 Hypovolemia

== ENCOUNTER → 2018-01-01 | Outpatient (REF) | payer MEDICARE | LOC: SKLAB2 21:21 | DX: R19.7 Diarrhea, unspecified (principal) | CPT/HCPCS: 87493 ==

== ENCOUNTER → 2018-01-03 | Outpatient (REF) ==
[2018-01-03 08:49] LABS: HEMATOCRIT 33.2 % (42.0-52.0); HEMOGLOBIN 10.5 g/dl (13.5-17.5); MEAN CORPUSCULAR HGB CONC 31.6 g/dl (32.0-36.5); MEAN CORPUSCULAR VOLUME 82.2 fl (80.0-96.0); PLATELET COUNT, AUTOMATED 293 10^3/uL (150-450); RED BLOOD COUNT 4.04 10^6/uL (4.30-6.10); RED CELL DISTRIBUTION WIDTH 24.6 % (11.5-14.5)
[2018-01-03 09:20] LABS: ALBUMIN 2.2 GM/DL (3.2-5.2); ALBUMIN/GLOBULIN RATIO 0.61 (1.00-1.93); ALKALINE PHOSPHATASE 58 U/L (45-117); ALT/SGPT 33 U/L (12-78); ANION GAP 8 MEQ/L (8-16); AST/SGOT 13 U/L (7-37); BILIRUBIN,TOTAL 0.3 MG/DL (0.2-1.0); BLOOD UREA NITROGEN 15 MG/DL (7-18); CALCIUM LEVEL 7.2 MG/DL (8.8-10.2); CARBON DIOXIDE LEVEL 26 MEQ/L (21-32); CHLORIDE LEVEL 107 MEQ/L (98-107); CREATININE FOR GFR 0.88 MG/DL (0.70-1.30); GLOMERULAR FILTRATION RATE > 60.0 (>42); GLUCOSE, FASTING 88 MG/DL (70-100); POTASSIUM SERUM 4.3 MEQ/L (3.5-5.1); SODIUM LEVEL 141 MEQ/L (136-145); TOTAL PROTEIN 5.8 GM/DL (6.4-8.2)
== END ==
LOC: SKLAB2 07:15
DX: E03.9 Hypothyroidism, unspecified (principal); J44.9 Chronic obstructive pulmonary disease, unspecified

== ENCOUNTER 2018-01-16 10:07 | Inpatient (IN) | payer MEDICARE, MEDICAID ==
[2018-01-16 11:00] LABS: BASO % 0.1 % (0.0-1.0); HEMATOCRIT 34.1 % (42.0-52.0); HEMOGLOBIN 10.6 g/dl (13.5-17.5); IMMATURE GRANULOCYTE % 0.6 % (0-3.0); LYMPH # 1.8 10^3/uL (1.5-4.5); LYMPH % 8.1 % (24.0-44.0); MEAN CORPUSCULAR HEMOGLOBIN 26.2 pg (27.0-33.0); MEAN CORPUSCULAR HGB CONC 31.1 g/dl (32.0-36.5); MEAN CORPUSCULAR VOLUME 84.2 fl (80.0-96.0); MONO # 0.8 10^3/uL (0.0-0.8); MONO % 3.6 % (0.0-5.0); NEUTROPHILS # 19.6 10^3/uL (1.8-7.7); NEUTROPHILS % 87.6 % (36.0-66.0); PLATELET COUNT, AUTOMATED 335 10^3/uL (150-450); RED BLOOD COUNT 4.05 10^6/uL (4.30-6.10); RED CELL DISTRIBUTION WIDTH 24.7 % (11.5-14.5); WHITE BLOOD COUNT 22.3 10^3/uL (4.0-10.0)
[2018-01-16 11:19] LABS: ALBUMIN 2.5 GM/DL (3.2-5.2); ALBUMIN/GLOBULIN RATIO 0.68 (1.00-1.93); ALKALINE PHOSPHATASE 56 U/L (45-117); ALT/SGPT 32 U/L (12-78); ANION GAP 7 MEQ/L (8-16); AST/SGOT 10 U/L (7-37); BILIRUBIN,DIRECT 0.1 MG/DL (0.0-0.2); BILIRUBIN,TOTAL 0.5 MG/DL (0.2-1.0); BLOOD UREA NITROGEN 16 MG/DL (7-18); CALCIUM LEVEL 7.7 MG/DL (8.8-10.2); CARBON DIOXIDE LEVEL 28 MEQ/L (21-32); CHLORIDE LEVEL 106 MEQ/L (98-107); CPK CREATINE PHOSPHOKINASE 32 U/L (39-308); CREATININE FOR GFR 0.81 MG/DL (0.70-1.30); GLOMERULAR FILTRATION RATE > 60.0 (>42); GLUCOSE, FASTING 105 MG/DL (70-100); SODIUM LEVEL 141 MEQ/L (136-145); TOTAL PROTEIN 6.2 GM/DL (6.4-8.2); TROPONIN I < 0.02 NG/ML (< 0.10)
[2018-01-16] MEDS: IPRATROPIUM 0.5MG/ALBUTEROL 2.5MG INH SOL UD 3ML (DUONEB)(J7620) NEB ×6 (11:21→23:49)
[2018-01-16 11:22] LABS: ABG HCO3 25.3 MEQ/L (22.0-26.0); ABG O2 SATURATION 92.8 % (95.0-99.0); ABG PARTIAL PRESSURE CO2 34.9 mmHg (35.0-45.0); ABG PARTIAL PRESSURE O2 65.8 mmHg (75.0-100.0); ABG STANDARD HCO3 26.1 MEQ/L (22.0-26.0); ABG TOTAL CO2 26.4 MEQ/L (23.0-31.0); ABG pH (ARTERIAL) 7.478 UNITS (7.350-7.450)
[2018-01-16 11:23] LABS: LACTIC ACID SEPSIS PROTOCOL 1.2 MMOL/L (0.4-2.0)
[2018-01-16 11:25] LABS: CK-MB VALUE MASS 2.1 NG/ML (<3.6); MB/CK RELATIVE INDEX 6.56 (< OR =4); NT-PRO BNP 236 PG/ML (<125)
[2018-01-16] MEDS: methylPREDNISolone INJ 125 MG/2 ML VIAL (J2930) IV (11:30)
[2018-01-16] MEDS: VANCOMYCIN HCL 1,000 MG, VIAL MATE ADAPTER 1 EACH in D5W 250 ML IV ×2 (11:45→15:22)
[2018-01-16] MEDS ORDERED: ONDANSETRON 4MG/2ML VIAL (J2405) IV (12:45)
[2018-01-16] MEDS ORDERED: BISACODYL 5 MG TAB PO (12:45)
[2018-01-16] MEDS ORDERED: ALBUTEROL SULFATE 2.5 MG/0.5 ML INH NEB SOLN NEB (13:00)
[2018-01-16] MEDS: PIPERACILLIN/TAZOBACTAM SOD 3.375 GM in D5W MINI-BAG PLUS 50 ML IV ×2 (13:07→21:01)
[2018-01-16] MEDS: LORazepam 1 MG TAB PO (17:09)
[2018-01-16] MEDS: NORCO, ANEXSIA 5/325MG TABLET (HYDROcodone/ACETAMINOPHEN) PO (17:09)
[2018-01-16] MEDS: FORMOTEROL FUMARATE 20 MCG/2 ML INHALATION SOLUTION (PERFOROMIST) INH (20:42)
[2018-01-16] MEDS: BUDESONIDE 0.5 MG/2 ML INHALATION SUSPENSION INH (20:42)
[2018-01-16] MEDS: methylPREDNISolone INJ 40 MG/1 ML VIAL (J2920) IV (21:00)
[2018-01-16] MEDS: traZODone 50 MG TAB PO (21:01)
[2018-01-16] MEDS: SENOKOT S TAB PO (21:01)
[2018-01-16] MEDS: guaiFENesin ER 600 MG TAB PO (21:01)
[2018-01-16] MEDS: VANCOMYCIN HCL 750 MG, VIAL MATE ADAPTER 1 EACH in D5W 250 ML IV (22:00)
[2018-01-17] MEDS: NORCO, ANEXSIA 5/325MG TABLET (HYDROcodone/ACETAMINOPHEN) PO ×5 (00:13→23:15)
[2018-01-17] MEDS: PIPERACILLIN/TAZOBACTAM SOD 3.375 GM in D5W MINI-BAG PLUS 50 ML IV ×4 (02:00→20:11)
[2018-01-17] MEDS: IPRATROPIUM 0.5MG/ALBUTEROL 2.5MG INH SOL UD 3ML (DUONEB)(J7620) NEB ×6 (03:11→23:35)
[2018-01-17] MEDS: methylPREDNISolone INJ 40 MG/1 ML VIAL (J2920) IV ×3 (04:00→20:11)
[2018-01-17] MEDS: LEVOTHYROXINE 112MCG TABLET (0.112MG) PO (05:08)
[2018-01-17] MEDS: VANCOMYCIN HCL 750 MG, VIAL MATE ADAPTER 1 EACH in D5W 250 ML IV ×4 (05:09→22:29)
[2018-01-17 06:06] LABS: BASO % 0.1 % (0.0-1.0); HEMATOCRIT 28.4 % (42.0-52.0); HEMOGLOBIN 9.1 g/dl (13.5-17.5); IMMATURE GRANULOCYTE % 0.8 % (0-3.0); LYMPH # 1.2 10^3/uL (1.5-4.5); LYMPH % 8.8 % (24.0-44.0); MEAN CORPUSCULAR HEMOGLOBIN 25.9 pg (27.0-33.0); MEAN CORPUSCULAR VOLUME 80.9 fl (80.0-96.0); MONO # 0.4 10^3/uL (0.0-0.8); MONO % 2.9 % (0.0-5.0); NEUTROPHILS # 11.5 10^3/uL (1.8-7.7); NEUTROPHILS % 87.4 % (36.0-66.0); PLATELET COUNT, AUTOMATED 300 10^3/uL (150-450); RED BLOOD COUNT 3.51 10^6/uL (4.30-6.10); RED CELL DISTRIBUTION WIDTH 24.6 % (11.5-14.5); WHITE BLOOD COUNT 13.2 10^3/uL (4.0-10.0)
[2018-01-17 06:17] LABS: ANION GAP 8 MEQ/L (8-16); BLOOD UREA NITROGEN 14 MG/DL (7-18); CALCIUM LEVEL 7.5 MG/DL (8.8-10.2); CARBON DIOXIDE LEVEL 27 MEQ/L (21-32); CHLORIDE LEVEL 108 MEQ/L (98-107); CREATININE FOR GFR 0.68 MG/DL (0.70-1.30); GLOMERULAR FILTRATION RATE > 60.0 (>42); GLUCOSE, FASTING 140 MG/DL (70-100); SODIUM LEVEL 143 MEQ/L (136-145)
[2018-01-17] MEDS: FORMOTEROL FUMARATE 20 MCG/2 ML INHALATION SOLUTION (PERFOROMIST) INH ×2 (07:19→20:14)
[2018-01-17] MEDS: BUDESONIDE 0.5 MG/2 ML INHALATION SUSPENSION INH ×2 (07:19→20:14)
[2018-01-17] MEDS: FUROSEMIDE 20 MG TAB PO ×2 (08:55→17:17)
[2018-01-17] MEDS: SENOKOT S TAB PO ×2 (08:55→20:12)
[2018-01-17] MEDS: guaiFENesin ER 600 MG TAB PO ×2 (08:55→20:11)
[2018-01-17] MEDS: PANTOPRAZOLE 40MG INJ (PROTONIX) (C9113) IV (09:00)
[2018-01-17] MEDS: LORazepam 1 MG TAB PO (12:46)
[2018-01-17] MEDS ORDERED: SODIUM CHLORIDE 0.9% INJ 10 ML SYR IV (19:30)
[2018-01-17] MEDS: traZODone 50 MG TAB PO (20:12)
[2018-01-18] MEDS: PIPERACILLIN/TAZOBACTAM SOD 3.375 GM in D5W MINI-BAG PLUS 50 ML IV ×4 (02:38→20:31)
[2018-01-18] MEDS: IPRATROPIUM 0.5MG/ALBUTEROL 2.5MG INH SOL UD 3ML (DUONEB)(J7620) NEB ×7 (03:35→23:26)
[2018-01-18] MEDS: methylPREDNISolone INJ 40 MG/1 ML VIAL (J2920) IV ×3 (04:04→20:32)
[2018-01-18 05:14] LABS: BASO % 0.1 % (0.0-1.0); HEMATOCRIT 30.4 % (42.0-52.0); HEMOGLOBIN 9.5 g/dl (13.5-17.5); IMMATURE GRANULOCYTE % 0.6 % (0-3.0); LYMPH # 1.6 10^3/uL (1.5-4.5); MEAN CORPUSCULAR HEMOGLOBIN 26.4 pg (27.0-33.0); MEAN CORPUSCULAR HGB CONC 31.3 g/dl (32.0-36.5); MEAN CORPUSCULAR VOLUME 84.4 fl (80.0-96.0); MONO # 0.5 10^3/uL (0.0-0.8); NEUTROPHILS # 15.5 10^3/uL (1.8-7.7); NEUTROPHILS % 87.3 % (36.0-66.0); PLATELET COUNT, AUTOMATED 318 10^3/uL (150-450); RED CELL DISTRIBUTION WIDTH 24.6 % (11.5-14.5); WHITE BLOOD COUNT 17.7 10^3/uL (4.0-10.0)
[2018-01-18] MEDS: LEVOTHYROXINE 112MCG TABLET (0.112MG) PO (05:14)
[2018-01-18] MEDS: VANCOMYCIN HCL 750 MG, VIAL MATE ADAPTER 1 EACH in D5W 250 ML IV ×3 (05:14→22:18)
[2018-01-18] MEDS: NORCO, ANEXSIA 5/325MG TABLET (HYDROcodone/ACETAMINOPHEN) PO ×4 (05:15→23:41)
[2018-01-18] MEDS: SODIUM CHLORIDE 0.9% INJ 10 ML SYR IV ×2 (05:15→17:57)
[2018-01-18 05:36] LABS: ANION GAP 6 MEQ/L (8-16); BLOOD UREA NITROGEN 15 MG/DL (7-18); CALCIUM LEVEL 7.6 MG/DL (8.8-10.2); CARBON DIOXIDE LEVEL 31 MEQ/L (21-32); CHLORIDE LEVEL 106 MEQ/L (98-107); CREATININE FOR GFR 0.82 MG/DL (0.70-1.30); GLOMERULAR FILTRATION RATE > 60.0 (>42); GLUCOSE, FASTING 100 MG/DL (70-100); POTASSIUM SERUM 4.2 MEQ/L (3.5-5.1); SODIUM LEVEL 143 MEQ/L (136-145)
[2018-01-18] MEDS: BUDESONIDE 0.5 MG/2 ML INHALATION SUSPENSION INH ×2 (07:47→20:01)
[2018-01-18] MEDS: FORMOTEROL FUMARATE 20 MCG/2 ML INHALATION SOLUTION (PERFOROMIST) INH ×2 (07:47→20:01)
[2018-01-18] MEDS: FUROSEMIDE 20 MG TAB PO ×2 (08:14→17:56)
[2018-01-18] MEDS: SENOKOT S TAB PO ×2 (08:14→20:32)
[2018-01-18] MEDS: guaiFENesin ER 600 MG TAB PO ×2 (08:14→20:32)
[2018-01-18] MEDS: PANTOPRAZOLE 40MG INJ (PROTONIX) (C9113) IV (08:15)
[2018-01-18] MEDS: traZODone 50 MG TAB PO (20:31)
[2018-01-19] MEDS: PIPERACILLIN/TAZOBACTAM SOD 3.375 GM in D5W MINI-BAG PLUS 50 ML IV ×4 (02:47→21:45)
[2018-01-19] MEDS: IPRATROPIUM 0.5MG/ALBUTEROL 2.5MG INH SOL UD 3ML (DUONEB)(J7620) NEB ×6 (03:37→23:35)
[2018-01-19] MEDS: methylPREDNISolone INJ 40 MG/1 ML VIAL (J2920) IV ×3 (04:20→21:45)
[2018-01-19 05:32] LABS: BASO % 0.1 % (0.0-1.0); EOS % 0.1 % (0.0-3.0); HEMATOCRIT 31.3 % (42.0-52.0); HEMOGLOBIN 9.8 g/dl (13.5-17.5); IMMATURE GRANULOCYTE % 0.8 % (0-3.0); LYMPH # 1.6 10^3/uL (1.5-4.5); LYMPH % 8.9 % (24.0-44.0); MEAN CORPUSCULAR HEMOGLOBIN 26.2 pg (27.0-33.0); MEAN CORPUSCULAR HGB CONC 31.3 g/dl (32.0-36.5); MEAN CORPUSCULAR VOLUME 83.7 fl (80.0-96.0); MONO # 0.8 10^3/uL (0.0-0.8); MONO % 4.6 % (0.0-5.0); NEUTROPHILS # 15.6 10^3/uL (1.8-7.7); NEUTROPHILS % 85.5 % (36.0-66.0); PLATELET COUNT, AUTOMATED 295 10^3/uL (150-450); RED BLOOD COUNT 3.74 10^6/uL (4.30-6.10); RED CELL DISTRIBUTION WIDTH 24.6 % (11.5-14.5); WHITE BLOOD COUNT 18.2 10^3/uL (4.0-10.0)
[2018-01-19 05:50] LABS: VANCOMYCIN LEVEL TROUGH 14.5 UG/ML (10.0-20.0)
[2018-01-19 05:55] LABS: ANION GAP 9 MEQ/L (8-16); BLOOD UREA NITROGEN 18 MG/DL (7-18); CALCIUM LEVEL 8.1 MG/DL (8.8-10.2); CARBON DIOXIDE LEVEL 31 MEQ/L (21-32); CHLORIDE LEVEL 103 MEQ/L (98-107); CREATININE FOR GFR 0.87 MG/DL (0.70-1.30); GLOMERULAR FILTRATION RATE > 60.0 (>42); GLUCOSE, FASTING 132 MG/DL (70-100); POTASSIUM SERUM 3.8 MEQ/L (3.5-5.1); SODIUM LEVEL 143 MEQ/L (136-145)
[2018-01-19] MEDS: SODIUM CHLORIDE 0.9% INJ 10 ML SYR IV ×2 (06:00→18:00)
[2018-01-19] MEDS: LEVOTHYROXINE 112MCG TABLET (0.112MG) PO (06:30)
[2018-01-19] MEDS: NORCO, ANEXSIA 5/325MG TABLET (HYDROcodone/ACETAMINOPHEN) PO ×3 (06:30→17:40)
[2018-01-19] MEDS: VANCOMYCIN HCL 750 MG, VIAL MATE ADAPTER 1 EACH in D5W 250 ML IV ×3 (06:31→22:34)
[2018-01-19] MEDS: BUDESONIDE 0.5 MG/2 ML INHALATION SUSPENSION INH ×2 (07:17→20:06)
[2018-01-19] MEDS: FORMOTEROL FUMARATE 20 MCG/2 ML INHALATION SOLUTION (PERFOROMIST) INH ×2 (07:17→20:06)
[2018-01-19] MEDS: FUROSEMIDE 20 MG TAB PO ×2 (08:25→17:00)
[2018-01-19] MEDS: SENOKOT S TAB PO ×2 (08:26→21:00)
[2018-01-19] MEDS: PANTOPRAZOLE 40MG INJ (PROTONIX) (C9113) IV (08:27)
[2018-01-19] MEDS: guaiFENesin ER 600 MG TAB PO ×2 (08:27→21:46)
[2018-01-19 09:59] LABS: KETONE, URINE AUTO RFX NEGATIVE (NEGATIVE); LEUKOCYTE ESTERASE UR AUTO RFX NEGATIVE (NEGATIVE); NITRITE, URINE AUTO RFX NEGATIVE (NEGATIVE); RBC, URINE AUTO RFX 1 /HPF (0-3); SQUAM EPITHELIAL CELL UR AURFX 0 /HPF (0-6); WBC, URINE AUTO RFX 2 /HPF (0-3)
[2018-01-19] MEDS: traZODone 50 MG TAB PO (21:46)
[2018-01-20] MEDS: NORCO, ANEXSIA 5/325MG TABLET (HYDROcodone/ACETAMINOPHEN) PO ×5 (00:09→23:54)
[2018-01-20] MEDS: methylPREDNISolone INJ 40 MG/1 ML VIAL (J2920) IV (03:00)
[2018-01-20] MEDS: PIPERACILLIN/TAZOBACTAM SOD 3.375 GM in D5W MINI-BAG PLUS 50 ML IV ×2 (03:00→09:25)
[2018-01-20] MEDS: IPRATROPIUM 0.5MG/ALBUTEROL 2.5MG INH SOL UD 3ML (DUONEB)(J7620) NEB ×5 (03:25→20:00)
[2018-01-20] MEDS: LEVOTHYROXINE 112MCG TABLET (0.112MG) PO (05:31)
[2018-01-20] MEDS: SODIUM CHLORIDE 0.9% INJ 10 ML SYR IV ×2 (05:32→17:41)
[2018-01-20] MEDS: VANCOMYCIN HCL 750 MG, VIAL MATE ADAPTER 1 EACH in D5W 250 ML IV (05:32)
[2018-01-20 06:02] LABS: BASO % 0.1 % (0.0-1.0); EOS % 0.2 % (0.0-3.0); HEMATOCRIT 31.1 % (42.0-52.0); HEMOGLOBIN 9.7 g/dl (13.5-17.5); IMMATURE GRANULOCYTE % 0.9 % (0-3.0); LYMPH % 5.6 % (24.0-44.0); MEAN CORPUSCULAR HEMOGLOBIN 25.9 pg (27.0-33.0); MEAN CORPUSCULAR HGB CONC 31.2 g/dl (32.0-36.5); MEAN CORPUSCULAR VOLUME 83.2 fl (80.0-96.0); MONO # 0.7 10^3/uL (0.0-0.8); MONO % 3.6 % (0.0-5.0); NEUTROPHILS # 16.6 10^3/uL (1.8-7.7); NEUTROPHILS % 89.6 % (36.0-66.0); PLATELET COUNT, AUTOMATED 286 10^3/uL (150-450); RED BLOOD COUNT 3.74 10^6/uL (4.30-6.10); RED CELL DISTRIBUTION WIDTH 25.1 % (11.5-14.5); WHITE BLOOD COUNT 18.6 10^3/uL (4.0-10.0)
[2018-01-20 06:22] LABS: ANION GAP 6 MEQ/L (8-16); BLOOD UREA NITROGEN 28 MG/DL (7-18); CALCIUM LEVEL 7.9 MG/DL (8.8-10.2); CARBON DIOXIDE LEVEL 31 MEQ/L (21-32); CHLORIDE LEVEL 104 MEQ/L (98-107); CREATININE FOR GFR 0.99 MG/DL (0.70-1.30); GLOMERULAR FILTRATION RATE > 60.0 (>42); GLUCOSE, FASTING 126 MG/DL (70-100); POTASSIUM SERUM 4.1 MEQ/L (3.5-5.1); SODIUM LEVEL 141 MEQ/L (136-145)
[2018-01-20] MEDS: BUDESONIDE 0.5 MG/2 ML INHALATION SUSPENSION INH ×2 (07:36→21:00)
[2018-01-20] MEDS: FORMOTEROL FUMARATE 20 MCG/2 ML INHALATION SOLUTION (PERFOROMIST) INH ×2 (07:36→21:00)
[2018-01-20] MEDS: FUROSEMIDE 20 MG TAB PO ×2 (09:00→16:38)
[2018-01-20] MEDS: SENOKOT S TAB PO ×2 (09:00→21:00)
[2018-01-20] MEDS: guaiFENesin ER 600 MG TAB PO ×2 (09:24→21:57)
[2018-01-20] MEDS: PANTOPRAZOLE 40MG INJ (PROTONIX) (C9113) IV (09:25)
[2018-01-20] MEDS: cefTRIAXone SOD 2 GM in D5W MINI-BAG PLUS 50 ML IV (14:16)
[2018-01-20] MEDS: traZODone 50 MG TAB PO (21:57)
[2018-01-20] MEDS: predniSONE 20 MG TAB PO (21:57)
[2018-01-21] MEDS: IPRATROPIUM 0.5MG/ALBUTEROL 2.5MG INH SOL UD 3ML (DUONEB)(J7620) NEB ×3 (00:11→07:53)
[2018-01-21] MEDS: NORCO, ANEXSIA 5/325MG TABLET (HYDROcodone/ACETAMINOPHEN) PO (05:39)
[2018-01-21] MEDS: LEVOTHYROXINE 112MCG TABLET (0.112MG) PO (05:39)
[2018-01-21] MEDS: SODIUM CHLORIDE 0.9% INJ 10 ML SYR IV (05:40)
[2018-01-21 05:51] LABS: BASO % 0.1 % (0.0-1.0); EOS % 0.1 % (0.0-3.0); HEMATOCRIT 32.2 % (42.0-52.0); HEMOGLOBIN 10.3 g/dl (13.5-17.5); LYMPH # 1.6 10^3/uL (1.5-4.5); LYMPH % 8.2 % (24.0-44.0); MEAN CORPUSCULAR HEMOGLOBIN 26.5 pg (27.0-33.0); MEAN CORPUSCULAR VOLUME 82.8 fl (80.0-96.0); MONO # 0.5 10^3/uL (0.0-0.8); MONO % 2.7 % (0.0-5.0); NEUTROPHILS # 17.1 10^3/uL (1.8-7.7); NEUTROPHILS % 87.9 % (36.0-66.0); PLATELET COUNT, AUTOMATED 298 10^3/uL (150-450); RED BLOOD COUNT 3.89 10^6/uL (4.30-6.10); RED CELL DISTRIBUTION WIDTH 25.2 % (11.5-14.5); WHITE BLOOD COUNT 19.5 10^3/uL (4.0-10.0)
[2018-01-21 06:14] LABS: ANION GAP 9 MEQ/L (8-16); BLOOD UREA NITROGEN 25 MG/DL (7-18); CARBON DIOXIDE LEVEL 28 MEQ/L (21-32); CHLORIDE LEVEL 105 MEQ/L (98-107); CREATININE FOR GFR 0.86 MG/DL (0.70-1.30); GLOMERULAR FILTRATION RATE > 60.0 (>42); GLUCOSE, FASTING 115 MG/DL (70-100); POTASSIUM SERUM 4.4 MEQ/L (3.5-5.1); SODIUM LEVEL 142 MEQ/L (136-145)
[2018-01-21 06:15] LABS: CALCIUM LEVEL 8.1 MG/DL (8.8-10.2)
[2018-01-21] MEDS: BUDESONIDE 0.5 MG/2 ML INHALATION SUSPENSION INH (07:53)
[2018-01-21] MEDS: FORMOTEROL FUMARATE 20 MCG/2 ML INHALATION SOLUTION (PERFOROMIST) INH (07:53)
[2018-01-21] MEDS: FUROSEMIDE 20 MG TAB PO (08:42)
[2018-01-21] MEDS: SENOKOT S TAB PO (08:42)
[2018-01-21] MEDS: guaiFENesin ER 600 MG TAB PO (08:43)
[2018-01-21] MEDS: predniSONE 20 MG TAB PO (08:43)
[2018-01-21] MEDS: PANTOPRAZOLE 40MG INJ (PROTONIX) (C9113) IV (08:43)
== END 2018-01-21 11:20 | DRG 178 ==
LOC: M ED 10:07 → M ED INP 12:31 → M MS5PR 16:35
PROVIDERS: Internal Medicine Nephrology
PROC: 02HV33Z Insertion of Infusion Device into Superior Vena Cava, Percutaneous Approach (ICD-10-PCS; principal; 2018-01-17)
DX: J15.6 Pneumonia due to other Gram-negative bacteria (principal); J44.1 Chronic obstructive pulmonary disease with (acute) exacerbation; J96.11 Chronic respiratory failure with hypoxia; Z66 Do not resuscitate; K21.9 Gastro-esophageal reflux disease without esophagitis; M54.5 Low back pain; B95.62 Methicillin resistant Staphylococcus aureus infection as the cause of diseases classified elsewhere; E78.5 Hyperlipidemia, unspecified; K58.9 Irritable bowel syndrome, unspecified; R35.0 Frequency of micturition; E03.9 Hypothyroidism, unspecified; I27.20 Pulmonary hypertension, unspecified; I11.0 Hypertensive heart disease with heart failure; G47.00 Insomnia, unspecified; I50.812 Chronic right heart failure; Z98.1 Arthrodesis status; Z98.49 Cataract extraction status, unspecified eye; Z88.8 Allergy status to other drugs, medicaments and biological substances; Z87.891 Personal history of nicotine dependence; Y95 Nosocomial condition; Z99.81 Dependence on supplemental oxygen; Z79.899 Other long term (current) drug therapy

== ENCOUNTER 2018-01-25 18:46 | Emergency (ER) | payer MEDICARE, MEDICAID ==
[2018-01-25] MEDS ORDERED: RIVAROXABAN 15 MG TAB (XARELTO) PO (20:00)
[2018-01-25] MEDS: RIVAROXABAN 15 MG TAB (XARELTO) PO (20:25)
== END 2018-01-25 20:57 | disposition home or self-care (01) ==
LOC: M ED 18:46
DX: Z45.2 Encounter for adjustment and management of vascular access device (principal); I82.A12 Acute embolism and thrombosis of left axillary vein; I82.612 Acute embolism and thrombosis of superficial veins of left upper extremity; Z88.8 Allergy status to other drugs, medicaments and biological substances; Z79.01 Long term (current) use of anticoagulants; Z79.52 Long term (current) use of systemic steroids; Z79.890 Hormone replacement therapy; Z79.899 Other long term (current) drug therapy
CPT/HCPCS: 93971

== ENCOUNTER → 2018-01-25 | Outpatient (CLI) | payer MEDICARE, MEDICAID | LOC: M RAD 13:03 | DX: I82.A12 Acute embolism and thrombosis of left axillary vein (principal); I82.612 Acute embolism and thrombosis of superficial veins of left upper extremity; Z95.9 Presence of cardiac and vascular implant and graft, unspecified ==

== ENCOUNTER → 2018-01-25 | Outpatient (REF) ==
[2018-01-25 14:46] LABS: HEMOGLOBIN 10.6 g/dl (13.5-17.5); MEAN CORPUSCULAR HEMOGLOBIN 26.5 pg (27.0-33.0); MEAN CORPUSCULAR HGB CONC 31.2 g/dl (32.0-36.5); PLATELET COUNT, AUTOMATED 258 10^3/uL (150-450); RED CELL DISTRIBUTION WIDTH 25.2 % (11.5-14.5); WHITE BLOOD COUNT 17.5 10^3/uL (4.0-10.0)
== END ==
LOC: SKLAB2 10:29
DX: R22.32 Localized swelling, mass and lump, left upper limb (principal); I82.622 Acute embolism and thrombosis of deep veins of left upper extremity

== ENCOUNTER → 2018-01-26 | Outpatient (REF) ==
[2018-01-26 10:14] LABS: HEMATOCRIT 29.2 % (42.0-52.0); HEMOGLOBIN 9.2 g/dl (13.5-17.5); MEAN CORPUSCULAR HEMOGLOBIN 26.4 pg (27.0-33.0); MEAN CORPUSCULAR HGB CONC 31.5 g/dl (32.0-36.5); MEAN CORPUSCULAR VOLUME 83.7 fl (80.0-96.0); PLATELET COUNT, AUTOMATED 239 10^3/uL (150-450); RED BLOOD COUNT 3.49 10^6/uL (4.30-6.10); RED CELL DISTRIBUTION WIDTH 25.1 % (11.5-14.5); WHITE BLOOD COUNT 13.9 10^3/uL (4.0-10.0)
== END ==
LOC: SKLAB2 11:23
DX: D64.9 Anemia, unspecified (principal); Z79.01 Long term (current) use of anticoagulants

== ENCOUNTER → 2018-01-28 | Outpatient (REF) ==
[2018-01-28 13:26] LABS: HEMATOCRIT 33.6 % (42.0-52.0); HEMOGLOBIN 10.4 g/dl (13.5-17.5); MEAN CORPUSCULAR HEMOGLOBIN 26.2 pg (27.0-33.0); MEAN CORPUSCULAR VOLUME 84.6 fl (80.0-96.0); PLATELET COUNT, AUTOMATED 311 10^3/uL (150-450); RED BLOOD COUNT 3.97 10^6/uL (4.30-6.10); RED CELL DISTRIBUTION WIDTH 25.3 % (11.5-14.5); WHITE BLOOD COUNT 15.1 10^3/uL (4.0-10.0)
[2018-01-28 13:41] LABS: NT-PRO BNP 310 PG/ML (<125)
== END ==
LOC: SKLAB2 12:40
DX: D64.9 Anemia, unspecified (principal)

== ENCOUNTER → 2018-01-29 | Outpatient (REF) | payer MEDICARE, MEDICAID | LOC: M LAB 12:42 | DX: Z51.81 Encounter for therapeutic drug level monitoring (principal); Z79.899 Other long term (current) drug therapy ==

== ENCOUNTER 2018-01-30 01:39 | Inpatient (IN) | payer MEDICARE, MEDICAID ==
[2018-01-30 02:45] LABS: BASO # 0.1 10^3/uL (0.0-0.2); BASO % 0.2 % (0.0-1.0); HEMATOCRIT 36.5 % (42.0-52.0); HEMOGLOBIN 11.3 g/dl (13.5-17.5); IMMATURE GRANULOCYTE % 0.6 % (0-3.0); LYMPH % 6.3 % (24.0-44.0); MEAN CORPUSCULAR HEMOGLOBIN 26.5 pg (27.0-33.0); MEAN CORPUSCULAR VOLUME 85.7 fl (80.0-96.0); MONO # 1.1 10^3/uL (0.0-0.8); MONO % 3.6 % (0.0-5.0); NEUTROPHILS % 89.3 % (36.0-66.0); PLATELET COUNT, AUTOMATED 308 10^3/uL (150-450); RED BLOOD COUNT 4.26 10^6/uL (4.30-6.10)
[2018-01-30 03:00] LABS: INR 2.18; PROTHROMBIN TIME 24.7 SECONDS (12.1-14.4)
[2018-01-30 03:01] LABS: PARTIAL THROMBOPLASTIN TIME 43.9 SECONDS (25.4-37.6)
[2018-01-30 03:04] LABS: ANION GAP 7 MEQ/L (8-16); BLOOD UREA NITROGEN 22 MG/DL (7-18); CALCIUM LEVEL 7.8 MG/DL (8.8-10.2); CARBON DIOXIDE LEVEL 28 MEQ/L (21-32); CHLORIDE LEVEL 105 MEQ/L (98-107); CREATININE FOR GFR 1.14 MG/DL (0.70-1.30); GLOMERULAR FILTRATION RATE > 60.0 (>42); GLUCOSE, FASTING 88 MG/DL (70-100); POTASSIUM SERUM 4.5 MEQ/L (3.5-5.1); SODIUM LEVEL 140 MEQ/L (136-145)
[2018-01-30 03:06] LABS: NEUTROPHILS # 28.2 10^3/uL (1.8-7.7); POS COUNT POS FLAG; POSITIVE DIFF POS FLAG
[2018-01-30 03:12] LABS: WHITE BLOOD COUNT 31.5 10^3/uL (4.0-10.0)
[2018-01-30 06:08] LABS: NT-PRO BNP 409 PG/ML (<125)
[2018-01-30 06:21] LABS: ABG BASE EXCESS 2.1 (-2.0-2.0); ABG HCO3 25.4 MEQ/L (22.0-26.0); ABG O2 SATURATION 92.9 % (95.0-99.0); ABG PARTIAL PRESSURE CO2 34.6 mmHg (35.0-45.0); ABG PARTIAL PRESSURE O2 65.9 mmHg (75.0-100.0); ABG STANDARD HCO3 26.3 MEQ/L (22.0-26.0); ABG TOTAL CO2 26.4 MEQ/L (23.0-31.0); ABG pH (ARTERIAL) 7.483 UNITS (7.350-7.450)
[2018-01-30 06:33] LABS: HEMOGLOBIN 10.5 g/dl (13.5-17.5)
[2018-01-30 06:33] LABS: HEMATOCRIT 34.5 % (42.0-52.0)
[2018-01-30] MEDS ORDERED: ACETAMINOPHEN 650 MG SUPP PR (07:00)
[2018-01-30] MEDS ORDERED: ATROPINE SULFATE 1% OP SOLN 2 ML BTL SL (07:00)
[2018-01-30] MEDS ORDERED: BISACODYL 10 MG SUPP PR (07:00)
[2018-01-30] MEDS: NS 1,000 ML IV ×2 (07:05→16:29)
[2018-01-30] MEDS ORDERED: cefTRIAXone SOD 1 GM VIAL (J0696) IM (07:15)
[2018-01-30] MEDS: NORCO, ANEXSIA 5/325MG TABLET (HYDROcodone/ACETAMINOPHEN) PO ×2 (08:32→18:34)
[2018-01-30 08:44] LABS: HEMOGLOBIN 10.4 g/dl (13.5-17.5)
[2018-01-30 08:56] LABS: LACTIC ACID SEPSIS PROTOCOL 1.4 MMOL/L (0.4-2.0)
[2018-01-30] MEDS: IPRATROPIUM 0.5MG/ALBUTEROL 2.5MG INH SOL UD 3ML (DUONEB)(J7620) INH ×5 (09:00→23:34)
[2018-01-30] MEDS: PANTOPRAZOLE 40MG INJ (PROTONIX) (C9113) IV (09:00)
[2018-01-30] MEDS: FUROSEMIDE 20 MG TAB PO (09:00)
[2018-01-30 09:03] LABS: FREE THYROXINE INDEX 5.1 % (1.4-3.8); T UPTAKE 43 % (33-40); THYROXINE (T4) 11.8 UG/DL (4.5-12.0)
[2018-01-30] MEDS: AZITHROMYCIN INJ 500 MG, VIAL MATE ADAPTER 1 EACH in D5W 250 ML IV (10:45)
[2018-01-30] MEDS: SODIUM CHLORIDE 0.9% 1000 ML IV ×2 (10:45→15:22)
[2018-01-30] MEDS: BUDESONIDE 0.5 MG/2 ML INHALATION SUSPENSION INH (10:48)
[2018-01-30] MEDS: guaiFENesin ER 600 MG TAB PO ×2 (11:18→20:03)
[2018-01-30] MEDS: LEVOTHYROXINE 112MCG TABLET (0.112MG) PO (11:30)
[2018-01-30] MEDS: cefTRIAXone SOD 1 GM in D5W MINI-BAG PLUS 50 ML IV (11:50)
[2018-01-30 13:40] LABS: HEMATOCRIT 32.1 % (42.0-52.0); HEMOGLOBIN 10.1 g/dl (13.5-17.5)
[2018-01-30] MEDS: TIOTROPIUM INHALER/CAPSULE (SPIRIVA) INH (15:33)
[2018-01-30] MEDS: METOPROLOL TART 12.5 MG PER 1/2 TAB PO ×2 (16:00→20:03)
[2018-01-30] MEDS ORDERED: ONDANSETRON 4MG/2ML VIAL (J2405) IV (17:15)
[2018-01-30] MEDS: SYMBICORT 160/4.5MCG INHALER 6GM INH (19:32)
[2018-01-30 19:36] LABS: HEMATOCRIT 28.6 % (42.0-52.0); HEMOGLOBIN 8.9 g/dl (13.5-17.5)
[2018-01-30] MEDS: FIDAXOMICIN 200 MG TAB (DIFICID) PO (20:03)
[2018-01-30] MEDS: NS 500 ML IV (20:03)
[2018-01-30] MEDS: traZODone 50 MG TAB PO (20:03)
[2018-01-31] MEDS: LORazepam 1 MG TAB PO (00:13)
[2018-01-31 01:45] LABS: HEMATOCRIT 29.9 % (42.0-52.0); HEMOGLOBIN 9.3 g/dl (13.5-17.5)
[2018-01-31] MEDS: METOPROLOL TART 12.5 MG PER 1/2 TAB PO ×3 (02:34→21:00)
[2018-01-31] MEDS: NS 1,000 ML IV ×2 (02:52→18:08)
[2018-01-31] MEDS: IPRATROPIUM 0.5MG/ALBUTEROL 2.5MG INH SOL UD 3ML (DUONEB)(J7620) INH ×5 (04:00→20:00)
[2018-01-31] MEDS: LEVOTHYROXINE 112MCG TABLET (0.112MG) PO (05:07)
[2018-01-31] MEDS: SYMBICORT 160/4.5MCG INHALER 6GM INH ×2 (07:54→19:31)
[2018-01-31] MEDS: TIOTROPIUM INHALER/CAPSULE (SPIRIVA) INH (07:54)
[2018-01-31 09:09] LABS: HEMATOCRIT 26.9 % (42.0-52.0); HEMOGLOBIN 8.3 g/dl (13.5-17.5); MEAN CORPUSCULAR HEMOGLOBIN 26.3 pg (27.0-33.0); MEAN CORPUSCULAR HGB CONC 30.9 g/dl (32.0-36.5); MEAN CORPUSCULAR VOLUME 85.4 fl (80.0-96.0); PLATELET COUNT, AUTOMATED 231 10^3/uL (150-450); RED BLOOD COUNT 3.15 10^6/uL (4.30-6.10); RED CELL DISTRIBUTION WIDTH 24.1 % (11.5-14.5); WHITE BLOOD COUNT 21.4 10^3/uL (4.0-10.0)
[2018-01-31 09:18] LABS: ADD MANUAL DIFFER YES; DIFF SLIDE NUMBER 140; POSITIVE MORPH POS FLAG
[2018-01-31 09:19] LABS: INR 1.58; PROTHROMBIN TIME 19.1 SECONDS (12.1-14.4)
[2018-01-31 09:20] LABS: PARTIAL THROMBOPLASTIN TIME 43.8 SECONDS (25.4-37.6)
[2018-01-31 09:34] LABS: ALBUMIN 1.7 GM/DL (3.2-5.2); ALBUMIN/GLOBULIN RATIO 0.61 (1.00-1.93); ALKALINE PHOSPHATASE 57 U/L (45-117); ALT/SGPT 19 U/L (12-78); ANION GAP 10 MEQ/L (8-16); AST/SGOT 12 U/L (7-37); BILIRUBIN,TOTAL 0.5 MG/DL (0.2-1.0); BLOOD UREA NITROGEN 28 MG/DL (7-18); CALCIUM LEVEL 6.5 MG/DL (8.8-10.2); CARBON DIOXIDE LEVEL 22 MEQ/L (21-32); CHLORIDE LEVEL 110 MEQ/L (98-107); CREATININE FOR GFR 1.02 MG/DL (0.70-1.30); GLOMERULAR FILTRATION RATE > 60.0 (>42); GLUCOSE, FASTING 108 MG/DL (70-100); POTASSIUM SERUM 4.1 MEQ/L (3.5-5.1); SODIUM LEVEL 142 MEQ/L (136-145); TOTAL PROTEIN 4.5 GM/DL (6.4-8.2)
[2018-01-31 09:41] LABS: BANDS 13 % (< 11); LYMPHOCYTES 3 % (16-52); MONOCYTES 3 % (0-8); NEUTROPHILS 81 % (35-75)
[2018-01-31 09:42] LABS: ACANTHOCYTES 1+; ANISOCYTOSIS 1+; OVALOCYTES 1+; TOXIC VACUOLATION 1+
[2018-01-31 09:43] LABS: PLATELET ESTIMATE NORMAL (NORMAL)
[2018-01-31] MEDS: PANTOPRAZOLE 40MG INJ (PROTONIX) (C9113) IV (09:59)
[2018-01-31] MEDS: AZITHROMYCIN INJ 500 MG, VIAL MATE ADAPTER 1 EACH in D5W 250 ML IV (09:59)
[2018-01-31] MEDS: FUROSEMIDE 20 MG TAB PO (10:10)
[2018-01-31] MEDS: guaiFENesin ER 600 MG TAB PO ×2 (10:11→21:22)
[2018-01-31] MEDS: FIDAXOMICIN 200 MG TAB (DIFICID) PO ×2 (11:18→21:21)
[2018-01-31] MEDS: cefTRIAXone SOD 1 GM in D5W MINI-BAG PLUS 50 ML IV (11:23)
[2018-01-31 14:17] LABS: HEMATOCRIT 28.4 % (42.0-52.0); HEMOGLOBIN 8.9 g/dl (13.5-17.5)
[2018-01-31] MEDS ORDERED: ISOVUE-370 76% 100ML VIAL (Q9967) As Ordered (16:09)
[2018-01-31 19:37] LABS: HEMATOCRIT 26.4 % (42.0-52.0); HEMOGLOBIN 8.4 g/dl (13.5-17.5)
[2018-01-31] MEDS: traZODone 50 MG TAB PO (21:22)
[2018-01-31] MEDS: NORCO, ANEXSIA 5/325MG TABLET (HYDROcodone/ACETAMINOPHEN) PO (21:26)
[2018-02-01] MEDS: IPRATROPIUM 0.5MG/ALBUTEROL 2.5MG INH SOL UD 3ML (DUONEB)(J7620) INH ×7 (00:08→23:37)
[2018-02-01 04:47] LABS: BASO % 0.2 % (0.0-1.0); EOS # 0.1 10^3/uL (0.0-0.50); EOS % 0.7 % (0.0-3.0); HEMOGLOBIN 8.3 g/dl (13.5-17.5); IMMATURE GRANULOCYTE % 0.5 % (0-3.0); LYMPH # 1.5 10^3/uL (1.5-4.5); LYMPH % 8.3 % (24.0-44.0); MEAN CORPUSCULAR HEMOGLOBIN 26.5 pg (27.0-33.0); MEAN CORPUSCULAR HGB CONC 31.9 g/dl (32.0-36.5); MEAN CORPUSCULAR VOLUME 83.1 fl (80.0-96.0); MONO # 0.8 10^3/uL (0.0-0.8); MONO % 4.5 % (0.0-5.0); NEUTROPHILS # 15.5 10^3/uL (1.8-7.7); NEUTROPHILS % 85.8 % (36.0-66.0); PLATELET COUNT, AUTOMATED 221 10^3/uL (150-450); RED BLOOD COUNT 3.13 10^6/uL (4.30-6.10); RED CELL DISTRIBUTION WIDTH 24.1 % (11.5-14.5)
[2018-02-01 05:09] LABS: ANION GAP 10 MEQ/L (8-16); BLOOD UREA NITROGEN 23 MG/DL (7-18); CALCIUM LEVEL 6.7 MG/DL (8.8-10.2); CARBON DIOXIDE LEVEL 23 MEQ/L (21-32); CHLORIDE LEVEL 109 MEQ/L (98-107); CREATININE FOR GFR 0.85 MG/DL (0.70-1.30); GLOMERULAR FILTRATION RATE > 60.0 (>42); GLUCOSE, FASTING 86 MG/DL (70-100); POTASSIUM SERUM 3.6 MEQ/L (3.5-5.1); SODIUM LEVEL 142 MEQ/L (136-145)
[2018-02-01] MEDS: LEVOTHYROXINE 112MCG TABLET (0.112MG) PO (05:28)
[2018-02-01] MEDS: NORCO, ANEXSIA 5/325MG TABLET (HYDROcodone/ACETAMINOPHEN) PO ×3 (05:28→20:20)
[2018-02-01] MEDS: SYMBICORT 160/4.5MCG INHALER 6GM INH ×2 (07:51→20:32)
[2018-02-01] MEDS: TIOTROPIUM INHALER/CAPSULE (SPIRIVA) INH (07:51)
[2018-02-01] MEDS: FIDAXOMICIN 200 MG TAB (DIFICID) PO ×2 (09:04→20:19)
[2018-02-01] MEDS: PANTOPRAZOLE 40MG TAB (PROTONIX) PO (09:04)
[2018-02-01] MEDS: guaiFENesin ER 600 MG TAB PO ×2 (09:05→20:21)
[2018-02-01] MEDS: METOPROLOL TART 12.5 MG PER 1/2 TAB PO ×2 (09:05→20:20)
[2018-02-01] MEDS: POTASSIUM CHLORIDE 10 MEQ SR TABLET PO (09:05)
[2018-02-01] MEDS: DOXYCYCLINE HYCLATE 100 MG in D5W MINI-BAG PLUS 100 ML IV ×2 (11:08→22:45)
[2018-02-01] MEDS: traZODone 50 MG TAB PO (20:18)
[2018-02-01] MEDS: FORMOTEROL FUMARATE 20 MCG/2 ML INHALATION SOLUTION (PERFOROMIST) INH (23:38)
[2018-02-01] MEDS: BUDESONIDE 0.25 MG/2 ML INHALATION SUSPENSION INH (23:38)
[2018-02-02] MEDS: IPRATROPIUM 0.5MG/ALBUTEROL 2.5MG INH SOL UD 3ML (DUONEB)(J7620) INH ×5 (03:02→19:26)
[2018-02-02 05:17] LABS: BASO % 0.2 % (0.0-1.0); EOS # 0.2 10^3/uL (0.0-0.50); EOS % 0.9 % (0.0-3.0); HEMATOCRIT 25.4 % (42.0-52.0); IMMATURE GRANULOCYTE % 0.6 % (0-3.0); LYMPH # 1.3 10^3/uL (1.5-4.5); LYMPH % 8.2 % (24.0-44.0); MEAN CORPUSCULAR HEMOGLOBIN 26.5 pg (27.0-33.0); MEAN CORPUSCULAR HGB CONC 31.5 g/dl (32.0-36.5); MEAN CORPUSCULAR VOLUME 84.1 fl (80.0-96.0); MONO # 0.8 10^3/uL (0.0-0.8); MONO % 4.9 % (0.0-5.0); NEUTROPHILS % 85.2 % (36.0-66.0); PLATELET COUNT, AUTOMATED 210 10^3/uL (150-450); RED BLOOD COUNT 3.02 10^6/uL (4.30-6.10); RED CELL DISTRIBUTION WIDTH 23.8 % (11.5-14.5); WHITE BLOOD COUNT 16.4 10^3/uL (4.0-10.0)
[2018-02-02] MEDS: LEVOTHYROXINE 112MCG TABLET (0.112MG) PO (05:19)
[2018-02-02 05:41] LABS: ANION GAP 8 MEQ/L (8-16); BLOOD UREA NITROGEN 15 MG/DL (7-18); CARBON DIOXIDE LEVEL 23 MEQ/L (21-32); CHLORIDE LEVEL 110 MEQ/L (98-107); GLOMERULAR FILTRATION RATE > 60.0 (>42); GLUCOSE, FASTING 93 MG/DL (70-100); POTASSIUM SERUM 3.6 MEQ/L (3.5-5.1); SODIUM LEVEL 141 MEQ/L (136-145)
[2018-02-02] MEDS: TIOTROPIUM INHALER/CAPSULE (SPIRIVA) INH (07:52)
[2018-02-02] MEDS: SYMBICORT 160/4.5MCG INHALER 6GM INH ×2 (09:00→21:00)
[2018-02-02] MEDS: METOPROLOL TART 12.5 MG PER 1/2 TAB PO ×2 (09:20→20:24)
[2018-02-02] MEDS: PANTOPRAZOLE 40MG TAB (PROTONIX) PO (09:20)
[2018-02-02] MEDS: POTASSIUM CHLORIDE 10 MEQ SR TABLET PO (09:20)
[2018-02-02] MEDS: predniSONE 10 MG TAB PO (09:21)
[2018-02-02] MEDS: guaiFENesin ER 600 MG TAB PO ×2 (09:21→20:24)
[2018-02-02] MEDS: DOXYCYCLINE HYCLATE 100 MG in D5W MINI-BAG PLUS 100 ML IV ×2 (09:21→22:41)
[2018-02-02 09:37] LABS: MAGNESIUM LEVEL 2.3 MG/DL (1.8-2.4)
[2018-02-02] MEDS: FORMOTEROL FUMARATE 20 MCG/2 ML INHALATION SOLUTION (PERFOROMIST) INH ×2 (11:27→19:25)
[2018-02-02] MEDS: BUDESONIDE 0.25 MG/2 ML INHALATION SUSPENSION INH ×2 (11:27→19:26)
[2018-02-02] MEDS: FIDAXOMICIN 200 MG TAB (DIFICID) PO ×2 (13:00→20:23)
[2018-02-02] MEDS: NORCO, ANEXSIA 5/325MG TABLET (HYDROcodone/ACETAMINOPHEN) PO ×2 (15:31→22:50)
[2018-02-02] MEDS: traZODone 50 MG TAB PO (20:23)
[2018-02-02] MEDS: ACETAMINOPHEN TAB 650MG DOSE (2X325MG) PO (20:25)
[2018-02-03] MEDS: IPRATROPIUM 0.5MG/ALBUTEROL 2.5MG INH SOL UD 3ML (DUONEB)(J7620) INH ×7 (00:19→23:44)
[2018-02-03 05:46] LABS: C REACTIVE PROTEIN QUANTITATIV 7.27 MG/DL (0.00-0.30)
[2018-02-03] MEDS: LEVOTHYROXINE 112MCG TABLET (0.112MG) PO (05:58)
[2018-02-03 06:13] LABS: HEMATOCRIT 25.5 % (42.0-52.0); HEMOGLOBIN 7.8 g/dl (13.5-17.5); MEAN CORPUSCULAR HEMOGLOBIN 26.4 pg (27.0-33.0); MEAN CORPUSCULAR HGB CONC 30.6 g/dl (32.0-36.5); MEAN CORPUSCULAR VOLUME 86.1 fl (80.0-96.0); PLATELET COUNT, AUTOMATED 210 10^3/uL (150-450); RED BLOOD COUNT 2.96 10^6/uL (4.30-6.10); RED CELL DISTRIBUTION WIDTH 23.8 % (11.5-14.5); WHITE BLOOD COUNT 12.6 10^3/uL (4.0-10.0)
[2018-02-03 06:16] LABS: ANION GAP 9 MEQ/L (8-16); BLOOD UREA NITROGEN 15 MG/DL (7-18); CARBON DIOXIDE LEVEL 21 MEQ/L (21-32); CHLORIDE LEVEL 111 MEQ/L (98-107); CREATININE FOR GFR 0.66 MG/DL (0.70-1.30); GLOMERULAR FILTRATION RATE > 60.0 (>42); GLUCOSE, FASTING 99 MG/DL (70-100); POTASSIUM SERUM 4.3 MEQ/L (3.5-5.1); SODIUM LEVEL 141 MEQ/L (136-145)
[2018-02-03] MEDS: BUDESONIDE 0.25 MG/2 ML INHALATION SUSPENSION INH ×2 (07:17→19:42)
[2018-02-03] MEDS: TIOTROPIUM INHALER/CAPSULE (SPIRIVA) INH (07:17)
[2018-02-03] MEDS: FORMOTEROL FUMARATE 20 MCG/2 ML INHALATION SOLUTION (PERFOROMIST) INH ×2 (07:17→19:42)
[2018-02-03] MEDS: SYMBICORT 160/4.5MCG INHALER 6GM INH ×2 (07:18→21:00)
[2018-02-03] MEDS: PANTOPRAZOLE 40MG TAB (PROTONIX) PO (08:19)
[2018-02-03] MEDS: FIDAXOMICIN 200 MG TAB (DIFICID) PO ×2 (08:19→20:39)
[2018-02-03] MEDS: predniSONE 10 MG TAB PO (08:20)
[2018-02-03] MEDS: METOPROLOL TART 12.5 MG PER 1/2 TAB PO ×2 (08:20→20:39)
[2018-02-03] MEDS: guaiFENesin ER 600 MG TAB PO ×2 (08:21→20:40)
[2018-02-03] MEDS: DOXYCYCLINE HYCLATE 100 MG in D5W MINI-BAG PLUS 100 ML IV ×2 (11:00→22:25)
[2018-02-03] MEDS: NORCO, ANEXSIA 5/325MG TABLET (HYDROcodone/ACETAMINOPHEN) PO ×2 (12:12→20:41)
[2018-02-03] MEDS: ACETAMINOPHEN TAB 650MG DOSE (2X325MG) PO (16:51)
[2018-02-03] MEDS: FUROSEMIDE 20 MG/2 ML VIAL (J1940) IV (18:09)
[2018-02-03] MEDS: traZODone 50 MG TAB PO (20:38)
[2018-02-04] MEDS: IPRATROPIUM 0.5MG/ALBUTEROL 2.5MG INH SOL UD 3ML (DUONEB)(J7620) INH ×5 (03:45→20:24)
[2018-02-04] MEDS: LEVOTHYROXINE 112MCG TABLET (0.112MG) PO (04:56)
[2018-02-04] MEDS: NORCO, ANEXSIA 5/325MG TABLET (HYDROcodone/ACETAMINOPHEN) PO ×3 (04:57→23:22)
[2018-02-04 05:31] LABS: HEMATOCRIT 25.1 % (42.0-52.0); HEMOGLOBIN 7.8 g/dl (13.5-17.5); MEAN CORPUSCULAR HGB CONC 31.1 g/dl (32.0-36.5); MEAN CORPUSCULAR VOLUME 83.7 fl (80.0-96.0); PLATELET COUNT, AUTOMATED 272 10^3/uL (150-450); WHITE BLOOD COUNT 9.8 10^3/uL (4.0-10.0)
[2018-02-04 05:38] LABS: ANION GAP 6 MEQ/L (8-16); BLOOD UREA NITROGEN 13 MG/DL (7-18); C REACTIVE PROTEIN QUANTITATIV 3.39 MG/DL (0.00-0.30); CALCIUM LEVEL 7.1 MG/DL (8.8-10.2); CARBON DIOXIDE LEVEL 25 MEQ/L (21-32); CHLORIDE LEVEL 110 MEQ/L (98-107); CREATININE FOR GFR 0.75 MG/DL (0.70-1.30); GLOMERULAR FILTRATION RATE > 60.0 (>42); GLUCOSE, FASTING 111 MG/DL (70-100); SODIUM LEVEL 141 MEQ/L (136-145)
[2018-02-04] MEDS: TIOTROPIUM INHALER/CAPSULE (SPIRIVA) INH (08:40)
[2018-02-04] MEDS: BUDESONIDE 0.25 MG/2 ML INHALATION SUSPENSION INH ×2 (08:40→20:15)
[2018-02-04] MEDS: SYMBICORT 160/4.5MCG INHALER 6GM INH (09:00)
[2018-02-04] MEDS: predniSONE 10 MG TAB PO (09:18)
[2018-02-04] MEDS: FIDAXOMICIN 200 MG TAB (DIFICID) PO (09:19)
[2018-02-04] MEDS: METOPROLOL TART 12.5 MG PER 1/2 TAB PO ×2 (09:20→20:03)
[2018-02-04] MEDS: PANTOPRAZOLE 40MG TAB (PROTONIX) PO (09:20)
[2018-02-04] MEDS: guaiFENesin ER 600 MG TAB PO ×2 (09:20→20:00)
[2018-02-04] MEDS: DOXYCYCLINE HYCLATE 100 MG in D5W MINI-BAG PLUS 100 ML IV ×2 (09:30→23:14)
[2018-02-04 10:46] LABS: IMMEDIATE SPIN CROSSMATCH 1 1
[2018-02-04] MEDS: FORMOTEROL FUMARATE 20 MCG/2 ML INHALATION SOLUTION (PERFOROMIST) INH ×2 (11:28→20:15)
[2018-02-04] MEDS: traZODone 50 MG TAB PO (20:00)
[2018-02-05] MEDS: IPRATROPIUM 0.5MG/ALBUTEROL 2.5MG INH SOL UD 3ML (DUONEB)(J7620) INH ×7 (00:31→23:03)
[2018-02-05] MEDS: LEVOTHYROXINE 112MCG TABLET (0.112MG) PO (05:46)
[2018-02-05 06:02] LABS: HEMOGLOBIN 8.9 g/dl (13.5-17.5); MEAN CORPUSCULAR HEMOGLOBIN 26.7 pg (27.0-33.0); MEAN CORPUSCULAR HGB CONC 31.8 g/dl (32.0-36.5); MEAN CORPUSCULAR VOLUME 84.1 fl (80.0-96.0); PLATELET COUNT, AUTOMATED 279 10^3/uL (150-450); RED BLOOD COUNT 3.33 10^6/uL (4.30-6.10); RED CELL DISTRIBUTION WIDTH 23.4 % (11.5-14.5); WHITE BLOOD COUNT 9.3 10^3/uL (4.0-10.0)
[2018-02-05 06:18] LABS: ANION GAP 6 MEQ/L (8-16); BLOOD UREA NITROGEN 15 MG/DL (7-18); C REACTIVE PROTEIN QUANTITATIV 1.99 MG/DL (0.00-0.30); CALCIUM LEVEL 7.5 MG/DL (8.8-10.2); CARBON DIOXIDE LEVEL 26 MEQ/L (21-32); CHLORIDE LEVEL 109 MEQ/L (98-107); CREATININE FOR GFR 0.63 MG/DL (0.70-1.30); GLOMERULAR FILTRATION RATE > 60.0 (>42); GLUCOSE, FASTING 84 MG/DL (70-100); POTASSIUM SERUM 4.1 MEQ/L (3.5-5.1); SODIUM LEVEL 141 MEQ/L (136-145)
[2018-02-05] MEDS: FORMOTEROL FUMARATE 20 MCG/2 ML INHALATION SOLUTION (PERFOROMIST) INH ×2 (07:15→19:41)
[2018-02-05] MEDS: SYMBICORT 160/4.5MCG INHALER 6GM INH (07:15)
[2018-02-05] MEDS: TIOTROPIUM INHALER/CAPSULE (SPIRIVA) INH (07:15)
[2018-02-05] MEDS: BUDESONIDE 0.25 MG/2 ML INHALATION SUSPENSION INH ×2 (07:15→19:41)
[2018-02-05] MEDS: PANTOPRAZOLE 40MG TAB (PROTONIX) PO (09:02)
[2018-02-05] MEDS: METOPROLOL TART 12.5 MG PER 1/2 TAB PO ×2 (09:02→20:38)
[2018-02-05] MEDS: guaiFENesin ER 600 MG TAB PO ×2 (09:02→20:36)
[2018-02-05] MEDS: predniSONE 10 MG TAB PO (09:02)
[2018-02-05] MEDS: DOXYCYCLINE HYCLATE 100 MG in D5W MINI-BAG PLUS 100 ML IV ×2 (09:03→21:25)
[2018-02-05] MEDS: traZODone 50 MG TAB PO (20:35)
[2018-02-05] MEDS: NORCO, ANEXSIA 5/325MG TABLET (HYDROcodone/ACETAMINOPHEN) PO (20:37)
[2018-02-06] MEDS: IPRATROPIUM 0.5MG/ALBUTEROL 2.5MG INH SOL UD 3ML (DUONEB)(J7620) INH ×6 (03:58→23:19)
[2018-02-06] MEDS: LEVOTHYROXINE 112MCG TABLET (0.112MG) PO (05:36)
[2018-02-06 06:28] LABS: HEMATOCRIT 29.8 % (42.0-52.0); HEMOGLOBIN 9.6 g/dl (13.5-17.5); MEAN CORPUSCULAR HGB CONC 32.2 g/dl (32.0-36.5); MEAN CORPUSCULAR VOLUME 83.7 fl (80.0-96.0); PLATELET COUNT, AUTOMATED 329 10^3/uL (150-450); RED BLOOD COUNT 3.56 10^6/uL (4.30-6.10); RED CELL DISTRIBUTION WIDTH 23.4 % (11.5-14.5); WHITE BLOOD COUNT 11.9 10^3/uL (4.0-10.0)
[2018-02-06 06:38] LABS: ANION GAP 8 MEQ/L (8-16); BLOOD UREA NITROGEN 12 MG/DL (7-18); C REACTIVE PROTEIN QUANTITATIV 2.77 MG/DL (0.00-0.30); CALCIUM LEVEL 7.6 MG/DL (8.8-10.2); CARBON DIOXIDE LEVEL 27 MEQ/L (21-32); CHLORIDE LEVEL 105 MEQ/L (98-107); CREATININE FOR GFR 0.68 MG/DL (0.70-1.30); GLOMERULAR FILTRATION RATE > 60.0 (>42); GLUCOSE, FASTING 81 MG/DL (70-100); POTASSIUM SERUM 3.9 MEQ/L (3.5-5.1); SODIUM LEVEL 140 MEQ/L (136-145)
[2018-02-06] MEDS: FORMOTEROL FUMARATE 20 MCG/2 ML INHALATION SOLUTION (PERFOROMIST) INH ×2 (07:23→19:44)
[2018-02-06] MEDS: BUDESONIDE 0.25 MG/2 ML INHALATION SUSPENSION INH ×2 (07:23→19:44)
[2018-02-06] MEDS: TIOTROPIUM INHALER/CAPSULE (SPIRIVA) INH (07:23)
[2018-02-06] MEDS: SYMBICORT 160/4.5MCG INHALER 6GM INH ×2 (07:24→21:00)
[2018-02-06] MEDS: METOPROLOL TART 12.5 MG PER 1/2 TAB PO ×2 (08:50→21:03)
[2018-02-06] MEDS: PANTOPRAZOLE 40MG TAB (PROTONIX) PO (08:50)
[2018-02-06] MEDS: predniSONE 10 MG TAB PO (08:50)
[2018-02-06] MEDS: FIDAXOMICIN 200 MG TAB (DIFICID) PO ×2 (08:50→21:04)
[2018-02-06] MEDS: guaiFENesin ER 600 MG TAB PO ×2 (08:51→21:04)
[2018-02-06] MEDS: NORCO, ANEXSIA 5/325MG TABLET (HYDROcodone/ACETAMINOPHEN) PO ×2 (08:56→21:05)
[2018-02-06] MEDS: DOXYCYCLINE HYCLATE 100 MG TAB PO ×2 (12:50→21:04)
[2018-02-06] MEDS: traZODone 50 MG TAB PO (21:04)
[2018-02-07] MEDS: IPRATROPIUM 0.5MG/ALBUTEROL 2.5MG INH SOL UD 3ML (DUONEB)(J7620) INH ×6 (03:14→23:23)
[2018-02-07] MEDS: LEVOTHYROXINE 112MCG TABLET (0.112MG) PO (06:13)
[2018-02-07 06:14] LABS: HEMATOCRIT 29.3 % (42.0-52.0); HEMOGLOBIN 9.2 g/dl (13.5-17.5); MEAN CORPUSCULAR HEMOGLOBIN 26.7 pg (27.0-33.0); MEAN CORPUSCULAR HGB CONC 31.4 g/dl (32.0-36.5); MEAN CORPUSCULAR VOLUME 85.2 fl (80.0-96.0); PLATELET COUNT, AUTOMATED 331 10^3/uL (150-450); RED BLOOD COUNT 3.44 10^6/uL (4.30-6.10); RED CELL DISTRIBUTION WIDTH 23.8 % (11.5-14.5); WHITE BLOOD COUNT 11.6 10^3/uL (4.0-10.0)
[2018-02-07 06:34] LABS: ANION GAP 7 MEQ/L (8-16); BLOOD UREA NITROGEN 15 MG/DL (7-18); C REACTIVE PROTEIN QUANTITATIV 4.43 MG/DL (0.00-0.30); CALCIUM LEVEL 7.7 MG/DL (8.8-10.2); CARBON DIOXIDE LEVEL 27 MEQ/L (21-32); CHLORIDE LEVEL 106 MEQ/L (98-107); CREATININE FOR GFR 0.68 MG/DL (0.70-1.30); GLOMERULAR FILTRATION RATE > 60.0 (>42); GLUCOSE, FASTING 84 MG/DL (70-100); SODIUM LEVEL 140 MEQ/L (136-145)
[2018-02-07] MEDS: TIOTROPIUM INHALER/CAPSULE (SPIRIVA) INH (07:40)
[2018-02-07] MEDS: FORMOTEROL FUMARATE 20 MCG/2 ML INHALATION SOLUTION (PERFOROMIST) INH ×2 (07:40→19:29)
[2018-02-07] MEDS: BUDESONIDE 0.25 MG/2 ML INHALATION SUSPENSION INH ×2 (07:40→19:29)
[2018-02-07] MEDS: predniSONE 10 MG TAB PO (08:45)
[2018-02-07] MEDS: PANTOPRAZOLE 40MG TAB (PROTONIX) PO (08:45)
[2018-02-07] MEDS: guaiFENesin ER 600 MG TAB PO ×2 (08:45→20:45)
[2018-02-07] MEDS: FIDAXOMICIN 200 MG TAB (DIFICID) PO ×2 (08:46→20:44)
[2018-02-07] MEDS: METOPROLOL TART 12.5 MG PER 1/2 TAB PO ×2 (08:49→20:45)
[2018-02-07] MEDS: SYMBICORT 160/4.5MCG INHALER 6GM INH ×2 (09:00→21:00)
[2018-02-07] MEDS: NORCO, ANEXSIA 5/325MG TABLET (HYDROcodone/ACETAMINOPHEN) PO ×2 (12:44→20:46)
[2018-02-07] MEDS: RIVAROXABAN 20 MG TAB (XARELTO) PO (17:47)
[2018-02-07] MEDS: traZODone 50 MG TAB PO (20:45)
[2018-02-08] MEDS: IPRATROPIUM 0.5MG/ALBUTEROL 2.5MG INH SOL UD 3ML (DUONEB)(J7620) INH ×5 (03:24→20:00)
[2018-02-08] MEDS: LEVOTHYROXINE 112MCG TABLET (0.112MG) PO (06:09)
[2018-02-08] MEDS: NORCO, ANEXSIA 5/325MG TABLET (HYDROcodone/ACETAMINOPHEN) PO ×3 (06:13→20:51)
[2018-02-08 07:10] LABS: HEMATOCRIT 27.7 % (42.0-52.0); HEMOGLOBIN 8.7 g/dl (13.5-17.5); MEAN CORPUSCULAR HEMOGLOBIN 27.1 pg (27.0-33.0); MEAN CORPUSCULAR HGB CONC 31.4 g/dl (32.0-36.5); MEAN CORPUSCULAR VOLUME 86.3 fl (80.0-96.0); PLATELET COUNT, AUTOMATED 332 10^3/uL (150-450); RED BLOOD COUNT 3.21 10^6/uL (4.30-6.10); RED CELL DISTRIBUTION WIDTH 23.4 % (11.5-14.5); WHITE BLOOD COUNT 9.3 10^3/uL (4.0-10.0)
[2018-02-08 07:30] LABS: ANION GAP 5 MEQ/L (8-16); BLOOD UREA NITROGEN 13 MG/DL (7-18); C REACTIVE PROTEIN QUANTITATIV 2.86 MG/DL (0.00-0.30); CALCIUM LEVEL 7.5 MG/DL (8.8-10.2); CARBON DIOXIDE LEVEL 29 MEQ/L (21-32); CHLORIDE LEVEL 107 MEQ/L (98-107); CREATININE FOR GFR 0.68 MG/DL (0.70-1.30); GLOMERULAR FILTRATION RATE > 60.0 (>42); GLUCOSE, FASTING 83 MG/DL (70-100); POTASSIUM SERUM 3.9 MEQ/L (3.5-5.1); SODIUM LEVEL 141 MEQ/L (136-145)
[2018-02-08] MEDS: BUDESONIDE 0.25 MG/2 ML INHALATION SUSPENSION INH ×2 (07:49→20:56)
[2018-02-08] MEDS: FORMOTEROL FUMARATE 20 MCG/2 ML INHALATION SOLUTION (PERFOROMIST) INH ×2 (07:50→20:56)
[2018-02-08] MEDS: TIOTROPIUM INHALER/CAPSULE (SPIRIVA) INH (08:27)
[2018-02-08] MEDS: SYMBICORT 160/4.5MCG INHALER 6GM INH ×2 (09:00→20:55)
[2018-02-08] MEDS: FIDAXOMICIN 200 MG TAB (DIFICID) PO ×2 (09:25→20:49)
[2018-02-08] MEDS: PANTOPRAZOLE 40MG TAB (PROTONIX) PO (09:25)
[2018-02-08] MEDS: predniSONE 10 MG TAB PO (09:25)
[2018-02-08] MEDS: guaiFENesin ER 600 MG TAB PO ×2 (09:25→20:49)
[2018-02-08] MEDS: METOPROLOL TART 12.5 MG PER 1/2 TAB PO ×2 (09:29→20:50)
[2018-02-08] MEDS: LACTOBACILLUS ACIDOPHILUS CAP (BACID) PO ×2 (15:48→20:49)
[2018-02-08] MEDS: RIVAROXABAN 20 MG TAB (XARELTO) PO (18:27)
[2018-02-08] MEDS: traZODone 50 MG TAB PO (20:49)
[2018-02-09] MEDS: IPRATROPIUM 0.5MG/ALBUTEROL 2.5MG INH SOL UD 3ML (DUONEB)(J7620) INH ×7 (00:15→23:09)
[2018-02-09] MEDS: NORCO, ANEXSIA 5/325MG TABLET (HYDROcodone/ACETAMINOPHEN) PO ×2 (04:20→16:49)
[2018-02-09] MEDS: LEVOTHYROXINE 112MCG TABLET (0.112MG) PO (05:58)
[2018-02-09 06:16] LABS: HEMATOCRIT 28.1 % (42.0-52.0); HEMOGLOBIN 8.8 g/dl (13.5-17.5); MEAN CORPUSCULAR HEMOGLOBIN 26.7 pg (27.0-33.0); MEAN CORPUSCULAR HGB CONC 31.3 g/dl (32.0-36.5); MEAN CORPUSCULAR VOLUME 85.2 fl (80.0-96.0); PLATELET COUNT, AUTOMATED 343 10^3/uL (150-450); RED CELL DISTRIBUTION WIDTH 23.6 % (11.5-14.5); WHITE BLOOD COUNT 8.4 10^3/uL (4.0-10.0)
[2018-02-09 06:52] LABS: ANION GAP 6 MEQ/L (8-16); BLOOD UREA NITROGEN 15 MG/DL (7-18); C REACTIVE PROTEIN QUANTITATIV 1.81 MG/DL (0.00-0.30); CALCIUM LEVEL 7.6 MG/DL (8.8-10.2); CARBON DIOXIDE LEVEL 28 MEQ/L (21-32); CHLORIDE LEVEL 107 MEQ/L (98-107); CREATININE FOR GFR 0.76 MG/DL (0.70-1.30); GLOMERULAR FILTRATION RATE > 60.0 (>42); GLUCOSE, FASTING 105 MG/DL (70-100); POTASSIUM SERUM 4.2 MEQ/L (3.5-5.1); SODIUM LEVEL 141 MEQ/L (136-145)
[2018-02-09] MEDS: TIOTROPIUM INHALER/CAPSULE (SPIRIVA) INH (08:19)
[2018-02-09] MEDS: FORMOTEROL FUMARATE 20 MCG/2 ML INHALATION SOLUTION (PERFOROMIST) INH ×2 (08:19→19:58)
[2018-02-09] MEDS: BUDESONIDE 0.25 MG/2 ML INHALATION SUSPENSION INH ×2 (08:19→19:59)
[2018-02-09] MEDS: LACTOBACILLUS ACIDOPHILUS CAP (BACID) PO ×3 (08:45→21:34)
[2018-02-09] MEDS: FIDAXOMICIN 200 MG TAB (DIFICID) PO ×2 (08:46→21:35)
[2018-02-09] MEDS: PANTOPRAZOLE 40MG TAB (PROTONIX) PO (08:46)
[2018-02-09] MEDS: guaiFENesin ER 600 MG TAB PO ×2 (08:46→21:34)
[2018-02-09] MEDS: METOPROLOL TART 12.5 MG PER 1/2 TAB PO ×2 (08:47→21:35)
[2018-02-09] MEDS: predniSONE 20 MG TAB PO (08:48)
[2018-02-09] MEDS: SYMBICORT 160/4.5MCG INHALER 6GM INH ×2 (09:00→21:00)
[2018-02-09] MEDS: RIVAROXABAN 20 MG TAB (XARELTO) PO (16:47)
[2018-02-09] MEDS: traZODone 50 MG TAB PO (21:35)
[2018-02-10] MEDS: NORCO, ANEXSIA 5/325MG TABLET (HYDROcodone/ACETAMINOPHEN) PO ×2 (03:25→17:19)
[2018-02-10] MEDS: LEVOTHYROXINE 112MCG TABLET (0.112MG) PO (05:47)
[2018-02-10] MEDS: IPRATROPIUM 0.5MG/ALBUTEROL 2.5MG INH SOL UD 3ML (DUONEB)(J7620) INH ×6 (06:01→23:45)
[2018-02-10] MEDS: FORMOTEROL FUMARATE 20 MCG/2 ML INHALATION SOLUTION (PERFOROMIST) INH ×2 (07:39→21:19)
[2018-02-10] MEDS: TIOTROPIUM INHALER/CAPSULE (SPIRIVA) INH (07:39)
[2018-02-10] MEDS: BUDESONIDE 0.25 MG/2 ML INHALATION SUSPENSION INH ×2 (07:39→21:19)
[2018-02-10] MEDS: SYMBICORT 160/4.5MCG INHALER 6GM INH (07:39)
[2018-02-10] MEDS: METOPROLOL TART 12.5 MG PER 1/2 TAB PO ×2 (09:00→21:51)
[2018-02-10] MEDS: PANTOPRAZOLE 40MG TAB (PROTONIX) PO (09:35)
[2018-02-10] MEDS: FUROSEMIDE 20 MG TAB PO (09:35)
[2018-02-10] MEDS: FIDAXOMICIN 200 MG TAB (DIFICID) PO ×2 (09:35→21:51)
[2018-02-10] MEDS: guaiFENesin ER 600 MG TAB PO ×2 (09:35→21:51)
[2018-02-10] MEDS: predniSONE 20 MG TAB PO (09:35)
[2018-02-10] MEDS: LACTOBACILLUS ACIDOPHILUS CAP (BACID) PO ×3 (09:35→21:51)
[2018-02-10] MEDS ORDERED: FUROSEMIDE 40 MG/4 ML VIAL (J1940) IV (13:30)
[2018-02-10] MEDS ORDERED: LOPERAMIDE 2 MG CAP PO (13:30)
[2018-02-10] MEDS: FUROSEMIDE 40 MG TAB PO (14:55)
[2018-02-10] MEDS: NEOSPORIN TOP OINT 15GM TOP (14:55)
[2018-02-10] MEDS: RIVAROXABAN 20 MG TAB (XARELTO) PO (17:15)
[2018-02-10] MEDS: traZODone 50 MG TAB PO (21:51)
[2018-02-11] MEDS: IPRATROPIUM 0.5MG/ALBUTEROL 2.5MG INH SOL UD 3ML (DUONEB)(J7620) INH ×3 (03:42→11:12)
[2018-02-11] MEDS: NORCO, ANEXSIA 5/325MG TABLET (HYDROcodone/ACETAMINOPHEN) PO (04:03)
[2018-02-11] MEDS: LEVOTHYROXINE 112MCG TABLET (0.112MG) PO (05:41)
[2018-02-11 06:38] LABS: HEMATOCRIT 31.3 % (42.0-52.0); HEMOGLOBIN 9.7 g/dl (13.5-17.5); MEAN CORPUSCULAR HEMOGLOBIN 26.9 pg (27.0-33.0); MEAN CORPUSCULAR VOLUME 86.9 fl (80.0-96.0); PLATELET COUNT, AUTOMATED 375 10^3/uL (150-450); RED CELL DISTRIBUTION WIDTH 23.3 % (11.5-14.5); WHITE BLOOD COUNT 11.1 10^3/uL (4.0-10.0)
[2018-02-11 07:00] LABS: ANION GAP 9 MEQ/L (8-16); BLOOD UREA NITROGEN 16 MG/DL (7-18); C REACTIVE PROTEIN QUANTITATIV 0.84 MG/DL (0.00-0.30); CALCIUM LEVEL 7.8 MG/DL (8.8-10.2); CARBON DIOXIDE LEVEL 30 MEQ/L (21-32); CHLORIDE LEVEL 105 MEQ/L (98-107); CREATININE FOR GFR 1.07 MG/DL (0.70-1.30); GLOMERULAR FILTRATION RATE > 60.0 (>42); GLUCOSE, FASTING 130 MG/DL (70-100); MAGNESIUM LEVEL 2.1 MG/DL (1.8-2.4); POTASSIUM SERUM 3.7 MEQ/L (3.5-5.1); SODIUM LEVEL 144 MEQ/L (136-145)
[2018-02-11] MEDS: SYMBICORT 160/4.5MCG INHALER 6GM INH (07:17)
[2018-02-11] MEDS: BUDESONIDE 0.25 MG/2 ML INHALATION SUSPENSION INH (07:18)
[2018-02-11] MEDS: TIOTROPIUM INHALER/CAPSULE (SPIRIVA) INH (07:18)
[2018-02-11] MEDS: FORMOTEROL FUMARATE 20 MCG/2 ML INHALATION SOLUTION (PERFOROMIST) INH (07:18)
[2018-02-11] MEDS: predniSONE 10 MG TAB PO (08:23)
[2018-02-11] MEDS: guaiFENesin ER 600 MG TAB PO (08:23)
[2018-02-11] MEDS: FIDAXOMICIN 200 MG TAB (DIFICID) PO (08:23)
[2018-02-11] MEDS: FUROSEMIDE 20 MG TAB PO ×2 (08:24→11:24)
[2018-02-11] MEDS: LACTOBACILLUS ACIDOPHILUS CAP (BACID) PO (08:24)
[2018-02-11] MEDS: PANTOPRAZOLE 40MG TAB (PROTONIX) PO (08:24)
[2018-02-11] MEDS: METOPROLOL TART 12.5 MG PER 1/2 TAB PO (08:26)
[2018-02-11] MEDS: NEOSPORIN TOP OINT 15GM TOP (08:26)
[2018-02-11] MEDS ORDERED: FUROSEMIDE 20 MG TAB PO (17:00)
== END 2018-02-11 12:57 | DRG 371 ==
LOC: M MSPAV 02-04 16:23 → M ED 01:39 → M ED INP 06:42 → M ICU 09:35
PROC: 30233N1 Transfusion of Nonautologous Red Blood Cells into Peripheral Vein, Percutaneous Approach (ICD-10-PCS; principal; 2018-02-04)
DX: A04.72 Enterocolitis due to Clostridium difficile, not specified as recurrent (principal); J15.212 Pneumonia due to Methicillin resistant Staphylococcus aureus; K92.2 Gastrointestinal hemorrhage, unspecified; J44.1 Chronic obstructive pulmonary disease with (acute) exacerbation; J96.11 Chronic respiratory failure with hypoxia; I82.623 Acute embolism and thrombosis of deep veins of upper extremity, bilateral; J44.0 Chronic obstructive pulmonary disease with (acute) lower respiratory infection; I47.2 Ventricular tachycardia; I11.0 Hypertensive heart disease with heart failure; M54.5 Low back pain; K58.9 Irritable bowel syndrome, unspecified; I27.20 Pulmonary hypertension, unspecified; I50.812 Chronic right heart failure; E78.5 Hyperlipidemia, unspecified; E03.9 Hypothyroidism, unspecified; K21.9 Gastro-esophageal reflux disease without esophagitis; Z79.899 Other long term (current) drug therapy; Z95.828 Presence of other vascular implants and grafts; Z79.01 Long term (current) use of anticoagulants; Z87.891 Personal history of nicotine dependence; Z88.8 Allergy status to other drugs, medicaments and biological substances; Z98.1 Arthrodesis status; Z98.49 Cataract extraction status, unspecified eye

== ENCOUNTER → 2018-02-14 | Outpatient (REF) | payer MEDICARE, MEDICAID ==
[2018-02-14 10:08] LABS: HEMATOCRIT 30.5 % (42.0-52.0); HEMOGLOBIN 9.4 g/dl (13.5-17.5); MEAN CORPUSCULAR HEMOGLOBIN 26.7 pg (27.0-33.0); MEAN CORPUSCULAR HGB CONC 30.8 g/dl (32.0-36.5); MEAN CORPUSCULAR VOLUME 86.6 fl (80.0-96.0); PLATELET COUNT, AUTOMATED 417 10^3/uL (150-450); RED BLOOD COUNT 3.52 10^6/uL (4.30-6.10); RED CELL DISTRIBUTION WIDTH 22.4 % (11.5-14.5); WHITE BLOOD COUNT 11.6 10^3/uL (4.0-10.0)
[2018-02-14 16:12] LABS: HEMATOCRIT 30.6 % (42.0-52.0); HEMOGLOBIN 9.5 g/dl (13.5-17.5)
[2018-02-14 21:06] LABS: HEMATOCRIT 31.3 % (42.0-52.0); HEMOGLOBIN 9.7 g/dl (13.5-17.5)
[2018-02-15 02:56] LABS: HEMATOCRIT 30.3 % (42.0-52.0); HEMOGLOBIN 9.4 g/dl (13.5-17.5)
== END ==
LOC: SKLAB2 15:30
DX: K62.5 Hemorrhage of anus and rectum (principal)
CPT/HCPCS: 85014

== ENCOUNTER → 2018-02-17 | Outpatient (REF) | LOC: SKLAB2 07:00 | DX: D64.9 Anemia, unspecified (principal); Z79.01 Long term (current) use of anticoagulants ==

== ENCOUNTER → 2018-02-18 | Outpatient (REF) ==
[2018-02-18 09:07] LABS: HEMATOCRIT 27.8 % (42.0-52.0); HEMOGLOBIN 8.7 g/dl (13.5-17.5)
== END ==
LOC: SKLAB2 08:00
DX: D64.9 Anemia, unspecified (principal)

== ENCOUNTER → 2018-02-24 | Outpatient (REF) ==
[2018-02-24 08:51] LABS: HEMATOCRIT 32.3 % (42.0-52.0); MEAN CORPUSCULAR HEMOGLOBIN 26.3 pg (27.0-33.0); PLATELET COUNT, AUTOMATED 386 10^3/uL (150-450); RED CELL DISTRIBUTION WIDTH 20.3 % (11.5-14.5); WHITE BLOOD COUNT 9.2 10^3/uL (4.0-10.0)
== END ==
LOC: SKLAB2 08:00
DX: D64.9 Anemia, unspecified (principal)

== ENCOUNTER → 2018-02-25 | Outpatient (REF) ==
[2018-02-25 07:27] LABS: HEMATOCRIT 28.7 % (42.0-52.0); HEMOGLOBIN 8.9 g/dl (13.5-17.5)
== END ==
LOC: SKLAB2 08:45
DX: D64.9 Anemia, unspecified (principal)

== ENCOUNTER → 2018-03-03 | Outpatient (REF) ==
[2018-03-03 08:12] LABS: HEMATOCRIT 29.2 % (42.0-52.0); HEMOGLOBIN 9.1 g/dl (13.5-17.5); MEAN CORPUSCULAR HEMOGLOBIN 26.5 pg (27.0-33.0); MEAN CORPUSCULAR HGB CONC 31.2 g/dl (32.0-36.5); MEAN CORPUSCULAR VOLUME 85.1 fl (80.0-96.0); PLATELET COUNT, AUTOMATED 475 10^3/uL (150-450); RED BLOOD COUNT 3.43 10^6/uL (4.30-6.10); RED CELL DISTRIBUTION WIDTH 19.4 % (11.5-14.5); WHITE BLOOD COUNT 9.5 10^3/uL (4.0-10.0)
== END ==
LOC: SKLAB2 07:30
DX: D64.9 Anemia, unspecified (principal)

== ENCOUNTER → 2018-03-09 | Outpatient (REF) | payer MEDICARE, MEDICAID ==
[2018-03-09 05:40] LABS: HEMATOCRIT 29.6 % (42.0-52.0); HEMOGLOBIN 9.2 g/dl (13.5-17.5); MEAN CORPUSCULAR HEMOGLOBIN 26.4 pg (27.0-33.0); MEAN CORPUSCULAR HGB CONC 31.1 g/dl (32.0-36.5); MEAN CORPUSCULAR VOLUME 84.8 fl (80.0-96.0); PLATELET COUNT, AUTOMATED 418 10^3/uL (150-450); RED BLOOD COUNT 3.49 10^6/uL (4.30-6.10); RED CELL DISTRIBUTION WIDTH 18.5 % (11.5-14.5); WHITE BLOOD COUNT 9.7 10^3/uL (4.0-10.0)
== END ==
LOC: SKLAB2 07:00
DX: D64.9 Anemia, unspecified (principal); K62.5 Hemorrhage of anus and rectum
CPT/HCPCS: 36415

== ENCOUNTER → 2018-03-10 | Outpatient (REF) | payer MEDICARE, MEDICAID ==
[2018-03-10 15:09] LABS: HEMATOCRIT 30.1 % (42.0-52.0); HEMOGLOBIN 9.3 g/dl (13.5-17.5)
== END ==
LOC: SKLAB2 03-11 11:08
DX: D64.9 Anemia, unspecified (principal)
CPT/HCPCS: 85014

== ENCOUNTER → 2018-03-10 | Outpatient (REF) | payer MEDICARE, MEDICAID | LOC: SKLAB2 11:06 | DX: Z22.322 Carrier or suspected carrier of Methicillin resistant Staphylococcus aureus (principal) | CPT/HCPCS: 87081 ==

== ENCOUNTER → 2018-03-18 | Outpatient (REF) | payer MEDICARE, MEDICAID ==
[2018-03-18 07:38] LABS: HEMATOCRIT 32.7 % (42.0-52.0); HEMOGLOBIN 10.2 g/dl (13.5-17.5)
== END ==
LOC: SKLAB2 08:00
DX: D64.9 Anemia, unspecified (principal)
CPT/HCPCS: 36415

== ENCOUNTER → 2018-04-04 | Outpatient (REF) | payer MEDICARE, MEDICAID ==
[2018-04-04 08:55] LABS: HEMATOCRIT 34.2 % (42.0-52.0); HEMOGLOBIN 10.7 g/dl (13.5-17.5); MEAN CORPUSCULAR HEMOGLOBIN 25.7 pg (27.0-33.0); MEAN CORPUSCULAR HGB CONC 31.3 g/dl (32.0-36.5); MEAN CORPUSCULAR VOLUME 82.2 fl (80.0-96.0); PLATELET COUNT, AUTOMATED 479 10^3/uL (150-450); RED BLOOD COUNT 4.16 10^6/uL (4.30-6.10); RED CELL DISTRIBUTION WIDTH 17.5 % (11.5-14.5); WHITE BLOOD COUNT 9.9 10^3/uL (4.0-10.0)
[2018-04-04 09:16] LABS: ANION GAP 9 MEQ/L (8-16); BLOOD UREA NITROGEN 10 MG/DL (7-18); CALCIUM LEVEL 7.9 MG/DL (8.8-10.2); CARBON DIOXIDE LEVEL 27 MEQ/L (21-32); CHLORIDE LEVEL 103 MEQ/L (98-107); CREATININE FOR GFR 0.84 MG/DL (0.70-1.30); GLOMERULAR FILTRATION RATE > 60.0 (>42); GLUCOSE, FASTING 92 MG/DL (70-100); POTASSIUM SERUM 4.1 MEQ/L (3.5-5.1); SODIUM LEVEL 139 MEQ/L (136-145)
== END ==
LOC: SKLAB2 07:00
DX: J44.9 Chronic obstructive pulmonary disease, unspecified (principal)
CPT/HCPCS: 36415

== ENCOUNTER → 2018-04-10 | Outpatient (REF) | payer MEDICARE, MEDICAID | LOC: SKLAB2 15:04 | DX: R05 Cough (principal) | CPT/HCPCS: 87633 ==

== ENCOUNTER → 2018-04-28 | Outpatient (REF) | payer MEDICARE, MEDICAID ==
[2018-04-28 11:46] LABS: HEMATOCRIT 33.5 % (42.0-52.0); HEMOGLOBIN 10.4 g/dl (13.5-17.5); MEAN CORPUSCULAR HEMOGLOBIN 25.9 pg (27.0-33.0); MEAN CORPUSCULAR VOLUME 83.3 fl (80.0-96.0); PLATELET COUNT, AUTOMATED 265 10^3/uL (150-450); RED BLOOD COUNT 4.02 10^6/uL (4.30-6.10); RED CELL DISTRIBUTION WIDTH 19.4 % (11.5-14.5); WHITE BLOOD COUNT 13.3 10^3/uL (4.0-10.0)
[2018-04-28 12:21] LABS: ERYTHROCYTE SEDIMENTATION RATE 52 mm/hr (0-20)
== END ==
LOC: SKLAB2 10:34
DX: M19.90 Unspecified osteoarthritis, unspecified site (principal); Z79.899 Other long term (current) drug therapy
CPT/HCPCS: 86140

== ENCOUNTER → 2018-04-29 | Outpatient (REF) | payer MEDICARE, MEDICAID | LOC: SKLAB2 08:54 | DX: M19.90 Unspecified osteoarthritis, unspecified site (principal) | CPT/HCPCS: 86140 ==

== ENCOUNTER 2018-05-02 09:08 | Day surgery (SDC) | payer MEDICARE, MEDICAID ==
[2018-05-02] MEDS ORDERED: LIDOCAINE 2% INJ 100 MG/5 ML SDV (FOR ANES.) As Ordered (09:55)
[2018-05-02] MEDS ORDERED: PROPOFOL 200 MG/20 ML VIAL As Ordered ×2 (09:56→10:00)
[2018-05-02] MEDS: NS 1,000 ML IV (10:30)
[2018-05-02] MEDS ORDERED: fentaNYL 100 MCG/2 ML INJECTION (J3010) As Ordered (10:30)
== END 2018-05-02 12:16 | disposition home or self-care (01) ==
LOC: M OPP 12:16
DX: K62.89 Other specified diseases of anus and rectum (principal); C20 Malignant neoplasm of rectum; K56.690 Other partial intestinal obstruction; K92.1 Melena; A04.71 Enterocolitis due to Clostridium difficile, recurrent; K22.9 Disease of esophagus, unspecified; I10 Essential (primary) hypertension; E03.9 Hypothyroidism, unspecified; J44.9 Chronic obstructive pulmonary disease, unspecified; F32.9 Major depressive disorder, single episode, unspecified; Z79.899 Other long term (current) drug therapy; Z88.8 Allergy status to other drugs, medicaments and biological substances; Z86.718 Personal history of other venous thrombosis and embolism; Z87.891 Personal history of nicotine dependence; Z98.1 Arthrodesis status; Z82.49 Family history of ischemic heart disease and other diseases of the circulatory system
CPT/HCPCS: 45380

== ENCOUNTER 2018-05-03 14:03 | Day surgery (SDC) | payer MEDICARE, MEDICAID ==
[2018-05-03] MEDS ORDERED: NS 1,000 ML IV (14:30)
[2018-05-03] MEDS ORDERED: LIDOCAINE 2% INJ 100 MG/5 ML SDV (FOR ANES.) As Ordered (15:05)
[2018-05-03] MEDS ORDERED: PROPOFOL 200 MG/20 ML VIAL As Ordered (15:05)
== END 2018-05-03 16:07 | disposition home or self-care (01) ==
LOC: M OPP 14:03
DX: K62.89 Other specified diseases of anus and rectum (principal); C20 Malignant neoplasm of rectum; K56.690 Other partial intestinal obstruction; D12.3 Benign neoplasm of transverse colon; D12.5 Benign neoplasm of sigmoid colon; J44.9 Chronic obstructive pulmonary disease, unspecified; I10 Essential (primary) hypertension; E03.9 Hypothyroidism, unspecified; Z79.891 Long term (current) use of opiate analgesic; Z79.899 Other long term (current) drug therapy; Z87.891 Personal history of nicotine dependence; Z86.718 Personal history of other venous thrombosis and embolism; Z86.19 Personal history of other infectious and parasitic diseases
CPT/HCPCS: 45385

== ENCOUNTER → 2018-05-05 | Outpatient (REF) | payer MEDICARE, MEDICAID ==
[2018-05-05 09:31] LABS: C REACTIVE PROTEIN QUANTITATIV 1.24 MG/DL (0.00-0.30)
== END ==
LOC: SKLAB2 08:25
DX: M19.90 Unspecified osteoarthritis, unspecified site (principal)
CPT/HCPCS: 86140

== ENCOUNTER → 2018-05-09 | Outpatient (REF) | payer MEDICARE, MEDICAID ==
[2018-05-09 08:37] LABS: HEMATOCRIT 31.5 % (42.0-52.0); MEAN CORPUSCULAR HEMOGLOBIN 26.1 pg (27.0-33.0); MEAN CORPUSCULAR HGB CONC 31.7 g/dl (32.0-36.5); MEAN CORPUSCULAR VOLUME 82.2 fl (80.0-96.0); PLATELET COUNT, AUTOMATED 474 10^3/uL (150-450); RED BLOOD COUNT 3.83 10^6/uL (4.30-6.10); RED CELL DISTRIBUTION WIDTH 20.4 % (11.5-14.5)
== END ==
LOC: SKLAB2 07:00
DX: J44.9 Chronic obstructive pulmonary disease, unspecified (principal)
CPT/HCPCS: 85027

== ENCOUNTER → 2018-05-12 | Outpatient (REF) | payer MEDICARE, MEDICAID ==
[2018-05-12 10:28] LABS: C REACTIVE PROTEIN QUANTITATIV 2.28 MG/DL (0.00-0.30)
== END ==
LOC: SKLAB2 08:00
DX: M25.50 Pain in unspecified joint (principal)
CPT/HCPCS: 86140

== ENCOUNTER → 2018-05-17 | Outpatient (CLI) | payer MEDICARE, MEDICAID | LOC: M PAIN 13:30 | DX: M96.1 Postlaminectomy syndrome, not elsewhere classified (principal); M25.50 Pain in unspecified joint; I10 Essential (primary) hypertension; J44.9 Chronic obstructive pulmonary disease, unspecified; M54.5 Low back pain; C34.90 Malignant neoplasm of unspecified part of unspecified bronchus or lung; E78.00 Pure hypercholesterolemia, unspecified; K58.9 Irritable bowel syndrome, unspecified; E03.9 Hypothyroidism, unspecified; Z87.891 Personal history of nicotine dependence; Z85.038 Personal history of other malignant neoplasm of large intestine; Z79.899 Other long term (current) drug therapy; Z79.891 Long term (current) use of opiate analgesic; Z88.8 Allergy status to other drugs, medicaments and biological substances; Z87.01 Personal history of pneumonia (recurrent) | CPT/HCPCS: G0463 ==

== ENCOUNTER → 2018-05-20 | Outpatient (REF) | payer MEDICARE, MEDICAID ==
[2018-05-20 09:35] LABS: C REACTIVE PROTEIN QUANTITATIV 2.86 MG/DL (0.00-0.30)
== END ==
LOC: SKLAB2 10:24
DX: M25.50 Pain in unspecified joint (principal)
CPT/HCPCS: 86140

== ENCOUNTER → 2018-05-25 | Outpatient (CLI) | payer MEDICARE, MEDICAID | LOC: M PLARAD 08:39 | DX: C20 Malignant neoplasm of rectum (principal) | CPT/HCPCS: 78815 ==

== ENCOUNTER → 2018-05-26 | Outpatient (REF) | payer MEDICARE, MEDICAID ==
[2018-05-26 08:09] LABS: C REACTIVE PROTEIN QUANTITATIV 1.41 MG/DL (0.00-0.30)
== END ==
LOC: SKLAB2 07:00
DX: M25.50 Pain in unspecified joint (principal)
CPT/HCPCS: 86140

== ENCOUNTER → 2018-06-02 | Outpatient (CLI) | payer MEDICARE, MEDICAID ==
[~2018-06-02] MED LIST changes: +ACEP650S PR; +ACET1TAB55 PO; +ANEC4CRE3 TOP; +ASPI81CH PO; +ATIV1TAB7 PO; +ATRO1OPD SL; +Acetaminophen Tab PO; +BUDE0.5S6 INH; +CEPA1LOZ2 PO; +CEPA1LOZ5 MT; +DULC10SU2 PR; +ENEMENE16 PR; +FLEEENE4 PR; +FLOM0.4C39 PO; -FLOM5CAP PO; +HYDR-3713 PO; +IPRA0.00 INH; +IPRA0.00 NEB; +KLOR20TA42 PO; +LEVO-84 PO; +LEVO100T5 PO; +LOPE2CA PO; +LORA1TAB12 PO; +METO1TAB87 PO; +MILK12002 PO; +MORP1SOL3 SL; +MORP20SO PO; +MUCI600T31 PO; +NORCOTAB PO; +NYST50SS SS; +OMEP20TA PO; +ONDA4TAB5 PO; +ONDA4TAB6 PO; +OXYC1TAB23 PO; -POTA20TA PO; +PRED10TA2 PO; +RISATAB3 PO; +SCOP1DIS TD; +SCOP1DIS TOP; +SYMB16INH INH; +SYNT100T PO; +SYNT112T2 PO; +TIOT18INH INH; +TRAZ-160 PO; -TRAZ50TA11 PO; +TRAZO50TA PO; +VANC125C2 PO; +VITMTA PO; +XARE15TA PO
--- NOTE | 2018-06-06 10:59 | RADONC ---
RADIATION ONCOLOGY CONSULTATION NOTE DATE: 06/02/2018 CHART NUMBER: [id number] DIAGNOSIS: Rectal cancer. STAGE: X, TXN0M0 ECOG PERFORMANCE STATUS: 4. CONSULTATION NOTE: Mr. Morgan is a very pleasant 73-year-old white male with the diagnosis of what appears to be a moderately differentiated adenocarcinoma of the rectum who is presenting to me today for discussion of palliative radiation therapy as a therapeutic option. HISTORY OF PRESENT ILLNESS: The patient has a long history of severe COPD and is presently on 4 liters of nasal oxygen. He has got multiple for physical limitations secondary to that. He has a more recent history of significant rectal bleeding which was episodic but voluminous. On 05/03/2018 the patient was seen by Dr. Mel MD and underwent a colonoscopy. A rectal mass was found from 3-7 cm from the anal verge. The mass was circumstantial and fungating as well as ulcerated positive partially obstructing the rectum. The mass measured 5 cm in length. Biopsy was undertaken and pathology revealed a moderately differentiated adenocarcinoma. Subsequent PET scan done 05/25/2018 showed hypermetabolic uptake with an SUV value of 19.4 in the rectum. The rectal wall was thickened. There was no evidence of fat hypermetabolic adenopathy or facial rectal fat. There was no evidence of metastatic disease. Due to the patient's poor pulmonary function and overall condition he has been deemed not a surgical candidate. He is therefore presenting to us for discussion of external beam rate radiation therapy as definitive treatment. The patient has also refused all systemic therapy. He was seen by Dr. Vickie Quarles and was concerned that the systemic therapy could worsen his breathing which is clearly his limiting factor. In light of this he is presenting to us for consideration of palliative radiation therapy in an attempt to achieve some local control for a period of time. He reports that his father had rectal cancer and was treated with radiation therapy alone for which he did achieve some local control for a period of time. PAST MEDICAL HISTORY: The patient's past medical history is positive for severe COPD. This is causing physical limitations and he is on 4 liters of nasal oxygen. He also has arthritis and a history of DVTs. He was on anticoagulation therapy but this worsened his rectal bleeding. He is now off the anticoagulants. He also has a history of hypothyroidism. He had a tonsillectomy and appendectomy at the age of 30. ALLERGIES: The patient is allergic to ENOXAPARIN. SOCIAL HISTORY: The patient had smoked 3-1/2 packs of cigarettes per day for 50 years. He finally quit in 2015. He does not abuse alcohol. He is in a electric wheelchair. FAMILY HISTORY: The patient's family history is positive for a father with colon cancer and a mother with stomach cancer. REVIEW OF SYSTEMS: The patient's review of systems is positive for significant shortness of breath, hearing loss, rectal bleeding and physical limitations due to his COPD. He denies nausea, vomiting, fevers, chills, night sweats, diplopia, headaches, anxiety or depression, anorexia, weight loss, visual disturbances, chest pain, urinary or bowel difficulties or bone pain. PHYSICAL EXAMINATION: The patient is a chronically ill-appearing white male presenting in an electronic wheelchair with 4 liters of nasal oxygen going. HEENT: Exam is normocephalic, atraumatic. Extraocular movements are intact. There is no palpable cervical, supraclavicular, infraclavicular or axillary or inguinal lymphadenopathy present. His lungs are clear to auscultation and percussion. His heart has regular rate and rhythm. His abdomen is benign with no hepatosplenomegaly, masses or tenderness. Skeletal examination reveals no tenderness to pressure or percussion of the bony skeleton. Rectal examination was deferred at his request. The patient reports that after his last rectal examination he had significant bleeding. There is a bandage over his coccyx and sacrum secondary to a bed sore. This would be in our treatment field. He is neurologically intact. ASSESSMENT: Clearly the goal of this will be palliative in nature. The goal of the radiation will be to alleviate his bleeding and make him more comfortable. I believe his COPD is his life threatening issue at this point. He is not a surgical candidate and he refuses systemic therapy. The dose of radiation permissible allowing us to remain within the tolerance of his normal structures will very unlikely provide permanent long-term control of this issue. Indeed, considering his overall condition and breathing situation we may be able to provide him some palliation for a significant portion of the remainder of his life. I did discuss at length the thought of adding systemic therapy in order to increase the likelihood of achieving some type of longer control, but the patient does not wish to risk any possibility of further breathing issues. He said he would rather then be any more short of breath that he already is. cc: Vickie Quarles MD, FACP DO Valdez Khan MD David Reindl, MD
== END ==
LOC: M ONCR 08:48
PROVIDERS: ATTEND Radiology Radiation Oncology
DX: C20 Malignant neoplasm of rectum (principal)
CPT/HCPCS: 36415; 86140; G0463

== ENCOUNTER → 2018-06-02 | Outpatient (REF) | payer MEDICARE, MEDICAID ==
[2018-06-02 08:28] LABS: C REACTIVE PROTEIN QUANTITATIV 1.79 MG/DL (0.00-0.30)
== END ==
LOC: SKLAB2 08:00
DX: M25.50 Pain in unspecified joint (principal)
CPT/HCPCS: 86140

== ENCOUNTER → 2018-06-06 | Outpatient (REF) | payer MEDICARE, MEDICAID ==
[2018-06-06 08:23] LABS: HEMATOCRIT 36.7 % (42.0-52.0); HEMOGLOBIN 11.7 g/dl (13.5-17.5); MEAN CORPUSCULAR HEMOGLOBIN 27.1 pg (27.0-33.0); MEAN CORPUSCULAR HGB CONC 31.9 g/dl (32.0-36.5); MEAN CORPUSCULAR VOLUME 85.2 fl (80.0-96.0); PLATELET COUNT, AUTOMATED 386 10^3/uL (150-450); RED BLOOD COUNT 4.31 10^6/uL (4.30-6.10); RED CELL DISTRIBUTION WIDTH 21.2 % (11.5-14.5); WHITE BLOOD COUNT 8.9 10^3/uL (4.0-10.0)
== END ==
LOC: SKLAB2 07:30
DX: J44.9 Chronic obstructive pulmonary disease, unspecified (principal)
CPT/HCPCS: 85027

== ENCOUNTER → 2018-06-09 | Outpatient (REF) | payer MEDICARE, MEDICAID ==
[2018-06-09 09:38] LABS: C REACTIVE PROTEIN QUANTITATIV 6.93 MG/DL (0.00-0.30)
== END ==
LOC: SKLAB2 07:00
DX: M25.50 Pain in unspecified joint (principal)
CPT/HCPCS: 86140

== ENCOUNTER → 2018-06-15 | Outpatient (REF) | payer MEDICARE, MEDICAID | LOC: SKLAB2 11:25 | DX: A49.02 Methicillin resistant Staphylococcus aureus infection, unspecified site (principal) | CPT/HCPCS: 87081 ==

== ENCOUNTER → 2018-06-16 | Outpatient (REF) | payer MEDICARE, MEDICAID | LOC: SKLAB2 07:00 | PROVIDERS: ATTEND Internal Medicine | DX: M25.50 Pain in unspecified joint (principal) ==

== ENCOUNTER → 2018-06-23 | Outpatient (REF) | payer MEDICARE, MEDICAID | LOC: SKLAB2 07:30 | PROVIDERS: ATTEND Internal Medicine | DX: M25.50 Pain in unspecified joint (principal) ==

== ENCOUNTER → 2018-06-27 | Outpatient (RCR) | payer MEDICARE, MEDICAID ==
--- NOTE | 2018-06-08 09:17 | RADONC ---
RADIATION ONCOLOGY SIMULATION NOTE DATE: 06/07/2018 CHART NUMBER: [id number] SIMULATION NOTE: Mr. Morgan was taken to the CT scan for CT simulation of his rectal field. CT was accomplished without difficulty or discomfort. Radiation treatment planning is underway and radiation treatments will begin subsequently. An immobilization device was created and will be used throughout the course of treatment. I was physically present throughout the course of CT simulation.
--- NOTE | 2018-06-24 11:59 | RADONC ---
RADIATION ONCOLOGY PROGRESS NOTE DATE: 06/22/2018 CHART NUMBER: [id number] Jorge Morgan with a diagnosis of rectal cancer stage X, TxN0M0 is currently receiving local regional radiotherapy and is tolerating therapy reasonably well. Currently at a dose of 720 cGy of a proposed of 4500 cGy and reevaluate for additional therapy thereafter. He specifically denies any nausea, vomiting, diarrhea, dysuria, hematuria or significant blood per rectum. His energy level is slightly diminished but he is still able to maintain many day-to-day activities without any significant alteration of his lifestyle. Otherwise, he also denies any skin irritation. The remainder of the review of systems was essentially noncontributory as he denies any shortness of breath, visual disturbances, headaches or neurologic issues. EXAMINATION FINDINGS: The skin within the irradiated volume shows neither erythema nor desquamation. Lymphatics: No palpable peripheral lymphadenopathy is appreciated. Lungs are clear. The remainder of the physical examination is unchanged. IMPRESSION: Tolerating therapy satisfactorily. Treatments to continue
[~2018-06-27] MED LIST changes: -ENEMENE16 PR; +ENEMENE4 PR; +MILK120011 PO; -MILK12002 PO
--- NOTE | 2018-06-29 14:17 | RADONC ---
RADIATION ONCOLOGY PROGRESS NOTE: DATE: 06/27/2018 CHART NUMBER: [id number] Mr. Morgan is presently at a dose of 1260 cGy to his rectum and is tolerating treatments quite well at this point with no significant difficulties related to his radiation therapy. He has no urinary or bowel problems with no bone pain. REVIEW OF SYSTEMS: The patient's review of systems is noncontributory. He denies nausea, vomiting, fevers, chills, night sweats, diplopia, headaches, anxiety or depression, anorexia, weight loss, visual disturbances, chest pain, urinary or bowel difficulties, bone pain, or neurological problems. PHYSICAL EXAMINATION: The patient's skin is in good condition with no evidence of moist or dry desquamation. The remainder of his physical exam remains unchanged. Mr. Morgan is tolerating treatments quite well and radiation will continue as scheduled.
== END ==
LOC: M ONCR 06-07 10:25
PROVIDERS: ATTEND Radiology Radiation Oncology
DX: C20 Malignant neoplasm of rectum (principal)

== ENCOUNTER → 2018-06-30 | Outpatient (REF) | payer MEDICARE, MEDICAID ==
[~2018-06-30] MED LIST changes: +ENEMENE16 PR; -ENEMENE4 PR; -MILK120011 PO; +MILK12002 PO
== END ==
LOC: SKLAB2 07:00
PROVIDERS: ATTEND Internal Medicine
DX: M25.50 Pain in unspecified joint (principal)

== ENCOUNTER → 2018-07-11 | Outpatient (REF) | payer MEDICARE, MEDICAID ==
[~2018-07-11] MED LIST changes: -ENEMENE16 PR; +ENEMENE4 PR; +MILK120011 PO; -MILK12002 PO
[2018-07-11 07:26] LABS: HEMATOCRIT 38.3 % (42.0-52.0); HEMOGLOBIN 12.5 g/dl (13.5-17.5); MEAN CORPUSCULAR HEMOGLOBIN 28.9 pg (27.0-33.0); MEAN CORPUSCULAR HGB CONC 32.6 g/dl (32.0-36.5); MEAN CORPUSCULAR VOLUME 88.7 fl (80.0-96.0); PLATELET COUNT, AUTOMATED 256 10^3/uL (150-450); RED BLOOD COUNT 4.32 10^6/uL (4.30-6.10); WHITE BLOOD COUNT 7.1 10^3/uL (4.0-10.0)
[2018-07-11 07:47] LABS: BLOOD UREA NITROGEN 6 MG/DL (7-18); CALCIUM LEVEL 8.2 MG/DL (8.8-10.2); CARBON DIOXIDE LEVEL 30 MEQ/L (21-32); CHLORIDE LEVEL 100 MEQ/L (98-107); CREATININE FOR GFR 0.63 MG/DL (0.70-1.30); GLOMERULAR FILTRATION RATE > 60.0 (>42); GLUCOSE, FASTING 84 MG/DL (70-100); SODIUM LEVEL 139 MEQ/L (136-145)
--- NOTE | 2018-07-12 07:27 | RADONC ---
RADIATION ONCOLOGY PROGRESS NOTE DATE: 07/11/2018 CHART NUMBER: [id number] Mr. Morgan is presently a dose of 2700 cGy to his rectum and is tolerating treatments quite well at this point with no complaints related to his radiation therapy. He is having no urinary or bowel difficulties. No bone pain. The patient's review of systems is unchanged. PHYSICAL EXAMINATION The patient's skin is in good condition with no evidence of moist or dry desquamation. The remainder of his physical exam remains unchanged. Mr. Morgan is tolerating treatments quite well and radiation will continue as scheduled.
== END ==
LOC: SKLAB2 07:00
PROVIDERS: ATTEND Internal Medicine
DX: J44.9 Chronic obstructive pulmonary disease, unspecified (principal)

== ENCOUNTER 2018-07-27 13:07 | Outpatient (RCR) | payer MEDICARE, MEDICAID ==
--- NOTE | 2018-07-19 11:15 | RADONC ---
RADIATION ONCOLOGY PROGRESS NOTE DATE: 07/18/2018 CHART NUMBER: [id number] PROGRESS NOTE: Mr. Morgan is presently at a dose of 3420 cGy to his rectum and is tolerating treatments quite well at this point with no complaints related to his radiation therapy. He is having no urinary or bowel difficulties and no bone pain. REVIEW OF SYSTEMS: The patient's review of systems is unchanged. He continues to have difficulties with breathing and physical limitations. He is in am electronic wheelchair. PHYSICAL EXAMINATION: The patient's skin is in good condition with no evidence of moist or dry desquamation. The remainder of his physical exam remains unchanged. Mr. Morgan is tolerating treatments quite well and radiation will continue as scheduled.
--- NOTE | 2018-07-25 14:42 | RADONC ---
RADIATION ONCOLOGY PROGRESS NOTE DATE: 07/25/2018 CHART NUMBER: [id number] Mr. Morgan is presently a dose of 4320 cGy to his rectum and is tolerating treatments quite well at this point with no complaints related to his radiation therapy. He is having no urinary or bowel difficulties and no bone pain. REVIEW OF SYSTEMS: The patient's review of systems is noncontributory. He denies nausea, vomiting, fevers, chills, night sweats, diplopia, headaches, anxiety or depression, anorexia, weight loss, visual disturbances, chest pain, urinary or bowel difficulties, bone pain or neurological problems. PHYSICAL EXAMINATION: The patient's skin is in good condition with no evidence of moist or dry desquamation. The remainder of his physical exam remains unchanged. Mr. Morgan is tolerating treatments quite well and radiation will continue as scheduled.
== END 2018-07-28 ==
LOC: M ONCR 13:07
PROVIDERS: ATTEND Radiology Radiation Oncology
DX: C20 Malignant neoplasm of rectum (principal)

== ENCOUNTER 2018-08-04 13:08 | Outpatient (RCR) | payer MEDICARE, MEDICAID ==
--- NOTE | 2018-08-02 11:49 | RADONC ---
RADIATION ONCOLOGY PROGRESS NOTE DATE OF SERVICE: 08/01/2018 CHART NUMBER: [id number] PROGRESS NOTE: Mr. Morgan is presently at a dose of 4860 cGy to his rectum and is tolerating treatments quite well at this point with no complaints related to his radiation therapy. He is having no urinary or bowel difficulties. No bone pain. REVIEW OF SYSTEMS: The patient's review of systems is unchanged. On physical examination, the patient's skin is in good condition with no evidence of moist or dry desquamation. The remainder of his physical exam remains unchanged, as well. Mr. Morgan is tolerating treatments quite well, and radiation will continue as scheduled.
--- NOTE | 2018-08-05 14:19 | RADONC ---
RADIATION ONCOLOGY TREATMENT SUMMARY DATE: 08/04/2018 CHART NUMBER: [id number] DIAGNOSIS: Rectal cancer. STAGE: X, TxN0M0. ECOG PERFORMANCE STATUS: 4 TREATMENT SUMMARY: Mr. Morgan is a very pleasant 73-year-old white male with the diagnosis of what appears to be a moderately differentiated adenocarcinoma of the rectum who presented to us for consideration of palliative radiation therapy to his rectum in an attempt to achieve some type of local control. We treated the patient to his rectal mass for a total dose of 5400 cGy delivered in 30 fractions of 180 cGy each over 48 elapsed days from 06/15/2018 through 08/03/2018. The patient's rectum was treated on a linear accelerator utilizing a 15 MV photon beam via 3D conformal technique initially with a posterior left and right lateral field for a dose of 4500 cGy and subsequently coning down for an additional 900 cGy via parallel opposed lateral sharpe, once again bringing the primary site to a total dose 5400 cGy. The patient had absolutely refused chemotherapy and surgery. In light of this, I hope we have delivered enough radiation to achieve some type of control for a period of time. Thank you for allowing us to participate in the care of this very pleasant gentleman. If I could be of any further assistance or provide you with any information, please free to contact me at anytime. cc: Vickie Quarles MD, FACP DO Valdez Khan MD David Reindl, MD
== END 2018-08-25 ==
LOC: M ONCR 13:08
PROVIDERS: ATTEND Radiology Radiation Oncology
DX: C20 Malignant neoplasm of rectum (principal)

== ENCOUNTER → 2018-08-08 | Outpatient (REF) | payer MEDICARE, MEDICAID ==
[2018-08-08 08:05] LABS: HEMATOCRIT 36.8 % (42.0-52.0); HEMOGLOBIN 12.3 g/dl (13.5-17.5); MEAN CORPUSCULAR HEMOGLOBIN 29.7 pg (27.0-33.0); MEAN CORPUSCULAR HGB CONC 33.4 g/dl (32.0-36.5); MEAN CORPUSCULAR VOLUME 88.9 fl (80.0-96.0); PLATELET COUNT, AUTOMATED 293 10^3/uL (150-450); RED BLOOD COUNT 4.14 10^6/uL (4.30-6.10); WHITE BLOOD COUNT 6.7 10^3/uL (4.0-10.0)
== END ==
LOC: SKLAB2 07:00
PROVIDERS: ATTEND Internal Medicine
DX: E03.9 Hypothyroidism, unspecified (principal); J44.9 Chronic obstructive pulmonary disease, unspecified

== ENCOUNTER → 2018-08-31 | Outpatient (CLI) | payer MEDICARE, MEDICAID ==
--- NOTE | 2018-08-31 14:33 | RADONC ---
RADIATION ONCOLOGY FOLLOW-UP NOTE DATE: 08/31/2018 CHART NUMBER: [id number] DIAGNOSIS: Rectal cancer. STAGE: X, TxN0M0. ECOG PERFORMANCE STATUS: 4 FOLLOWUP NOTE: Mr. Morgan is a very pleasant 73-year-old white male with the diagnosis of what appears to be moderately differentiated adenocarcinoma of the rectum who is presenting to us today for routine followup visit 1 month post completion of external beam radiation therapy. The patient presents today reporting that he is doing quite well with no complaints at this time related to his radiation therapy disease. He is having no rectal pain or bleeding at this time. The patient's review of systems is positive for his physical limitations. He is presently in an electronic wheelchair. REVIEW OF SYSTEMS: His review of systems has no new issues. He continues to have severe COPD causing his physical limitations and is on 4 liters of oxygen. He has a history arthritis and DVTs. He denies nausea, vomiting, fevers, chills, night sweats, diplopia, headaches, anxiety or depression, anorexia, weight loss, visual disturbances, chest pain, urinary or bowel difficulties or bone pain. PHYSICAL EXAMINATION: The patient is presenting in an electronic wheelchair. HEENT: Exam is normocephalic, atraumatic. Extraocular movements appear to be intact. There is no palpable cervical, supraclavicular, infraclavicular or axillary lymphadenopathy present. His lungs are generally clear to auscultation and percussion. Rectal examination was refused at this time. The patient reports that he does not want to initiate bleeding. ASSESSMENT: The patient is clinically doing well. He is scheduled to be seen in medical oncology in September and I have scheduled him to return to us in followup in four months' time. He will also continue be followed by his other physicians in the meantime. cc: DO Roberta Khan MD Robert Kimball, MD David Reindl, MD
== END ==
LOC: M ONCR 13:26
PROVIDERS: ATTEND Radiology Radiation Oncology
DX: C20 Malignant neoplasm of rectum (principal)

== ENCOUNTER → 2018-09-05 | Outpatient (REF) | payer MEDICARE, MEDICAID ==
[2018-09-05 08:59] LABS: HEMATOCRIT 35.1 % (42.0-52.0); HEMOGLOBIN 11.6 g/dl (13.5-17.5); MEAN CORPUSCULAR HEMOGLOBIN 30.5 pg (27.0-33.0); MEAN CORPUSCULAR VOLUME 92.4 fl (80.0-96.0); PLATELET COUNT, AUTOMATED 269 10^3/uL (150-450); WHITE BLOOD COUNT 7.1 10^3/uL (4.0-10.0)
== END ==
LOC: SKLAB2 07:30
PROVIDERS: ATTEND Internal Medicine
DX: J44.9 Chronic obstructive pulmonary disease, unspecified (principal)

== ENCOUNTER → 2018-10-03 | Outpatient (REF) | payer MEDICARE, MEDICAID ==
[~2018-10-03] MED LIST changes: -/TIOT18INH OR; -ASPI1TAB PO; -ASPI81CH PO; +ASPI81CH49 PO; +ASPI81TA26 PO; -CEPA1LOZ5 MT; +CEPALOZ8 MT; +HYDR-3715 PO; -NORCOTAB PO; +PRED-351 PO; -PRED10TA PO; +SPIR1CAP OR; -VANC125C2 PO; +VANC125C3 PO
[2018-10-03 07:42] LABS: HEMATOCRIT 34.5 % (42.0-52.0); HEMOGLOBIN 11.6 g/dl (13.5-17.5); MEAN CORPUSCULAR HEMOGLOBIN 30.9 pg (27.0-33.0); MEAN CORPUSCULAR HGB CONC 33.6 g/dl (32.0-36.5); MEAN CORPUSCULAR VOLUME 91.8 fl (80.0-96.0); PLATELET COUNT, AUTOMATED 176 10^3/uL (150-450); RED BLOOD COUNT 3.76 10^6/uL (4.30-6.10); WHITE BLOOD COUNT 10.2 10^3/uL (4.0-10.0)
[2018-10-03 08:11] LABS: BLOOD UREA NITROGEN 11 MG/DL (7-18); CARBON DIOXIDE LEVEL 27 MEQ/L (21-32); CHLORIDE LEVEL 101 MEQ/L (98-107); CREATININE FOR GFR 0.78 MG/DL (0.70-1.30); GLOMERULAR FILTRATION RATE > 60.0 (>42); GLUCOSE, FASTING 96 MG/DL (70-100); SODIUM LEVEL 135 MEQ/L (136-145)
== END ==
LOC: SKLAB2 07:30
DX: J44.9 Chronic obstructive pulmonary disease, unspecified (principal)

== ENCOUNTER → 2018-10-07 | Outpatient (CLI) | payer MEDICARE, MEDICAID ==
--- NOTE | 2018-10-08 00:16 | ECWPNPC ---
PATIENT NAME: GEORGES LERMA : 1945 GENDER: MALE VISIT DATE: 10/07/2018 DISCHARGE DATE: 10/07/18 1136 VISIT LOCKED DATE TIME: PHYSICIAN: HEIDY STODDARD RESOURCE: HEIDY STODDARD REASON FOR APPOINTMENT 1. BACK HISTORY OF PRESENT ILLNESS HISTORY OF PRESENT ILLNESS: PAIN THE PATIENT DESCRIBES THE PAIN... SEVERITY - PAIN SCORE OF8/10 73 YR OLD MALE HERE TO F/U ON CHRONIC LOW BACK PAIN AND S/P LAMINECTOMY. HE DESCRIBES THE PAINA S SHOOTING AND STABBING.HE SAYS THE OXYCODONE 10 MG CONTROLS HIS PAIN BUT HAS JUST BEEN TREATED FOR COLON CANCER AND WOULD LIKE TO GO BACK ON LYRICA. VAS 8/10. FALL RISK SCREENING: SCREENING :NO FALLS REPORTED IN THE LAST YEAR CURRENT MEDICATIONS TAKING SPIRIVA HANDIHALER 18 MCG CAPSULE 1 CAP INHALATION ONCE DAILY TAKING VITAMIN D-3 1000 UNIT CAPSULE 1 CAPSULE ORALLY ONCE A DAY TAKING MAGNESIUM OXIDE 400 MG TABLET 1 CAPSULE ORALLY ONCE DAILY TAKING MUCUS RELIEF 400 MG TABLET 1 TABLET NEEDED ORALLY EVERY 4 HRS TAKING SYMBICORT 80-4.5 MCG/ACT AEROSOL 2 PUFFS INHALATION TWICE A DAY TAKING TRAZODONE HCL 50 MG TABLET 1 TABLET AT BEDTIME NEEDED ORALLY ONCE A DAY TAKING ALBUTEROL 90 MCG/ACT AEROSOL SOLUTION 2 PUFF INHALATION QID/PRN SOB OR WHEEZING TAKING WHEELCHAIR - MISCELLANEOUS DIRECTED ELECTRIC DAILY DX:J44.9 & Z99.81 TAKING FUROSEMIDE 20 MG TABLET 1 TABLET ORALLY ONCE A DAY TAKING SYNTHROID 112 MCG TABLET 1 TABLET ON AN EMPTY STOMACH IN THE MORNING ORALLY ONCE A DAY TAKING OXYCODONE HCL 5 MG TABLET 2 TAB ORALLY Q4HRS PRN MDD 8 TAKING POLYMYXIN B-TRIMETHOPRIM 24128-1.1 UNIT/ML SOLUTION 1 DROP INTO AFFECTED EYE OPHTHALMIC FOUR TIMES A DAY, NOTES: 5 DAYS TAKING MULTI SYLVIA MINERALS - TABLET DIRECTED ORALLY DAILY TAKING MUCINEX 600 MG TABLET EXTENDED RELEASE 12 HOUR 1 TABLET NEEDED ORALLY EVERY 12 HRS TAKING LORAZEPAM 1 MG TABLET 1 TABLET NEEDED ORALLY BID TAKING TYLENOL 325 MG TABLET 2 TABLET NEEDED ORALLY EVERY 4 HRS NOT-TAKING ASPIRIN 81 MG TABLET CHEWABLE 1 TABLET ORALLY ONCE A DAY NOT-TAKING DICLOFENAC SODIUM 50 MG TABLET DELAYED RELEASE 1 TABLET ORALLY TWICE A DAY NOT-TAKING ATORVASTATIN CALCIUM 10 MG TABLET 1 TABLET ORALLY ONCE A DAY NOT-TAKING POTASSIUM CHLORIDE 20 MEQ TABLET EXTENDED RELEASE 1 TABLET WITH FOOD ORALLY ONCE A DAY NOT-TAKING OMEPRAZOLE 20 MG CAPSULE DELAYED RELEASE 1 CAP ORALLY TWICE DAILY NOT-TAKING FISH OIL 1200 MG CAPSULE 1 CAPSULE ORALLY EVERY OTHER DAY NOT-TAKING HYDROCODONE-ACETAMINOPHEN 10-325 MG TABLET 1 TABLET NEEDED ORALLY EVERY 4- 6 HRS MDD 6: PAIN MANAGEMENT NOT-TAKING BACID - TABLET 1 TAB ORALLY TWICE DAILY NOT-TAKING TAMSULOSIN HCL 0.4 MG CAPSULE EXTENDED RELEASE 24 HOUR 1 CAPSULE 30 MINUTES AFTER THE SAME MEAL EACH DAY ORALLY ONCE A DAY NOT-TAKING FUROSEMIDE 20 MG TABLET 1 TABLET ORALLY DIRECTED: EVERY OTHER DAY MEDICATION LIST REVIEWED AND RECONCILED WITH THE PATIENT PAST MEDICAL HISTORY HTN COPD LOW BACK PAIN HIGH CHOLESTEROL IBS PROSTATE ISSUES EMPHYSEMA HYPOTHYROIDISM COLON CANCER ALLERGIES LOVENOX: RASH - ALLERGY SURGICAL HISTORY TONSILECTOMY 1974 BACK SURGERIES CHIP CATARACT FAMILY HISTORY FATHER: 76 YRS, COLON CA: 74 AT DX, DIAGNOSED WITH HEART DISEASE, CANCER MOTHER: 81 YRS, GASTRIC CA, HEART DISEASE, CANCER, DIABETES 3 BROTHER(S) . SOCIAL HISTORY GENERAL: TOBACCO USE ARE YOU A:FORMER SMOKER HOW LONG HAS IT BEEN SINCE YOU LAST SMOKED?1-5 YEARS ADDITIONAL FINDINGS: TOBACCO USERHEAVY CIGARETTE SMOKER (20-39 CIGS/DAY) LATEX QUESTIONNAIRE LATEX ALLERGY : HAVE YOU EVER DEVELOPED ANY TYPE OF REACTION AFTER HANDLING LATEX PRODUCTS SUCH RUBBER GLOVES, CONDOMS, DIAPHRAGMS, BALLOONS, SOCKS, OR UNDERWEAR?NO LATEX ALLERGY : HAVE YOU EVER DEVELOPED ANY TYPE OF REACTION DURING OR AFTER DENTAL APPOINTMENT, VAGINAL/RECTAL EXAMINATION, SURGICAL PROCEDURE, OR ANY OTHER EXPOSURE?NO LATEX RISK : HAVE YOU EVER HAD ANY DIFFICULTY BREATHING OR HIVES AFTER EATING OR HANDLING ANY FRUITS, OR VEGETABLES; SUCH KIWI, BANANAS, STONE FRUITS, OR CHESTNUTSNO LATEX RISK : DO YOU HAVE A PREVIOUS PERSONAL HISTORY OF MORE THAN NINE SURGERIES, SPINA BIFIDA, OR REPEATED CATHERTIZATIONS? NO LATEX RISK : ARE YOU FREQUENTLY EXPOSED TO LATEX PRODUCTS IN YOUR OCCUPATION?NO DATE ASKED : 10/07/2018 BMI CARE GOAL FOLLOW-UP ABOVE NORMAL BMI FOLLOW-UPDIETARY MANAGEMENT EDUCATION, GUIDANCE, AND COUNSELING ALCOHOL SCREENING POINTS: 0, INTERPRETATION: NEGATIVE. RECREATIONAL DRUG USE DRUG USE?NO PATIENT DENIES ABUSE OR MISSUSED OF ANY MEDICATION. PATIENT DENIES USE OF ANY ILLEGAL SUBSTANCE INCLUDING MARIJUANA OR COCAINE. CAFFEINE CAFFEINE USE?YES HOW OFTEN AND HOW MUCH? 3-4 CUPS MUSLIM NO HINDU BELIEFS THAT WOULD IMPACT HEALTH CARE, NO HINDU PREFERENCE. LANGUAGE GIBRALTARIAN. 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 DIET: REGULAR. EXERCISE: NO REGULAR EXERCISE. MARITAL STATUS: SINGLE. OTHERS AT HOME: NONE. PAIN CLINIC PFS, CLERGY, PUBLIC HEALTH REFERRALS HAS THE PATIENT BEEN EDUCATED REGARDING HIS/HER PLAN OF CARE?YES HAS THE PATIENT BEEN EDUCATED REGARDING PAIN, THE RISK FOR PAIN, THE IMPORTANCE OF EFFECTIVE PAIN MANAGEMENT, AND THE PAIN ASSESSMENT PROCESS?YES ADVANCE DIRECTIVE ADVANCE DIRECTIVE DISCUSSED WITH PATIENT:YES HCP - ON FILE WITH [facility] REVIEWED WITH PATIENT 10/07/18 105 JS. HOSPITALIZATION/MAJOR DIAGNOSTIC PROCEDURE PNEUMONIA X3 2014 PNEUMONIA 2015 PNEUMONIA 07/2016 REVIEW OF SYSTEMS REVIEWED BY: PROVIDER: CRISTI . CONSTITUTIONAL: ANY CHANGE IN YOUR MEDICAL CONDITION? NO . CHILLS NO . FEVER NO . INFECTION: DO YOU HAVE NEW INFECTIONS? NO . DO YOU HAVE HISTORY OF MRSA? NO . MUSCULOSKELETAL: ANY NEW PATTERNS OF PAIN OR NUMBNESS? NO . GASTROENTEROLOGY: ANY NEW CHANGE IN BOWEL CONTROL? NO . GENITOURINARY: ANY NEW CHANGE IN BLADDER CONTROL? NO . IS THERE A CHANCE YOU COULD BE ? NO . HEMATOLOGY/LYMPH: DO YOU TAKE ANY BLOOD THINNERS? (FOR EXAMPLE- COUMADIN, PLAVIX, AGGRENOX, PLATEL, PRADAXA, OR XARELTO) NO . WHEN WAS YOUR LAST DOSE? DATE: TIME: . NEUROLOGY: HAVE YOU FALLEN IN THE PAST 12 MONTHS? NO . ANY NEW EXTREMITY NUMBNESS OR WEAKNESS? NO . CARDIOLOGY: DO YOU HAVE A PACEMAKER OR DEFIBRILLATOR? NO . RESPIRATORY: HAVE YOU BEEN SICK IN THE PAST WEEK? NO . FEVER NO . FLU LIKE SYMPTOMS? NO . COUGH NO . INTEGUMENTARY: DO YOU HAVE ANY RASHES OR OPEN SORES? NO . ALLERGIC/IMMUNO: ARE YOU ALLERGIC TO IV DYE? NO . ANY NEW ALLERGIES? NO . PSYCHIATRIC: DO YOU HAVE THOUGHTS OF HURTING YOURSELF OR SOMEONE ELSE? NO . ARE YOU ABUSED, NEGLECTED, OR IN AN UNSAFE ENVIRONMENT? NO . ENDOCRINOLOGY: ARE YOU DIABETIC? NO . OTHER: DO YOU NEED ANY PRESCRIPTIONS? YES . IF YES, PLEASE LIST: ____WOULD LIKE TO DISCUSS LYRICA . ANY NEW PROBLEMS WITH YOUR MEDICATIONS? NO . WHEN DID YOU LAST EAT? ____ . WHEN DID YOU LAST DRINK? ____ . WHAT DID YOU LAST DRINK? ____ . NAME OF PERSON DRIVING YOU HOME? ____ . DO YOU HAVE ANY OTHER QUESTIONS OR CONCERNS YES, WOULD LIKE TO DISCUSS GOING BACK ON THE LYRICA . VITAL SIGNS WT 159 LBS, HT 6'4", BMI 19.35 INDEX, BP 126/65 MM HG, HR 85 /MIN, RR 18 /MIN, TEMP 98.2 F, OXYGEN SAT % 90% ON 4L O2, SAFE IN ENV? (Y/N) YES, NA INITIALS AW 1041, REVIEWED BY: CASSIDY. EXAMINATION GENERAL EXAMINATION: GENERAL APPEARANCE:NO ACUTE DISTRESS, WELL NOURISHED AND HYDRATED. LUNGS:CLEAR TO AUSCULTATION BILATERALLY, NO WHEEZES, RHONCHI, RALES. HEART:NO MURMURS, REGULAR RATE AND RHYTHM. ASSESSMENTS POST LAMINECTOMY SYNDROME - M96.1 (PRIMARY) TREATMENT POST LAMINECTOMY SYNDROME START PREGABALIN CAPSULE, 25 MG, 1 CAPSULE, ORALLY, TWICE A DAY, 30 DAYS, 60 CAPSULE, REFILLS 0 CONTINUE OXYCODONE HCL TABLET, 5 MG, 2 TAB, ORALLY, Q4HRS PRN MDD 8, 30 DAYS, 240, REFILLS 0 PROCEDURE CODES FA211 ESTABILISHED PATIENT [facility] CHARGE DISPOSITION & COMMUNICATION FOLLOW UP 4 WEEKS ELECTRONICALLY SIGNED BY KEV GAR ON 10/07/2018 AT 03:34 PM EDT DISCLAIMER : THIS IS A VISIT SUMMARY EXTRACTED FROM THE [employer] CHART. IT IS NOT A COPY OF THE [employer] PROGRESS NOTE. JOEL
== END ==
LOC: M PAIN 10:45
PROVIDERS: ATTEND Nurse Practitioner Family
DX: M96.1 Postlaminectomy syndrome, not elsewhere classified (principal); I10 Essential (primary) hypertension; J44.9 Chronic obstructive pulmonary disease, unspecified; E78.00 Pure hypercholesterolemia, unspecified; E03.9 Hypothyroidism, unspecified; Z85.038 Personal history of other malignant neoplasm of large intestine; Z87.891 Personal history of nicotine dependence; Z88.8 Allergy status to other drugs, medicaments and biological substances; Z79.891 Long term (current) use of opiate analgesic; Z79.899 Other long term (current) drug therapy

== ENCOUNTER → 2018-11-07 | Outpatient (REF) | payer MEDICARE, MEDICAID ==
[2018-11-07 07:51] LABS: HEMATOCRIT 36.8 % (42.0-52.0); HEMOGLOBIN 12.1 g/dl (13.5-17.5); MEAN CORPUSCULAR HGB CONC 32.9 g/dl (32.0-36.5); MEAN CORPUSCULAR VOLUME 97.4 fl (80.0-96.0); PLATELET COUNT, AUTOMATED 235 10^3/uL (150-450); RED BLOOD COUNT 3.78 10^6/uL (4.30-6.10); WHITE BLOOD COUNT 6.6 10^3/uL (4.0-10.0)
== END ==
LOC: SKLAB2 07:00
DX: J44.9 Chronic obstructive pulmonary disease, unspecified (principal)

== ENCOUNTER → 2018-11-10 | Outpatient (CLI) | payer MEDICARE, MEDICAID ==
--- NOTE | 2018-11-30 01:44 | ECWPNPC ---
PATIENT NAME: GEORGES LERMA : 1945 GENDER: MALE VISIT DATE: 11/10/2018 DISCHARGE DATE: 11/10/18 1230 VISIT LOCKED DATE TIME: PHYSICIAN: MANDI PADILLA RESOURCE: MANDI PADILLA REASON FOR APPOINTMENT 1. BACK HISTORY OF PRESENT ILLNESS HISTORY OF PRESENT ILLNESS: HERE FOR F/U OF CHRONIC LOW BACK PAIN.USING OXYCODONE 10MG Q4-6H AND LYRICA 25MG BID.DISCUSSED TREATMENT OPTIONS.RATING PAIN VAS 8/10. PAIN THE PATIENT DESCRIBES THE PAIN... FALL RISK SCREENING: SCREENING :NO FALLS REPORTED IN THE LAST YEAR CURRENT MEDICATIONS TAKING VITAMIN D-3 1000 UNIT CAPSULE 1 CAPSULE ORALLY ONCE A DAY TAKING MAGNESIUM OXIDE 400 MG TABLET 1 CAPSULE ORALLY ONCE DAILY TAKING SYMBICORT 80-4.5 MCG/ACT AEROSOL 2 PUFFS INHALATION TWICE A DAY TAKING TRAZODONE HCL 50 MG TABLET 1 TABLET AT BEDTIME NEEDED ORALLY ONCE A DAY TAKING ALBUTEROL 90 MCG/ACT AEROSOL SOLUTION 2 PUFF INHALATION QID/PRN SOB OR WHEEZING TAKING WHEELCHAIR - MISCELLANEOUS DIRECTED ELECTRIC DAILY DX:J44.9 & Z99.81 TAKING FUROSEMIDE 20 MG TABLET 1 TABLET ORALLY BID TAKING SYNTHROID 112 MCG TABLET 1 TABLET ON AN EMPTY STOMACH IN THE MORNING ORALLY ONCE A DAY TAKING MULTI SYLVIA MINERALS - TABLET DIRECTED ORALLY DAILY TAKING MUCINEX 600 MG TABLET EXTENDED RELEASE 12 HOUR 1 TABLET NEEDED ORALLY EVERY 12 HRS TAKING LORAZEPAM 1 MG TABLET 1 TABLET NEEDED ORALLY BID TAKING TYLENOL 325 MG TABLET 2 TABLET NEEDED ORALLY EVERY 4 HRS TAKING PREGABALIN 25 MG CAPSULE 1 CAPSULE ORALLY TWICE A DAY TAKING OXYCODONE HCL 5 MG TABLET 2 TAB ORALLY Q4HRS PRN MDD 8 TAKING ASPIRIN 81 MG TABLET CHEWABLE 1 TABLET ORALLY ONCE A DAY TAKING POTASSIUM CHLORIDE 20 MEQ TABLET EXTENDED RELEASE 1 TABLET WITH FOOD ORALLY ONCE A DAY TAKING FISH OIL 1200 MG CAPSULE 1 CAPSULE ORALLY EVERY OTHER DAY TAKING TAMSULOSIN HCL 0.4 MG CAPSULE EXTENDED RELEASE 24 HOUR 1 CAPSULE 30 MINUTES AFTER THE SAME MEAL EACH DAY ORALLY ONCE A DAY NOT-TAKING SPIRIVA HANDIHALER 18 MCG CAPSULE 1 CAP INHALATION ONCE DAILY NOT-TAKING MUCUS RELIEF 400 MG TABLET 1 TABLET NEEDED ORALLY EVERY 4 HRS NOT-TAKING POLYMYXIN B-TRIMETHOPRIM 00527-4.1 UNIT/ML SOLUTION 1 DROP INTO AFFECTED EYE OPHTHALMIC FOUR TIMES A DAY, NOTES: 5 DAYS NOT-TAKING DICLOFENAC SODIUM 50 MG TABLET DELAYED RELEASE 1 TABLET ORALLY TWICE A DAY NOT-TAKING ATORVASTATIN CALCIUM 10 MG TABLET 1 TABLET ORALLY ONCE A DAY NOT-TAKING OMEPRAZOLE 20 MG CAPSULE DELAYED RELEASE 1 CAP ORALLY TWICE DAILY NOT-TAKING HYDROCODONE-ACETAMINOPHEN 10-325 MG TABLET 1 TABLET NEEDED ORALLY EVERY 4- 6 HRS MDD 6: PAIN MANAGEMENT NOT-TAKING BACID - TABLET 1 TAB ORALLY TWICE DAILY NOT-TAKING FUROSEMIDE 20 MG TABLET 1 TABLET ORALLY DIRECTED: EVERY OTHER DAY MEDICATION LIST REVIEWED AND RECONCILED WITH THE PATIENT PAST MEDICAL HISTORY HTN COPD LOW BACK PAIN HIGH CHOLESTEROL IBS PROSTATE ISSUES EMPHYSEMA HYPOTHYROIDISM COLON CANCER ALLERGIES LOVENOX: RASH - ALLERGY SURGICAL HISTORY TONSILECTOMY 1974 BACK SURGERIES CHIP CATARACT FAMILY HISTORY FATHER: 76 YRS, COLON CA: 74 AT DX, DIAGNOSED WITH HEART DISEASE, CANCER MOTHER: 81 YRS, GASTRIC CA, CANCER, DIABETES, HEART DISEASE 3 BROTHER(S) . SOCIAL HISTORY GENERAL: TOBACCO USE ARE YOU A:FORMER SMOKER HOW LONG HAS IT BEEN SINCE YOU LAST SMOKED?1-5 YEARS ADDITIONAL FINDINGS: TOBACCO USERHEAVY CIGARETTE SMOKER (20-39 CIGS/DAY) OTHERS AT HOME: NONE. DIET: REGULAR. LANGUAGE PORTUGUESE. BMI CARE GOAL FOLLOW-UP ABOVE NORMAL BMI FOLLOW-UPDIETARY MANAGEMENT EDUCATION, GUIDANCE, AND COUNSELING RECREATIONAL DRUG USE DRUG USE?NO PATIENT DENIES ABUSE OR MISSUSED OF ANY MEDICATION. PATIENT DENIES USE OF ANY ILLEGAL SUBSTANCE INCLUDING MARIJUANA OR COCAINE. EXERCISE: NO REGULAR EXERCISE. LEARNING BARRIERS / SPECIAL NEEDS CHANGE FROM LAST VISIT?NO BARRIERS TO LEARNING?NO HEARING IMPAIRED?NO VISION IMPAIRED?YES :CORRECTIVE LENSES COGNITIVELY IMPAIRED?NO READINESS TO LEARN?YES LEARNING PREFERENCES?NO LEARNING CAPABILITIES PRESENT?YES EMOTIONAL BARRIERS?NO SPECIAL DEVICES?YES :WHEELCHAIR ASSOCIATE PROFESSOR OF COUNSELING NEEDED?NO PAIN CLINIC PFS, CLERGY, PUBLIC HEALTH REFERRALS HAS THE PATIENT BEEN EDUCATED REGARDING HIS/HER PLAN OF CARE?YES HAS THE PATIENT BEEN EDUCATED REGARDING PAIN, THE RISK FOR PAIN, THE IMPORTANCE OF EFFECTIVE PAIN MANAGEMENT, AND THE PAIN ASSESSMENT PROCESS?YES LATEX QUESTIONNAIRE LATEX ALLERGY : HAVE YOU EVER DEVELOPED ANY TYPE OF REACTION AFTER HANDLING LATEX PRODUCTS SUCH RUBBER GLOVES, CONDOMS, DIAPHRAGMS, BALLOONS, SOCKS, OR UNDERWEAR?NO LATEX ALLERGY : HAVE YOU EVER DEVELOPED ANY TYPE OF REACTION DURING OR AFTER DENTAL APPOINTMENT, VAGINAL/RECTAL EXAMINATION, SURGICAL PROCEDURE, OR ANY OTHER EXPOSURE?NO LATEX RISK : HAVE YOU EVER HAD ANY DIFFICULTY BREATHING OR HIVES AFTER EATING OR HANDLING ANY FRUITS, OR VEGETABLES; SUCH KIWI, BANANAS, STONE FRUITS, OR CHESTNUTSNO LATEX RISK : DO YOU HAVE A PREVIOUS PERSONAL HISTORY OF MORE THAN NINE SURGERIES, SPINA BIFIDA, OR REPEATED CATHERTIZATIONS? NO LATEX RISK : ARE YOU FREQUENTLY EXPOSED TO LATEX PRODUCTS IN YOUR OCCUPATION?NO DATE ASKED : 10/07/2018 CAFFEINE CAFFEINE USE?YES HOW OFTEN AND HOW MUCH? 3-4 CUPS ADVANCE DIRECTIVE ADVANCE DIRECTIVE DISCUSSED WITH PATIENT:YES HCP - ON FILE WITH [facility] BUDDHISM NO BAHAI BELIEFS THAT WOULD IMPACT HEALTH CARE, NO BAHAI PREFERENCE. MARITAL STATUS: SINGLE. ALCOHOL SCREENING POINTS: 0, INTERPRETATION: NEGATIVE. OCCUPATION: DISABLED. REVIEWED WITH PATIENT 10/07/18 1057 JSREVIEWED WITH PATIENT 11/10/18 1145 LAS. HOSPITALIZATION/MAJOR DIAGNOSTIC PROCEDURE PNEUMONIA X3 2014 PNEUMONIA 2016 PNEUMONIA 07/2016 REVIEW OF SYSTEMS REVIEWED BY: PROVIDER: MANDI ANGULO . CONSTITUTIONAL: ANY CHANGE IN YOUR MEDICAL CONDITION? NO . CHILLS NO . FEVER NO . INFECTION: DO YOU HAVE NEW INFECTIONS? NO . DO YOU HAVE HISTORY OF MRSA? NO . MUSCULOSKELETAL: ANY NEW PATTERNS OF PAIN OR NUMBNESS? NO . GASTROENTEROLOGY: ANY NEW CHANGE IN BOWEL CONTROL? NO . GENITOURINARY: ANY NEW CHANGE IN BLADDER CONTROL? NO . IS THERE A CHANCE YOU COULD BE ? NO . HEMATOLOGY/LYMPH: DO YOU TAKE ANY BLOOD THINNERS? (FOR EXAMPLE- COUMADIN, PLAVIX, AGGRENOX, PLATEL, PRADAXA, OR XARELTO) NO . WHEN WAS YOUR LAST DOSE? DATE: TIME: . NEUROLOGY: HAVE YOU FALLEN IN THE PAST 12 MONTHS? NO . ANY NEW EXTREMITY NUMBNESS OR WEAKNESS? NO . CARDIOLOGY: DO YOU HAVE A PACEMAKER OR DEFIBRILLATOR? NO . RESPIRATORY: HAVE YOU BEEN SICK IN THE PAST WEEK? NO . FEVER NO . FLU LIKE SYMPTOMS? NO . COUGH NO . INTEGUMENTARY: DO YOU HAVE ANY RASHES OR OPEN SORES? NO . ALLERGIC/IMMUNO: ARE YOU ALLERGIC TO IV DYE? NO . ANY NEW ALLERGIES? NO . PSYCHIATRIC: DO YOU HAVE THOUGHTS OF HURTING YOURSELF OR SOMEONE ELSE? NO . ARE YOU ABUSED, NEGLECTED, OR IN AN UNSAFE ENVIRONMENT? NO . ENDOCRINOLOGY: ARE YOU DIABETIC? NO . OTHER: DO YOU NEED ANY PRESCRIPTIONS? YES . IF YES, PLEASE LIST: ____PERCOCET, LYRICA . ANY NEW PROBLEMS WITH YOUR MEDICATIONS? NO . WHEN DID YOU LAST EAT? ____ . WHEN DID YOU LAST DRINK? ____ . WHAT DID YOU LAST DRINK? ____ . NAME OF PERSON DRIVING YOU HOME? ____ . DO YOU HAVE ANY OTHER QUESTIONS OR CONCERNS NO . VITAL SIGNS WT 159.4 LBS, HT 6'4", BMI 19.40 INDEX, BP 126/66 MM HG, HR 79 /MIN, RR 18 /MIN, TEMP 97.9 F, OXYGEN SAT % 90% ON 4L O2, NA INITIALS MP 1139. EXAMINATION GENERAL EXAMINATION: GENERAL APPEARANCE:AWAKE,ALERT ,PLEAASANT . PSYCHAFFECT NORMAL . LUNGS:LUNG BR[place]LL ARE CLEAR TO AUSCULTATION BILATERALLY. GOOD MOVEMENT OF AIR . HEART:S1, S2 IN A REGULAR RATE AND RHYTHM. NO SIGNIFICANT MURMURS, RUBS OR GALLOPS NOTED . ASSESSMENTS POST LAMINECTOMY SYNDROME - M96.1 (PRIMARY) GENERALIZED JOINT PAIN - M25.50 CHRONIC PRESCRIPTION OPIATE USE - Z79.899 TREATMENT POST LAMINECTOMY SYNDROME INCREASE PREGABALIN CAPSULE, 75 MG, 1 CAPSULE, ORALLY, THREE TIMES DAILY, 30 DAYS, 90, REFILLS 0 NOTES: PATIENT IS TAKING OXYCODONE 10MG Q4H FOR CHRONIC PAIN A RESIDENT AT [facility]. PROCEDURE CODES FA211 ESTABILISHED PATIENT [facility] CHARGE DISPOSITION & COMMUNICATION FOLLOW UP 2 MONTHS ELECTRONICALLY SIGNED BY KEV GARDNER ON 11/29/2018 AT 12:41 PM EDT DISCLAIMER : THIS IS A VISIT SUMMARY EXTRACTED FROM THE [employer] CHART. IT IS NOT A COPY OF THE [employer] PROGRESS NOTE. MTDD
== END ==
LOC: M PAIN 11:15
PROVIDERS: ATTEND Nurse Practitioner Family
DX: M96.1 Postlaminectomy syndrome, not elsewhere classified (principal); M25.50 Pain in unspecified joint; I10 Essential (primary) hypertension; J44.9 Chronic obstructive pulmonary disease, unspecified; E78.00 Pure hypercholesterolemia, unspecified; E03.9 Hypothyroidism, unspecified; Z79.82 Long term (current) use of aspirin; Z79.891 Long term (current) use of opiate analgesic; Z79.899 Other long term (current) drug therapy; Z88.8 Allergy status to other drugs, medicaments and biological substances; Z85.038 Personal history of other malignant neoplasm of large intestine; Z87.891 Personal history of nicotine dependence

== ENCOUNTER → 2018-12-05 | Outpatient (REF) | payer MEDICARE, MEDICAID ==
[~2018-12-05] MED LIST changes: -TRAZ-160 PO; +TRAZ-252 PO; +TRAZ1TAB10 PO; -TRAZO50TA PO
[2018-12-05 07:28] LABS: HEMATOCRIT 37.8 % (42.0-52.0); HEMOGLOBIN 12.3 g/dl (13.5-17.5); MEAN CORPUSCULAR HEMOGLOBIN 31.5 pg (27.0-33.0); MEAN CORPUSCULAR HGB CONC 32.5 g/dl (32.0-36.5); MEAN CORPUSCULAR VOLUME 96.7 fl (80.0-96.0); PLATELET COUNT, AUTOMATED 287 10^3/uL (150-450); RED BLOOD COUNT 3.91 10^6/uL (4.30-6.10); WHITE BLOOD COUNT 7.8 10^3/uL (4.0-10.0)
== END ==
LOC: SKLAB2 07:00
DX: J44.9 Chronic obstructive pulmonary disease, unspecified (principal)

== ENCOUNTER → 2019-01-02 | Outpatient (REF) | payer MEDICARE, MEDICAID ==
[2019-01-02 07:33] LABS: HEMATOCRIT 41.4 % (42.0-52.0); HEMOGLOBIN 13.9 g/dl (13.5-17.5); MEAN CORPUSCULAR HEMOGLOBIN 32.5 pg (27.0-33.0); MEAN CORPUSCULAR HGB CONC 33.6 g/dl (32.0-36.5); MEAN CORPUSCULAR VOLUME 96.7 fl (80.0-96.0); PLATELET COUNT, AUTOMATED 255 10^3/uL (150-450); RED BLOOD COUNT 4.28 10^6/uL (4.30-6.10); WHITE BLOOD COUNT 8.1 10^3/uL (4.0-10.0)
[2019-01-02 07:58] LABS: BLOOD UREA NITROGEN 12 MG/DL (7-18); CALCIUM LEVEL 8.2 MG/DL (8.8-10.2); CARBON DIOXIDE LEVEL 30 MEQ/L (21-32); CHLORIDE LEVEL 105 MEQ/L (98-107); CREATININE FOR GFR 0.81 MG/DL (0.70-1.30); GLOMERULAR FILTRATION RATE > 60.0 (>42); GLUCOSE, FASTING 94 MG/DL (70-100); POTASSIUM SERUM 3.8 MEQ/L (3.5-5.1); SODIUM LEVEL 140 MEQ/L (136-145)
== END ==
LOC: SKLAB2 07:00
DX: J44.9 Chronic obstructive pulmonary disease, unspecified (principal)

== ENCOUNTER → 2019-01-17 | Outpatient (REF) | payer MEDICARE, MEDICAID ==
[~2019-01-17] MED LIST changes: -OMEP20CA3 PO; +OMEP20CA4 PO
--- NOTE | 2019-01-17 18:05 | REP ---
PA and lateral chest three views: Comparison is 11/12/2017. The lung sharpe are markedly hyperinflated, unchanged. There are bullae in the upper lobes and there is crowding of the lung markings in the lower lobes bilaterally. This is unchanged. These findings are compatible with COPD but requires clinical confirmation. There is a new 13 ml nodule inferiorly in the right lung as an interval change. Follow-up chest CT might be considered for confirmation. There are no acute infiltrates or pleural effusions. Cardiac size is normal. The harriet are enlarged bilaterally, unchanged, compatible with pulmonary hypertension. Mediastinum and skeletal structures are unremarkable. Impression: There are findings compatible with COPD. No acute cardiopulmonary findings are identified. There is a new 13 mm right lung nodule. Consider CT follow-up for confirmation. Electronically Signed by Juventino Smith MD 01/17/2019 05:55 P
== END ==
LOC: SKLAB2 12:16
DX: R91.1 Solitary pulmonary nodule (principal); J44.9 Chronic obstructive pulmonary disease, unspecified

== ENCOUNTER → 2019-02-06 | Outpatient (REF) | payer MEDICARE, MEDICAID ==
[2019-02-06 08:17] LABS: HEMATOCRIT 40.8 % (42.0-52.0); HEMOGLOBIN 13.1 g/dl (13.5-17.5); MEAN CORPUSCULAR HEMOGLOBIN 31.2 pg (27.0-33.0); MEAN CORPUSCULAR HGB CONC 32.1 g/dl (32.0-36.5); MEAN CORPUSCULAR VOLUME 97.1 fl (80.0-96.0); PLATELET COUNT, AUTOMATED 230 10^3/uL (150-450); WHITE BLOOD COUNT 7.8 10^3/uL (4.0-10.0)
== END ==
LOC: SKLAB2 07:00
DX: J44.9 Chronic obstructive pulmonary disease, unspecified (principal); E03.9 Hypothyroidism, unspecified

== ENCOUNTER → 2019-02-10 | Outpatient (CLI) | payer MEDICARE, MEDICAID | LOC: M PAIN 10:45 | PROVIDERS: ATTEND Nurse Practitioner Family | DX: M96.1 Postlaminectomy syndrome, not elsewhere classified (principal); M25.50 Pain in unspecified joint; I10 Essential (primary) hypertension; J44.9 Chronic obstructive pulmonary disease, unspecified; E78.00 Pure hypercholesterolemia, unspecified; E03.9 Hypothyroidism, unspecified; Z87.891 Personal history of nicotine dependence; Z88.8 Allergy status to other drugs, medicaments and biological substances; Z79.82 Long term (current) use of aspirin; Z79.891 Long term (current) use of opiate analgesic; Z79.899 Other long term (current) drug therapy ==

== ENCOUNTER → 2019-03-06 | Outpatient (REF) | payer MEDICARE, MEDICAID ==
[~2019-03-06] MED LIST changes: -LORA1TAB12 PO; +LORA1TAB4 PO; +OMEP-358 PO; +OMEP1CAP73 PO; -OMEP20CA4 PO; -OMEP20TA PO; +ONDA-83 PO; -ONDA4TAB5 PO
[2019-03-06 08:01] LABS: HEMATOCRIT 40.3 % (42.0-52.0); HEMOGLOBIN 13.2 g/dl (13.5-17.5); MEAN CORPUSCULAR HEMOGLOBIN 31.9 pg (27.0-33.0); MEAN CORPUSCULAR HGB CONC 32.8 g/dl (32.0-36.5); MEAN CORPUSCULAR VOLUME 97.3 fl (80.0-96.0); PLATELET COUNT, AUTOMATED 289 10^3/uL (150-450); RED BLOOD COUNT 4.14 10^6/uL (4.30-6.10); WHITE BLOOD COUNT 7.5 10^3/uL (4.0-10.0)
== END ==
LOC: SKLAB2 07:00
DX: J44.9 Chronic obstructive pulmonary disease, unspecified (principal)

== ENCOUNTER → 2019-03-08 | Outpatient (CLI) | payer MEDICARE, MEDICAID ==
[~2019-03-08] MED LIST changes: +LORA1TAB12 PO; -LORA1TAB4 PO; -OMEP-358 PO; -OMEP1CAP73 PO; +OMEP20CA4 PO; +OMEP20TA PO; -ONDA-83 PO; +ONDA4TAB5 PO
--- NOTE | 2019-03-10 07:03 | RADONC ---
RADIATION ONCOLOGY FOLLOWUP VISIT DATE: 03/08/2019 CHART #: [id number] DIAGNOSIS: Rectal cancer. STAGE: X, [id number]. ECOG PERFORMANCE STATUS: 4. FOLLOWUP NOTE: Mr. Morgan is a 73-year-old man with a diagnosis of a moderately differentiated adenocarcinoma of the rectum presents today for a followup visit after having completed a course of palliative local regional radiotherapy on 08/03/2018. He did tolerate his therapy reasonably well and returns today reporting no symptoms related to his disease or to his treatments. He specifically denies any nausea, vomiting, diarrhea, dysuria, hematuria or blood per rectum. He also denies rectal pain. The patient's review of systems is positive for physical limitations as he is in a wheelchair. He denies any fevers, chills, night sweats, diplopia, headaches, anxiety or depression. He is on 4 liters of oxygen and is disabled secondary to severe COPD. PHYSICAL EXAMINATION: The patient is confined to a wheelchair. EOMs intact. PERRLA. Fundi benign. Lymphatics: No palpable peripheral lymphadenopathy. Lungs: Clear to auscultation and percussion. Rectal Examination: Refused IMPRESSION: The patient has had a fair to good palliative response to his local regional radiotherapy. He was instructed to return to his referring physicians as per their instructions and directions and we would like to see him again in this clinic in approximately 6 months. cc: DO Roberta Khan MD Robert Kimball, MD David Reindl, MD
== END ==
LOC: M ONCR 13:43
PROVIDERS: ATTEND Internal Medicine
DX: C20 Malignant neoplasm of rectum (principal)

== ENCOUNTER → 2019-04-06 | Outpatient (REF) | payer MEDICARE, MEDICAID | LOC: SKLAB2 13:53 | PROVIDERS: ATTEND Family Medicine | DX: J44.9 Chronic obstructive pulmonary disease, unspecified (principal) ==

== ENCOUNTER → 2019-04-10 | Outpatient (REF) | payer MEDICARE, MEDICAID ==
[2019-04-10 07:52] LABS: HEMOGLOBIN 13.5 g/dl (13.5-17.5); MEAN CORPUSCULAR HEMOGLOBIN 31.8 pg (27.0-33.0); MEAN CORPUSCULAR HGB CONC 32.9 g/dl (32.0-36.5); MEAN CORPUSCULAR VOLUME 96.7 fl (80.0-96.0); PLATELET COUNT, AUTOMATED 268 10^3/uL (150-450); RED BLOOD COUNT 4.24 10^6/uL (4.30-6.10); WHITE BLOOD COUNT 8.4 10^3/uL (4.0-10.0)
[2019-04-10 08:16] LABS: BLOOD UREA NITROGEN 10 MG/DL (7-18); CALCIUM LEVEL 8.2 MG/DL (8.8-10.2); CARBON DIOXIDE LEVEL 30 MEQ/L (21-32); CHLORIDE LEVEL 106 MEQ/L (98-107); CREATININE FOR GFR 0.79 MG/DL (0.70-1.30); GLOMERULAR FILTRATION RATE > 60.0 (>42); GLUCOSE, FASTING 79 MG/DL (70-100); POTASSIUM SERUM 3.3 MEQ/L (3.5-5.1); SODIUM LEVEL 142 MEQ/L (136-145)
== END ==
LOC: SKLAB2 07:00
PROVIDERS: ATTEND Family Medicine
DX: J44.9 Chronic obstructive pulmonary disease, unspecified (principal)

== ENCOUNTER → 2019-04-11 | Outpatient (REF) | payer MEDICARE, MEDICAID ==
--- NOTE | 2019-04-12 03:38 | REP ---
Clinical: Cough and wheezing . Comparison: 01/17/2019 . Findings: The mediastinum and cardiac silhouette are stable and within normal limits for portable technique. The lung sharpe demonstrate chronic COPD/emphysematous changes along with bibasilar scarring. Subtle superimposed left lower lobe atelectasis cannot be excluded. Impression: Chronic COPD/emphysematous changes with scattered scarring. Cannot exclude subtle superimposed left basilar atelectasis. Electronically Signed by Alvarez Jimenez MD 04/12/2019 03:30 A
== END ==
LOC: SKLAB2 21:00
PROVIDERS: ATTEND Family Medicine
DX: R50.9 Fever, unspecified (principal); R06.2 Wheezing

== ENCOUNTER → 2019-04-21 | Outpatient (REF) | payer MEDICARE, MEDICAID ==
[~2019-04-21] MED LIST changes: +OMEP-358 PO; -OMEP20TA PO
== END ==
LOC: SKLAB2 08:00
PROVIDERS: ATTEND Family Medicine
DX: R06.2 Wheezing (principal); R06.00 Dyspnea, unspecified; J44.9 Chronic obstructive pulmonary disease, unspecified; D64.9 Anemia, unspecified; I50.9 Heart failure, unspecified

== ENCOUNTER → 2019-04-23 | Outpatient (REF) | payer MEDICARE, MEDICAID ==
[2019-04-23 18:59] LABS: BASO % 0.2 % (0.0-1.0); EOS # 0.1 10^3/uL (0.0-0.5); EOS % 0.6 % (0.0-3.0); HEMATOCRIT 40.1 % (42.0-52.0); HEMOGLOBIN 13.6 g/dl (13.5-17.5); LYMPH # 0.8 10^3/uL (1.5-5.0); MEAN CORPUSCULAR HEMOGLOBIN 32.7 pg (27.0-33.0); MEAN CORPUSCULAR HGB CONC 33.9 g/dl (32.0-36.5); MEAN CORPUSCULAR VOLUME 96.4 fl (80.0-96.0); MONO # 0.9 10^3/uL (0.0-0.8); MONO % 4.4 % (0.0-5.0); PLATELET COUNT, AUTOMATED 258 10^3/uL (150-450); RED BLOOD COUNT 4.16 10^6/uL (4.30-6.10)
--- NOTE | 2019-04-23 20:26 | REPVR ---
PROCEDURE INFORMATION: Exam: XR Chest, 1 View Exam date and time: 04/23/2019 8:08 PM Clinical history: 73 years old, male; Fever and shortness of breath; Additional info: Short of breath TECHNIQUE: Imaging protocol: XR of the chest Views: 1 view. COMPARISON: CR Chest, 1 view 04/11/2019 11:03 PM FINDINGS: Lungs: There is severe hyperinflation of the lungs consistent with very severe changes of COPD and bullous emphysema. There is heavy interstitial density in both lung bases and consistent with chronic interstitial lung disease. Considerations would include idiopathic pulmonary fibrosis. Pleural space: There is no evidence of pneumothorax. Heart/Mediastinum: The heart is normal in size. Vasculature: The aorta is sclerotic. Bones/joints: Unremarkable. Other findings: The appearance is similar to the previous exams. IMPRESSION: 1. Severe bullous emphysema through the upper lung sharpe. 2. Prominent chronic interstitial lung disease throughout the lung bases. Electronically signed by: Lino Bobby On 04/23/2019 20:25:57 PM
== END ==
LOC: SKLAB2 17:51 → M LAB 17:51
PROVIDERS: ATTEND Family Medicine
DX: J43.9 Emphysema, unspecified (principal)

== ENCOUNTER → 2019-05-08 | Outpatient (REF) | payer MEDICARE, MEDICAID ==
[2019-05-08 08:35] LABS: HEMATOCRIT 40.7 % (42.0-52.0); HEMOGLOBIN 13.5 g/dl (13.5-17.5); MEAN CORPUSCULAR HEMOGLOBIN 32.6 pg (27.0-33.0); MEAN CORPUSCULAR HGB CONC 33.2 g/dl (32.0-36.5); MEAN CORPUSCULAR VOLUME 98.3 fl (80.0-96.0); PLATELET COUNT, AUTOMATED 224 10^3/uL (150-450); RED BLOOD COUNT 4.14 10^6/uL (4.30-6.10); WHITE BLOOD COUNT 10.8 10^3/uL (4.0-10.0)
== END ==
LOC: SKLAB2 07:00
PROVIDERS: ATTEND Family Medicine
DX: J44.9 Chronic obstructive pulmonary disease, unspecified (principal)

== ENCOUNTER → 2019-05-12 | Outpatient (CLI) | payer MEDICARE, MEDICAID ==
--- NOTE | 2019-05-31 05:12 | ECWPNPC ---
PATIENT NAME: GEORGES LERMA : 1945 GENDER: MALE VISIT DATE: 05/12/2019 DISCHARGE DATE: 05/12/19 1111 VISIT LOCKED DATE TIME: PHYSICIAN: MANDI PADILLA RESOURCE: MANDI PADILLA REASON FOR APPOINTMENT 1. MED MGMT HISTORY OF PRESENT ILLNESS HISTORY OF PRESENT ILLNESS: HERE FOR F/U OF CHRONIC LOW BACK PAIN.USING OXYCODONE 10MG Q4-6H AND LYRICA 25MG DAILY.DISCUSSED TREATMENT OPTIONS.RATING PAIN VAS 8/10.HAVING A FLARE UP OF LBP AFTER SNEEZING A FEW DAYS AGO.CURRENTLY RESIDES AT [facility] BUT IS PLANNING TO GO BACK TO [place]IVING [place] NEXT MONTH. PAIN THE PATIENT DESCRIBES THE PAIN... FALL RISK SCREENING: SCREENING :NO FALLS REPORTED IN THE LAST YEAR CURRENT MEDICATIONS TAKING SYMBICORT 80-4.5 MCG/ACT AEROSOL 2 PUFFS INHALATION TWICE A DAY TAKING TRAZODONE HCL 50 MG TABLET 1 TABLET AT BEDTIME NEEDED ORALLY ONCE A DAY TAKING WHEELCHAIR - MISCELLANEOUS DIRECTED ELECTRIC DAILY DX:J44.9 & Z99.81 TAKING FUROSEMIDE 20 MG TABLET 1 TABLET ORALLY BID TAKING SYNTHROID 112 MCG TABLET 1 TABLET ON AN EMPTY STOMACH IN THE MORNING ORALLY ONCE A DAY TAKING MUCINEX 600 MG TABLET EXTENDED RELEASE 12 HOUR 1 TABLET NEEDED ORALLY EVERY 12 HRS TAKING TYLENOL 325 MG TABLET 2 TABLET NEEDED ORALLY EVERY 4 HRS TAKING PREGABALIN 25 MG CAPSULE 1 CAPSULE ORALLY DAILY TAKING OXYCODONE HCL 5 MG TABLET 2 TAB ORALLY EVERY 6 HRS PRN MDD8 TAKING PREDNISONE 5 MG TABLET 1 TABLET ORALLY ONCE A DAY TAKING ANORO ELLIPTA 62.5-25 MCG/INH AEROSOL POWDER BREATH ACTIVATED 1 PUFF INHALATION ONCE A DAY TAKING CETIRIZINE HCL 10 MG TABLET 1 TABLET ORALLY ONCE A DAY TAKING IPRATROPIUM-ALBUTEROL 0.5-2.5 (3) MG/3ML SOLUTION 3 ML INHALATION EVERY 6 HRS TAKING ALBUTEROL SULFATE (2.5 MG/3ML) 0.083% NEBULIZATION SOLUTION 3 ML NEEDED INHALATION EVERY 8 HRS TAKING IMODIUM A-D 2 MG TABLET 1 TABLET NEEDED ORALLY FOUR TIMES A DAY TAKING DULCOLAX 10 MG SUPPOSITORY 1 SUPPOSITORY NEEDED RECTAL ONCE A DAY TAKING MILK OF MAGNESIA 2400 MG/30ML SUSPENSION 5 ML AT LEAST 4 HOURS BETWEEN DOSES NEEDED ORALLY FOUR TIMES A DAY TAKING MULTI SYLVIA MINERALS - TABLET DIRECTED ORALLY DAILY NOT-TAKING VITAMIN D-3 1000 UNIT CAPSULE 1 CAPSULE ORALLY ONCE A DAY NOT-TAKING MAGNESIUM OXIDE 400 MG TABLET 1 CAPSULE ORALLY ONCE DAILY NOT-TAKING ASPIRIN 81 MG TABLET CHEWABLE 1 TABLET ORALLY ONCE A DAY NOT-TAKING POTASSIUM CHLORIDE 20 MEQ TABLET EXTENDED RELEASE 1 TABLET WITH FOOD ORALLY ONCE A DAY NOT-TAKING TAMSULOSIN HCL 0.4 MG CAPSULE EXTENDED RELEASE 24 HOUR 1 CAPSULE 30 MINUTES AFTER THE SAME MEAL EACH DAY ORALLY ONCE A DAY NOT-TAKING SPIRIVA HANDIHALER 18 MCG CAPSULE 1 CAP INHALATION ONCE DAILY NOT-TAKING ALBUTEROL 90 MCG/ACT AEROSOL SOLUTION 2 PUFF INHALATION QID/PRN SOB OR WHEEZING NOT-TAKING LORAZEPAM 1 MG TABLET 1 TABLET NEEDED ORALLY BID NOT-TAKING FISH OIL 1200 MG CAPSULE 1 CAPSULE ORALLY EVERY OTHER DAY NOT-TAKING MUCUS RELIEF 400 MG TABLET 1 TABLET NEEDED ORALLY EVERY 4 HRS NOT-TAKING POLYMYXIN B-TRIMETHOPRIM 33504-4.1 UNIT/ML SOLUTION 1 DROP INTO AFFECTED EYE OPHTHALMIC FOUR TIMES A DAY, NOTES: 5 DAYS NOT-TAKING DICLOFENAC SODIUM 50 MG TABLET DELAYED RELEASE 1 TABLET ORALLY TWICE A DAY NOT-TAKING ATORVASTATIN CALCIUM 10 MG TABLET 1 TABLET ORALLY ONCE A DAY NOT-TAKING OMEPRAZOLE 20 MG CAPSULE DELAYED RELEASE 1 CAP ORALLY TWICE DAILY NOT-TAKING HYDROCODONE-ACETAMINOPHEN 10-325 MG TABLET 1 TABLET NEEDED ORALLY EVERY 4- 6 HRS MDD 6: PAIN MANAGEMENT NOT-TAKING BACID - TABLET 1 TAB ORALLY TWICE DAILY NOT-TAKING FUROSEMIDE 20 MG TABLET 1 TABLET ORALLY DIRECTED: EVERY OTHER DAY MEDICATION LIST REVIEWED AND RECONCILED WITH THE PATIENT PAST MEDICAL HISTORY HTN COPD LOW BACK PAIN HIGH CHOLESTEROL IBS PROSTATE ISSUES EMPHYSEMA HYPOTHYROIDISM COLON CANCER ALLERGIES LOVENOX: RASH - ALLERGY SURGICAL HISTORY TONSILECTOMY 1974 BACK SURGERIES CHIP CATARACT FAMILY HISTORY FATHER: 76 YRS, COLON CA: 74 AT DX, DIAGNOSED WITH UNSPECIFIED HEART DISEASE, OTHER MALIGNANT NEOPLASM OF UNSPECIFIED SITE MOTHER: 81 YRS, GASTRIC CA, DIABETES, UNSPECIFIED HEART DISEASE, OTHER MALIGNANT NEOPLASM OF UNSPECIFIED SITE 3 BROTHER(S) . SOCIAL HISTORY GENERAL: TOBACCO USE ARE YOU A:FORMER SMOKER HOW LONG HAS IT BEEN SINCE YOU LAST SMOKED?1-5 YEARS ADDITIONAL FINDINGS: TOBACCO USERHEAVY CIGARETTE SMOKER (20-39 CIGS/DAY) OTHERS AT HOME: NONE. DIET: REGULAR. LANGUAGE TURKMEN. BMI CARE GOAL FOLLOW-UP ABOVE NORMAL BMI FOLLOW-UPDIETARY MANAGEMENT EDUCATION, GUIDANCE, AND COUNSELING RECREATIONAL DRUG USE DRUG USE?NO PATIENT DENIES ABUSE OR MISSUSED OF ANY MEDICATION. PATIENT DENIES USE OF ANY ILLEGAL SUBSTANCE INCLUDING MARIJUANA OR COCAINE. EXERCISE: NO REGULAR EXERCISE. 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 NEEDED?NO PAIN CLINIC PFS, CLERGY, PUBLIC HEALTH REFERRALS HAS THE PATIENT BEEN EDUCATED REGARDING HIS/HER PLAN OF CARE?YES HAS THE PATIENT BEEN EDUCATED REGARDING PAIN, THE RISK FOR PAIN, THE IMPORTANCE OF EFFECTIVE PAIN MANAGEMENT, AND THE PAIN ASSESSMENT PROCESS?YES LATEX QUESTIONNAIRE LATEX ALLERGY : HAVE YOU EVER DEVELOPED ANY TYPE OF REACTION AFTER HANDLING LATEX PRODUCTS SUCH RUBBER GLOVES, CONDOMS, DIAPHRAGMS, BALLOONS, SOCKS, OR UNDERWEAR?NO LATEX ALLERGY : HAVE YOU EVER DEVELOPED ANY TYPE OF REACTION DURING OR AFTER DENTAL APPOINTMENT, VAGINAL/RECTAL EXAMINATION, SURGICAL PROCEDURE, OR ANY OTHER EXPOSURE?NO LATEX RISK : HAVE YOU EVER HAD ANY DIFFICULTY BREATHING OR HIVES AFTER EATING OR HANDLING ANY FRUITS, OR VEGETABLES; SUCH KIWI, BANANAS, STONE FRUITS, OR CHESTNUTSNO LATEX RISK : DO YOU HAVE A PREVIOUS PERSONAL HISTORY OF MORE THAN NINE SURGERIES, SPINA BIFIDA, OR REPEATED CATHERIZATIONS? NO LATEX RISK : ARE YOU FREQUENTLY EXPOSED TO LATEX PRODUCTS IN YOUR OCCUPATION?NO DATE ASKED : 10/07/2018 CAFFEINE CAFFEINE USE?YES HOW OFTEN AND HOW MUCH? 3-4 CUPS ADVANCE DIRECTIVE ADVANCE DIRECTIVE DISCUSSED WITH PATIENT:YES HCP - ON FILE WITH [facility] TENRIISM NO RESTORATIONIST BELIEFS THAT WOULD IMPACT HEALTH CARE, NO RESTORATIONIST PREFERENCE. MARITAL STATUS: SINGLE. ALCOHOL SCREENING POINTS: 0, INTERPRETATION: NEGATIVE. OCCUPATION: DISABLED. REVIEWED WITH PATIENT 10/07/18 1057 JSREVIEWED WITH PATIENT 11/10/18 1145 LASREVIEWED WITH PATIENT 02/10/19 1044 NLJREVIEWED WITH PATIENT 05/12/19 1046 JS. HOSPITALIZATION/MAJOR DIAGNOSTIC PROCEDURE PNEUMONIA X3 2014 PNEUMONIA 2016 PNEUMONIA 07/2016 REVIEW OF SYSTEMS REVIEWED BY: PROVIDER: MANDI ANGULO . CONSTITUTIONAL: ANY CHANGE IN YOUR MEDICAL CONDITION? NO . CHILLS NO . FEVER NO . INFECTION: DO YOU HAVE NEW INFECTIONS? NO . DO YOU HAVE HISTORY OF MRSA? NO . MUSCULOSKELETAL: ANY NEW PATTERNS OF PAIN OR NUMBNESS? NO . GASTROENTEROLOGY: ANY NEW CHANGE IN BOWEL CONTROL? NO . GENITOURINARY: ANY NEW CHANGE IN BLADDER CONTROL? NO . IS THERE A CHANCE YOU COULD BE ? NO . HEMATOLOGY/LYMPH: DO YOU TAKE ANY BLOOD THINNERS? (FOR EXAMPLE- COUMADIN, PLAVIX, AGGRENOX, PLATEL, PRADAXA, OR XARELTO) NO . WHEN WAS YOUR LAST DOSE? DATE: TIME: . NEUROLOGY: HAVE YOU FALLEN IN THE PAST 12 MONTHS? NO . ANY NEW EXTREMITY NUMBNESS OR WEAKNESS? NO . CARDIOLOGY: DO YOU HAVE A PACEMAKER OR DEFIBRILLATOR? NO . RESPIRATORY: HAVE YOU BEEN SICK IN THE PAST WEEK? NO . FEVER NO . FLU LIKE SYMPTOMS? NO . COUGH NO . INTEGUMENTARY: DO YOU HAVE ANY RASHES OR OPEN SORES? NO . ALLERGIC/IMMUNO: ARE YOU ALLERGIC TO IV DYE? NO . ANY NEW ALLERGIES? NO . PSYCHIATRIC: DO YOU HAVE THOUGHTS OF HURTING YOURSELF OR SOMEONE ELSE? NO . ARE YOU ABUSED, NEGLECTED, OR IN AN UNSAFE ENVIRONMENT? NO . ENDOCRINOLOGY: ARE YOU DIABETIC? NO . OTHER: DO YOU NEED ANY PRESCRIPTIONS? YES . IF YES, PLEASE LIST: ____OXYCODONE 10 MG, LYRICA 25 MG . ANY NEW PROBLEMS WITH YOUR MEDICATIONS? NO . WHEN DID YOU LAST EAT? ____ . WHEN DID YOU LAST DRINK? ____ . WHAT DID YOU LAST DRINK? ____ . NAME OF PERSON DRIVING YOU HOME? ____ . DO YOU HAVE ANY OTHER QUESTIONS OR CONCERNS NO . VITAL SIGNS WT 168 LBS, HT 6'4", BMI 20.45 INDEX, BP 140/64 MM HG, HR 78 /MIN, RR 18 /MIN, TEMP 96.8 F, OXYGEN SAT % 90% 4L O2, SAFE IN ENV? (Y/N) YES, NA INITIALS SC 10:36, REVIEWED BY: CASSIDY. EXAMINATION GENERAL EXAMINATION: GENERALAWAKE,ALERT.NORMAL AFFECT. PSYCHAFFECT NORMAL . LUNGS:LUNG BRASWELL ARE CLEAR TO AUSCULTATION BILATERALLY. GOOD MOVEMENT OF AIR . HEART:S1, S2 IN A REGULAR RATE AND RHYTHM. NO SIGNIFICANT MURMURS, RUBS OR GALLOPS NOTED . ASSESSMENTS POST LAMINECTOMY SYNDROME - M96.1 (PRIMARY) GENERALIZED JOINT PAIN - M25.50 CHRONIC PRESCRIPTION OPIATE USE - Z79.899 TREATMENT POST LAMINECTOMY SYNDROME CONTINUE OXYCODONE HCL TABLET, 10 MG, 1 TABLET, ORALLY, EVERY 4 HOURS NEEDED, NOTES: STRENGTH AND FREQUENCY CHANGE CONTINUE LYRICA CAPSULE, 25 MG, 1 CAPSULE, ORALLY, THREE TIMES A DAY NOTES: ISTOP REGISTRY REVIEWED AND DEMONSTRATES COMPLLIANCE. BRINGS IN MEDICATIONS WHICH IS APPROPRIATE FOR WHAT WAS DISPENSED. RECENT URINE TOXICOLOGY REVIEWED. NO UNAUTHORIZED MEDICATIONS. NO ILLICIT SUBSTANCES AND PRESCRIBED MEDICATIONS WERE PRESENT. PROCEDURE CODES FA211 ESTABILISHED PATIENT [facility] CHARGE DISPOSITION & COMMUNICATION FOLLOW UP 2 MONTHS ELECTRONICALLY SIGNED BY KEV GARDNER ON 05/30/2019 AT 09:17 AM EST DISCLAIMER : THIS IS A VISIT SUMMARY EXTRACTED FROM THE [employer] CHART. IT IS NOT A COPY OF THE [employer] PROGRESS NOTE. JOEL
== END ==
LOC: M PAIN 10:30
PROVIDERS: ATTEND Nurse Practitioner Family
DX: M96.1 Postlaminectomy syndrome, not elsewhere classified (principal); M25.50 Pain in unspecified joint; I10 Essential (primary) hypertension; J44.9 Chronic obstructive pulmonary disease, unspecified; E03.9 Hypothyroidism, unspecified; Z87.891 Personal history of nicotine dependence; Z88.8 Allergy status to other drugs, medicaments and biological substances; Z79.51 Long term (current) use of inhaled steroids; Z79.891 Long term (current) use of opiate analgesic; Z79.899 Other long term (current) drug therapy

== ENCOUNTER → 2019-08-11 | Outpatient (CLI) | payer MEDICARE, MEDICAID ==
[~2019-08-11] MED LIST changes: -LORA1TAB12 PO; +LORA1TAB4 PO; -MORP1SOL3 SL; +MORP1SOL4 SL; +OMEP1CAP73 PO; -OMEP20CA4 PO; +ONDA-83 PO; -ONDA4TAB5 PO
--- NOTE | 2019-08-29 08:14 | ECWPNPC ---
PATIENT NAME: GEORGES LERMA : 1945 GENDER: MALE VISIT DATE: 08/11/2019 DISCHARGE DATE: 08/11/19948 VISIT LOCKED DATE TIME: PHYSICIAN: MANDI PADILLA RESOURCE: MANDI PADILLA REASON FOR APPOINTMENT 1. MED MGMT HISTORY OF PRESENT ILLNESS HISTORY OF PRESENT ILLNESS: 0HERE FOR FOLLOW-UP AND MEDICINE MANAGEMENT OF CHRONIC LOW BACK PAIN. REPORTS BEING VERY UNCOMFORTABLE OVER THE PAST FEW MONTHS. REPORTING INABILITY TO TOLERATE ANY ACTIVITY. HE IS WEEPING TODAY AND VERY DEPRESSED. DENIES THOUGHTS OF HURTING HIMSELF. CURRENTLY USING OXYCODONE 10/325 4 TABLETS DAILY. ALSO TAKING LYRICA 75 MG TWICE A DAY. RATING PAIN LEVEL A 6-10 OVER 10 VAS DESPITE MEDICATIONS. DISCUSSED MEDICATION OPTIONS. PAIN THE PATIENT DESCRIBES THE PAIN... FALL RISK SCREENING: SCREENING :NO FALLS REPORTED IN THE LAST YEAR CURRENT MEDICATIONS TAKING OXYCODONE HCL 10 MG TABLET 1 TABLET ORALLY EVERY 6 HRS PRN, NOTES: STRENGTH AND FREQUENCY CHANGE TAKING MAY HAVE - - POWER WHEELCHAIR TAKING WHEELCHAIR - MISCELLANEOUS PLEASE REPAIR ELECTRIC WHEELCHAIR ELECTRIC DAILY DX:J44.9 & Z99.81 TAKING MAY HAVE - - REPLACE JOYSTICK, BATTERIES, AND BILATERAL MOTORS PLUS LABOR R09.02, J44.9, Z99.81 [facility]: [id number] TAKING PREDNISONE 5 MG TABLET 1 TABLET ORALLY ONCE A DAY TAKING MUCINEX 600 MG TABLET EXTENDED RELEASE 12 HOUR 1 TABLET NEEDED ORALLY EVERY 12 HRS TAKING LYRICA 75 MG CAPSULE 1 CAPSULE ORALLY BID TAKING DOXYCYCLINE MONOHYDRATE 100 MG TABLET 1 TABLET ORALLY TWICE A DAY TAKING CETIRIZINE HCL 10 MG TABLET 1 TABLET ORALLY ONCE A DAY TAKING ALBUTEROL SULFATE (2.5 MG/3ML) 0.083% NEBULIZATION SOLUTION 3 ML NEEDED INHALATION EVERY 4 HRS, NOTES: FREQUENCY CHANGE TAKING SYNTHROID 112 MCG TABLET 1 TABLET ON AN EMPTY STOMACH IN THE MORNING ORALLY ONCE A DAY TAKING FUROSEMIDE 20 MG TABLET 1 TABLET ORALLY BID TAKING TRAZODONE HCL 50 MG TABLET 1 TABLET AT BEDTIME NEEDED ORALLY ONCE A DAY TAKING CAMILLE-BID PROBIOTIC - TABLET DIRECTED ORALLY THREE TIME A DAY TAKING MULTIVITAMIN ADULT - TABLET DIRECTED ORALLY ONCE A DAY TAKING ACIDOPHILUS PROBIOTIC BLEND - CAPSULE DIRECTED ORALLY TID WITH MEALS TAKING PERCOCET 10-325 MG TABLET 1 TABLET NEEDED ORALLY EVERY 6 HRS MDD4 TAKING MAY HAVE - - PORTABLE OXYGEN CONCENTRATOR DIRECTED TAKING FLUTICASONE-SALMETEROL 250-50 MCG/DOSE AEROSOL POWDER BREATH ACTIVATED 1 PUFF INHALATION TWICE A DAY TAKING INCRUSE ELLIPTA 62.5 MCG/INH AEROSOL POWDER BREATH ACTIVATED 1 PUFF INHALATION ONCE A DAY NOT-TAKING LYRICA 25 MG CAPSULE 1 CAPSULE ORALLY THREE TIMES A DAY NOT-TAKING PREDNISONE 20 MG TABLET 2 TABLET ORALLY ONCE A DAY MEDICATION LIST REVIEWED AND RECONCILED WITH THE PATIENT PAST MEDICAL HISTORY HTN COPD, END-STAGE, OXYGEN DEPENDENT LOW BACK PAIN HIGH CHOLESTEROL IBS PROSTATE ISSUES EMPHYSEMA HYPOTHYROIDISM COLON CANCER ALLERGIES LOVENOX: RASH - ALLERGY SURGICAL HISTORY TONSILECTOMY 1974 BACK SURGERIES CHIP CATARACT FAMILY HISTORY FATHER: 76 YRS, COLON CA: 74 AT DX, DIAGNOSED WITH UNSPECIFIED HEART DISEASE, OTHER MALIGNANT NEOPLASM OF UNSPECIFIED SITE MOTHER: 81 YRS, GASTRIC CA, DIABETES, UNSPECIFIED HEART DISEASE, OTHER MALIGNANT NEOPLASM OF UNSPECIFIED SITE 3 BROTHER(S) . SOCIAL HISTORY GENERAL: TOBACCO USE ARE YOU A:FORMER SMOKER HOW LONG HAS IT BEEN SINCE YOU LAST SMOKED?1-5 YEARS ADDITIONAL FINDINGS: TOBACCO USERHEAVY CIGARETTE SMOKER (20-39 CIGS/DAY) OTHERS AT HOME: NONE. DIET: REGULAR. LANGUAGE NEPALI. BMI CARE GOAL FOLLOW-UP ABOVE NORMAL BMI FOLLOW-UPDIETARY MANAGEMENT EDUCATION, GUIDANCE, AND COUNSELING RECREATIONAL DRUG USE DRUG USE?NO PATIENT DENIES ABUSE OR MISSUSED OF ANY MEDICATION. PATIENT DENIES USE OF ANY ILLEGAL SUBSTANCE INCLUDING MARIJUANA OR COCAINE. EXERCISE: NO REGULAR EXERCISE. LEARNING BARRIERS / SPECIAL NEEDS CHANGE FROM LAST VISIT?NO BARRIERS TO LEARNING?NO HEARING IMPAIRED?NO VISION IMPAIRED?YES COGNITIVELY IMPAIRED?NO :CORRECTIVE LENSES READINESS TO LEARN?YES LEARNING PREFERENCES?NO LEARNING CAPABILITIES PRESENT?YES EMOTIONAL BARRIERS?NO SPECIAL DEVICES?YES :WHEELCHAIR DIRECTOR OPERATING ROOM NEEDED?NO PAIN CLINIC PFS, CLERGY, PUBLIC HEALTH REFERRALS HAS THE PATIENT BEEN EDUCATED REGARDING HIS/HER PLAN OF CARE?YES HAS THE PATIENT BEEN EDUCATED REGARDING PAIN, THE RISK FOR PAIN, THE IMPORTANCE OF EFFECTIVE PAIN MANAGEMENT, AND THE PAIN ASSESSMENT PROCESS?YES LATEX QUESTIONNAIRE LATEX ALLERGY : HAVE YOU EVER DEVELOPED ANY TYPE OF REACTION AFTER HANDLING LATEX PRODUCTS SUCH RUBBER GLOVES, CONDOMS, DIAPHRAGMS, BALLOONS, SOCKS, OR UNDERWEAR?NO LATEX ALLERGY : HAVE YOU EVER DEVELOPED ANY TYPE OF REACTION DURING OR AFTER DENTAL APPOINTMENT, VAGINAL/RECTAL EXAMINATION, SURGICAL PROCEDURE, OR ANY OTHER EXPOSURE?NO LATEX RISK : HAVE YOU EVER HAD ANY DIFFICULTY BREATHING OR HIVES AFTER EATING OR HANDLING ANY FRUITS, OR VEGETABLES; SUCH KIWI, BANANAS, STONE FRUITS, OR CHESTNUTSNO LATEX RISK : DO YOU HAVE A PREVIOUS PERSONAL HISTORY OF MORE THAN NINE SURGERIES, SPINA BIFIDA, OR REPEATED CATHERIZATIONS? NO LATEX RISK : ARE YOU FREQUENTLY EXPOSED TO LATEX PRODUCTS IN YOUR OCCUPATION?NO DATE ASKED : 10/07/2018 CAFFEINE CAFFEINE USE?YES HOW OFTEN AND HOW MUCH? 3-4 CUPS ADVANCE DIRECTIVE ADVANCE DIRECTIVE DISCUSSED WITH PATIENT:YES HCP - ON FILE WITH [facility] SIKHISM NO PENTECOSTALISM BELIEFS THAT WOULD IMPACT HEALTH CARE, NO PENTECOSTALISM PREFERENCE. MARITAL STATUS: SINGLE. ALCOHOL SCREENING POINTS: 0, INTERPRETATION: NEGATIVE. OCCUPATION: DISABLED. REVIEWED WITH PATIENT 10/07/18 1057 JSREVIEWED WITH PATIENT 11/10/18 1145 LASREVIEWED WITH PATIENT 02/10/19 1044 NLJREVIEWED WITH PATIENT 05/12/19 1046 JSREVIEWED WITH PATIENT 08/11/2019 0913 JS. HOSPITALIZATION/MAJOR DIAGNOSTIC PROCEDURE PNEUMONIA X3 2015 PNEUMONIA 2016 PNEUMONIA 07/2016 LONGTERM D/C - REPORTS BEING THERE FOR A YEAR AND A HALF 04/2019 REVIEW OF SYSTEMS REVIEWED BY: PROVIDER: MANDI ANGULO . CONSTITUTIONAL: ANY CHANGE IN YOUR MEDICAL CONDITION? NO . CHILLS NO . FEVER NO . INFECTION: DO YOU HAVE NEW INFECTIONS? NO . DO YOU HAVE HISTORY OF MRSA? NO . MUSCULOSKELETAL: ANY NEW PATTERNS OF PAIN OR NUMBNESS? NO . GASTROENTEROLOGY: ANY NEW CHANGE IN BOWEL CONTROL? NO . GENITOURINARY: ANY NEW CHANGE IN BLADDER CONTROL? NO . IS THERE A CHANCE YOU COULD BE ? NO . HEMATOLOGY/LYMPH: DO YOU TAKE ANY BLOOD THINNERS? (FOR EXAMPLE- COUMADIN, PLAVIX, AGGRENOX, PLATEL, PRADAXA, OR XARELTO) NO . WHEN WAS YOUR LAST DOSE? DATE: TIME: . NEUROLOGY: HAVE YOU FALLEN IN THE PAST 12 MONTHS? YES, STATES FALL TRIPPING OVER OXYGEN HOSE - STATES NO INJURIES, NO ED VISIT . ANY NEW EXTREMITY NUMBNESS OR WEAKNESS? NO . CARDIOLOGY: DO YOU HAVE A PACEMAKER OR DEFIBRILLATOR? NO . RESPIRATORY: HAVE YOU BEEN SICK IN THE PAST WEEK? NO . FEVER NO . FLU LIKE SYMPTOMS? NO . COUGH NO . INTEGUMENTARY: DO YOU HAVE ANY RASHES OR OPEN SORES? NO . ALLERGIC/IMMUNO: ARE YOU ALLERGIC TO IV DYE? NO . ANY NEW ALLERGIES? NO . PSYCHIATRIC: DO YOU HAVE THOUGHTS OF HURTING YOURSELF OR SOMEONE ELSE? NO . ARE YOU ABUSED, NEGLECTED, OR IN AN UNSAFE ENVIRONMENT? NO . ENDOCRINOLOGY: ARE YOU DIABETIC? NO . OTHER: DO YOU NEED ANY PRESCRIPTIONS? NO . IF YES, PLEASE LIST: ____ . ANY NEW PROBLEMS WITH YOUR MEDICATIONS? YES, STATES HE GETS LESS PAIN PILLS SINCE LEAVING THE LONGTERM, IN EXCRUCIATING PAIN . WHEN DID YOU LAST EAT? ____ . WHEN DID YOU LAST DRINK? ____ . WHAT DID YOU LAST DRINK? ____ . NAME OF PERSON DRIVING YOU HOME? ____ . DO YOU HAVE ANY OTHER QUESTIONS OR CONCERNS YES, IS NOT GETTING ENOUGH PAIN MEDICATION TO COVER HIS PAIN . VITAL SIGNS WT 172 LBS, HT 6'4", BMI 20.93 INDEX, BP 122/69 MM HG, HR 77 /MIN, RR 16 /MIN, TEMP 97.2 F, OXYGEN SAT % 88% 4L, SAFE IN ENV? (Y/N) YES, NA INITIALS AW 0908, REVIEWED BY: CASSIDY. EXAMINATION GENERAL EXAMINATION: GENERALIN WHEELCHAIR. O2 DEPENDENT. DEPRESSED . LUNGS:COARSE RHONCHI LUNG SOUNDS DIMINISHED IN THE BASES . HEART: HEART SOUNDS ARE NORMAL, RHYTHM IS REGULAR, NO MURMUR. ASSESSMENTS POST LAMINECTOMY SYNDROME - M96.1 (PRIMARY) GENERALIZED JOINT PAIN - M25.50 CHRONIC PRESCRIPTION OPIATE USE - Z79.899 TREATMENT POST LAMINECTOMY SYNDROME INCREASE LYRICA CAPSULE, 150 MG, 1 CAPSULE, ORALLY, BID MDD2, 30 DAYS, 60, REFILLS 2 INCREASE PERCOCET TABLET, 10-325 MG, 1 TABLET NEEDED, ORALLY, Q4-6HR PRN MDD5, 30 DAYS, 150, REFILLS 0 NOTES: ISTOP REGISTRY REVIEWED AND DEMONSTRATES COMPLLIANCE. BRINGS IN MEDICATIONS WHICH IS APPROPRIATE FOR WHAT WAS DISPENSED. RECENT URINE TOXICOLOGY REVIEWED. NO UNAUTHORIZED MEDICATIONS. NO ILLICIT SUBSTANCES AND PRESCRIBED MEDICATIONS WERE PRESENT. URINE TOX TODAY, RISKS OF NARCOTIC/OPIOD MEDICATIONS INCLUDES BUT IS NOT LIMITED TO RISK OF DEPENDANCE/DEVELOPMENT OF ADDICTION, MOOD DISTURBANCE AND DEPRESSION, OSTEOPOROSIS, HORMONAL AND LABIDAL CHANGES, RESPIRATORY DEPRESSION AND . PATIENT IS ADVISED NOT TO DRIVE OR DRINK ALCOHOL WHILE ON THESE MEDICATIONS. PROCEDURE CODES FA211 ESTABILISHED PATIENT [facility] FACILITY CHARGE DISPOSITION & COMMUNICATION FOLLOW UP 6 WEEKS (REASON: MED MGMNT) ELECTRONICALLY SIGNED BY KEV GARDNER ON 08/28/2019 AT 04:28 PM EST DISCLAIMER : THIS IS A VISIT SUMMARY EXTRACTED FROM THE [employer] CHART. IT IS NOT A COPY OF THE [employer] PROGRESS NOTE. JOEL
== END ==
LOC: M PAIN 09:00
PROVIDERS: ATTEND Nurse Practitioner Family
DX: M96.1 Postlaminectomy syndrome, not elsewhere classified (principal); M25.50 Pain in unspecified joint; I10 Essential (primary) hypertension; J44.9 Chronic obstructive pulmonary disease, unspecified; E78.00 Pure hypercholesterolemia, unspecified; K58.9 Irritable bowel syndrome, unspecified; E03.9 Hypothyroidism, unspecified; Z87.891 Personal history of nicotine dependence; Z79.899 Other long term (current) drug therapy; Z79.891 Long term (current) use of opiate analgesic; Z88.8 Allergy status to other drugs, medicaments and biological substances

== ENCOUNTER → 2019-09-22 | Outpatient (CLI) | payer MEDICARE, MEDICAID ==
--- NOTE | 2019-09-23 03:45 | ECWPNPC ---
PATIENT NAME: GEORGES LERMA : 1945 GENDER: MALE VISIT DATE: 09/22/2019 DISCHARGE DATE: 09/22/19956 VISIT LOCKED DATE TIME: PHYSICIAN: MANDI PADILLA RESOURCE: MANDI PADILLA REASON FOR APPOINTMENT 1. MED MGMT HISTORY OF PRESENT ILLNESS HISTORY OF PRESENT ILLNESS: PATIENT GIVES PERMISSION TO DO TELEPHONE OFFICE VISIT. HAS BEEN TAKING OXYCODONE 10 MG EVERY 6 HOURS WITH MAX DAILY DOSE OF 4 TABLETS PER DAY HE STATES PRESCRIPTION WAS WRONG. HE RECEIVED 120 TABLETS INSTEAD OF 150 TABLETS PRESCRIBED. I DID CALL THE PHARMACY AND VERIFIED THIS AND WE WILL BE CORRECTING THAT TODAY. HAS HAD AN INCREASE IN PAIN DUE TO THE FACT THAT HE HASN'T BEEN ON HIS USUAL DOSAGE. DESCRIBES LOW BACK PAIN A CONSTANT ACHING AND BURNING. RATING PAIN INTENSITY 10 OVER 10 VAS. PAIN IS AGGRAVATED BY HOUSEKEEPING. PAIN IS RELIEVED SOMEWHAT WITH MEDICATION AND HOT TUB SOAKS. PAIN THE PATIENT DESCRIBES THE PAIN... FALL RISK SCREENING: SCREENING :NO FALLS REPORTED IN THE LAST YEAR CURRENT MEDICATIONS TAKING MAY HAVE - - POWER WHEELCHAIR TAKING WHEELCHAIR - MISCELLANEOUS PLEASE REPAIR ELECTRIC WHEELCHAIR ELECTRIC DAILY DX:J44.9 & Z99.81 TAKING MAY HAVE - - REPLACE JOYSTICK, BATTERIES, AND BILATERAL MOTORS PLUS LABOR R09.02, J44.9, Z99.81 [facility]: [id number] TAKING PREDNISONE 5 MG TABLET 1 TABLET ORALLY ONCE A DAY TAKING MUCINEX 600 MG TABLET EXTENDED RELEASE 12 HOUR 1 TABLET NEEDED ORALLY EVERY 12 HRS TAKING DOXYCYCLINE MONOHYDRATE 100 MG TABLET 1 TABLET ORALLY TWICE A DAY TAKING CETIRIZINE HCL 10 MG TABLET 1 TABLET ORALLY ONCE A DAY TAKING ALBUTEROL SULFATE (2.5 MG/3ML) 0.083% NEBULIZATION SOLUTION 3 ML NEEDED INHALATION EVERY 4 HRS, NOTES: FREQUENCY CHANGE TAKING SYNTHROID 112 MCG TABLET 1 TABLET ON AN EMPTY STOMACH IN THE MORNING ORALLY ONCE A DAY TAKING FUROSEMIDE 20 MG TABLET 1 TABLET ORALLY BID TAKING TRAZODONE HCL 50 MG TABLET 1 TABLET AT BEDTIME NEEDED ORALLY ONCE A DAY TAKING MULTIVITAMIN ADULT - TABLET DIRECTED ORALLY ONCE A DAY TAKING ACIDOPHILUS PROBIOTIC BLEND - CAPSULE DIRECTED ORALLY TID WITH MEALS TAKING MAY HAVE - - PORTABLE OXYGEN CONCENTRATOR DIRECTED TAKING FLUTICASONE-SALMETEROL 250-50 MCG/DOSE AEROSOL POWDER BREATH ACTIVATED 1 PUFF INHALATION TWICE A DAY TAKING INCRUSE ELLIPTA 62.5 MCG/INH AEROSOL POWDER BREATH ACTIVATED 1 PUFF INHALATION ONCE A DAY TAKING LYRICA 150 MG CAPSULE 1 CAPSULE ORALLY BID MDD2 TAKING OXYCODONE HCL 10 MG TABLET 1 TABLET ORALLY EVERY 6 HRS PRNMDD5, NOTES: STRENGTH AND FREQUENCY CHANGE NOT-TAKING CAMILLE-BID PROBIOTIC - TABLET DIRECTED ORALLY THREE TIME A DAY NOT-TAKING PERCOCET 10-325 MG TABLET 1 TABLET NEEDED ORALLY Q4-6HR PRN MDD5 NOT-TAKING LYRICA 25 MG CAPSULE 1 CAPSULE ORALLY THREE TIMES A DAY NOT-TAKING PREDNISONE 20 MG TABLET 2 TABLET ORALLY ONCE A DAY MEDICATION LIST REVIEWED AND RECONCILED WITH THE PATIENT PAST MEDICAL HISTORY HTN COPD, END-STAGE, OXYGEN DEPENDENT LOW BACK PAIN HIGH CHOLESTEROL IBS PROSTATE ISSUES EMPHYSEMA HYPOTHYROIDISM COLON CANCER ALLERGIES LOVENOX: RASH - ALLERGY SURGICAL HISTORY TONSILECTOMY 1974 BACK SURGERIES CHIP CATARACT FAMILY HISTORY FATHER: 76 YRS, COLON CA: 74 AT DX, DIAGNOSED WITH UNSPECIFIED HEART DISEASE, OTHER MALIGNANT NEOPLASM OF UNSPECIFIED SITE MOTHER: 81 YRS, GASTRIC CA, DIABETES, UNSPECIFIED HEART DISEASE, OTHER MALIGNANT NEOPLASM OF UNSPECIFIED SITE 3 BROTHER(S) . SOCIAL HISTORY GENERAL: TOBACCO USE ARE YOU A:FORMER SMOKER HOW LONG HAS IT BEEN SINCE YOU LAST SMOKED?1-5 YEARS ADDITIONAL FINDINGS: TOBACCO USERHEAVY CIGARETTE SMOKER (20-39 CIGS/DAY) OTHERS AT HOME: NONE. DIET: REGULAR. LANGUAGE VIETNAMESE. NEW PATIENT PAIN DIARY PATIENT DESCRIBES PAIN :ACHING, BURNING, HAVE IT ALL THE TIME, SHARP, STABBING, THROBBING, SORE, SHOOTING FROM 0-10, WHAT LEVEL IS YOUR PAIN TODAY?10 PRECIPITATING FACTORS HOUSE CLEANING ALLEVIATING FACTORS MEDS HOT TUB WATER BMI CARE GOAL FOLLOW-UP ABOVE NORMAL BMI FOLLOW-UPDIETARY MANAGEMENT EDUCATION, GUIDANCE, AND COUNSELING RECREATIONAL DRUG USE DRUG USE?NO PATIENT DENIES ABUSE OR MISSUSED OF ANY MEDICATION. PATIENT DENIES USE OF ANY ILLEGAL SUBSTANCE INCLUDING MARIJUANA OR COCAINE. EXERCISE: NO REGULAR EXERCISE. 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 CLINIC PFS, CLERGY, PUBLIC HEALTH REFERRALS HAS THE PATIENT BEEN EDUCATED REGARDING HIS/HER PLAN OF CARE?YES HAS THE PATIENT BEEN EDUCATED REGARDING PAIN, THE RISK FOR PAIN, THE IMPORTANCE OF EFFECTIVE PAIN MANAGEMENT, AND THE PAIN ASSESSMENT PROCESS?YES LATEX QUESTIONNAIRE LATEX ALLERGY : HAVE YOU EVER DEVELOPED ANY TYPE OF REACTION AFTER HANDLING LATEX PRODUCTS SUCH RUBBER GLOVES, CONDOMS, DIAPHRAGMS, BALLOONS, SOCKS, OR UNDERWEAR?NO LATEX ALLERGY : HAVE YOU EVER DEVELOPED ANY TYPE OF REACTION DURING OR AFTER DENTAL APPOINTMENT, VAGINAL/RECTAL EXAMINATION, SURGICAL PROCEDURE, OR ANY OTHER EXPOSURE?NO DATE ASKED : 10/07/2018 LATEX RISK : HAVE YOU EVER HAD ANY DIFFICULTY BREATHING OR HIVES AFTER EATING OR HANDLING ANY FRUITS, OR VEGETABLES; SUCH KIWI, BANANAS, STONE FRUITS, OR CHESTNUTSNO LATEX RISK : DO YOU HAVE A PREVIOUS PERSONAL HISTORY OF MORE THAN NINE SURGERIES, SPINA BIFIDA, OR REPEATED CATHERIZATIONS? NO LATEX RISK : ARE YOU FREQUENTLY EXPOSED TO LATEX PRODUCTS IN YOUR OCCUPATION?NO CAFFEINE CAFFEINE USE?YES HOW OFTEN AND HOW MUCH? 3-4 CUPS ADVANCE DIRECTIVE ADVANCE DIRECTIVE DISCUSSED WITH PATIENT:YES HCP - ON FILE WITH [facility] LATTER DAY NO ISLAM BELIEFS THAT WOULD IMPACT HEALTH CARE, NO ISLAM PREFERENCE. MARITAL STATUS: SINGLE. ALCOHOL SCREENING POINTS: 0, INTERPRETATION: NEGATIVE. OCCUPATION: DISABLED. REVIEWED WITH PATIENT 10/07/18 1057 JSREVIEWED WITH PATIENT 11/10/18 1145 LASREVIEWED WITH PATIENT 02/10/19 1044 NLJREVIEWED WITH PATIENT 05/12/19 1046 JSREVIEWED WITH PATIENT 08/11/2019 0913 JS. HOSPITALIZATION/MAJOR DIAGNOSTIC PROCEDURE PNEUMONIA X3 2014 PNEUMONIA 2016 PNEUMONIA 07/2016 [facility] D/C - REPORTS BEING THERE FOR A YEAR AND A HALF 04/2019 REVIEW OF SYSTEMS REVIEWED BY: PROVIDER: MANDI ANGULO . CONSTITUTIONAL: ANY CHANGE IN YOUR MEDICAL CONDITION? NO . CHILLS NO . FEVER NO . INFECTION: DO YOU HAVE NEW INFECTIONS? NO . DO YOU HAVE HISTORY OF MRSA? NO . MUSCULOSKELETAL: ANY NEW PATTERNS OF PAIN OR NUMBNESS? NO . GASTROENTEROLOGY: ANY NEW CHANGE IN BOWEL CONTROL? NO . GENITOURINARY: ANY NEW CHANGE IN BLADDER CONTROL? NO . IS THERE A CHANCE YOU COULD BE ? NO . HEMATOLOGY/LYMPH: DO YOU TAKE ANY BLOOD THINNERS? (FOR EXAMPLE- COUMADIN, PLAVIX, AGGRENOX, PLATEL, PRADAXA, OR XARELTO) NO . WHEN WAS YOUR LAST DOSE? DATE: TIME: . NEUROLOGY: HAVE YOU FALLEN IN THE PAST 12 MONTHS? YES, FELL 4 WEEKS AGO TRIPPED OVER OXYGEN TUBING, PT DENIES INJURIES NEEDING TX . ANY NEW EXTREMITY NUMBNESS OR WEAKNESS? NO . CARDIOLOGY: DO YOU HAVE A PACEMAKER OR DEFIBRILLATOR? NO . RESPIRATORY: HAVE YOU BEEN SICK IN THE PAST WEEK? NO . FEVER NO . FLU LIKE SYMPTOMS? NO . COUGH NO . INTEGUMENTARY: DO YOU HAVE ANY RASHES OR OPEN SORES? NO . ALLERGIC/IMMUNO: ARE YOU ALLERGIC TO IV DYE? NO . ANY NEW ALLERGIES? NO . PSYCHIATRIC: DO YOU HAVE THOUGHTS OF HURTING YOURSELF OR SOMEONE ELSE? NO . ARE YOU ABUSED, NEGLECTED, OR IN AN UNSAFE ENVIRONMENT? NO . ENDOCRINOLOGY: ARE YOU DIABETIC? NO . OTHER: DO YOU NEED ANY PRESCRIPTIONS? NO . IF YES, PLEASE LIST: ____ . ANY NEW PROBLEMS WITH YOUR MEDICATIONS? NO . WHEN DID YOU LAST EAT? ____ . WHEN DID YOU LAST DRINK? ____ . WHAT DID YOU LAST DRINK? ____ . NAME OF PERSON DRIVING YOU HOME? ____ . DO YOU HAVE ANY OTHER QUESTIONS OR CONCERNS NO . ASSESSMENTS POST LAMINECTOMY SYNDROME - M96.1 (PRIMARY) CHRONIC PRESCRIPTION OPIATE USE - Z79.899 TREATMENT POST LAMINECTOMY SYNDROME CONTINUE LYRICA CAPSULE, 150 MG, 1 CAPSULE, ORALLY, BID MDD2 REFILL OXYCODONE HCL TABLET, 10 MG, 1 TABLET, ORALLY, Q4-6HR NEEDED MDD5, 30 DAYS, 150, REFILLS 0, NOTES: STRENGTH AND FREQUENCY CHANGE NOTES: ISTOP REGISTRY REVIEWED AND DEMONSTRATES COMPLLIANCE. DISPOSITION & COMMUNICATION FOLLOW UP 3 MONTHS (REASON: MED MGMNT) ELECTRONICALLY SIGNED BY KEV GARDNER ON 09/22/2019 AT 10:24 AM EDT DISCLAIMER : THIS IS A VISIT SUMMARY EXTRACTED FROM THE [employer] CHART. IT IS NOT A COPY OF THE [employer] PROGRESS NOTE. MTDD
== END ==
LOC: M PAIN 09:00
PROVIDERS: ATTEND Nurse Practitioner Family
DX: M96.1 Postlaminectomy syndrome, not elsewhere classified (principal); Z79.899 Other long term (current) drug therapy

== ENCOUNTER → 2019-12-25 | Outpatient (CLI) | payer MEDICARE, MEDICAID ==
--- NOTE | 2019-12-26 08:06 | ECWPNPC ---
PATIENT NAME: GEORGES LERMA : 1945 GENDER: MALE VISIT DATE: 12/25/2019 DISCHARGE DATE: 12/25/19915 VISIT LOCKED DATE TIME: PHYSICIAN: MANDI PADILLA RESOURCE: MANDI PADILLA REASON FOR APPOINTMENT 1. 3 MO MED MGMT HISTORY OF PRESENT ILLNESS GENERAL: HERE FOR FOLLOW-UP OF CHRONIC LOW BACK PAIN WITH A HISTORY OF POST-LAMINECTOMY PAIN SYNDROME. FINDS CURRENT MEDICATION HELPFUL AT REDUCING PAIN AND KEEPING HIM FUNCTIONAL. DENIES ADVERSE EFFECTS WITH HIS MEDICATIONS.-. FALL RISK SCREENING: SCREENING :NO FALLS REPORTED IN THE LAST YEAR PAIN SCREENING: PATIENT HAS A COMPLAINT OF ACUTE OR CHRONIC PAIN :YES LOCATION OF PAIN:LOW BACK, LEG(S) INTENSITY OF PAIN (SCALE OF 1 TO 10):9 WHAT DOES YOUR PAIN FEEL LIKE:ACHING, BURNING, CONTINOUS, SHARP, STABBING DURATION:CONTINOUS PAIN IS INCREASED BY:ACTIVITIES PAIN IS DECREASED BY:USE OF PAIN MEDICATIONS NURSING NOTE: -. PAIN CENTER INTAKE QUESTIONS: DO YOU HAVE A HISTORY OF MRSA? :NO DO YOU TAKE A BLOOD THINNERS? :NO DO YOU HAVE ANY BLEEDING DISORDERS? :NO ANY NEW NUMBNESS OR WEAKNESS IN YOUR LEGS OR ARMS? :NO ANY PACEMAKER,DEFIBRILLATOR, OR DORSAL COLUMN STIMULATOR? :NO DO YOU HAVE ANY RASHES OR OPEN SORES? :NO ARE YOU ALLERGIC TO IV DYE? :NO ARE YOU DIABETIC? :NO ANY NEW PROBLEMS WITH YOUR MEDICATIONS? :NO HAVE YOU RECEIVED A VACCINE IN THE PAST 30 DAYS? :NO DO YOU PLAN TO RECEIVE A VACCINE IN THE NEXT 21 DAYS? :NO DO YOU NEED ANY PRESCRIPTION? :YES OXYCODONE AND LYRICA DO YOU TAKE ANY IMMUNOSUPPRESSIVE MEDICATIONS? :NO IS THERE A CHANCE YOU COULD BE ? :NO ARE YOU BREAST FEEDING? :NO CURRENT MEDICATIONS TAKING MAY HAVE - - POWER WHEELCHAIR TAKING WHEELCHAIR - MISCELLANEOUS PLEASE REPAIR ELECTRIC WHEELCHAIR ELECTRIC DAILY DX:J44.9 & Z99.81 TAKING MAY HAVE - - REPLACE JOYSTICK, BATTERIES, AND BILATERAL MOTORS PLUS LABOR R09.02, J44.9, Z99.81 [facility]: [id number] TAKING MAY HAVE - - PORTABLE OXYGEN CONCENTRATOR DIRECTED TAKING SILDENAFIL CITRATE 100 MG TABLET 1/2 TABLET NEEDED 1 HOUR PRIOR TO SEXUAL ACTIVITY ORALLY ONCE A DAY TAKING ALBUTEROL SULFATE HFA 108 (90 BASE) MCG/ACT AEROSOL SOLUTION 1 PUFF NEEDED INHALATION EVERY 4 HRS TAKING FUROSEMIDE 20 MG TABLET 1 TABLET ORALLY BID TAKING MUCINEX 600 MG TABLET EXTENDED RELEASE 12 HOUR 1 TABLET NEEDED ORALLY EVERY 12 HRS TAKING ALBUTEROL SULFATE (2.5 MG/3ML) 0.083% NEBULIZATION SOLUTION 3 ML NEEDED INHALATION EVERY 4 HRS, NOTES: FREQUENCY CHANGE TAKING MULTIVITAMIN ADULT - TABLET DIRECTED ORALLY ONCE A DAY TAKING ACIDOPHILUS PROBIOTIC BLEND - CAPSULE DIRECTED ORALLY TID WITH MEALS TAKING FLUTICASONE-SALMETEROL 250-50 MCG/DOSE AEROSOL POWDER BREATH ACTIVATED 1 PUFF INHALATION TWICE A DAY TAKING INCRUSE ELLIPTA 62.5 MCG/INH AEROSOL POWDER BREATH ACTIVATED 1 PUFF INHALATION ONCE A DAY TAKING PREDNISONE 5 MG TABLET 1 TABLET ORALLY ONCE A DAY TAKING NEBULIZER/TUBING/MOUTHPIECE - KIT DIRECTED 1 KIT TO USE WITH NEBULIZER [facility] [id number] [facility] [id number] TAKING TRAZODONE HCL 50 MG TABLET 1 TABLET AT BEDTIME NEEDED ORALLY ONCE A DAY TAKING CETIRIZINE HCL 10 MG TABLET 1 TABLET ORALLY ONCE A DAY TAKING SYNTHROID 112 MCG TABLET 1 TABLET ON AN EMPTY STOMACH IN THE MORNING ORALLY ONCE A DAY TAKING OXYCODONE HCL 10 MG TABLET 1 TABLET ORALLY Q4-6HR NEEDED MDD5, NOTES: STRENGTH AND FREQUENCY CHANGE TAKING LYRICA 150 MG CAPSULE 1 CAPSULE ORALLY BID MDD2 NOT-TAKING CAMILLE-BID PROBIOTIC - TABLET DIRECTED ORALLY THREE TIME A DAY NOT-TAKING PERCOCET 10-325 MG TABLET 1 TABLET NEEDED ORALLY Q4-6HR PRN MDD5 NOT-TAKING LYRICA 25 MG CAPSULE 1 CAPSULE ORALLY THREE TIMES A DAY MEDICATION LIST REVIEWED AND RECONCILED WITH THE PATIENT PAST MEDICAL HISTORY HTN COPD, END-STAGE, OXYGEN DEPENDENT LOW BACK PAIN HIGH CHOLESTEROL IBS PROSTATE ISSUES EMPHYSEMA HYPOTHYROIDISM COLON CANCER ALLERGIES LOVENOX: RASH - ALLERGY SURGICAL HISTORY TONSILECTOMY 1974 BACK SURGERIES CHIP CATARACT FAMILY HISTORY FATHER: 76 YRS, COLON CA: 74 AT DX, DIAGNOSED WITH UNSPECIFIED HEART DISEASE, OTHER MALIGNANT NEOPLASM OF UNSPECIFIED SITE MOTHER: 81 YRS, GASTRIC CA, DIABETES, UNSPECIFIED HEART DISEASE, OTHER MALIGNANT NEOPLASM OF UNSPECIFIED SITE 3 BROTHER(S) . SOCIAL HISTORY GENERAL: TOBACCO USE ARE YOU A:FORMER SMOKER HOW LONG HAS IT BEEN SINCE YOU LAST SMOKED?1-5 YEARS ADDITIONAL FINDINGS: TOBACCO USERHEAVY CIGARETTE SMOKER (20-39 CIGS/DAY) LATEX QUESTIONNAIRE LATEX ALLERGY : HAVE YOU EVER DEVELOPED ANY TYPE OF REACTION AFTER HANDLING LATEX PRODUCTS SUCH RUBBER GLOVES, CONDOMS, DIAPHRAGMS, BALLOONS, SOCKS, OR UNDERWEAR?NO LATEX ALLERGY : HAVE YOU EVER DEVELOPED ANY TYPE OF REACTION DURING OR AFTER DENTAL APPOINTMENT, VAGINAL/RECTAL EXAMINATION, SURGICAL PROCEDURE, OR ANY OTHER EXPOSURE?NO LATEX RISK : HAVE YOU EVER HAD ANY DIFFICULTY BREATHING OR HIVES AFTER EATING OR HANDLING ANY FRUITS, OR VEGETABLES; SUCH KIWI, BANANAS, STONE FRUITS, OR CHESTNUTSNO LATEX RISK : DO YOU HAVE A PREVIOUS PERSONAL HISTORY OF MORE THAN NINE SURGERIES, SPINA BIFIDA, OR REPEATED CATHERIZATIONS? NO LATEX RISK : ARE YOU FREQUENTLY EXPOSED TO LATEX PRODUCTS IN YOUR OCCUPATION?NO DATE ASKED : 12/25/2019 BMI CARE GOAL FOLLOW-UP ABOVE NORMAL BMI FOLLOW-UPDIETARY MANAGEMENT EDUCATION, GUIDANCE, AND COUNSELING ALCOHOL SCREENING POINTS: 0, INTERPRETATION: NEGATIVE. RECREATIONAL DRUG USE DRUG USE?NO PATIENT DENIES ABUSE OR MISSUSED OF ANY MEDICATION. PATIENT DENIES USE OF ANY ILLEGAL SUBSTANCE INCLUDING MARIJUANA OR COCAINE. CAFFEINE CAFFEINE USE?YES HOW OFTEN AND HOW MUCH? 3-4 CUPS [place]RIAN NO AMISH BELIEFS THAT WOULD IMPACT HEALTH CARE, NO AMISH PREFERENCE. LANGUAGE CANADIAN. 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 DIET: REGULAR. EXERCISE: NO REGULAR EXERCISE. MARITAL STATUS: SINGLE. OTHERS AT HOME: NONE. PAIN CLINIC PFS, CLERGY, PUBLIC HEALTH REFERRALS HAS THE PATIENT BEEN EDUCATED REGARDING HIS/HER PLAN OF CARE?YES HAS THE PATIENT BEEN EDUCATED REGARDING PAIN, THE RISK FOR PAIN, THE IMPORTANCE OF EFFECTIVE PAIN MANAGEMENT, AND THE PAIN ASSESSMENT PROCESS?YES ADVANCE DIRECTIVE ADVANCE DIRECTIVE DISCUSSED WITH PATIENT:YES HCP - ON FILE [facility] REVIEWED WITH PATIENT 10/07/18 1057 JSREVIEWED WITH PATIENT 11/10/18 1145 LASREVIEWED WITH PATIENT 02/10/19 1044 NLJREVIEWED WITH PATIENT 05/12/19 1046 JSREVIEWED WITH PATIENT 08/11/2019 0913 JS. HOSPITALIZATION/MAJOR DIAGNOSTIC PROCEDURE PNEUMONIA X3 2014 PNEUMONIA 2016 PNEUMONIA 07/2016 [facility] D/C - REPORTS BEING THERE FOR A YEAR AND A HALF 04/2019 REVIEW OF SYSTEMS CONSTITUTIONAL: ANY RECENT FEVER NO . CHILLS NO . WEIGHT CHANGE OF UNKNOWN REASONS NO . GASTROENTEROLOGY: NEW UNEXPLAINABLE CHANGES IN BOWEL CONTROL NO . CONSTIPATION NO . GENITOURINARY: ANY NEW CHANGE IN BLADDER CONTROL? NO . NEUROLOGY: NEW ONSET DIZZINESS OR NEUROLOGICAL CHANGES NOT MENTIONED NO . NEW NUMBNESS OR PAIN PATTERNS NOT MENTIONED AND PERTINENT TO TODAY'S VISIT NO . CARDIOLOGY: NEW CHEST PRESSURE NO . NEW CHEST PAIN NO . RESPIRATORY: UNEXPLAINABLE COUGH NO . NEW SHORTNESS OF BREATH NO . VITAL SIGNS WT 175 LBS, HT 6'4", BMI 21.30 INDEX, BP 144/60 MM HG, HR 75 /MIN, RR 18 /MIN, TEMP 98.5 F, OXYGEN SAT % 92%, NA INITIALS AW 0855. EXAMINATION GENERAL EXAMINATION: GENERALIN WHEELCHAIR. O2 DEPENDENT. DEPRESSED . LUNGS:COARSE RHONCHI LUNG SOUNDS DIMINISHED IN THE BASES . HEART: HEART SOUNDS ARE NORMAL, RHYTHM IS REGULAR, NO MURMUR. ASSESSMENTS POST LAMINECTOMY SYNDROME - M96.1 (PRIMARY) TREATMENT POST LAMINECTOMY SYNDROME CONTINUE LYRICA CAPSULE, 150 MG, 1 CAPSULE, ORALLY, BID MDD2 REFILL PERCOCET TABLET, 10-325 MG, 1 TABLET NEEDED, ORALLY, Q4-6HR PRN MDD5, 30 DAYS, 150, REFILLS 0 NOTES: ISTOP REGISTRY REVIEWED AND DEMONSTRATES COMPLLIANCE. BRINGS IN MEDICATIONS WHICH IS APPROPRIATE FOR WHAT WAS DISPENSED. RECENT URINE TOXICOLOGY REVIEWED. NO UNAUTHORIZED MEDICATIONS. NO ILLICIT SUBSTANCES AND PRESCRIBED MEDICATIONS WERE PRESENT. , RISKS OF NARCOTIC/OPIOD MEDICATIONS INCLUDES BUT IS NOT LIMITED TO RISK OF DEPENDANCE/DEVELOPMENT OF ADDICTION, MOOD DISTURBANCE AND DEPRESSION, OSTEOPOROSIS, HORMONAL AND LABIDAL CHANGES, RESPIRATORY DEPRESSION AND . PATIENT IS ADVISED NOT TO DRIVE OR DRINK ALCOHOL WHILE ON THESE MEDICATIONS. PROCEDURE CODES FA211 ESTABILISHED PATIENT [facility] FACILITY CHARGE DISPOSITION & COMMUNICATION FOLLOW UP 3 MONTHS (REASON: MED MANAGEMENT) ELECTRONICALLY SIGNED BY KEV GARDNER ON 12/25/2019 AT 09:29 AM EDT DISCLAIMER : THIS IS A VISIT SUMMARY EXTRACTED FROM THE [employer] CHART. IT IS NOT A COPY OF THE [employer] PROGRESS NOTE. JOEL
== END ==
LOC: M PAIN 09:00
PROVIDERS: ATTEND Nurse Practitioner Family
DX: M96.1 Postlaminectomy syndrome, not elsewhere classified (principal); Z79.891 Long term (current) use of opiate analgesic; Z79.899 Other long term (current) drug therapy; Z88.8 Allergy status to other drugs, medicaments and biological substances; Z87.891 Personal history of nicotine dependence

== ENCOUNTER → 2020-03-26 | Outpatient (CLI) | payer MEDICARE, MEDICAID | LOC: M PAIN 08:56 | PROVIDERS: ATTEND Nurse Practitioner Family | DX: M96.1 Postlaminectomy syndrome, not elsewhere classified (principal); Z79.891 Long term (current) use of opiate analgesic ==

== ENCOUNTER → 2020-06-18 | Outpatient (CLI) | payer MEDICARE, MEDICAID ==
[~2020-06-18] MED LIST changes: +CETI10CH PO; +INCR1INH INH; +LYRI150C PO; +OXYC10TA12 PO; +PRED5TA PO; +PROAAER10 INH; +SILD100T PO
--- NOTE | 2020-06-25 05:20 | ECWPNPC ---
PATIENT NAME: GEORGES LERMA : 1945 GENDER: MALE VISIT DATE: 06/18/2020 DISCHARGE DATE: 06/18/20957 VISIT LOCKED DATE TIME: PHYSICIAN: MANDI PADILLA PHYSICIAN PAGER NO: ACTIVE RESOURCE: MANDI PADILLA REASON FOR APPOINTMENT 1. MED MANAGEMENT HISTORY OF PRESENT ILLNESS GENERAL: - - - HERE FOR FOLLOW-UP OF CHRONIC LOW BACK PAIN WITH A HISTORY OF POST-LAMINECTOMY PAIN SYNDROME. FINDS CURRENT MEDICATION HELPFUL AT REDUCING PAIN AND KEEPING HIM FUNCTIONAL. DENIES ADVERSE EFFECTS WITH HIS MEDICATIONS.-REPORTING NEW ONSET OF SHARP SHOOTING PAIN ACROSS HIS LOWER BACK WHEN HE PUTS PRESSURE ON HIS LEG. THIS HAS BEEN GOING ON FOR A FEW MONTHS. DENIES INJURY. ALSO REPORTING A TWO-WEEK HISTORY OF BOWEL AND BLADDER INCONTINENCE. I'VE ENCOURAGED HIM TO MAKE AN APPOINTMENT SOON POSSIBLE WITH HIS PRIMARY CARE PROVIDER. FALL RISK SCREENING: SCREENING :ONE FALL WITHOUT INJURY IN THE PAST YEAR BRUISED LEFT KNEE HAD TO HAVE HELP GETTING BACK IN RECLINER PAIN SCREENING: PATIENT HAS A COMPLAINT OF ACUTE OR CHRONIC PAIN :YES LOCATION OF PAIN:LOW BACK, LEG(S) INTENSITY OF PAIN (SCALE OF 1 TO 10):6 WHAT DOES YOUR PAIN FEEL LIKE:CONTINOUS, SHARP, SHOOTING DURATION:CONTINOUS NURSING NOTE: - - -PT STATES HE HAS A NEW PAIN WHEN HE PRESSES HIS FOOT ON FLOOR GETS "REAL SHARP PAIN ACROSS MY BACK". PAIN CENTER INTAKE QUESTIONS: DO YOU HAVE A HISTORY OF MRSA? :NO DO YOU TAKE A BLOOD THINNERS? :NO DO YOU HAVE ANY BLEEDING DISORDERS? :NO ANY NEW NUMBNESS OR WEAKNESS IN YOUR LEGS OR ARMS? :YES NEW SHOOTING PAIN ACROSS HIS BACK ANY PACEMAKER,DEFIBRILLATOR, OR DORSAL COLUMN STIMULATOR? :NO DO YOU HAVE ANY RASHES OR OPEN SORES? :NO ARE YOU ALLERGIC TO IV DYE? :NO ARE YOU DIABETIC? :NO ANY NEW PROBLEMS WITH YOUR MEDICATIONS? :NO HAVE YOU RECEIVED A VACCINE IN THE PAST 30 DAYS? :NO DO YOU PLAN TO RECEIVE A VACCINE IN THE NEXT 21 DAYS? :NO DO YOU NEED ANY PRESCRIPTION? :NO DO YOU TAKE ANY IMMUNOSUPPRESSIVE MEDICATIONS? :NO IS THERE A CHANCE YOU COULD BE ? :NO ARE YOU BREAST FEEDING? :NO CURRENT MEDICATIONS TAKING MAY HAVE - - POWER WHEELCHAIR TAKING WHEELCHAIR - MISCELLANEOUS PLEASE REPAIR ELECTRIC WHEELCHAIR ELECTRIC DAILY DX:J44.9 & Z99.81 TAKING MAY HAVE - - REPLACE JOYSTICK, BATTERIES, AND BILATERAL MOTORS PLUS LABOR R09.02, J44.9, Z99.81 LATASHA: [id number] TAKING MAY HAVE - - PORTABLE OXYGEN CONCENTRATOR DIRECTED TAKING SILDENAFIL CITRATE 100 MG TABLET 1/2 TABLET NEEDED 1 HOUR PRIOR TO SEXUAL ACTIVITY ORALLY ONCE A DAY TAKING MUCINEX 600 MG TABLET EXTENDED RELEASE 12 HOUR 1 TABLET NEEDED ORALLY EVERY 12 HRS TAKING ALBUTEROL SULFATE (2.5 MG/3ML) 0.083% NEBULIZATION SOLUTION 3 ML NEEDED INHALATION EVERY 4 HRS, NOTES: FREQUENCY CHANGE TAKING MULTIVITAMIN ADULT - TABLET DIRECTED ORALLY ONCE A DAY TAKING ACIDOPHILUS PROBIOTIC BLEND - CAPSULE DIRECTED ORALLY TID WITH MEALS TAKING FLUTICASONE-SALMETEROL 250-50 MCG/DOSE AEROSOL POWDER BREATH ACTIVATED 1 PUFF INHALATION TWICE A DAY TAKING NEBULIZER/TUBING/MOUTHPIECE - KIT DIRECTED 1 KIT TO USE WITH NEBULIZER [facility] [id number] [facility] [id number] TAKING TRAZODONE HCL 50 MG TABLET 1 TABLET AT BEDTIME NEEDED ORALLY ONCE A DAY TAKING SYNTHROID 112 MCG TABLET 1 TABLET ON AN EMPTY STOMACH IN THE MORNING ORALLY ONCE A DAY TAKING INCRUSE ELLIPTA 62.5 MCG/INH AEROSOL POWDER BREATH ACTIVATED 1 PUFF INHALATION ONCE A DAY TAKING CETIRIZINE HCL 10 MG TABLET 1 TABLET ORALLY ONCE A DAY TAKING PREDNISONE 5 MG TABLET 1 TABLET ORALLY ONCE A DAY TAKING LYRICA 150 MG CAPSULE 1 CAPSULE ORALLY BID MDD2 TAKING ALBUTEROL SULFATE HFA 108 (90 BASE) MCG/ACT AEROSOL SOLUTION 1 PUFF NEEDED INHALATION EVERY 4 HRS TAKING OXYCODONE HCL 10 MG TABLET 1 TABLET ORALLY Q4-6HR NEEDED MDD5, NOTES: STRENGTH AND FREQUENCY CHANGE NOT-TAKING FUROSEMIDE 20 MG TABLET 1 TABLET ORALLY BID NOT-TAKING PERCOCET 10-325 MG TABLET 1 TABLET NEEDED ORALLY Q4-6HR PRN MDD5 NOT-TAKING OXYCODONE HCL 10 MG TABLET 1 TABLET NEEDED ORALLY EVERY 4-6 HOURS NEEDED FOR SEVERE PAIN EPISODES MDD OF 5 NOT-TAKING LYRICA 150 MG CAPSULE 1 CAPSULE ORALLY BID MDD2 NOT-TAKING CAMILLE-BID PROBIOTIC - TABLET DIRECTED ORALLY THREE TIME A DAY MEDICATION LIST REVIEWED AND RECONCILED WITH THE PATIENT PAST MEDICAL HISTORY COPD, END-STAGE, OXYGEN DEPENDENT LOW BACK PAIN HIGH CHOLESTEROL IBS PROSTATE ISSUES EMPHYSEMA HYPOTHYROIDISM COLON CANCER HTN ALLERGIES LOVENOX: RASH - ALLERGY SURGICAL HISTORY TONSILECTOMY 1974 BACK SURGERIES CHIP CATARACT FAMILY HISTORY FATHER: 76 YRS, COLON CA: 76 AT DX, DIAGNOSED WITH UNSPECIFIED HEART DISEASE, OTHER MALIGNANT NEOPLASM OF UNSPECIFIED SITE MOTHER: 81 YRS, GASTRIC CA, UNSPECIFIED HEART DISEASE, DIABETES, OTHER MALIGNANT NEOPLASM OF UNSPECIFIED SITE 3 BROTHER(S) . SOCIAL HISTORY GENERAL: TOBACCO USE ARE YOU A:FORMER SMOKER HOW LONG HAS IT BEEN SINCE YOU LAST SMOKED?1-5 YEARS ADDITIONAL FINDINGS: TOBACCO USERHEAVY CIGARETTE SMOKER (20-39 CIGS/DAY) LATEX QUESTIONNAIRE LATEX ALLERGY : HAVE YOU EVER DEVELOPED ANY TYPE OF REACTION AFTER HANDLING LATEX PRODUCTS SUCH RUBBER GLOVES, CONDOMS, DIAPHRAGMS, BALLOONS, SOCKS, OR UNDERWEAR?NO LATEX ALLERGY : HAVE YOU EVER DEVELOPED ANY TYPE OF REACTION DURING OR AFTER DENTAL APPOINTMENT, VAGINAL/RECTAL EXAMINATION, SURGICAL PROCEDURE, OR ANY OTHER EXPOSURE?NO DATE ASKED : 12/25/2019 LATEX RISK : HAVE YOU EVER HAD ANY DIFFICULTY BREATHING OR HIVES AFTER EATING OR HANDLING ANY FRUITS, OR VEGETABLES; SUCH KIWI, BANANAS, STONE FRUITS, OR CHESTNUTSNO LATEX RISK : DO YOU HAVE A PREVIOUS PERSONAL HISTORY OF MORE THAN NINE SURGERIES, SPINA BIFIDA, OR REPEATED CATHERIZATIONS? NO LATEX RISK : ARE YOU FREQUENTLY EXPOSED TO LATEX PRODUCTS IN YOUR OCCUPATION?NO BMI CARE GOAL FOLLOW-UP ABOVE NORMAL BMI FOLLOW-UPDIETARY MANAGEMENT EDUCATION, GUIDANCE, AND COUNSELING ALCOHOL SCREENING POINTS: 0, INTERPRETATION: NEGATIVE. RECREATIONAL DRUG USE DRUG USE?NO PATIENT DENIES ABUSE OR MISSUSED OF ANY MEDICATION. PATIENT DENIES USE OF ANY ILLEGAL SUBSTANCE INCLUDING MARIJUANA OR COCAINE. CAFFEINE CAFFEINE USE?YES HOW OFTEN AND HOW MUCH? 3-4 CUPS CONFUCIANISM NO JUDAISM BELIEFS THAT WOULD IMPACT HEALTH CARE, NO JUDAISM PREFERENCE. LANGUAGE [place]ET[place]ESE. LEARNING BARRIERS / SPECIAL NEEDS CHANGE FROM LAST VISIT?NO BARRIERS TO LEARNING?NO HEARING IMPAIRED?NO VISION IMPAIRED?YES COGNITIVELY IMPAIRED?NO :CORRECTIVE LENSES READINESS TO LEARN?YES LEARNING PREFERENCES?NO LEARNING CAPABILITIES PRESENT?YES EMOTIONAL BARRIERS?NO SPECIAL DEVICES?YES :WHEELCHAIR PRIMARY EDUCATION PROFESSOR NEEDED?NO OCCUPATION: DISABLED. DIET: REGULAR. EXERCISE: NO REGULAR EXERCISE. MARITAL STATUS: SINGLE. OTHERS AT HOME: NONE. PAIN CLINIC PFS, CLERGY, PUBLIC HEALTH REFERRALS HAS THE PATIENT BEEN EDUCATED REGARDING HIS/HER PLAN OF CARE?YES HAS THE PATIENT BEEN EDUCATED REGARDING PAIN, THE RISK FOR PAIN, THE IMPORTANCE OF EFFECTIVE PAIN MANAGEMENT, AND THE PAIN ASSESSMENT PROCESS?YES ADVANCE DIRECTIVE ADVANCE DIRECTIVE DISCUSSED WITH PATIENT:YES HCP - ON FILE WITH [facility] REVIEWED WITH PATIENT 10/07/18 1057 JSREVIEWED WITH PATIENT 11/10/18 1145 LASREVIEWED WITH PATIENT 02/10/19 1044 NLJREVIEWED WITH PATIENT 05/12/19 1046 JSREVIEWED WITH PATIENT 08/11/2019 0913 JS. HOSPITALIZATION/MAJOR DIAGNOSTIC PROCEDURE PNEUMONIA X3 2015 PNEUMONIA 2016 PNEUMONIA 07/2016 [facility] D/C - REPORTS BEING THERE FOR A YEAR AND A HALF 04/2019 REVIEW OF SYSTEMS CONSTITUTIONAL: ANY RECENT FEVER NO . CHILLS NO . WEIGHT CHANGE OF UNKNOWN REASONS NO . GASTROENTEROLOGY: NEW UNEXPLAINABLE CHANGES IN BOWEL CONTROL NO . CONSTIPATION NO . GENITOURINARY: ANY NEW CHANGE IN BLADDER CONTROL? NO . NEUROLOGY: NEW ONSET DIZZINESS OR NEUROLOGICAL CHANGES NOT MENTIONED NO . NEW NUMBNESS OR PAIN PATTERNS NOT MENTIONED AND PERTINENT TO TODAY'S VISIT NO . CARDIOLOGY: NEW CHEST PRESSURE NO . NEW CHEST PAIN NO . RESPIRATORY: UNEXPLAINABLE COUGH NO . NEW SHORTNESS OF BREATH NO . VITAL SIGNS WT 163 LBS, HT 6'4", BMI 19.84 INDEX, BP 132/72 MM HG, HR 98 /MIN, RR 20 /MIN, TEMP 97.7 F, OXYGEN SAT % 90%, SAFE IN ENV? (Y/N) YES, NA INITIALS ME 09:35, REVIEWED BY: KG. EXAMINATION GENERAL EXAMINATION: GENERALAWAKE,ALERT ,PLEASANT . PSYCHAFFECT NORMAL . LUNGS:LUNG BRASWELL ARE CLEAR TO AUSCULTATION BILATERALLY. GOOD MOVEMENT OF AIR . HEART:S1, S2 IN A REGULAR RATE AND RHYTHM. NO SIGNIFICANT MURMURS, RUBS OR GALLOPS NOTED . ASSESSMENTS POST LAMINECTOMY SYNDROME - M96.1 (PRIMARY) TREATMENT POST LAMINECTOMY SYNDROME CONTINUE LYRICA CAPSULE, 150 MG, 1 CAPSULE, ORALLY, BID MDD2 REFILL OXYCODONE HCL TABLET, 10 MG, 1 TABLET, ORALLY, Q4-6HR NEEDED MDD5, 30 DAYS, 150, REFILLS 0, NOTES: STRENGTH AND FREQUENCY CHANGE NOTES: FOLLOW-UP IS SCHEDULED IN 3 MONTHS. URINE TOXICOLOGY VERSUS ORAL SWAB TOXICOLOGY AT FOLLOW-UP. , ISTOP REGISTRY REVIEWED AND DEMONSTRATES COMPLLIANCE. BRINGS IN MEDICATIONS WHICH IS APPROPRIATE FOR WHAT WAS DISPENSED. RECENT URINE TOXICOLOGY REVIEWED. NO UNAUTHORIZED MEDICATIONS. NO ILLICIT SUBSTANCES AND PRESCRIBED MEDICATIONS WERE PRESENT. PROCEDURE CODES FA211 ESTABILISHED PATIENT [facility] CHARGE DISPOSITION & COMMUNICATION FOLLOW UP 3 MONTHS (REASON: MEDICATION MANAGEMENT/ORAL SWAB TOXICOLOGY) ELECTRONICALLY SIGNED BY KEV GARDNER ON 06/24/2020 AT 08:15 PM EST DISCLAIMER : THIS IS A VISIT SUMMARY EXTRACTED FROM THE [employer] CHART. IT IS NOT A COPY OF THE [employer] PROGRESS NOTE. JOEL
== END ==
LOC: M PAIN 09:30
PROVIDERS: ATTEND Nurse Practitioner Family
DX: M96.1 Postlaminectomy syndrome, not elsewhere classified (principal); J44.9 Chronic obstructive pulmonary disease, unspecified; E03.9 Hypothyroidism, unspecified; Z87.891 Personal history of nicotine dependence; Z88.8 Allergy status to other drugs, medicaments and biological substances; Z79.51 Long term (current) use of inhaled steroids; Z79.899 Other long term (current) drug therapy

== ENCOUNTER 2020-06-27 01:31 | Emergency (ER) | payer MEDICARE, MEDICAID ==
[~2020-06-27] VITALS: Ht 193 cm; Wt 74.5 kg
[~2020-06-27 01:31] MED LIST changes: -CETI10CH PO; -INCR1INH INH; -LYRI150C PO; -OXYC10TA12 PO; -PRED5TA PO; -PROAAER10 INH; -SILD100T PO
[2020-06-27] MEDS ORDERED: methylPREDNISolone 125MG 2ML VIAL IV ONE (02:30)
[2020-06-27] MEDS ORDERED: MORPHINE 4 MG/ML 1ML VIAL/SYRINGE (J2270) IV ONE ×2 (02:45→08:00)
[2020-06-27 03:04] LABS: BASO % 0.3 % (0.0-1.0); EOS % 0.1 % (0.0-3.0); HEMATOCRIT 40.6 % (42.0-52.0); LYMPH # 0.6 10^3/uL (1.5-5.0); LYMPH % 4.7 % (24.0-44.0); MEAN CORPUSCULAR HEMOGLOBIN 30.7 pg (27.0-33.0); MONO # 0.4 10^3/uL (0.0-0.8); MONO % 3.2 % (0.0-5.0); NEUTROPHILS # 12.5 10^3/uL (1.5-8.5); NEUTROPHILS % 91.2 % (36.0-66.0); PLATELET COUNT, AUTOMATED 368 10^3/uL (150-450); RED BLOOD COUNT 4.23 10^6/uL (4.30-6.10); WHITE BLOOD COUNT 13.7 10^3/uL (4.0-10.0)
[2020-06-27 03:24] LABS: INR 1.1; PROTHROMBIN TIME 14.4 SECONDS (12.5-14.3)
[2020-06-27 03:25] LABS: PARTIAL THROMBOPLASTIN TIME 35.5 SECONDS (24.2-38.5)
[2020-06-27 03:35] LABS: ALBUMIN 1.9 GM/DL (3.2-5.2); ALT/SGPT 45 U/L (12-78); BILIRUBIN,DIRECT 0.2 MG/DL (0.0-0.2); BILIRUBIN,TOTAL 0.5 MG/DL (0.2-1.0); BLOOD UREA NITROGEN 28 MG/DL (7-18); CALCIUM LEVEL 7.6 MG/DL (8.8-10.2); CARBON DIOXIDE LEVEL 27 MEQ/L (21-32); CHLORIDE LEVEL 107 MEQ/L (98-107); CK-MB VALUE MASS 1.5 NG/ML (<3.6); CPK CREATINE PHOSPHOKINASE 36 U/L (39-308); CREATININE FOR GFR 1.31 MG/DL (0.70-1.30); GLOMERULAR FILTRATION RATE 57.1 (>42); GLUCOSE, FASTING 116 MG/DL (70-100); LIPASE 68 U/L (73-393); MB/CK RELATIVE INDEX 4.17 (< OR =4); NT-PRO BNP 1529 PG/ML (<125); POTASSIUM SERUM 4.5 MEQ/L (3.5-5.1); SODIUM LEVEL 140 MEQ/L (136-145); TOTAL PROTEIN 6.5 GM/DL (6.4-8.2); TROPONIN I < 0.02 NG/ML (< 0.10)
--- NOTE | 2020-06-27 03:52 | REPVR ---
PROCEDURE INFORMATION: Exam: XR Chest, 1 View Exam date and time: 06/27/2020 2:56 AM Age: 75 years old Clinical indication: Other: R/O pna TECHNIQUE: Imaging protocol: XR of the chest Views: 1 view. COMPARISON: MO Chest, 1 view 04/23/2019 7:38 PM FINDINGS: Lungs: Hyperinflated lungs representing COPD. Bilateral basal increased interstitial markings similar to previous study likely chronic. No focal density to suggest pneumonia. Pleural space: Unremarkable. No pleural effusion. No pneumothorax. Heart/Mediastinum: Unremarkable. No cardiomegaly. Bones/joints: Unremarkable. IMPRESSION: COPD, no acute findings. Electronically signed by: Emma Post On 06/27/2020 03:52:28 AM
[2020-06-27 03:57] LABS: RSV AMPLIFICATION NEGATIVE (NEGATIVE)
[2020-06-27] MEDS ORDERED: ISOVUE-370 76% 100ML VIAL As Ordered ONE (04:12)
[2020-06-27] MEDS: COMBIVENT RESPIMAT 100-20MCG INHALER 4GM INH SCH ×3 (04:21→11:21)
[2020-06-27] MEDS: GASTROGRAFIN SOLUTION 30ML PO SCH ×2 (04:26→04:56)
--- NOTE | 2020-06-27 07:02 | REPVR ---
PROCEDURE INFORMATION: Exam: CT Abdomen And Pelvis With Contrast Exam date and time: 06/27/2020 6:03 AM Age: 75 years old Clinical indication: Abdominal pain; Generalized; Additional info: R/O divertic TECHNIQUE: Imaging protocol: Computed tomography of the abdomen and pelvis with intravenous contrast. Radiation optimization: All CT scans at this facility use at least one of these dose optimization techniques: automated exposure control; mA and/or kV adjustment per patient size (includes targeted exams where dose is matched to clinical indication); or iterative reconstruction. Contrast material: ISO; Contrast volume: 100 ml; Contrast route: INTRAVENOUS (IV); Other contrast: Oral, ggraphin, 600; COMPARISON: CT ABD PELVIS WITH CONTRAST 01/31/2018 4:19 PM FINDINGS: Lungs: Bilateral emphysematous changes with increased interstitial markings likely chronic. Interval resolution of previously seen bibasilar airspace opacities. Heart: Cardiomegaly, partially seen. Liver: Tiny low-attenuation areas in the liver likely tiny cyst. Gallbladder and bile ducts: Gallstones. No ductal dilatation. Distended gallbladder. Pancreas: Mild fatty atrophy of the pancreas. Spleen: Normal. No splenomegaly. Adrenal glands: Hyperplasia of bilateral adrenal glands. Kidneys and ureters: Simple cyst in the left kidney measuring 12 mm. Right kidney is unremarkable. Stomach and bowel: Fluid collection with air in the right pelvis measuring 8.0 x 4.0 x 5.6 cm abutting the right rectum, right distal sigmoid colon and right side of the enlarged prostate representing perirectal abscess with suspected perforation. Perforated track can be seen on image number 06/28/2010 to the left extending to the right rectal abscess. Findings may represent rectal tumor with fistula formation/abscess formation. Thickened sigmoid colon. Large fecal loading in the ascending colon. Distended air-filled transverse, and descending colon.Small bowel is unremarkable. Appendix: No evidence of appendicitis. Intraperitoneal space: Pre sacral edema/fluid. Trace fluid in the pelvis. Vasculature: Moderate atherosclerosis. Lymph nodes: Unremarkable. No enlarged lymph nodes. Urinary bladder: Small focus of air in the urinary bladder likely secondary to recent instrumentation. In absence of recent instrumentation this may represent cystitis. Reproductive: 3.0 x 4.0 cm necrotic area of prostate , may represent an abscess vs necrotic tumor. Findings are best seen on image 109 ,series 201. Air in the urinary bladder may be secondary to recent instrumentation. In absence of recent instrumentation this may represent fistulous communication.Heterogeneous enlarged prostate gland with areas of low-attenuation measuring 8.4 x 7.8 x 6.1 mm. Enlarged heterogeneous prostate is causing mass effect on the urinary bladder with urinary bladder wall thickening likely outlet obstruction. Bones/joints: Mild loss of height of superior endplate of T12 without any retropulsion; chronic. Soft tissues: Decubitus ulcer in bilateral medial gluteal lesion within the skin. IMPRESSION: Fluid collection with air in the right pelvis measuring 8.0 x 4.0 x 5.6 cm abutting the right rectum, right distal sigmoid colon and right side of the enlarged prostate representing perirectal abscess with suspected perforation. Perforated track can be seen on image number 06/28/2010 to the left extending to the right rectal abscess. Findings may represent rectal tumor with fistula formation/abscess formation. Thickened sigmoid colon. Large fecal loading in the ascending colon. Distended air-filled transverse, and descending colon.Small bowel is unremarkable. 3.0 x 4.0 cm necrotic area of prostate , may represent an abscess vs necrotic tumor. Findings are best seen on image 109 ,series 201. Air in the urinary bladder may be secondary to recent instrumentation. In absence of recent instrumentation this may represent fistulous communication.Heterogeneous enlarged prostate gland with areas of low-attenuation measuring 8.4 x 7.8 x 6.1 mm. Enlarged heterogeneous prostate is causing mass effect on the urinary bladder with urinary bladder wall thickening likely outlet obstruction. Distended gallbladder with gallstones. No ductal dilatation. Small focus of air in the urinary bladder likely secondary to recent instrumentation. In absence of recent instrumentation this may represent cystitis. COMMENTS: Consistent with the [employer]'s Incidental Findings Committee white paper (J Am Raymond Radiol 2018): Any incidental renal lesion less than 1 cm or classified as too small to characterize, or any incidental cystic renal lesion characterized as simple-appearing, is likely benign. No follow-up imaging is recommended for these lesions per consensus recommendations based on imaging criteria. Electronically signed by: Emma Post On 06/27/2020 07:02:18 AM
[2020-06-27] MEDS ORDERED: metroNIDAZOLE 500 MG in IV 1 EA IV ONE (07:15)
[2020-06-27] MEDS ORDERED: CIPROFLOXACIN 400 MG in IV 1 EA IV ONE (07:15)
[2020-06-27] MEDS ORDERED: NS 1,000 ML IV SCH (07:45)
--- NOTE | 2020-06-27 07:46 | ED PDOC ---
Post-Departure Follow-Up 75 yo M witha history of rectal cancer s/p radiotherapy, HTN, COPD on 4L NC, HLD , IBS, and hypothyroidism presents with abdominal pain. He reports that his symptoms began 3-4 hours prior to arrival with severe LLQ pain that radiates to his RLQ . He is on Oxycodone 10MG for his chronic pain, and took it without relief. His associated symptoms include diarrhea, chronic cough and chronic SOB. He denies fever, chills, increased sweating, nausea, vomiting, bloody stool, CP, or other symptoms. He is acute distress due to pain, and has diffuse abdominal tenderness that is worse in the LLQ. He is voluntarily guarding his abdomen, and has a nickel size stage II ulcer. He is afebrile, hemodynamically stable and chronically ill appearing. Labs, imaging and EKG were obtained. His w/u was notable for a perirectal abscess with possible perforation. Surgery was consulted. he ws started on abx ad IVF. SHEREE MADRIGAL MD Jun 27, 2020 07:46
[2020-06-27] MEDS ORDERED: RISATAB3 PO (09:03)
[2020-06-27] MEDS ORDERED: ADV250INH INH (09:03)
[2020-06-27] MEDS ORDERED: SILD100T PO (09:03)
[2020-06-27] MEDS ORDERED: ALBU83IN INH (09:03)
[2020-06-27] MEDS ORDERED: PRED5TA PO (09:43)
[2020-06-27] MEDS ORDERED: LYRI150C PO (09:43)
[2020-06-27] MEDS ORDERED: PROAAER10 INH (09:43)
[2020-06-27] MEDS ORDERED: FURO20TA2 PO (09:43)
[2020-06-27] MEDS ORDERED: CETI10CH PO (09:43)
[2020-06-27] MEDS ORDERED: INCR1INH INH (09:43)
[2020-06-27] MEDS ORDERED: OXYC10TA12 PO (09:47)
--- NOTE | 2020-06-27 10:15 | CR ---
CONSULTATION DATE: 06/27/2020 HISTORY OF PRESENT ILLNESS: I was asked to take a look at some x-rays on a 75-year-old male who has undergone palliative chemoradiation for rectal cancer. Essentially was deemed not an operative candidate by previous surgeon who had seen him because of his advanced O2 dependent COPD, who has had numerous exacerbations of his COPD over the last year and who presents with abdominal pain, discomfort and evidence of perirectal abscess and localized perforation. The patient's white count is elevated to 13.7 and he is complaining of abdominal distention. I reviewed the CT scan in the emergency room with the ER provider and what I see is a significant perirectal abscess, thickening within the rectum itself near the prostate and some air on the left side of the rectum as well. There is question whether this is a fistula formation as is the concern with the CT scan report and initially there was some comment about possible free perforation. However, I am not appreciating any on the lung windows and on the abdominal films he has a significant amount of air distention of the colon but not seeing any additional air outside of the bowel. In any case, my recommendation to the ER provider is that this, given the patient's previous past medical history and specifically with this being palliative situation, that percutaneous drainage is most appropriate, possibly even rectal stenting if necessary, but I anticipate this will need to at least be percutaneously drained and that may provide resolution of his more proximal bowel distention which I feel is most likely related to the abscess formation and thus would recommend transfer to a facility that provides interventional radiology plus or minus stripper color who could perform a rectal stent if necessary.
[2020-06-27 12:00] VITALS: BP 104/57
--- NOTE | 2020-06-28 08:02 | ECGEPIP ---
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
== END 2020-06-27 12:16 | disposition short-term general hospital (02) ==
LOC: M ED 01:31
DX: K61.1 Rectal abscess (principal); N40.1 Benign prostatic hyperplasia with lower urinary tract symptoms; K59.00 Constipation, unspecified; K80.20 Calculus of gallbladder without cholecystitis without obstruction; R94.31 Abnormal electrocardiogram [ECG] [EKG]; R06.02 Shortness of breath; R09.89 Other specified symptoms and signs involving the circulatory and respiratory systems; L89.152 Pressure ulcer of sacral region, stage 2; Z85.040 Personal history of malignant carcinoid tumor of rectum; Z92.21 Personal history of antineoplastic chemotherapy; Z92.3 Personal history of irradiation; J44.9 Chronic obstructive pulmonary disease, unspecified; Z99.81 Dependence on supplemental oxygen; Z79.899 Other long term (current) drug therapy; Z88.8 Allergy status to other drugs, medicaments and biological substances
CPT/HCPCS: 71045; 74177; 80048; 80076; 82550; 82553; 83690; 83880; 84484; 85025; 85610; 85730; 87631; 93005; 93041; 94640; 96365; 96367; 96374; 96375; 96376; 99285; J0744; J2270; J2930; Q9963; Q9967